=== PATIENT | male | born 1980 | race Two or more races ===

== ENCOUNTER 2017-08-20 14:00 | Inpatient (IN) | payer MEDICAID, OTHER ==
[~2017-08-20] VITALS: Ht 162.6 cm; Wt 48.1 kg
[2017-08-20] VITALS (17 sets, daily range): BP systolic 78–138; BP diastolic 53–88
--- NOTE | 2017-08-20 14:00 | NUR ---
[id number] FROM APARTMENT FOR AMS, POSSIBLE OD OF TRAZODONE MIXED W/ WINE BS-89MG/DL. FRIEND CAME TO HER APARTMENT AND FOUND HER UNCONCSIOUS. PATIENT TRANSFERRED TO BED, ON NON-REBREATHER AT BEDSIDE, PREPARED FOR INTUBATION.
--- NOTE | 2017-08-20 14:02 | NUR ---
PATIENT INTUBATED: ET 7.5, 23 AT THE LIP VENT SETTINGS: AC 16, TV 550, FIO2 100% PEEP 8
--- NOTE | 2017-08-20 14:25 | NUR ---
UNABLE TO INSERT PETERS CATHER AT THIS TIME D/T COMPLICATED ANATOMY, AWARE.
[2017-08-20] MEDS ORDERED: IV NS 0.9% 1,000 ML BAG IV ONE (14:30)
[2017-08-20] MEDS ORDERED: ETOMIDATE 2 MG/ML VIAL IV ONE (14:30)
[2017-08-20] MEDS ORDERED: SUCCINYLCHOLINE CHLORIDE 20 MG/ML VIAL IV ONE (14:30)
[2017-08-20 14:38] LABS: BASOPHILS % (AUTO) 0.1 % (0.0-2.0); HEMATOCRIT 35 % (39-51); HEMOGLOBIN 11.8 g/dL (13.5-17.5); LYMPHOCYTES # (AUTO) 0.7 /CMM (0.8-4.8); LYMPHOCYTES % (AUTO) 6.8 % (20.0-44.0); MEAN CORPUSCULAR HEMOGLOBIN 32 PG (26.0-33.0); MEAN CORPUSCULAR HGB CONC 34 g/dl (31.0-36.0); MEAN CORPUSCULAR VOLUME 95 fL (80-96); MONOCYTES # (AUTO) 0.5 /CMM (0.1-1.30); MONOCYTES % (AUTO) 5.2 % (2.0-12.0); NEUTROPHILS # (AUTO) 9.2 /CMM (1.8-8.9); NEUTROPHILS % (AUTO) 87.9 % (43.0-81.0); PLATELET COUNT (AUTO) 222 /CMM (150-450); RED BLOOD CELL COUNT(AUTO) 3.67 MIL/uL (4.5-6.0); WHITE BLOOD COUNT (AUTO) 10.4 K/uL (4.3-11.0)
[2017-08-20 14:45] LABS: ABG PCO2 38.2 mmHg (35.0-45.0); ABG PH 7.253 (7.350-7.450); ABG PO2 89.6 mmHg (75.0-100.0); AaDO2 585.2 mmHg; COHb 0.4 % (0.5-1.5); MetHb 0.5 % (0.0-1.5); O2Hb 93.2 % (94.0-97.0); PEEP,BG 8 cm H2O; SITE, ABG Left Brachial; VT, ABG 550 mL
[2017-08-20 14:48] LABS: CALCIUM, SERUM 7.4 mg/dL (8.5-10.1); CREATININE 0.8 mg/dL (0.6-1.3); POTASSIUM 3.7 mmol/L (3.5-5.1)
[2017-08-20 14:53] LABS: ALBUMIN 2.8 g/dL (3.4-5.0); BILIRUBIN,TOTAL 0.3 mg/dL (0.2-1.0); TOTAL PROTEIN, SERUM 5.9 g/dL (6.4-8.2)
[2017-08-20 14:54] LABS: SALICYLATE 0.5 mg/dL (2.8-20.0)
--- NOTE | 2017-08-20 14:55 | NUR ---
PATIENT TAKEN TO CT
[2017-08-20] MEDS ORDERED: IV NS 0.9% 1,000 ML IV ONE ×2 (15:00→15:30)
--- NOTE | 2017-08-20 15:05 | NUR ---
PATIENT RETURNED FROM CT.
[2017-08-20] MEDS ORDERED: PIPERACILLIN /TAZOBACTAM 3.375 G in IV D5W 50 ML IV ONE (15:30)
[2017-08-20] MEDS ORDERED: ETOMIDATE 2 MG/ML VIAL ONE (15:43)
[2017-08-20] MEDS ORDERED: SUCCINYLCHOLINE CHLORIDE 20 MG/ML VIAL ONE (15:43)
--- NOTE | 2017-08-20 15:50 | NUR ---
14 FR NG TUBE INSERTED, CONFIRMED PLACEMENT VIA AUSCULTATION WITH 2 RNS. INTERMITTENT SUCTIONING CONNECTED. 400 ML RED FLUID SUCTIONED OUT, PATIENT DRANK BOTTLE OF WINE PRIOR TO ARRIVAL.
[2017-08-20] MEDS ORDERED: IV NS 0.9% 1,000 ML IV PRN ×2 (15:58→18:00)
[2017-08-20] MEDS ORDERED: MAG HYDROX/AL HYDROX/SIMETH 30 ML UDC PO PRN (16:00)
[2017-08-20] MEDS ORDERED: ZOLPIDEM TARTRATE 5 MG TABLET PO PRN (16:00)
[2017-08-20] MEDS ORDERED: MAGNESIUM HYDROXIDE 30 ML UDC PO PRN (16:00)
--- NOTE | 2017-08-20 16:27 | NUR ---
REPORT GIVEN TO RUBY ACOSTA FOR GLORIA UPON ADMISSION.
--- NOTE | 2017-08-20 16:45 | NUR ---
LEAD COOK- INITIAL NOTE RECEIVED PT FROM ER VIA ARTHUR. PT ORALLY INTUBATED ETT 7.5, 23 @ THE LIP. OGT PRESENT AND CLAMPED. RAC 18G & LAC 20G HL FLUSHED, PATENT AND INTACT. SAFETY MEASURES TAKEN: BED LOCKED AND IN LOW POSITION, SIDE RAILS UP X2 AND BED ALARM ON, WILL CONTINUE TO MONITOR.
--- NOTE | 2017-08-20 16:59 | NUR ---
PATIENT TRANSPORTED TO ICU 253, VIA ACLS PROTOCOL. RNRUBY TO PROVIDE GLORIA.
--- NOTE | 2017-08-20 17:12 | NUR ---
RT PATIENT REC'D ORALLY INTUBATED WITH A 7.5 ETT SECURED VIA ANCHOR FAST AT 23CM MID LIP. CHEST X-RAY CONFIRMED PROPER PLACEMENT. VENT SETTINGS SET PER MD DR VEGA: AC 16, 550, 100% +8 PEEP. VENT ALARMS CHECKED + AUDIBLE. VENT PLUGGED INTO RED OUTLET. BILAT CHEST RISE NOTED. B/S DIM BILAT. SUCTIONED WITH NO SECRETIONS. AMBU BAG AT HOB. Addendum: 08/20/17 at 1715 by BRYNN BARBER RT Amended: Links added.
--- NOTE | 2017-08-20 17:25 | NUR ---
EMPLOYMENT DIRECTOR- CALLED AND SPOKE TO DR. SMITH. INFORMED MD OF THE FOLLOWIN) PT BP DROPPING FROM 90S TO HIGH 80S, 2) 1430 LACTIC ACID RESULT IS 5.9 AND 3) PT'S CORE TEMPERATURE IS 90.7. OBTAINED ORDERS FOR 1) NS 1L BOLUS X1, 2) INCREASE IVF TO 125 ML/HR, 3) OK FOR RUPAL HUGGER AND 4) REPEAT LACTIC ACID NOW. ALL ORDERS PLACED. WILL CONTINUE TO MONITOR.
[2017-08-20] MEDS: PANTOPRAZOLE 40 MG VIAL IV SCH (17:49)
[2017-08-20] MEDS: IV NS 0.9% 1,000 ML IV PRN (17:49)
[2017-08-20] MEDS: ENOXAPARIN SODIUM 40 MG/0.4 ML DISP.SYRIN SQ SCH (17:51)
[2017-08-20] MEDS ORDERED: FEE PK DOSING 1 MIN EA MC ONE (18:19)
[2017-08-20] MEDS: VANCOMYCIN 1.25 GM in IV D5W 500 ML IV SCH (19:46)
--- NOTE | 2017-08-20 20:00 | NUR ---
received pt from day shift, s/p overdose, lethargic, responds to pain stimuli only, ST, on the vent, intubated, lungs clear, no edema, restraints on, diaper, temp in normal now, was 90.7 at the time of admission, OG to LIS some output, v/s stable,no pain, pt turned and repositioned.
--- NOTE | 2017-08-20 21:30 | NUR ---
PT HR 162, Dr media liaison officer called, order for metoprolol 5mg ivp received and carried out.
--- NOTE | 2017-08-20 21:45 | NUR ---
HR 123.
[2017-08-20] MEDS: METOPROLOL TARTRATE INJ 5 MG/5 ML AMPUL IVP PRN (22:28)
[2017-08-20] MEDS ORDERED: METOPROLOL TARTRATE INJ 5 MG/5 ML AMPUL ONE (22:31)
[2017-08-20] MEDS: PIPERACILLIN /TAZOBACTAM 3.375 G in IV D5W 50 ML IV SCH (22:32)
[2017-08-20] MEDS: PROPOFOL 100 ML IV PRN (23:00)
--- NOTE | 2017-08-20 23:00 | NUR ---
Tylenol 650mg given
--- NOTE | 2017-08-20 23:00 | NUR ---
pt temp up to 103.2 cooling measures started, pt on cooling blanket.
--- NOTE | 2017-08-20 23:15 | NUR ---
pt starts waking up pulling lines and tubes Diprivan started at 5mcg.
[2017-08-20] MEDS ORDERED: ACETAMINOPHEN 650 MG/20.3 ML UDC ONE (23:34)
[2017-08-20] MEDS: ACETAMINOPHEN 650 MG/20.3 ML UDC NG PRN (23:36)
[2017-08-21] VITALS (98 sets, daily range): BP systolic 70–135; BP diastolic 36–78
--- NOTE | 2017-08-21 00:37 | NUR ---
pt is resting in the bed, sedated on Diprivan at 10mcg, ST, temp 101.5, v/s stable, no pain, pt turned and repositioned q2hrs.
[2017-08-21] MEDS: IV NS 0.9% 1,000 ML IV PRN ×3 (00:53→18:01)
--- NOTE | 2017-08-21 01:06 | NUR ---
pt SBP 73-82 Dr configuration management advisor called, order for jan received and carried out.
[2017-08-21] MEDS ORDERED: PHENYLEPHRINE 10 MG/ML VIAL ONE ×2 (01:07→01:10)
[2017-08-21] MEDS: PHENYLEPHRINE 80 MG in IV D5W 250 ML IV PRN ×2 (01:20→10:00)
[2017-08-21] MEDS: PIPERACILLIN /TAZOBACTAM 3.375 G in IV D5W 50 ML IV SCH ×4 (03:55→22:12)
[2017-08-21] MEDS: VANCOMYCIN 1.25 GM in IV D5W 500 ML IV SCH ×3 (04:32→19:53)
--- NOTE | 2017-08-21 04:52 | NUR ---
pt is resting in the bed, sedated on Diprivan at 20mcg, receiving jan at 40mcg, v/s stable, no pain, v/s stable, no pain, pt cleaned, changed and repositioned q2hrs.
[2017-08-21 05:15] LABS: HEMATOCRIT 34 % (39-51); HEMOGLOBIN 11.4 g/dL (13.5-17.5); MEAN CORPUSCULAR HEMOGLOBIN 32 PG (26.0-33.0); MEAN CORPUSCULAR HGB CONC 34 g/dl (31.0-36.0); MEAN CORPUSCULAR VOLUME 96 fL (80-96); PLATELET COUNT (AUTO) 153 /CMM (150-450); RDW COEFFICIENT OF VARIATION 13.2 (11.5-15.0); RED BLOOD CELL COUNT(AUTO) 3.54 MIL/uL (4.5-6.0); WHITE BLOOD COUNT (AUTO) 4.3 K/uL (4.3-11.0)
[2017-08-21 05:16] LABS: BASOPHILS % (AUTO) 0.3 % (0.0-2.0); LYMPHOCYTES # (AUTO) 1.1 /CMM (0.8-4.8); LYMPHOCYTES % (AUTO) 25.3 % (20.0-44.0); MONOCYTES # (AUTO) 0.2 /CMM (0.1-1.30); MONOCYTES % (AUTO) 4.5 % (2.0-12.0); NEUTROPHILS % (AUTO) 69.9 % (43.0-81.0)
[2017-08-21 05:36] LABS: ALBUMIN 2.5 g/dL (3.4-5.0); BILIRUBIN,TOTAL 0.3 mg/dL (0.2-1.0); CALCIUM, SERUM 7.5 mg/dL (8.5-10.1); CREATININE 0.9 mg/dL (0.6-1.3); MAGNESIUM 1.5 mg/dL (1.8-2.4); PHOSPHORUS 3.9 mg/dL (2.5-4.9); POTASSIUM 3.8 mmol/L (3.5-5.1); TOTAL PROTEIN, SERUM 5.7 g/dL (6.4-8.2)
--- NOTE | 2017-08-21 07:15 | NUR ---
TALENT PROGRAM MANAGER NOTES RECEIVED PATIENT SEDATED , NOT IN ACUTE DISTRESS , RESPIRATIONS EVEN AND UNLABORED WITH SPO2 OF 100% VIA MECHANICAL VENTILATOR SETTINGS ORDERED . ET 7.[address] , ST 125 ON BEDSIDE MONITOR , ORAL GASTRIC TUBE IN PLACE VERIFIED PLACEMENT , IV OF R AC # 18 , L AC # 20 , L EJ # 18 PATENT AND INTACT , WITH NS @ 125ML/HR , DIPRIVAN @ 20MCG/KG/MIN , NEOSYNEPRINE @ 40MCG/MIN INFUSING WELL , ALL NEEDS ATTENDED , BED ON LOW AND LOCKED POSITION , SIDE RAILS X2 ,CALL LIGHT WITHIN REACH , HOB@ 45 , WILL CONTINUE TO MONITOR .
[2017-08-21] MEDS: PANTOPRAZOLE 40 MG VIAL IV SCH (08:19)
[2017-08-21] MEDS: PROPOFOL 100 ML IV PRN ×2 (08:19→20:52)
[2017-08-21] MEDS: ACETAMINOPHEN 650 MG/20.3 ML UDC NG PRN ×2 (08:19→15:01)
--- NOTE | 2017-08-21 09:30 | NUR ---
AUDITING CODER NOTES SEEN AND EVALUATED BY DR DANIELS , DISCUSSED RECENT VITALS SIGNS , HYPOTENSIVE , BP OF 84/64 , O NORSYNEPHRINE @ 20MCG /MIN , CAME HERE DUE TO OVERDOSE WITH TRAZADONE UNKNOWN AMOUNT WITH WINE , OFF SEDATION @ 0900 , PT STILL UNRESPONSIVE , T MAX OF 100.5 , ON COOLING MATTRESS , TOLERATING CURRENT VENT SETTINGS WITH SPO2 OF 100% , PER MD GIVE ANOTHER 1L OF NS WIDE OPEN , ORDERS CARRIED OUT
[2017-08-21] MEDS ORDERED: IV NS 0.9% 1,000 ML IV ONE (10:00)
--- NOTE | 2017-08-21 11:15 | NUR ---
CLIENT SERVICE ASSOCIATE NOTES SEEN AND EVALUATED BY DR SMITH , DISCUSSED LABS , CHEST XRAY , TOLERATING CURRENT VENT SETTINGS , OFF SEDATION AT THIS TIME , RESPONSIVE TO DEEP PAIN STIMULI , FEBRILE YESTERDAY , CURRENT TEMP OF 98. 8 , UNABLE TO INSERT MD CUATE AWARE
--- NOTE | 2017-08-21 11:21 | NUR ---
ELECTROMECHANICAL TECHNICIAN NOTES DR SMITH AND TAVARES SIGNED THE CONSENT FOR EMERGENCY PICC LINE INSERTION , CALLED MARY RHOADES , VERIFIED RELATIONSHIP TO THE PT , OK MARY PATIENT IS HER ROOMMATE , NO AVAILABLE RELATIVES TO REACH AT THIS TIME
--- NOTE | 2017-08-21 11:24 | NUR ---
MARKETING SENIOR RECRUITER NOTES FIO2 TITRATED TO 40% PEEP TO 5 WITH SPO2 OF 100 TOLERATING WELL , WITH NO S/S OF DISTRESS , WILL CONTINUE TO MONITOR
[2017-08-21] MEDS: Magnesium 1GM/D5W 100ML PREMIX 100 ML IV SCH ×3 (11:38→12:43)
--- NOTE | 2017-08-21 11:40 | NUR ---
DYNAMO TENDER NOTES SEEN AND EVALUATED BY DR SMITH , DISCUSSED LABS , OFF NEOSYNEPRINE SINCE 1030 WITH STABLE BP , OFF SEDATION @ 0900 STILL SEDATED RESPONSIVE TO DEEP PAIN STIMULI , T MAX OF 100.5 THIS AM , COOLING BLANKET APPLIED , CONDOM CATH PLACED , UNABLE TO INSERT FC DUE TO SMALL URETHRAL OPENING , AWARE
--- NOTE | 2017-08-21 14:00 | NUR ---
CORRECTIONS LIEUTENANT NOTES KEN CHARGE NURSE NOTIFIED DR SMITH REGARDING PT HIV STATUS PER ROOM MATE , ROOM MATE WILL BRING LIST OF MEDICATIONS THAT PT IS TAKING .
[2017-08-21] MEDS: ENOXAPARIN SODIUM 40 MG/0.4 ML DISP.SYRIN SQ SCH (19:56)
--- NOTE | 2017-08-21 20:09 | NUR ---
received pt from day shift, obtunded/lethargic, responds to pain stimuli, ST, on the vent, lungs congested, no edema, condom cath, diaper, OG clamped, restraints on, v/s stable, no pain, pt turned and repositioned.
[2017-08-22] VITALS (53 sets, daily range): BP systolic 92–134; BP diastolic 53–81
--- NOTE | 2017-08-22 00:18 | NUR ---
pt is resting in the bed, restarted on Diprivan because of tachypnea and tachycardia, pt was able to pull lines and tubes, ST, v/s stable, no pain, pt turned and repositioned q2hrs.
[2017-08-22] MEDS: ACETAMINOPHEN 650 MG/20.3 ML UDC NG PRN (01:01)
[2017-08-22] MEDS: PIPERACILLIN /TAZOBACTAM 3.375 G in IV D5W 50 ML IV SCH ×4 (04:24→22:25)
--- NOTE | 2017-08-22 04:35 | NUR ---
pt is resting in the bed, sedated on Diprivan at 20mcg, v/s stable, no pain, pt cleaned, changed and reposition q2hrs.
[2017-08-22] MEDS: IV NS 0.9% 1,000 ML IV PRN ×2 (04:52→18:36)
[2017-08-22] MEDS: VANCOMYCIN 1.25 GM in IV D5W 500 ML IV SCH ×3 (04:53→20:16)
[2017-08-22] MEDS: PROPOFOL 100 ML IV PRN (04:54)
[2017-08-22 05:31] LABS: HEMATOCRIT 30 % (39-51); HEMOGLOBIN 10.2 g/dL (13.5-17.5); LYMPHOCYTES # (AUTO) 1.4 /CMM (0.8-4.8); MEAN CORPUSCULAR HEMOGLOBIN 33 PG (26.0-33.0); MEAN CORPUSCULAR HGB CONC 34 g/dl (31.0-36.0); MEAN CORPUSCULAR VOLUME 97 fL (80-96); MONOCYTES # (AUTO) 0.4 /CMM (0.1-1.30); MONOCYTES % (AUTO) 2.6 % (2.0-12.0); NEUTROPHILS # (AUTO) 12.1 /CMM (1.8-8.9); NEUTROPHILS % (AUTO) 87.4 % (43.0-81.0); PLATELET COUNT (AUTO) 152 /CMM (150-450); RDW COEFFICIENT OF VARIATION 12.8 (11.5-15.0); RED BLOOD CELL COUNT(AUTO) 3.11 MIL/uL (4.5-6.0); WHITE BLOOD COUNT (AUTO) 13.9 K/uL (4.3-11.0)
[2017-08-22 05:53] LABS: CALCIUM, SERUM 7.9 mg/dL (8.5-10.1); CREATININE 0.8 mg/dL (0.6-1.3); MAGNESIUM 2.3 mg/dL (1.8-2.4); PHOSPHORUS 1.9 mg/dL (2.5-4.9); POTASSIUM 3.6 mmol/L (3.5-5.1)
--- NOTE | 2017-08-22 07:30 | NUR ---
HEAD OF HOUSEKEEPING INITIAL NOTES RECEIVED PATIENT IN BED SEDATED, ON DIPRIVAN DRIP 20 MCG, COMFORTABLE, RESPONDS TO PAIN STIMULI, SR ON TELE MONITOR 99 HR, ON VENT SETTINGS ORDERED, CONGESTION IN LUNGS NOTED, SUCTIONED, OG CLAMPED, RESTRAINTS ON, CONDOM CATHETER ON DRAINING YELLOW CLEAR URINE, PATIENT TURNED AND REPOSITION, WILL CONTINUE TO MONITOR.
--- NOTE | 2017-08-22 09:15 | NUR ---
DRAWING KILN SUPERVISOR NOTES SEDATION VACATION, DIPRIVAN DECREASED PER PROTOCOL. WEANING STARTED, PATIENT MOVING EXTREMITIES ABLE TO OPEN EYES SLIGHTLY AND FOLLOW SOME COMMANDS. NO DISTRESS NOTED SOME ST 110S-130S NOTED DR DANIELS MADE AWARE, OK TO CONTINUE WEANING.
[2017-08-22] MEDS ORDERED: DC PROPOFOL WHEN EXTUBATED XX PRN (10:00)
--- NOTE | 2017-08-22 10:19 | NUR ---
pt placed on simv mode per md order. raymundo well at this time. alarms set and audible. ambu bag at head of bed Addendum: 08/22/17 at 1020 by UMER MILLIGAN RT Amended: Links added.
[2017-08-22] MEDS: PANTOPRAZOLE 40 MG VIAL IV SCH (10:40)
[2017-08-22 11:28] LABS: ABG BASE EXCESS -2.5 mmol/L; ABG OXYGEN SATURATION 97.5 % (92.0-98.5); ABG PCO2 35.1 mmHg (35.0-45.0); ABG PH 7.408 (7.350-7.450); ABG PO2 119.1 mmHg (75.0-100.0); AaDO2 125.7 mmHg; COHb 0.2 % (0.5-1.5); MetHb 0.6 % (0.0-1.5); O2Hb 96.7 % (94.0-97.0); PEEP,BG 5 cm H2O; SITE, ABG Right Radial; VENT MODE, BG SIMV 4 550 PS12; VT, ABG 550 mL
[2017-08-22 12:27] LABS: BAND % (MANUAL) 3 % (0.0-5.0); LYMPHOCYTES % (MANUAL) 8 % (16-48); MONOCYTES % (MANUAL) 2 % (0-11.0); NEUTROPHILS % (MANUAL) 87 (42-76)
--- NOTE | 2017-08-22 13:48 | NUR ---
ELECTRIC LOCOMOTIVE FIRER/FIREMAN NOTES PATIENT SEEN BY DR DANIELS, NEW ORDERS GIVEN.
--- NOTE | 2017-08-22 14:53 | NUR ---
FELIPE called pt's friend Mary Ann to discuss if pt. has any family and for a social assessment since pt. is intubated. Mary Ann informed FELIPE that pt. is transgender and goes by the name "Cynthia Willoughby". However, pt. likes to be called "Fartun". Per Mary Ann, pt's mother and brother are in [facility] and pt. has a on and off again relationship with them. 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 Mary Ann informed FELIPE that on day of admission to [facility], pt. was on the phone with a friend on social media who was concerned that pt. was intentionally going to commit suicide by taking pills and drinking alcohol. Pt. had a fight with his boyfriend and decided to take the pills with the alcohol. Pt's friend from [place] contacted Mary Ann and informed her about pt. attempting suicide. Pt. was found by Mary Ann's unconscious on the floor of his apartment. 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 FELIPE contacted ICU CRNaeem Comer and informed her that pt. had intentionally attended suicide and will need a sitter bedside. FELIPE updated case management coordinator Verenice Ramirez regarding aforementioned information. FELIPE to asses pt. bedside tomorrow.
--- NOTE | 2017-08-22 15:15 | NUR ---
ADOPTION COUNSELOR NOTES PATIENT EXTUBATED, PATIENT MONITORED CLOSELY, VSS STABLE, NO SIGNS OF DISTRESS OR SHORTNESS OF BREATH, CLEANED AND REPOSITIONED, PATIENT AROUSABLE AND ABLE TO FOLLOW COMMANDS, REORIENTED TO UNIT DOES NOT REMEMBER HOW SHE ENDED UP IN HOSPITAL, BED IN LOW AND LOCKED POSITION, WILL CONTINUE TO MONITOR.
[2017-08-22] MEDS ORDERED: Sodium Phosphate 15 MMOL in IV D5W 250 ML IV ONE (15:30)
[2017-08-22] MEDS: ACETAMINOPHEN 325 MG TABLET PO PRN (17:57)
--- NOTE | 2017-08-22 18:02 | NUR ---
AUTO BODY MAN NOTES [ATIENT CO OF HEADACHE AND TEMP 100.4 TYLENOL GIVEN WILL CONTINUE TO MONITOR.
--- NOTE | 2017-08-22 18:58 | NUR ---
PICKLING TANK OPERATOR END NOTES PATIENT RESTING IN BED, FRIEND AT THE BEDSIDE, NO SIGNS OF DISTRESS, ALL NEEDS MET WILL ENDORSE TO CONSTRUCTION REPRESENTATIVE.
[2017-08-22] MEDS: ENOXAPARIN SODIUM 40 MG/0.4 ML DISP.SYRIN SQ SCH (20:17)
[2017-08-23] VITALS (28 sets, daily range): BP systolic 109–140; BP diastolic 55–92
[2017-08-23] MEDS ORDERED: ACETAMINOPHEN 650 MG/SUPP.RECT RC ONE (01:03)
[2017-08-23] MEDS: ACETAMINOPHEN 650 MG/SUPP.RECT RC PRN (01:04)
[2017-08-23 01:14] LABS: ABG OXYGEN SATURATION 94.1 % (92.0-98.5); ABG PCO2 36.9 mmHg (35.0-45.0); ABG PH 7.401 (7.350-7.450); AaDO2 601.1 mmHg; COHb 0.3 % (0.5-1.5); MetHb 0.5 % (0.0-1.5); O2Hb 93.3 % (94.0-97.0); SITE, ABG Left Radial; VENT MODE, BG NRB
--- NOTE | 2017-08-23 01:15 | NUR ---
PUBLIC ADMINISTRATION TEACHER: PT IS TACHYPNEIC, DESATURATING TO 89 WITH 4 L NASAL CANNULA, TEMP 101.1, NOTIFIED LANDEN KELLY, ORDERS FOR STAT ABG DONE, TYLENOL 650 MG SUPPOSITORY RECTALLY GIVEN. COOLING MEASURES APPLIED. KEEP MONITORING....
--- NOTE | 2017-08-23 01:57 | NUR ---
VIBRATOR OPERATOR: ABG DONE , LOOKS NORMAL. PT ON NON REBREATHER MASK SATURATING 100%, TYLENOL SUPPOS GIVEN. KEEP MONITORING....
--- NOTE | 2017-08-23 02:54 | NUR ---
SETTER INDUCTION HEATING EQUIPMENT; REASSESSMENT, TEMP 100, HEART RATE 100-110, RR 20-25, SATURATING 100% WITH NON REBREATHER MASK 15 L, NO DISTRESS, PT COMFORTABLY SLEEPING WITH SITTER 1:1. KEEP MONITORING....
[2017-08-23] MEDS: PIPERACILLIN /TAZOBACTAM 3.375 G in IV D5W 50 ML IV SCH ×4 (03:31→22:39)
[2017-08-23] MEDS: VANCOMYCIN 1.25 GM in IV D5W 500 ML IV SCH ×3 (04:10→20:03)
[2017-08-23] MEDS: IV NS 0.9% 1,000 ML IV PRN (04:11)
[2017-08-23 06:24] LABS: CALCIUM, SERUM 7.8 mg/dL (8.5-10.1); CREATININE 0.7 mg/dL (0.6-1.3); MAGNESIUM 1.7 mg/dL (1.8-2.4); PHOSPHORUS 2.5 mg/dL (2.5-4.9)
[2017-08-23 06:35] LABS: BASOPHILS % (AUTO) 0.2 % (0.0-2.0); EOSINOPHILS % (AUTO) 0.1 % (0.0-6.0); HEMATOCRIT 27 % (39-51); HEMOGLOBIN 9.1 g/dL (13.5-17.5); LYMPHOCYTES % (AUTO) 14.5 % (20.0-44.0); MEAN CORPUSCULAR HEMOGLOBIN 32 PG (26.0-33.0); MEAN CORPUSCULAR HGB CONC 33 g/dl (31.0-36.0); MEAN CORPUSCULAR VOLUME 97 fL (80-96); MONOCYTES # (AUTO) 0.4 /CMM (0.1-1.30); NEUTROPHILS # (AUTO) 11.3 /CMM (1.8-8.9); NEUTROPHILS % (AUTO) 82.2 % (43.0-81.0); PLATELET COUNT (AUTO) 160 /CMM (150-450); RED BLOOD CELL COUNT(AUTO) 2.81 MIL/uL (4.5-6.0); WHITE BLOOD COUNT (AUTO) 13.7 K/uL (4.3-11.0)
--- NOTE | 2017-08-23 08:00 | NUR ---
ICU/RN AM SHIFT INITIAL NOTES RECEIVED PT ASLEEP IN BED, AROUSEABLE, A/O X 3, DENIES ANY SYMPTOMS. NO ACUTE RESPIRATORY DISTRESS OR ACUTE CHANGE OF CONDITION NOTED. PT ON NON-BREATHER MASK WITH 15L O2, SATURATING @ 97%, WITH DIMINISHED LUNG SOUNDS. ON TELE WITH SINUS RHYTHM, HR 100. PICC LINE WITH ON GOING INFUSION OF NS @ 125CC/HR. CONDOM CATHETER INTACT NOTED WITH YELLOW URINE OUTPUT. PT ON NPO STATUS FOR POSSIBLE SWALLOW EVALUATION TODAY. PT IS COMFORTABLE AT THIS TIME. SCHEDULED AM MEDS TO BE GIVEN. CL WITHIN REACHED AND SAFETY MAINTAINED. ON GOING MONITORING.
--- NOTE | 2017-08-23 08:20 | NUR ---
ICU/RN O2 DELIVERY O2 DELIVERY CHANGE TO 3L N/C, BUT PT NOTED WITH RESPIRATORY DISTRESS, DESATURATES TO 80s, PT VERBALIZED HAVING HARD TIME BREATHING. O2 DELIVERY CHANGE TO SIMPLE MASK WITH 12L O2, PT NOW SATURATING @ 97%. MONITORING CONTINUED.
[2017-08-23] MEDS: PANTOPRAZOLE 40 MG VIAL IV SCH (08:22)
--- NOTE | 2017-08-23 09:20 | NUR ---
ICU/RN ROUNDS - DR. DANIELS UPDATED PT'S CONDITION. PT SEEN & EXAMINED BY DR. DANIELS. NO NEW ORDERS RECEIVED AT THIS TIME. MONITORING CONTINUED.
[2017-08-23] MEDS ORDERED: Potassium Chloride 10 MEQ in IV D5W 50 ML IV SCH (11:00)
--- NOTE | 2017-08-23 11:07 | NUR ---
PER DR TEAGUE VERBAL ORDER ABG CANCELLED
[2017-08-23 11:42] LABS: ABG BASE EXCESS -0.2 mmol/L; ABG OXYGEN SATURATION 92.5 % (92.0-98.5); ABG PCO2 39.2 mmHg (35.0-45.0); ABG PH 7.411 (7.350-7.450); ABG PO2 65.1 mmHg (75.0-100.0); AaDO2 319.6 mmHg; COHb 0.3 % (0.5-1.5); MetHb 0.5 % (0.0-1.5); O2Hb 91.8 % (94.0-97.0); SITE, ABG Right Radial; VENT MODE, BG 12l n/c
[2017-08-23 12:10] LABS: EOSINOPHILS % (MANUAL) 1 % (0-4); LYMPHOCYTES % (MANUAL) 12 % (16-48); MONOCYTES % (MANUAL) 2 % (0-11.0); NEUTROPHILS % (MANUAL) 85 (42-76)
[2017-08-23] MEDS: Magnesium 1GM/D5W 100ML PREMIX 100 ML IV SCH ×2 (12:56→15:20)
[2017-08-23] MEDS: ACETAMINOPHEN 325 MG TABLET PO PRN ×2 (12:56→19:50)
--- NOTE | 2017-08-23 14:30 | NUR ---
ICU/RN ROUNDS NO ACUTE CHANGE OF CONDITION. PADMINI CARE PROVIDED. ASK PT WHAT HE WANTS TO BE CALLED PER PT, HE WANT TO CALLED [facility]. WILL ENDORSED TO STAFF. MONITORING CONTINUED.
--- NOTE | 2017-08-23 16:00 | NUR ---
ICU/RN ROUNDS - DR. CANO PT SEEN & EXAMINED BY DR. CANO. NO NEW ORDERS RECEIVED AT THIS TIME. Addendum: 08/23/17 at 1603 by WILBERT JULIEN RN ADDENDUM: PER DR. CANO. PT REFUSED MEDICATION AT THIS TIME, AND PER MD ONCE PT ON MEDICAL FLOOR NEEDS TO BE 1:1 FOR AT 24 HOURS.
[2017-08-23] MEDS: LACTOBACILLUS RHAMNOSUS GG 1 EACH CAP.SPRINK PO SCH (16:44)
[2017-08-23] MEDS: Potassium Chloride 10 MEQ in IV D5W 50 ML IV SCH ×6 (16:44→23:46)
[2017-08-23] MEDS ORDERED: LIDO30CR TP (18:36)
[2017-08-23] MEDS ORDERED: CALC-261 PO (18:36)
[2017-08-23] MEDS ORDERED: ABAC1TAB15 PO (18:36)
[2017-08-23] MEDS ORDERED: ALPR1TAB7 GT (18:36)
[2017-08-23] MEDS ORDERED: MULT1TAB62 PO (18:36)
--- NOTE | 2017-08-23 19:12 | NUR ---
ICU/RN AM SHIFT END NOTES PT NOTED TO DESATURATES WHEN OFF THE SIMPLE MASK. ALL NEEDS MET. PT ENDORSED TO PM NURSE TO CONTINUE CARE. PT WITH SITTER AT BEDSIDE. CL WITHIN REACHED AND SAFETY MAINTAINED.
--- NOTE | 2017-08-23 19:30 | NUR ---
FLOODPLAIN MANAGER INITIAL NOTES RECEIVED PATIENT AWAKE A/OX3, ABLE TO MAKE NEEDS KNOWN. WITH C/O HEADACHE /10. NO RESPIRATORY DISTRESS NOTED ON 15LPM SIMPLE MASK SPO2 98%. SKIN WARM AND DRY TO TOUCH. ON TELE MONITOR ST 112. WITH CONDOM CATH INTACT, DRAINING BY GRAVITY, CLEAR, YELLOW OUTPUT. WITH VITA PICC LINE PATENT AND INTACT WITH KCL RUNNING. HOB ELEVATED. SIDE RAILS UP AND LOCKED. BED KEPT AT LOWEST POSITION. CALL LIGHT KEPT WITHIN EASY REACH. WILL CONTINUE TO MONITOR.
[2017-08-23] MEDS: ENOXAPARIN SODIUM 40 MG/0.4 ML DISP.SYRIN SQ SCH (21:24)
--- NOTE | 2017-08-23 22:21 | NUR ---
PATIENT AWAKE ALERT AND ORIENTED, C/O OF FEELING ANXIOUS. STATES SHE TAKES ANXIETY MEDICATIONS AT HOME. INFORMED KYLEE, OK TO CONTINUE ANXIETY MEDICATION. WILL CONTINUE TO MONITOR.
[2017-08-23] MEDS ORDERED: ALPRAZOLAM 0.25 MG TABLET PO PRN (22:30)
[2017-08-23] MEDS ORDERED: ALPRAZOLAM 1 MG TABLET ONE (22:42)
[2017-08-23] MEDS: ALPRAZOLAM 1 MG TABLET PO PRN (22:43)
[2017-08-23] MEDS: IV NS 0.9% 250 ML IV PRN (23:00)
[2017-08-24] VITALS (31 sets, daily range): BP systolic 89–147; BP diastolic 53–124
[2017-08-24] MEDS: HYDROCODONE/APAP 5/325MG 1 EACH TABLET PO PRN ×2 (00:59→05:59)
--- NOTE | 2017-08-24 00:59 | NUR ---
PATIENT C/O SEVERE MIGRAINE 05/07. PRN NORCO GIVEN. PATIENT EXPRESSED HE HASN'T SLEPT VERY WELL EVERY SINCE HE HAS BEEN AT THE HOSPITAL, STATES SHE HAS NIGHTMARES THAT KEEP HER AWAKE. WILL CONTINUE TO MONITOR.
[2017-08-24] MEDS: ACETAMINOPHEN 650 MG/SUPP.RECT RC PRN (01:45)
--- NOTE | 2017-08-24 01:45 | NUR ---
NOTED PATIENT WITH TEMPORAL TEMPERATURE 102.6, PRN ACETAMINOPHEN OK GIVEN. COOLING MEASURES RENDERED. WILL CONTINUE TO MONITOR.
[2017-08-24] MEDS: PIPERACILLIN /TAZOBACTAM 3.375 G in IV D5W 50 ML IV SCH ×4 (03:42→22:21)
[2017-08-24] MEDS: VANCOMYCIN 1.25 GM in IV D5W 500 ML IV SCH ×2 (03:42→13:16)
--- NOTE | 2017-08-24 04:00 | NUR ---
PATIENT RESTING COMFORTABLY, STATES HIS HEADACHE IS GONE. WITH TEMPORAL TEMPERATURE OF 100.8, CONTINUING WITH COOLING MEASURES. WILL CONTINUE TO MONITOR.
[2017-08-24] MEDS: IV NS 0.9% 1,000 ML IV PRN ×2 (04:41→22:03)
[2017-08-24 05:46] LABS: CREATININE 0.7 mg/dL (0.6-1.3); MAGNESIUM 1.7 mg/dL (1.8-2.4); PHOSPHORUS 2.8 mg/dL (2.5-4.9)
--- NOTE | 2017-08-24 06:02 | NUR ---
PATIENT C/O 04/06 HEADACHE CAUSED BY DRY COUGH. PATIENT REFUSES TO BE CHANGED AT THIS TIME. EXPLAINED TO PATIENT SHE IS WET AND REQUIRES TO BE CHANGED. PATIENT STATES HE'S FINE AND WOULD LIKE TO BE LEFT ALONE AT THIS TIME. WILL CONTINUE TO MONITOR.
--- NOTE | 2017-08-24 06:32 | NUR ---
PATIENT NOTED WITH DRY COUGH, SPO2 79% ON NON-REBREATHER. HR 132, CHARGE NURSE AND RT AWARE. RT AT BEDSIDE. WILL CONTINUE TO MONITOR.
[2017-08-24 06:45] LABS: ABG BASE EXCESS -1.4 mmol/L; ABG OXYGEN SATURATION 79.3 % (92.0-98.5); ABG PH 7.364 (7.350-7.450); COHb 0.8 % (0.5-1.5); MetHb 0.3 % (0.0-1.5); O2Hb 78.4 % (94.0-97.0); SITE, ABG Left Radial; VENT MODE, BG NRB
--- NOTE | 2017-08-24 06:57 | NUR ---
RELAYED STAT ABG RESULTS AND CXR TO DR. SCHUMACHER, INFORMED REGARDING PATIENT C/O SOB, AND DESATURATION OF 78% ON NON-REBREATHER. WITH ORDERS FOR BIPAP I/E 12/04, RATE 20, FIO2 100%. NOTED AND CARRIED OUT. RT MADE AWARE.
--- NOTE | 2017-08-24 07:20 | NUR ---
BUTTER WRAPPER CLOSING NOTES PATIENT PLACED ON BIPAP BY RT SPO2 100%. SINUS TACH ON TELE MONITOR. INFORMED KYLEE REGARDING PATIENT DRY COUGH WITH ORDERS FOR ROBITUSSIN. PATIENT CURRENTLY NOT COUGHING AT THIS TIME. SKIN WARM AND DRY TO TOUCH. ALL NEEDS ANTICIPATED AND MET. KEPT CLEAN AND DRY. CONDOM CATH IN PLACE, DRAINING BY GRAVITY. HOB ELEVATED. SIDE RAILS UP AND LOCKED. BED KEPT AT LOWEST POSITION. CALL LIGHT KEPT WITHIN EASY REACH. CONTINUITY OF CARE ENDORSED TO AM NURSE.
--- NOTE | 2017-08-24 07:31 | NUR ---
RT PATIENT WAS PLACED ON RESCUE BIPAP FOR EPISODE OF DISTRESS WITH DESATURATION. PATIENT CURRENTLY RESPONDING WELL TO BIPAP. ALARMS CHECKED + AUDIBLE. SETTINGS SET BY MD DANIELS. Addendum: 08/24/17 at 0734 by BRYNN BARBER RT Amended: Links added.
[2017-08-24] MEDS: LACTOBACILLUS RHAMNOSUS GG 1 EACH CAP.SPRINK PO SCH ×2 (09:00→17:00)
[2017-08-24] MEDS: MULTIPLE VIT (LYCOPENE/FA/MV,CA,IRON,MIN/LUT)1 TAB PO SCH (09:00)
[2017-08-24] MEDS: CALCIUM CARB 600MG /VIT D 1 EACH TABLET PO SCH (09:00)
[2017-08-24] MEDS: PANTOPRAZOLE 40 MG VIAL IV SCH (09:00)
[2017-08-24] MEDS: ACETAMINOPHEN 650 MG/20.3 ML UDC NG PRN (09:00)
[2017-08-24 09:13] LABS: EOSINOPHILS % (AUTO) 0.1 % (0.0-6.0); HEMATOCRIT 29 % (39-51); HEMOGLOBIN 9.6 g/dL (13.5-17.5); LYMPHOCYTES # (AUTO) 1.6 /CMM (0.8-4.8); LYMPHOCYTES % (AUTO) 9.7 % (20.0-44.0); MEAN CORPUSCULAR HEMOGLOBIN 32 PG (26.0-33.0); MEAN CORPUSCULAR HGB CONC 33 g/dl (31.0-36.0); MEAN CORPUSCULAR VOLUME 97 fL (80-96); MONOCYTES # (AUTO) 0.7 /CMM (0.1-1.30); MONOCYTES % (AUTO) 4.5 % (2.0-12.0); NEUTROPHILS # (AUTO) 13.8 /CMM (1.8-8.9); NEUTROPHILS % (AUTO) 85.7 % (43.0-81.0); PLATELET COUNT (AUTO) 180 /CMM (150-450); RDW COEFFICIENT OF VARIATION 13.1 (11.5-15.0); RED BLOOD CELL COUNT(AUTO) 2.97 MIL/uL (4.5-6.0); WHITE BLOOD COUNT (AUTO) 16.1 K/uL (4.3-11.0)
[2017-08-24] MEDS: POTASSIUM CL. PREMIX PERIPHER. 50 ML IV SCH ×6 (10:12→17:24)
[2017-08-24] MEDS: Magnesium 1GM/D5W 100ML PREMIX 100 ML IV SCH ×2 (11:11→12:16)
--- NOTE | 2017-08-24 11:28 | NUR ---
RN NOTE PATIENT VANCOMYCIN PEAK CANCELLED, VANC TROUGH ORDERED INSTEAD RN CALLED PHARMACY AND LAB TO ACKNOWLEDGE
--- NOTE | 2017-08-24 14:33 | NUR ---
rn note md christina nolasco at bedside to intubate patient, rt at bed side along with charge nurse
--- NOTE | 2017-08-24 14:35 | NUR ---
ICU/RN PT IS INTUBATED.DIPRIVAN STARTED ORDERED.CONTINUE MONITORING.
[2017-08-24] MEDS: PROPOFOL 100 ML IV PRN ×3 (14:50→22:54)
--- NOTE | 2017-08-24 15:07 | NUR ---
PATIENT WAS NO LONGER TOLERATING BIPAP WITH NOTICED INCREASE WORK OF BREATHING AND DESATURATION. PATIENT ORALLY INTUBATED BY ALIYAH RUSSELL WITH A 8.0 ETT SECURED AT 25CM VIA ANCHOR FAST. PLACED ON SETTINGS SET PER DR DANIELS. VENT ALARMS CHECKED + AUDIBLE. CUFF PRESSURE ADJUNCT INSTRUCTOR CHEMISTRY. SX'D WITH SMALL AMT BLOOD TINGED SECRETIONS. BILAT BREATH SOUNDS HEARD. POSITIVE CO2 DETECTOR COLOR CHANGE. AMBU BAG AT HOB Addendum: 08/24/17 at 1514 by BRYNN BARBER RT Amended: Links added.
[2017-08-24] MEDS ORDERED: SUCCINYLCHOLINE CHLORIDE 20 MG/ML VIAL IV ONE (15:40)
[2017-08-24] MEDS ORDERED: ETOMIDATE 2 MG/ML VIAL IV ONE (15:40)
--- NOTE | 2017-08-24 16:26 | NUR ---
IRRIGATION FLUME LAYER NOTE PATIENT IN BED STABLE AT THIS TIME, INTUBATED VENT SETTINGS ARE FOLLOWS AC 16 TV 450 FIO2 80 PEEP 10 ETT TUBE SIZE 8 ORAL AT 24 POSITION, PATIENT CURRENT 02 SAT 98 ABG ORDERED FOR 5PM B/P 96/54. BILATERAL WRIST RESTRAINT ON PATIENT PROPANOL STARTED AND MONITORED VIA CHARGE NURSE NADEGE SEE RN CHARTING IV SPREADSHEET
[2017-08-24] MEDS: SERTRALINE HCL 25 MG TABLET PO SCH (17:00)
--- NOTE | 2017-08-24 17:16 | NUR ---
RN NOTE BROUGHT TO NURSE ATTENTION VIA RT: PATIENT HIV STATUS NOT NOTED IN CHART PATIENT FRIEND MADALYN STATES PATIENT IS HIV+ HOWEVER PATIENT VIRAL LOAD IS UNDETECTABLE.PLEASE CONTINUE UNIVERSAL PRECAUTION - PATIENT MEDICATION GIVEN TO PHARMACY FOR EVALUATION. RN WILL BE INSERTING A OG TUBE WITH THE HELP OF ANOTHER RN AT BEDSIDE FOR MEDICATION ADMINISTRATION
[2017-08-24 17:17] LABS: ABG BASE EXCESS 0.9 mmol/L; ABG OXYGEN SATURATION 97.1 % (92.0-98.5); ABG PCO2 38.7 mmHg (35.0-45.0); ABG PO2 100.2 mmHg (75.0-100.0); AaDO2 429.6 mmHg; COHb 0.3 % (0.5-1.5); MetHb 0.2 % (0.0-1.5); O2Hb 96.6 % (94.0-97.0); PEEP,BG 10 cm H2O; SITE, ABG Right Radial
--- NOTE | 2017-08-24 18:11 | NUR ---
RESIDENTIAL PROPERTY MANAGER CLOSING NOTE PATIENT IN BED CURRENTLY INTUBATED , DUE TO DECREASED C02 AND O2 LEVELS NOTED ON ABG , CXR SHOW FLUID , WHICH HAD BEEN DISCUSSED WITH PATIENT PER MD DANIELS , PLAN OF CARE REVIEWED WITH PATIENT PRIOR TO INTUBATION , PATIENT IS IN BED BILATERAL WRIST RESTRAINTS - VENT SETTINGS AC 16 TV 450 FIO2 80 AND PEEP 10 PATIENT ALSO PLACED ON PROPOFOL SEDATION CHECKS PERFORMED Q 4HR MARLON) PATIENT HAS NO NEW WOUNDS NOTED PATIENT NEEDS MONITORED AND MET. PATIENT IN CALL LIGHT WITHIN REACH PATIENT FRIEND BROUGHT IN HOME MEDICATION . MEDICATION TAKING TO PHARMACY. PATIENT STABLE AT THIS TIME RN WILL ENDORSE CONTINUATION OF CARE TO PM RN
[2017-08-24] MEDS: VANCOMYCIN 1.5 GM in IV D5W 500 ML IV SCH (19:43)
--- NOTE | 2017-08-24 20:17 | NUR ---
PATIENT REC'D ORALLY INTUBATED WITH A 7.5 ETT SECURED VIA ANCHOR FAST AT 23CM MID LIP. VENT SETTINGS SET ORDERED: AC 16, 450, 80% PEEP +10. VENT ALARMS CHECKED + AUDIBLE. VENT PLUGGED INTO RED OUTLET. B/S DIM BILAT. SUCTIONED WITH PINK FROTHY SECRETIONS. AMBU BAG AT [facility]. Addendum: 08/24/17 at 2022 by VICTORIA JENSEN RT Amended: Links added.
[2017-08-24] MEDS: ENOXAPARIN SODIUM 40 MG/0.4 ML DISP.SYRIN SQ SCH (20:42)
[2017-08-24] MEDS: ALPRAZOLAM 1 MG TABLET PO PRN (23:00)
--- NOTE | 2017-08-24 23:01 | NUR ---
PLATE FITTER DF PT ADMIN XANAX 0.5 MG PRN AGITATION. PT RESTLESS,AGITATED PT ATTEMPTED SELF EXTUBATION, NOT ABLE TO REMOVEOR PULL ON ETT.PT WAS ONLY ABLE TO PULL ON VENTILATOR TUBING. ETT REMAINS IN PLACE @24@LIP LINE WITH GOOD VENTILATION/OXYGENATION. VSS. PROPOFOL INCREASED TO 100 MCG. PT WAS AWAKE ON 80MCG ABLE TO FOLLOW SOME COMMANDS BUT BECAME DANGEROUSLY AGITATED BEING A SELF EXTUBATION RISKS. VSS. NAD NOTED. OGT PLACED PLACEMENT VERIFIED BY 2 RN,Rosette
[2017-08-25] VITALS (104 sets, daily range): BP systolic 76–115; BP diastolic 45–75
[2017-08-25] MEDS ORDERED: PHENYLEPHRINE 10 MG/ML VIAL ONE (00:38)
[2017-08-25] MEDS: ACETAMINOPHEN 650 MG/20.3 ML UDC NG PRN ×2 (00:48→21:04)
[2017-08-25] MEDS: PHENYLEPHRINE 40 MG in IV D5W 250 ML IV PRN ×3 (00:49→20:59)
--- NOTE | 2017-08-25 00:59 | NUR ---
SWITCH TENDER DF PT HYPOTENSIVE WITH SBP IN THE 70-80,S NEOSYNEPHRINE ORDER RECEIVED FROM JAKE SCHUSTER. LIAN GTT STARTED AT 50MCG.GOAL TO KEEP SBP ABOVE 90/MAP ABOVE 65. PT MILD FEVER OF 99.7 PT ADMIN TYLENOL 650 MG LIQ VIA OGT.PT PROPOFOL REDUCED TO 50 MCG. WHEN LIAN STARTED PROPOFOL INCREASED TO 80 MCG( PREVIOUSLY NOTED PT REQUIRES HIGHER DOSES OF PROPOFOL FOR SEDATION. PT SELF EXTUBATION RISK, PT DANGEROUSLY AGITATED WHEN ON LOWER DOSES OF PROPOFOL.
[2017-08-25] MEDS: PROPOFOL 100 ML IV PRN ×7 (01:48→22:07)
[2017-08-25] MEDS: PIPERACILLIN /TAZOBACTAM 3.375 G in IV D5W 50 ML IV SCH ×4 (03:03→21:00)
[2017-08-25] MEDS: VANCOMYCIN 1.5 GM in IV D5W 500 ML IV SCH ×2 (03:03→12:00)
[2017-08-25] MEDS: ABACAVIR PO SCH ×2 (04:46→13:41)
[2017-08-25] MEDS: DOLUTEGRAVIR PO SCH ×2 (04:46→13:41)
[2017-08-25] MEDS: LAMIVUDI PO SCH ×2 (04:46→13:41)
--- NOTE | 2017-08-25 05:08 | NUR ---
VETERINARIAN DF PT,S HOME MED NOT AVAILABLE NON ADMINISTERED. PT NON VERBAL 2ND TO INTUBATION.
[2017-08-25 05:23] LABS: BASOPHILS % (AUTO) 0.3 % (0.0-2.0); EOSINOPHILS # (AUTO) 0.1 /CMM (0.0-0.7); EOSINOPHILS % (AUTO) 0.4 % (0.0-6.0); HEMATOCRIT 27 % (39-51); HEMOGLOBIN 9.3 g/dL (13.5-17.5); LYMPHOCYTES % (AUTO) 13.5 % (20.0-44.0); MEAN CORPUSCULAR HEMOGLOBIN 33 PG (26.0-33.0); MEAN CORPUSCULAR HGB CONC 35 g/dl (31.0-36.0); MEAN CORPUSCULAR VOLUME 95 fL (80-96); MONOCYTES % (AUTO) 6.6 % (2.0-12.0); NEUTROPHILS # (AUTO) 11.5 /CMM (1.8-8.9); NEUTROPHILS % (AUTO) 79.2 % (43.0-81.0); PLATELET COUNT (AUTO) 208 /CMM (150-450); RDW COEFFICIENT OF VARIATION 12.2 (11.5-15.0); RED BLOOD CELL COUNT(AUTO) 2.86 MIL/uL (4.5-6.0); WHITE BLOOD COUNT (AUTO) 14.6 K/uL (4.3-11.0)
[2017-08-25 05:43] LABS: CALCIUM, SERUM 7.7 mg/dL (8.5-10.1); CREATININE 1.9 mg/dL (0.6-1.3); MAGNESIUM 2.2 mg/dL (1.8-2.4); PHOSPHORUS 3.2 mg/dL (2.5-4.9); POTASSIUM 3.5 mmol/L (3.5-5.1)
[2017-08-25] MEDS: IV NS 0.9% 1,000 ML IV PRN ×2 (07:23→16:16)
--- NOTE | 2017-08-25 07:45 | NUR ---
DIRECTOR OF BRAND MARKETING: pt. is sedated with 80 mcg Diprivan, rest, reactive to suction, touch/pain, on wrist restraints, SR, on Franky synephrine 50 mcg gtt, SBP over 90, O2 sat. WNL
[2017-08-25 08:19] LABS: ABG OXYGEN SATURATION 96.8 % (92.0-98.5); ABG PCO2 31.2 mmHg (35.0-45.0); ABG PH 7.401 (7.350-7.450); AaDO2 356.6 mmHg; COHb 0.1 % (0.5-1.5); MetHb 0.7 % (0.0-1.5); PEEP,BG 10 cm H2O; SITE, ABG Right Radial
--- NOTE | 2017-08-25 08:22 | NUR ---
FEEDER CATCHER: is in room, updated with pt.current condition, VS, spoke with RT, waiting ABG, see new orders
[2017-08-25] MEDS: PANTOPRAZOLE 40 MG VIAL IV SCH (09:14)
[2017-08-25] MEDS: LACTOBACILLUS RHAMNOSUS GG 1 EACH CAP.SPRINK PO SCH ×2 (09:15→17:27)
[2017-08-25] MEDS: MULTIPLE VIT (LYCOPENE/FA/MV,CA,IRON,MIN/LUT)1 TAB PO SCH (09:15)
[2017-08-25] MEDS: CALCIUM CARB 600MG /VIT D 1 EACH TABLET PO SCH (09:16)
--- NOTE | 2017-08-25 10:06 | NUR ---
MANAGER BUSINESS INFORMATION: sent message for pharmacy to get HIV home meds which is in eMR
--- NOTE | 2017-08-25 10:59 | NUR ---
FIO2 TITRATED TO 60% Addendum: 08/25/17 at 1059 by BRYNN BARBER RT Amended: Links added.
--- NOTE | 2017-08-25 15:00 | NUR ---
SHELTER CASE MANAGER: pt.is sedated well, continue titrate Diprivan, Neosynephrine gtts, very low urine output through condom cath., getting IVF NS 125ml/h, per shift coordinator nurse report: unable to place in f/c d/t scrotum/prostate surgery before, called to get bladder scanner, notified charge nurse
--- NOTE | 2017-08-25 16:25 | NUR ---
GIN FEEDER: pt.urinated 400ml after reposition
--- NOTE | 2017-08-25 17:00 | NUR ---
TRAVEL INFORMATION CENTER SUPERVISOR: is in room, updated with pt.current condition, sedation level, Franky-synephrine gtt, VS, I/O, IVF, meds, labs, liquid stool x2, restraints, ordered: BCx2, stool sample for c-diff, lactic acid, NPO except meds
[2017-08-25] MEDS: SERTRALINE HCL 25 MG TABLET PO SCH (17:27)
--- NOTE | 2017-08-25 18:32 | NUR ---
THIOKOL OPERATOR: pt.is sedated well with 70 mcg Diprivan, continue titrate, 80 mcg Franky gtt, SBP over 90, SR, O2 sat. over 96%, condom cath is intact/patent, FiO2 60% now, restraints applied by protocol observation, skin is intact, PM/skin care done, pt.was suctioned well
--- NOTE | 2017-08-25 19:27 | NUR ---
PT RECEIVED INTUBATED WITH 8.0 ETT SECURED AT 24CM AT THE LIP. TOLERATING VENT SETTINGS. NO RESP DISTRESS. SX'D FOR MOD AMT OF THICK YELLOW SECRETIONS. VENT ALARMS SET AND AUDIBLE. AMBU BAG AT BEDSIDE. VENT PLUGGED INTO RED OUTLET. WILL CONTINUE TO MONITOR. Addendum: 08/25/17 at 1928 by VICTORIA JENSEN RT Amended: Links added.
[2017-08-25] MEDS: ENOXAPARIN SODIUM 40 MG/0.4 ML DISP.SYRIN SQ SCH (21:00)
[2017-08-26] VITALS (97 sets, daily range): BP systolic 90–125; BP diastolic 54–81
[2017-08-26] MEDS: IV NS 0.9% 1,000 ML IV PRN ×4 (00:52→23:53)
[2017-08-26] MEDS: PROPOFOL 100 ML IV PRN ×7 (01:15→22:53)
--- NOTE | 2017-08-26 03:33 | NUR ---
FIO2 DECREASED TO 50% PT RICHAR WELL, NO ADVERSE REACTION Addendum: 08/26/17 at 0334 by VICTORIA JENSEN RT Amended: Links added.
[2017-08-26] MEDS: PIPERACILLIN /TAZOBACTAM 3.375 G in IV D5W 50 ML IV SCH ×2 (03:54→09:34)
[2017-08-26] MEDS: ACETAMINOPHEN 650 MG/20.3 ML UDC NG PRN (04:25)
[2017-08-26 06:37] LABS: BASOPHILS % (AUTO) 0.1 % (0.0-2.0); EOSINOPHILS # (AUTO) 0.1 /CMM (0.0-0.7); EOSINOPHILS % (AUTO) 1.1 % (0.0-6.0); HEMATOCRIT 26 % (39-51); HEMOGLOBIN 8.9 g/dL (13.5-17.5); LYMPHOCYTES # (AUTO) 1.6 /CMM (0.8-4.8); MEAN CORPUSCULAR HEMOGLOBIN 33 PG (26.0-33.0); MEAN CORPUSCULAR HGB CONC 34 g/dl (31.0-36.0); MEAN CORPUSCULAR VOLUME 95 fL (80-96); MONOCYTES # (AUTO) 1.1 /CMM (0.1-1.30); MONOCYTES % (AUTO) 10.4 % (2.0-12.0); NEUTROPHILS # (AUTO) 7.8 /CMM (1.8-8.9); NEUTROPHILS % (AUTO) 73.4 % (43.0-81.0); PLATELET COUNT (AUTO) 218 /CMM (150-450); RDW COEFFICIENT OF VARIATION 12.2 (11.5-15.0); RED BLOOD CELL COUNT(AUTO) 2.71 MIL/uL (4.5-6.0); WHITE BLOOD COUNT (AUTO) 10.6 K/uL (4.3-11.0)
[2017-08-26 07:00] LABS: CALCIUM, SERUM 7.9 mg/dL (8.5-10.1); CREATININE 3.6 mg/dL (0.6-1.3); MAGNESIUM 2.2 mg/dL (1.8-2.4); PHOSPHORUS 4.9 mg/dL (2.5-4.9); POTASSIUM 3.6 mmol/L (3.5-5.1)
--- NOTE | 2017-08-26 07:15 | NUR ---
RN INITIAL NOTES RECEIVED PT INTUBATED, ON VENT. NO RESPIRATORY DISTRESS NOTED. HOB ELEVATED. NO SIGNS OF PAIN NOTED. PT SEDATED. ON DIPRIVAN AT 95MCG/KG/MIN. ON LIAN AT 40MCG/MIN. VITA PICC IN PLACE. IVF: NS AT 125ML/HR INFUSING. OG IN PLACE, CLAMPED. CONDOM CATH INTACT CONNECTED TO PETERS BAG. NO HEMATURIA NOTED. BLE ELEVATED. WILL TITRATE DIPRIVAN ACCORDINGLY. WILL CLOSELY MONITOR.
[2017-08-26] MEDS: PHENYLEPHRINE 40 MG in IV D5W 250 ML IV PRN (08:02)
[2017-08-26] MEDS: PANTOPRAZOLE 40 MG VIAL IV SCH (08:12)
[2017-08-26] MEDS: CALCIUM CARB 600MG /VIT D 1 EACH TABLET PO SCH (08:12)
[2017-08-26] MEDS: ABACAVIR PO SCH (08:13)
[2017-08-26] MEDS: DOLUTEGRAVIR PO SCH (08:13)
[2017-08-26] MEDS: LAMIVUDI PO SCH (08:13)
[2017-08-26] MEDS: LACTOBACILLUS RHAMNOSUS GG 1 EACH CAP.SPRINK PO SCH ×2 (08:13→16:28)
[2017-08-26] MEDS: MULTIPLE VIT (LYCOPENE/FA/MV,CA,IRON,MIN/LUT)1 TAB PO SCH (08:13)
--- NOTE | 2017-08-26 08:30 | NUR ---
RT PATIENT REC'D ORALLY INTUBATED WITH A 8.0 ETT SECURED 23CM SECURED BY ANCHOR FAST. VENT SETTINGS SET BY MD RICHAR MCDANIEL. VENT ALARMS CHECKED + AUDIBLE. CUFF PRESSURE CHECKED ROUGH ROUNDER. SX'D WITH SMALL AMT PALE SEMITHICK SECRETIONS. FIO2 TITRATED TO 40% POST ABG RESULTS. AMBU BAG AT HOB Addendum: 08/26/17 at 1211 by BRYNN BARBER RT Amended: Links added.
[2017-08-26] MEDS: HYDROCODONE/APAP 5/325MG 1 EACH TABLET PO PRN ×3 (08:32→23:28)
--- NOTE | 2017-08-26 11:00 | NUR ---
RN NOTES SEEN AND EXAMINED BY DR. NORRIS. AWARE OF LAB VALUES: HGB 8.9, HCT 26, BUN 23, CREA 3.6. ALSO AWARE OF CXR RESULT. PT REMAINS INTUBATED. ON VENT. ON DIPRIVAN AND LIAN. SEDATION VACATION DONE. PT TRIES TO OPEN EYES AND SQUEEZED RN'S HAND UPON COMMAND. MD ORDERED LABS IN AM AND US KIDNEYS. WILL MONITOR.
[2017-08-26 11:01] LABS: ABG BASE EXCESS -8.4 mmol/L; ABG OXYGEN SATURATION 96.1 % (92.0-98.5); ABG PCO2 32.8 mmHg (35.0-45.0); ABG PH 7.326 (7.350-7.450); ABG PO2 98.7 mmHg (75.0-100.0); AaDO2 220.9 mmHg; COHb 0.3 % (0.5-1.5); MetHb 0.7 % (0.0-1.5); O2Hb 95.1 % (94.0-97.0); PEEP,BG 10 cm H2O; SITE, ABG Right Femoral
--- NOTE | 2017-08-26 11:55 | NUR ---
RN NOTES SEEN AND EXAMINED BY DR. HURTADO. AWARE OF CURRENT VANCO LEVEL AND BUN/CREA. PT ON CONDOM CATH. BLADDER SCAN DONE, >500ML NOTED. DR. NORRIS MADE AWARE. CONTACTED ALIYAH RUSSELL DNP TO INSERT FC. WILL MONITOR. Addendum: 08/26/17 at 1355 by KEVIN GARCIA RN [id number] ALIYAH RUSSELL DNP INSERTED FC. NO HEMATURIA NOTED. URINE COLLECTED ORDERED. WILL MONITOR.
--- NOTE | 2017-08-26 12:00 | NUR ---
RN NOTES SEEN AND EXAMINED BY DR. DANIELS. AWARE OF CURRENT VENT SETTINGS AND ABG RESULT. PT ON DIPRIVAN AT 50MCG/KG/MIN AND LIAN AT 40MCG/MIN. MD ORDERED TITRATE FIO2 TO 40% AND PEEP TO +8. WILL CLOSELY MONITOR.
--- NOTE | 2017-08-26 12:02 | NUR ---
PER DR DANIELS PEEP TITRATED TO 8. FIO2 40% Addendum: 08/26/17 at 1202 by BRYNN BARBER RT Amended: Links added.
[2017-08-26 14:32] LABS: APPEARANCE,URINE SL CLOUDY (CLEAR); BILIRUBIN,URINE NEGATIVE (NEGATIVE); BLOOD, URINE NEGATIVE Ery/uL (NEGATIVE); COLOR,URINE YELLOW (YELLOW); KETONES,URINE NEGATIVE (NEGATIVE); LEUKOCYTE ESTERASE ,URINE NEGATIVE (NEGATIVE); NITRITE, URINE NEGATIVE (NEGATIVE); PROTEIN,URINE TRACE mg/dl (NEGATIVE); UGLUCOSE NEGATIVE (NEGATIVE); UROBILINOGEN,URINE 0.2 EU/dL (0.2)
[2017-08-26 14:42] LABS: CREATININE, URINE 31.6 MG/DL (30.0-125.0); URINE TOTAL PROTEIN 70.4 mg/dL (0-11.9)
[2017-08-26] MEDS: PIPERACILLIN /TAZOBACTAM 2.25 G in IV D5W 50 ML IV SCH ×2 (14:42→20:54)
[2017-08-26 16:15] LABS: BACTERIA,URINE Rare /HPF (None Seen); RBC,URINE 0-2 /HPF (0-2); SQUAMOUS EPITHELIAL CELL,UR 0-2 /HPF (None Seen); WBC,URINE 0-2 /HPF (0-3)
[2017-08-26 16:16] LABS: URINE AMORPHOUS URATE Many /HPF (None Seen)
[2017-08-26] MEDS: SERTRALINE HCL 25 MG TABLET PO SCH (16:28)
[2017-08-26 16:34] LABS: EOSINOPHIL,URINE None Seen
--- NOTE | 2017-08-26 18:52 | NUR ---
RN CLOSING NOTES PT REMAINS INTUBATED, ON VENT. NO RESPIRATORY DISTRESS NOTED. NO SIGNS OF PAIN NOTED. HOB ELEVATED. OG IN PLACE, CLAMPED. VITA PICC LINE IN PLACE. IVF INFUSING. ON DIPRIVAN AT 50MCG/KG/MIN. TITRATED ACCORDINGLY. ON LIAN AT 30MCG/MIN. FC IN PLACE. NO HEMATURIA NOTED. ADEQUATE OUTPUT NOTED. BLE ELEVATED. KEPT CLEAN AND DRY. REPOSITIONED Q2. WILL ENDORSE FOR CONTINUITY OF CARE.
[2017-08-26] MEDS: ENOXAPARIN SODIUM 40 MG/0.4 ML DISP.SYRIN SQ SCH (21:01)
--- NOTE | 2017-08-26 21:46 | NUR ---
PT RECEIVED ON VENT VIA CHARTED ROUTE AND SETTINGS AMBU BAG AT BEDSIDE ALARMS SET AND AUDIBLE. VENT PLUGGED INTO RED OUTLET SUCTIONED A SMALL AMOUNT OF THICK STANTON SECRETIONS. Addendum: 08/26/17 at 2146 by MARTHA DICKEY RT Amended: Links added.
--- NOTE | 2017-08-26 23:40 | NUR ---
ICU/DIGITAL COMPUTER SYSTEMS ANALYST PT APPEARED TO BE IN PAIN, PT HAS FACIAL GRIMACING AND INCREASED HEART RATE TO 110, ALSO INCREASED RESPIRATION TO 30'S. PT WAS TURNED AND REPOSITION FOR COMFORT AND CARE. BUT ALSO GIVEN NORCO 1 TAB FOR THE FACIAL GRIMACING.
[2017-08-27] VITALS (87 sets, daily range): BP systolic 88–119; BP diastolic 49–73
[2017-08-27] MEDS: PIPERACILLIN /TAZOBACTAM 2.25 G in IV D5W 50 ML IV SCH ×4 (02:30→20:09)
[2017-08-27] MEDS: PHENYLEPHRINE 40 MG in IV D5W 250 ML IV PRN ×2 (02:30→15:19)
[2017-08-27] MEDS: PROPOFOL 100 ML IV PRN (02:31)
--- NOTE | 2017-08-27 05:30 | NUR ---
ICU/LECTURER IN MARKETING PT APPEARED TO BE IN PAIN, USING FLACC SCALE GAVE 1 TAB NORCO FOR THIS. ALSO AT THIS TIME GAVE 650MG TYLENOL FOR SLIGHT INCREASE OF TEMP FROM EARLIER. PT WAS TURNED AND REPOSITIONED FOR COMFORT AND CARE.
[2017-08-27 05:37] LABS: BASOPHILS % (AUTO) 0.3 % (0.0-2.0); EOSINOPHILS # (AUTO) 0.2 /CMM (0.0-0.7); HEMATOCRIT 26 % (39-51); HEMOGLOBIN 8.9 g/dL (13.5-17.5); LYMPHOCYTES # (AUTO) 1.4 /CMM (0.8-4.8); LYMPHOCYTES % (AUTO) 8.4 % (20.0-44.0); MEAN CORPUSCULAR HEMOGLOBIN 33 PG (26.0-33.0); MEAN CORPUSCULAR HGB CONC 35 g/dl (31.0-36.0); MEAN CORPUSCULAR VOLUME 94 fL (80-96); MONOCYTES # (AUTO) 0.6 /CMM (0.1-1.30); MONOCYTES % (AUTO) 3.7 % (2.0-12.0); NEUTROPHILS # (AUTO) 14.4 /CMM (1.8-8.9); NEUTROPHILS % (AUTO) 86.6 % (43.0-81.0); PLATELET COUNT (AUTO) 318 /CMM (150-450); RDW COEFFICIENT OF VARIATION 12.7 (11.5-15.0); RED BLOOD CELL COUNT(AUTO) 2.72 MIL/uL (4.5-6.0); WHITE BLOOD COUNT (AUTO) 16.6 K/uL (4.3-11.0)
[2017-08-27 05:50] LABS: BILIRUBIN,TOTAL 0.7 mg/dL (0.2-1.0); CALCIUM, SERUM 8.4 mg/dL (8.5-10.1); CREATININE 4.8 mg/dL (0.6-1.3); MAGNESIUM 2.7 mg/dL (1.8-2.4); PHOSPHORUS 7.3 mg/dL (2.5-4.9); POTASSIUM 4.2 mmol/L (3.5-5.1)
[2017-08-27 05:59] LABS: ALBUMIN 1.4 g/dL (3.4-5.0)
--- NOTE | 2017-08-27 06:37 | NUR ---
ICU/TILE ROOFER AM LABS WERE DRAWN, ALBUMIN WAS 1.4. CALLED BIBI SCHWARZ ORDERS WERE RECEIVED. WILL CARRY OUT THESES ORDERS.
[2017-08-27] MEDS: HYDROCODONE/APAP 5/325MG 1 EACH TABLET PO PRN (06:50)
[2017-08-27] MEDS: ACETAMINOPHEN 650 MG/20.3 ML UDC NG PRN (06:50)
--- NOTE | 2017-08-27 07:50 | NUR ---
ICU/RN PT IS INTUBATED AC MODE,FIO2-40%,PEEP-8.SAT O2-93%.SEDATED WITH PROPOFOL.RIGHT PICC LINE ON THE RIGHT UPPER ARM.PT IS ON NEOSYNEPHRINE AT 30 MCG.T-100.8.F/C DRAINING WITH YELLOW CLOUDY URINE.OG TUBE CLAMPED.SUCTION PROVIDED .REPOSITION FOR COMFORT.
[2017-08-27 08:07] LABS: *BASOS 0 % (Not Estab.); *EOS 1 % (Not Estab.); *EOS, ABSOLUTE 0.1 x10E3/uL (0.0-0.4); *HCT 29.7 % (37.5-51.0); *HGB 9.9 g/dL (13.0-17.7); *IMMATURE GRANULOCYTES 1 % (Not Estab.); *IMMATURE GRANULOCYTES(ABS) 0.1 x10E3/uL (0.0-0.1); *LYMPHOCYTES 16 % (Not Estab.); *LYMPHS, ABSOLUTE 1.5 x10E3/uL (0.7-3.1); *MCH 31.7 pg (26.6-33.0); *MCHC 33.3 g/dL (31.5-35.7); *MCV 95 fL (79-97); *MONOCYTES 9 % (Not Estab.); *MONOS, ABSOLUTE 0.9 x10E3/uL (0.1-0.9); *NEUTROPHILS 73 % (Not Estab.); *NEUTROPHILS, ABSOLUTE 7.1 x10E3/uL (1.4-7.0); *PLT 223 x10E3/uL (150-379); *RBC 3.12 x10E6/uL (4.14-5.80); *RDW 13.7 % (12.3-15.4)
[2017-08-27] MEDS: PANTOPRAZOLE 40 MG VIAL IV SCH (08:15)
[2017-08-27] MEDS: MULTIPLE VIT (LYCOPENE/FA/MV,CA,IRON,MIN/LUT)1 TAB PO SCH (08:15)
[2017-08-27] MEDS: LACTOBACILLUS RHAMNOSUS GG 1 EACH CAP.SPRINK PO SCH ×2 (08:16→16:25)
[2017-08-27] MEDS: CALCIUM CARB 600MG /VIT D 1 EACH TABLET PO SCH (08:16)
[2017-08-27] MEDS ORDERED: PROPOFOL 10MG/ML 50ML 50 ML IV PRN (08:30)
[2017-08-27] MEDS: DOLUTEGRAVIR PO SCH (08:35)
[2017-08-27] MEDS: ABACAVIR PO SCH (08:35)
[2017-08-27] MEDS: LAMIVUDI PO SCH (08:35)
[2017-08-27] MEDS: ALBUMIN 25% 25 GM in PREMIX 1 EA IV SCH ×3 (08:49→19:55)
[2017-08-27] MEDS: IV NS 0.9% 1,000 ML IV PRN ×2 (08:50→16:31)
--- NOTE | 2017-08-27 09:00 | NUR ---
ICU/RN DUE MEDS ARE GIVEN ORDERED.SEDATION VACATION UNABLE TO PROVIDE.PT IS VERY UNSTABLE.MD NOTIFIED.CONTINUE MONITORING.
[2017-08-27 10:32] LABS: ABG OXYGEN SATURATION 90.7 % (92.0-98.5); ABG PO2 72.8 mmHg (75.0-100.0); AaDO2 180.2 mmHg; COHb 0.3 % (0.5-1.5); MetHb 0.3 % (0.0-1.5); O2Hb 90.2 % (94.0-97.0); PEEP,BG 8 cm H2O; SITE, ABG Right Radial; VENT MODE, BG AC 16 450 40% +8; VT, ABG 450 mL
[2017-08-27] MEDS: PROPOFOL 10MG/ML 50ML 50 ML IV PRN ×4 (13:00→22:48)
[2017-08-27] MEDS: SERTRALINE HCL 25 MG TABLET PO SCH (16:25)
--- NOTE | 2017-08-27 18:21 | NUR ---
PT REMAINS ORALLY INTUBATED SETTINGS ORDERED. ALARMS SET AND AUDIBLE ZERO DISTRESS NOTED PEEP INCREASED TO [id number] AMBU BAG AT BED
--- NOTE | 2017-08-27 20:00 | NUR ---
PUNCHBOARD ASSEMBLER - NOTES - PT IS INTUBATED AC MODE, R 16, TV 450, FIO2 40%, PEEP 10 O2SAT 98%. SEDATED WITH PROPOFOL 50 MCG. RIGHT UPPER ARM PICC LINE. PT IS ON NEOSYNEPHRINE AT 50 MCG. F/C DRAINING WITH YELLOW CLOUDY URINE. OG TUBE CLAMPED. SUCTION PROVIDED. REPOSITION FOR COMFORT. WILL CONTINUE TO MONITOR
[2017-08-27] MEDS: ENOXAPARIN SODIUM 40 MG/0.4 ML DISP.SYRIN SQ SCH (20:10)
--- NOTE | 2017-08-27 21:31 | NUR ---
PT RECEIVED ON VENT VIA CHARTED SETTINGS AND ROUTE. TOLERATING VENT SETTINGS. PT SHOWING INCREASED RR AT THIS TIME AMBU BAG AT BEDSIDE, ALARMS SET AND AUDIBLE. VENT PLUGGED INTO RED OUTLET. WILL CONTINUE TO MONITOR Addendum: 08/27/17 at 2133 by MARTHA DICKEY RT Amended: Links added.
[2017-08-27] MEDS: ALPRAZOLAM 1 MG TABLET PO PRN (23:57)
[2017-08-28] VITALS (69 sets, daily range): BP systolic 96–128; BP diastolic 53–77
[2017-08-28] MEDS: PROPOFOL 10MG/ML 50ML 50 ML IV PRN ×12 (00:56→21:47)
[2017-08-28] MEDS: ALBUMIN 25% 25 GM in PREMIX 1 EA IV SCH (01:21)
[2017-08-28] MEDS: IV NS 0.9% 1,000 ML IV PRN ×3 (01:22→16:45)
[2017-08-28] MEDS: PIPERACILLIN /TAZOBACTAM 2.25 G in IV D5W 50 ML IV SCH ×4 (03:09→21:34)
[2017-08-28] MEDS: IV NS 0.9% 250 ML IV PRN (07:25)
--- NOTE | 2017-08-28 07:30 | NUR ---
ICU/RN: Pt received, intubated, tachypneic and tachycardic in 110's. Airway suctioned and cleared of thin white secretions. OGT auscultated, positive placement. VITA PICC flushed, patent with good blood return. FC draining scant clear yellow urine to gravity.
[2017-08-28] MEDS: LACTOBACILLUS RHAMNOSUS GG 1 EACH CAP.SPRINK PO SCH ×2 (08:29→16:45)
[2017-08-28] MEDS: ABACAVIR PO SCH (08:29)
[2017-08-28] MEDS: DOLUTEGRAVIR PO SCH (08:29)
[2017-08-28] MEDS: PANTOPRAZOLE 40 MG VIAL IV SCH (08:29)
[2017-08-28] MEDS: MULTIPLE VIT (LYCOPENE/FA/MV,CA,IRON,MIN/LUT)1 TAB PO SCH (08:29)
[2017-08-28] MEDS: LAMIVUDI PO SCH (08:29)
[2017-08-28] MEDS: CALCIUM CARB 600MG /VIT D 1 EACH TABLET PO SCH (08:30)
[2017-08-28 08:39] LABS: BASOPHILS # (AUTO) 0.1 /CMM (0.0-0.2); BASOPHILS % (AUTO) 0.5 % (0.0-2.0); EOSINOPHILS # (AUTO) 0.1 /CMM (0.0-0.7); EOSINOPHILS % (AUTO) 0.8 % (0.0-6.0); HEMATOCRIT 21 % (39-51); HEMOGLOBIN 7.4 g/dL (13.5-17.5); LYMPHOCYTES # (AUTO) 1.7 /CMM (0.8-4.8); LYMPHOCYTES % (AUTO) 11.3 % (20.0-44.0); MEAN CORPUSCULAR HEMOGLOBIN 33 PG (26.0-33.0); MEAN CORPUSCULAR HGB CONC 35 g/dl (31.0-36.0); MEAN CORPUSCULAR VOLUME 94 fL (80-96); MONOCYTES # (AUTO) 0.8 /CMM (0.1-1.30); NEUTROPHILS # (AUTO) 12.4 /CMM (1.8-8.9); NEUTROPHILS % (AUTO) 82.4 % (43.0-81.0); PLATELET COUNT (AUTO) 297 /CMM (150-450); RDW COEFFICIENT OF VARIATION 13.3 (11.5-15.0); RED BLOOD CELL COUNT(AUTO) 2.23 MIL/uL (4.5-6.0); WHITE BLOOD COUNT (AUTO) 15.1 K/uL (4.3-11.0)
[2017-08-28 08:55] LABS: CALCIUM, SERUM 8.2 mg/dL (8.5-10.1); CREATININE 5.7 mg/dL (0.6-1.3); POTASSIUM 4.7 mmol/L (3.5-5.1)
--- NOTE | 2017-08-28 09:00 | NUR ---
ICU/RN: Sedation vacation: Diprivan slowly decreased to 35mcg/kg/min; however pt noted with increased WOB, facial grimacing, restlessness and tachypnea. Pt attempts to squeeze hands when asked to. Unable to complete neuro check dt pt status. Will resume sedation and titrate per protocol.
[2017-08-28 09:36] LABS: ABG BASE EXCESS -15.8 mmol/L; ABG OXYGEN SATURATION 95.5 % (92.0-98.5); ABG PH 7.202 (7.350-7.450); ABG PO2 100.6 mmHg (75.0-100.0); AaDO2 152.4 mmHg; MetHb 0.3 % (0.0-1.5); O2Hb 95.2 % (94.0-97.0); PEEP,BG 10 cm H2O; SITE, ABG Right Radial; VT, ABG 450 mL
[2017-08-28 09:42] LABS: BAND % (MANUAL) 1 % (0.0-5.0); LYMPHOCYTES % (MANUAL) 13 % (16-48); MONOCYTES % (MANUAL) 2 % (0-11.0); NEUTROPHILS % (MANUAL) 84 (42-76)
--- NOTE | 2017-08-28 11:45 | NUR ---
ICU/RN: Dr Iverson at bedside. Discussed lab results, urine output <30cc/hr and ABG results. Per , Leon Hurtado consulted for HD cath insertion.
[2017-08-28] MEDS ORDERED: VANCOMYCIN 1 GM in IV D5W 250 ML IV SCH (13:00)
--- NOTE | 2017-08-28 14:00 | NUR ---
ICU/RN: Jose, pt's mother and Mary Ann, pt's roommate at bedside. Updated mother on pt status, informed of need for HD cath placement. Consent obtained, pt unable at this time. Contact information placed in chart.
--- NOTE | 2017-08-28 14:30 | NUR ---
ICU/RN: R Femoral HD Cath inserted by Leon Hurtado NP. Pt tolerated procedure well. No active bleeding noted at site. Dressing C/D/I.
[2017-08-28] MEDS: SERTRALINE HCL 25 MG TABLET PO SCH (16:45)
[2017-08-28] MEDS: PHENYLEPHRINE 40 MG in IV D5W 250 ML IV PRN (16:45)
--- NOTE | 2017-08-28 17:15 | NUR ---
ICU/RN: Pt noted with 2nd BM, soft brown of moderate amount. Hygienic care rendered. Pt noted with increased HR and RR with turning and repositioned. Airway suctioned for clearance. Will cont to monitor pt.
--- NOTE | 2017-08-28 20:00 | NUR ---
AMPOULE FILLER - NOTES - Pt received, intubated, tachypneic and tachycardic in 110's. Airway suctioned and cleared of secretions. OGT auscultated, positive placement. VITA PICC flushed, patent with good blood return. FC draining scant clear yellow urine to gravity.
[2017-08-28] MEDS: ENOXAPARIN SODIUM 40 MG/0.4 ML DISP.SYRIN SQ SCH (21:35)
--- NOTE | 2017-08-28 22:03 | NUR ---
PT RECEIVED ON VENT VIA CHARTED SETTINGS AND ROUTE. TOLERATING VENT SETTINGS. AMBU BAG AT BEDSIDE, ALARMS SET AND AUDIBLE. VENT PLUGGED INTO RED OUTLET. WILL CONTINUE TO MONITOR Addendum: 08/28/17 at 2204 by MARTHA DICKEY RT Amended: Links added.
[2017-08-28] MEDS: HYDROCODONE/APAP 5/325MG 1 EACH TABLET PO PRN (23:55)
[2017-08-29] VITALS (70 sets, daily range): BP systolic 101–139; BP diastolic 53–84
[2017-08-29] MEDS: PROPOFOL 10MG/ML 50ML 50 ML IV PRN ×11 (00:12→23:22)
[2017-08-29 01:07] LABS: *% CD 4 POS. LYMPH 30.1 % (30.8-58.5); *% CD 8 POS. LYMPH 47.9 % (12.0-35.5); *ABSOLUTE CD 4 HELPER 452 /uL (359-1519); *ABSOLUTE CD 8 SUPPRESSOR 719 /uL (109-897); *CD4/CD8 RATIO 0.63 (0.92-3.72)
[2017-08-29] MEDS: IV NS 0.9% 1,000 ML IV PRN ×2 (02:28→12:32)
[2017-08-29] MEDS: PIPERACILLIN /TAZOBACTAM 2.25 G in IV D5W 50 ML IV SCH ×3 (02:28→20:21)
[2017-08-29 05:50] LABS: BASOPHILS % (AUTO) 0.2 % (0.0-2.0); EOSINOPHILS # (AUTO) 0.1 /CMM (0.0-0.7); EOSINOPHILS % (AUTO) 0.7 % (0.0-6.0); LYMPHOCYTES # (AUTO) 1.3 /CMM (0.8-4.8); LYMPHOCYTES % (AUTO) 8.9 % (20.0-44.0); MEAN CORPUSCULAR HEMOGLOBIN 33 PG (26.0-33.0); MEAN CORPUSCULAR HGB CONC 35 g/dl (31.0-36.0); MEAN CORPUSCULAR VOLUME 93 fL (80-96); MONOCYTES # (AUTO) 0.7 /CMM (0.1-1.30); MONOCYTES % (AUTO) 4.7 % (2.0-12.0); NEUTROPHILS # (AUTO) 12.8 /CMM (1.8-8.9); NEUTROPHILS % (AUTO) 85.5 % (43.0-81.0); PLATELET COUNT (AUTO) 337 /CMM (150-450); RDW COEFFICIENT OF VARIATION 13.6 (11.5-15.0); RED BLOOD CELL COUNT(AUTO) 2.11 MIL/uL (4.5-6.0); WHITE BLOOD COUNT (AUTO) 14.9 K/uL (4.3-11.0)
[2017-08-29 05:53] LABS: HEMATOCRIT 20 % (39-51); HEMOGLOBIN 6.9 g/dL (13.5-17.5)
[2017-08-29 06:00] LABS: INR 0.92 (0.87-1.13)
[2017-08-29 06:07] LABS: CALCIUM, SERUM 8.3 mg/dL (8.5-10.1); CREATININE 6.5 mg/dL (0.6-1.3); MAGNESIUM 2.9 mg/dL (1.8-2.4)
[2017-08-29 07:42] LABS: BASOPHILS % (AUTO) 0.1 % (0.0-2.0); EOSINOPHILS # (AUTO) 0.1 /CMM (0.0-0.7); EOSINOPHILS % (AUTO) 0.7 % (0.0-6.0); HEMATOCRIT 21 % (39-51); HEMOGLOBIN 7.4 g/dL (13.5-17.5); LYMPHOCYTES # (AUTO) 1.6 /CMM (0.8-4.8); LYMPHOCYTES % (AUTO) 9.8 % (20.0-44.0); MEAN CORPUSCULAR HEMOGLOBIN 33 PG (26.0-33.0); MEAN CORPUSCULAR HGB CONC 35 g/dl (31.0-36.0); MEAN CORPUSCULAR VOLUME 94 fL (80-96); MONOCYTES # (AUTO) 0.9 /CMM (0.1-1.30); MONOCYTES % (AUTO) 5.5 % (2.0-12.0); NEUTROPHILS # (AUTO) 13.6 /CMM (1.8-8.9); NEUTROPHILS % (AUTO) 83.9 % (43.0-81.0); PLATELET COUNT (AUTO) 350 /CMM (150-450); RDW COEFFICIENT OF VARIATION 13.2 (11.5-15.0); RED BLOOD CELL COUNT(AUTO) 2.26 MIL/uL (4.5-6.0); WHITE BLOOD COUNT (AUTO) 16.2 K/uL (4.3-11.0)
--- NOTE | 2017-08-29 08:00 | NUR ---
ICU/RN PT IS INTUBATED ON THE VENT AC MODE.FIO2-40%,PEEP-6.V/S STABLE.AFEBRILE.OFF PRESSORS.SEDATED ON PROPOFOL AT 50 MCG.IV INFUSING ORDERED.F/C DRAINING WITH MINIMAL AMOUNT OF URINE .GENERALIZED EDEMA PRESENT..SUCTION PROVIDED.REPOSITION FOR COMFORT.
[2017-08-29] MEDS: PANTOPRAZOLE 40 MG VIAL IV SCH (08:07)
[2017-08-29] MEDS: MULTIPLE VIT (LYCOPENE/FA/MV,CA,IRON,MIN/LUT)1 TAB PO SCH (08:07)
[2017-08-29] MEDS: LACTOBACILLUS RHAMNOSUS GG 1 EACH CAP.SPRINK PO SCH ×2 (08:07→17:50)
[2017-08-29] MEDS: LAMIVUDI PO SCH (08:08)
[2017-08-29] MEDS: ABACAVIR PO SCH (08:08)
[2017-08-29] MEDS: DOLUTEGRAVIR PO SCH (08:08)
[2017-08-29] MEDS: CALCIUM CARB 600MG /VIT D 1 EACH TABLET PO SCH (08:08)
--- NOTE | 2017-08-29 09:00 | NUR ---
ICU/RN DUE MEDS ARE GIVEN ORDERED.REPOSITION FOR COMFORT.UNABLE TO PROVIDE SEDATION VACATION.PT IS VERY UNSTABLE.ABG DONE .MD NOTIFIED. 2 AMPS OF BICARB IV ORDERED.
[2017-08-29 09:30] LABS: ABG BASE EXCESS -18.9 mmol/L; ABG OXYGEN SATURATION 93.5 % (92.0-98.5); ABG PCO2 22.6 mmHg (35.0-45.0); ABG PH 7.166 (7.350-7.450); ABG PO2 89.7 mmHg (75.0-100.0); AaDO2 169.5 mmHg; COHb 0.3 % (0.5-1.5); MetHb 0.3 % (0.0-1.5); O2Hb 92.9 % (94.0-97.0); PEEP,BG 6 cm H2O; SITE, ABG Right Radial; VENT MODE, BG AC 24 450 40% +6; VT, ABG 450 mL
[2017-08-29] MEDS ORDERED: SODIUM BICARBONATE SYR 50 MEQ/50 ML DISP.SYRIN IV ONE (10:00)
--- NOTE | 2017-08-29 14:15 | NUR ---
ICU/RN FIRST HD IS OVER -1L REMOVED.PT TOLERATED PROCEDURE WELL .CONTINUE MONITORING.
[2017-08-29 15:06] LABS: ABG BASE EXCESS -9.2 mmol/L; ABG OXYGEN SATURATION 97.8 % (92.0-98.5); ABG PCO2 30.2 mmHg (35.0-45.0); ABG PH 7.334 (7.350-7.450); ABG PO2 148.7 mmHg (75.0-100.0); AaDO2 101.8 mmHg; COHb 0.3 % (0.5-1.5); MetHb 0.9 % (0.0-1.5); O2Hb 96.6 % (94.0-97.0); PEEP,BG 6 cm H2O; SITE, ABG Right Radial; VENT MODE, BG AC 24 450 40% +6; VT, ABG 450 mL
[2017-08-29 15:11] LABS: *HIV-1 RNA BY PCR <40 copies/mL (.)
[2017-08-29] MEDS: SERTRALINE HCL 25 MG TABLET PO SCH (17:50)
--- NOTE | 2017-08-29 17:57 | NUR ---
RT NOTE PT REMAINS INTUBATED WITH 8.0 ETT 23CM AT LIP. SETTINGS PRESCRIBED. ALARMS SET PER PROTOCOL AND AUDIBLE. VENT PLUGGED IN TO RED OUTLET. AMBU BAG AT BEDSIDE. NO DISTRESS NOTED. Addendum: 08/29/17 at 1759 by POLLO JONES RT Amended: Links added.
--- NOTE | 2017-08-29 20:00 | NUR ---
WELT BUTTER HAND - NOTES - Pt received, intubated, tachypneic and tachycardic in 100-110's. Airway suctioned and cleared of secretions. OGT auscultated, positive placement. VITA PICC flushed, patent with good blood return. FC draining ADEQUATE clear yellow urine to gravity.
--- NOTE | 2017-08-29 20:20 | NUR ---
PTS PETERS WAS KINKED, AFTER IT WAS STRAIGHTENED, LARGE AMOUNT OF URINE RELEASED AT LEAST 300 ML
[2017-08-29] MEDS: ENOXAPARIN SODIUM 40 MG/0.4 ML DISP.SYRIN SQ SCH (20:22)
--- NOTE | 2017-08-29 20:26 | NUR ---
PT RECEIVED INTUBATED WITH 8.0 ETT SECURED AT 24CM AT THE LIP. NO RESP DISTRESS. PT TOLERATING VENT SETTINGS. SX'D FOR MOD AMT OF YELLOW SECRETIONS. VENT ALARMS SET AND AUDIBLE. AMBU BAG AT BEDSIDE. WILL CONTINUE TO MONITOR. Addendum: 08/29/17 at 2028 by KARAN HENSON RT Amended: Links added.
[2017-08-30] VITALS (65 sets, daily range): BP systolic 98–143; BP diastolic 63–104
[2017-08-30] MEDS: PROPOFOL 10MG/ML 50ML 50 ML IV PRN ×9 (02:36→23:51)
[2017-08-30] MEDS: PIPERACILLIN /TAZOBACTAM 2.25 G in IV D5W 50 ML IV SCH ×3 (04:17→21:12)
[2017-08-30 05:16] LABS: BASOPHILS % (AUTO) 0.3 % (0.0-2.0); EOSINOPHILS # (AUTO) 0.2 /CMM (0.0-0.7); EOSINOPHILS % (AUTO) 1.4 % (0.0-6.0); LYMPHOCYTES # (AUTO) 1.2 /CMM (0.8-4.8); LYMPHOCYTES % (AUTO) 9.5 % (20.0-44.0); MEAN CORPUSCULAR HEMOGLOBIN 32 PG (26.0-33.0); MEAN CORPUSCULAR HGB CONC 34 g/dl (31.0-36.0); MEAN CORPUSCULAR VOLUME 94 fL (80-96); MONOCYTES # (AUTO) 0.9 /CMM (0.1-1.30); MONOCYTES % (AUTO) 6.7 % (2.0-12.0); NEUTROPHILS # (AUTO) 10.5 /CMM (1.8-8.9); NEUTROPHILS % (AUTO) 82.1 % (43.0-81.0); PLATELET COUNT (AUTO) 335 /CMM (150-450); RED BLOOD CELL COUNT(AUTO) 2.03 MIL/uL (4.5-6.0); WHITE BLOOD COUNT (AUTO) 12.8 K/uL (4.3-11.0)
[2017-08-30 05:20] LABS: CALCIUM, SERUM 8.2 mg/dL (8.5-10.1); CREATININE 5.8 mg/dL (0.6-1.3); POTASSIUM 3.8 mmol/L (3.5-5.1)
[2017-08-30 05:38] LABS: HEMOGLOBIN 6.5 g/dL (13.5-17.5)
[2017-08-30 05:39] LABS: HEMATOCRIT 19 % (39-51)
[2017-08-30 06:22] LABS: LYMPHOCYTES % (MANUAL) 12 % (16-48); MONOCYTES % (MANUAL) 3 % (0-11.0); NEUTROPHILS % (MANUAL) 85 (42-76)
--- NOTE | 2017-08-30 06:25 | NUR ---
DR MACKEY NOTIFIED OF PTS HEMOGLOBIN AND HEMATOCRIT LEVEL, NO NEW ORDERS
--- NOTE | 2017-08-30 08:00 | NUR ---
RT PATIENT REC'D ORALLY INTUBATED WITH A 8.0 ETT SECURED AT 23CM MID LIP VIA ANCHOR FAST. ON [facility] VENT WITH SETTINGS SET BY MD RICHAR MCDANIEL. VENT ALARMS CHECKED + AUDIBLE. CUFF PRESSURE CHECKED SUPERVISOR EDGING. SX'D WITH MOD AMT STANTON SEMITHICK SECRETIONS. B/S DIMINISHED. DURING DIALYSIS PATIENT BECAME DISTRESS AND FIO2 WAS INCREASED TO 100%, TIDAL VOLUME INCREASED TO 500 AND A PEEP OF [address] DANIELS. AMBU BAG AT [facility]. CONT CURRENT PLAN OF RESP CARE. Addendum: 08/30/17 at 1147 by BRYNN BARBER RT Amended: Links added.
--- NOTE | 2017-08-30 08:00 | NUR ---
ICU/RN INITIAL NOTES,AM RECEIVED REPORT FROM NIGHT NURSE. PT ORALLY INTUBATED, ETT 8.0, 24CM AT THE LIP. PT ON VENT SETTINGS ORDERED BY MD. NO ACUTE DISTRESS NOTED. PT SINUS TACHY ON TELE. PT SEDATED ON DIPRIVAN, STILL ABLE TO OPEN EYES AND FOLLOW SOME SIMPLE COMMANDS. IV FLUIDS INFUSING ORDERED. OG TUBE IN PLACE, NPO AT THIS TIME. HEMOGLOBIN 6.5, ORDERS FOR ONE UNIT BLOOD WITH DIALYSIS, DIALYSIS STARTED, WAITING FOR BLOOD TO BE READY. RIGHT UPPER ARM PICC LINE PATENT AND INTACT, NO S/S OF INFECTION OR INFILTRATION NOTED. ALL NEEDS WILL BE MET, SAFETY MEASURE TAKEN, BED IN LOW POSITION, SIDE RIALS UP, CALL LIGHT WITHIN REACH.
--- NOTE | 2017-08-30 09:00 | NUR ---
ICU/RN:SEDATION VACATION NOT DONE. PT ABLE TO OPEN EYE, FOLLOW SIMPLE COMMANDS ON 50 MCG/KEG/MIN. PT AGITATED, TACHYPNEIC, IN DISTRESS. PER , ORDERS RECEIVED TO INCREASE DIPRIVAN TO 100MCG PER PROTOCOL. WILL CONTINUE TO MONITOR AND ASSESS
--- NOTE | 2017-08-30 09:30 | NUR ---
ICU/RN: PER CADEN IRWIN TO INCREASE DIPRIVAN TO 100 MCG/KG/MIN
--- NOTE | 2017-08-30 10:37 | NUR ---
ICU/RN: END OF HEMODIALYSIS, 1.5LITERS OUT, WILL CONTINUE TO MONITOR. ONE UNIT BLOOD GIVEN WITH HD, NO S/S OF ADVERSE REACTIONS. WILL CONTINUE TO MONITOR AND ASSESS. RECEIVED TELEPHONE CONSENT FROM MOTHER.
[2017-08-30] MEDS: PANTOPRAZOLE 40 MG VIAL IV SCH (10:44)
[2017-08-30] MEDS: CALCIUM CARB 600MG /VIT D 1 EACH TABLET PO SCH (10:44)
[2017-08-30] MEDS: DOLUTEGRAVIR PO SCH (10:45)
[2017-08-30] MEDS: ABACAVIR PO SCH (10:45)
[2017-08-30] MEDS: LAMIVUDI PO SCH (10:45)
[2017-08-30] MEDS: LACTOBACILLUS RHAMNOSUS GG 1 EACH CAP.SPRINK PO SCH ×2 (10:45→16:41)
[2017-08-30] MEDS: MULTIPLE VIT (LYCOPENE/FA/MV,CA,IRON,MIN/LUT)1 TAB PO SCH (10:45)
--- NOTE | 2017-08-30 11:30 | NUR ---
fio2 titrated to 80% Addendum: 08/30/17 at 1329 by BRYNN BARBER RT Amended: Links added.
[2017-08-30] MEDS: IV NS 0.9% 1,000 ML IV PRN (11:50)
[2017-08-30] MEDS: SEVELAMER CARBONATE 0.8 GM POWD.PACK GT SCH ×2 (13:04→17:01)
[2017-08-30 14:36] LABS: ABG PH 7.471 (7.350-7.450); SITE, ABG Right Radial
[2017-08-30 14:37] LABS: ABG BASE EXCESS -2.7 mmol/L; ABG OXYGEN SATURATION 98.5 % (92.0-98.5); ABG PO2 309.3 mmHg (75.0-100.0); AaDO2 231.7 mmHg; COHb 0.2 % (0.5-1.5); MetHb 0.6 % (0.0-1.5); O2Hb 97.7 % (94.0-97.0); PEEP,BG 10 cm H2O; VT, ABG 500 mL
--- NOTE | 2017-08-30 14:40 | NUR ---
RT PER DR DANIELS PEEP LOWERED TO 6 AND FIO2 TITRATED TO 50% Addendum: 08/30/17 at 1442 by BRYNN BARBER RT Amended: Links added.
[2017-08-30] MEDS: SERTRALINE HCL 25 MG TABLET PO SCH (16:41)
[2017-08-30] MEDS ORDERED: FIBERSOURCE HN 1,000 ML BOTTLE GT PRN (19:00)
--- NOTE | 2017-08-30 19:04 | NUR ---
ICU/RN ENDING NOTES,AM REPORT ENDORSED TO NIGHT NURSE FOR GLORIA. PT ON VENT SETTINGS ORDERED BY MD, NO ACUTE DISTRESS NOTED AT THIS TIME. PT SINUS TACHY ON TELE. DIPRIVAN AT 80MCG FOR SEDATION. IV FLUIDS INFUSING ORDERED. ALL NEEDS ATTENDED TO, SAFETY MEASURES TAKEN, BED IN LOW POSITION,SIDE RAILS UP,CALL LIGHT WITHIN REACH. ONE UNIT TRANSFUSED THIS AM WITH HD. WILL CONTINUE CARE
--- NOTE | 2017-08-30 20:36 | NUR ---
received pt from day shift, sedated on diprivan at 80mcg, ST, on the vent, lungs congested, no edema, OG tube, f/c OK output, HD pt, v/s stable, no pain, pt turned and repositioned, friends at the bedside.
--- NOTE | 2017-08-30 21:36 | NUR ---
PT RECEIVED INTUBATED WITH 8.0 ETT SECURED AT 24CM AT THE LIP. NO RESP DISTRESS. PT TOLERATING VENT SETTINGS. SX'D FOR MOD AMT OF YELLOW SECRETIONS. VENT ALARMS SET AND AUDIBLE. AMBU BAG AT BEDSIDE. WILL CONTINUE TO MONITOR. Addendum: 08/30/17 at 2136 by KARAN HENSON RT Amended: Links added.
[2017-08-30] MEDS: ACETAMINOPHEN 650 MG/20.3 ML UDC NG PRN (21:54)
--- NOTE | 2017-08-30 22:00 | NUR ---
started on tube feeding at 20ml/hr
[2017-08-31] VITALS (58 sets, daily range): BP systolic 103–136; BP diastolic 63–82
--- NOTE | 2017-08-31 00:33 | NUR ---
pt is resting in the bed, sedated on diprivan at 80mcg, v/s stable, no pain, pt turned and repositioned q2hrs.
[2017-08-31] MEDS: PROPOFOL 10MG/ML 50ML 50 ML IV PRN ×17 (01:07→23:33)
[2017-08-31] MEDS: PIPERACILLIN /TAZOBACTAM 2.25 G in IV D5W 50 ML IV SCH ×3 (04:09→21:01)
--- NOTE | 2017-08-31 04:38 | NUR ---
pt is resting in the bed, no acute distress overnight, sedated on Diprivan at 90mcg, SR, v/s stable, no pain, pt cleaned, changed and repositioned q2hrs.
[2017-08-31 05:23] LABS: BASOPHILS % (AUTO) 0.2 % (0.0-2.0); EOSINOPHILS # (AUTO) 0.2 /CMM (0.0-0.7); EOSINOPHILS % (AUTO) 1.4 % (0.0-6.0); HEMATOCRIT 23 % (39-51); LYMPHOCYTES # (AUTO) 1.8 /CMM (0.8-4.8); LYMPHOCYTES % (AUTO) 15.3 % (20.0-44.0); MEAN CORPUSCULAR HEMOGLOBIN 32 PG (26.0-33.0); MEAN CORPUSCULAR HGB CONC 35 g/dl (31.0-36.0); MEAN CORPUSCULAR VOLUME 92 fL (80-96); MONOCYTES # (AUTO) 0.9 /CMM (0.1-1.30); MONOCYTES % (AUTO) 7.4 % (2.0-12.0); NEUTROPHILS # (AUTO) 8.8 /CMM (1.8-8.9); NEUTROPHILS % (AUTO) 75.7 % (43.0-81.0); PLATELET COUNT (AUTO) 392 /CMM (150-450); RDW COEFFICIENT OF VARIATION 13.2 (11.5-15.0); RED BLOOD CELL COUNT(AUTO) 2.49 MIL/uL (4.5-6.0); WHITE BLOOD COUNT (AUTO) 11.7 K/uL (4.3-11.0)
[2017-08-31 05:34] LABS: CALCIUM, SERUM 7.2 mg/dL (8.5-10.1); CREATININE 4.6 mg/dL (0.6-1.3)
[2017-08-31 05:45] LABS: POTASSIUM 2.7 mmol/L (3.5-5.1)
--- NOTE | 2017-08-31 06:22 | NUR ---
pt K 2.7 MD composition floor setter called order - to call renal doctor because pt on HD.
[2017-08-31] MEDS ORDERED: POTASSIUM CHLORIDE 20 MEQ POWDER PACKET ONE (06:42)
[2017-08-31] MEDS ORDERED: POTASSIUM CHLORIDE 20 MEQ POWDER PACKET GT ONE (07:00)
--- NOTE | 2017-08-31 07:41 | NUR ---
ICU/RN INITIAL NOTES,AM RECEIVED REPORT FROM NIGHT NURSE. PT ORALLY INTUBATED, ETT 8.0, 24CM AT THE LIP. PT ON VENT SETTINGS ORDERED BY . NO ACUTE DISTRESS NOTED. PT SINUS TACHY ON TELE. PT SEDATED ON DIPRIVAN 90 mcgIV FLUIDS INFUSING ORDERED. OG TUBE IN PLACE, NPO AT THIS TIME. HEMOGLOBIN 6.5, ORDERS FOR ONE UNIT BLOOD WITH DIALYSIS, DIALYSIS STARTED, WAITING FOR BLOOD TO BE READY. RIGHT UPPER ARM PICC LINE PATENT AND INTACT, NO S/S OF INFECTION OR INFILTRATION NOTED. ALL NEEDS WILL BE MET, SAFETY MEASURE TAKEN, BED IN LOW POSITION, SIDE RIALS UP, CALL LIGHT WITHIN REACH. Addendum: 08/31/17 at 0745 by CHIRAG HUSTON RN SAVED BY ACCIDENT ICU/RN INITIAL NOTES,AM RECEIVED REPORT FROM NIGHT NURSE. PT ORALLY INTUBATED, ETT 8.0, 24CM AT THE LIP. PT ON VENT SETTINGS ORDERED BY . NO ACUTE DISTRESS NOTED. PT SINUS TACHY ON TELE. PT SEDATED ON DIPRIVAN 90 MCG/KG/MIN. IV FLUIDS INFUSING ORDERED. OG TUBE IN PLACE, TUBE FEEDING STARTED ORDERED, INFUSING AT 30 ML/HR. WILL MONITOR AND IF TOLERATING WELL WILL INCREASE, GOAL IS 50 ML/HR. RIGHT UPPER ARM PICC LINE PATENT AND INTACT, NO S/S OF INFECTION OR INFILTRATION NOTED. ALL NEEDS WILL BE MET, SAFETY MEASURE TAKEN, BED IN LOW POSITION, SIDE RIALS UP, CALL LIGHT WITHIN REACH. POTASSIUM 2.7, AWARE, ORDER RECEIVED, WILL FOLLOW THROUGH.
--- NOTE | 2017-08-31 07:45 | NUR ---
ICU/RN INITIAL NOTES,AM RECEIVED REPORT FROM NIGHT NURSE. PT ORALLY INTUBATED, ETT 8.0, 24CM AT THE LIP. PT ON VENT SETTINGS ORDERED BY . NO ACUTE DISTRESS NOTED. PT SINUS TACHY ON TELE. PT SEDATED ON DIPRIVAN 90 MCG/KG/MIN. IV FLUIDS INFUSING ORDERED. OG TUBE IN PLACE, TUBE FEEDING STARTED ORDERED, INFUSING AT 30 ML/HR. WILL MONITOR AND IF TOLERATING WELL WILL INCREASE, GOAL IS 50 ML/HR. RIGHT UPPER ARM PICC LINE PATENT AND INTACT, NO S/S OF INFECTION OR INFILTRATION NOTED. ALL NEEDS WILL BE MET, SAFETY MEASURE TAKEN, BED IN LOW POSITION, SIDE RIALS UP, CALL LIGHT WITHIN REACH. POTASSIUM 2.7, AWARE, ORDER RECEIVED, WILL FOLLOW THROUGH.
[2017-08-31] MEDS: ABACAVIR PO SCH (08:33)
[2017-08-31] MEDS: LAMIVUDI PO SCH (08:33)
[2017-08-31] MEDS: SEVELAMER CARBONATE 0.8 GM POWD.PACK GT SCH ×3 (08:33→17:03)
[2017-08-31] MEDS: DOLUTEGRAVIR PO SCH (08:33)
[2017-08-31] MEDS: LACTOBACILLUS RHAMNOSUS GG 1 EACH CAP.SPRINK PO SCH ×2 (08:33→17:02)
[2017-08-31] MEDS: POTASSIUM CL. PREMIX PERIPHER. 50 ML IV SCH ×4 (08:33→12:41)
[2017-08-31] MEDS: MULTIPLE VIT (LYCOPENE/FA/MV,CA,IRON,MIN/LUT)1 TAB PO SCH (08:33)
[2017-08-31] MEDS: PANTOPRAZOLE 40 MG VIAL IV SCH (08:33)
[2017-08-31 08:44] LABS: ABG BASE EXCESS -1.9 mmol/L; ABG OXYGEN SATURATION 92.1 % (92.0-98.5); ABG PCO2 31.1 mmHg (35.0-45.0); ABG PH 7.458 (7.350-7.450); ABG PO2 71.3 mmHg (75.0-100.0); AaDO2 250.2 mmHg; COHb 0.2 % (0.5-1.5); MetHb 0.7 % (0.0-1.5); O2Hb 91.3 % (94.0-97.0); PEEP,BG 6 cm H2O; SITE, ABG Right Radial; VENT MODE, BG AC 24 500 50% +6; VT, ABG 500 mL
--- NOTE | 2017-08-31 09:00 | NUR ---
ICU/RN SEDATION VACATION DECREASED DIPRIVAN TO 80MCG/KG/MIN FOR SEDATION VACATION. PT UNABLE TO TOLERATE VACATION. HR INCREASING, TACHYPNEIC, AGITATED. OPENS EYES, RESPONDS TO STIMULI. WILL RESUME SEDATION PER PROTOCOL.
--- NOTE | 2017-08-31 10:00 | NUR ---
RT NOTE PT RECEIVED MECHANICALLY VENTILATED VIA 8.0 ETT 23 CM AT LIP. SETTINGS PRESCRIBED AC 24 500 30% +6. BILATERAL CHEST RISE NOTED. ALARMS SET PER PROTOCOL AND AUDIBLE. VENT PLUGGED IN TO RED OUTLET. AMBU BAG AT BED SIDE. NO DISTRESS NOTED. WILL CONTINUE TO MONITOR. Addendum: 08/31/17 at 1002 by POLLO JONES RT Amended: Links added.
[2017-08-31] MEDS: IV NS 0.9% 1,000 ML IV PRN (11:17)
[2017-08-31] MEDS: HEPARIN SODIUM, PORCINE 5000 UNITS/1 ML VIAL SQ SCH ×2 (11:18→21:07)
[2017-08-31] MEDS ORDERED: SULFAMETHOXAZOLE/TRIMETHOPRIM 10 ML in IV D5W 250 ML IV ONE (14:00)
[2017-08-31] MEDS: AZITHROMYCIN 500 MG in IV D5W 250 ML IV SCH (16:59)
[2017-08-31] MEDS: SERTRALINE HCL 25 MG TABLET PO SCH (17:03)
--- NOTE | 2017-08-31 19:08 | NUR ---
PT RECEIVED INTUBATED WITH 8.0 ETT SECURED AT 23CM AT THE LIP. PT TOLERATING VENT SETTINGS. DM BREATH SOUNDS. SX'D FOR MOD AMT OF THICK PALE SECRETIONS. VENT ALARMS SET AND AUDIBLE. AMBU BAG AT BEDSIDE. VENT PLUGGED INTO RED OUTLET. WILL CONTINUE TO MONITOR. Addendum: 08/31/17 at 1910 by VICTORIA JENSEN RT Amended: Links added.
--- NOTE | 2017-08-31 19:20 | NUR ---
ICU/RN ENDING NOTES,AM REPORT ENDORSED TO NIGHT NURSE FOR CONTINUATION OF CARE. PT CONTINUES TO BE SEDATED ON 100MCG/KG/MIN OF DIPRIVAN. PT ON TELE, SINUS. PETERS IN PLACE DRAINING YELLOW URINE. OG TUBE IN PLACE, FEEDING AT 40 ML/HR, TOLERATING WELL. ENDORSED TO NIGHT NURSE TO FOLLOWUP WITH REPEAT POTASSIUM OF 3.2. ALL NEEDS ATTENDED TO, SAFETY MEASURES TAKEN, BED IN LOW POSITION, SIDE RAILS UP, CALL LIGHT WITHIN REACH. WILL CONTINUE CARE.
--- NOTE | 2017-08-31 20:45 | NUR ---
received pt from day shift, sedated on Diprivan at 100mcg, SR, ST, on the vent, lungs congested, no edema, OG to feeding tolerates well, f/c OK output, HD pt, restraints on, v/s stable, no pain, pt turned and repositioned.
--- NOTE | 2017-08-31 21:30 | NUR ---
pt had a liquid stool according to day shift pt also had 2 liquid stools pt started on tube feeding on 08/30/17 at 1999 according to policy we will not sent stool at this time but contact dirt bike racer and put pt on possible isolation.
[2017-09-01] VITALS (47 sets, daily range): BP systolic 113–161; BP diastolic 58–96
--- NOTE | 2017-09-01 00:37 | NUR ---
pt is resting in the bed, sedated on diprivan at 90mcg, tolerates feeding, v/s stable, no pain, pt turned and repositioned q2hrs.
[2017-09-01] MEDS: PROPOFOL 10MG/ML 50ML 50 ML IV PRN ×11 (01:16→22:47)
[2017-09-01] MEDS: PIPERACILLIN /TAZOBACTAM 2.25 G in IV D5W 50 ML IV SCH ×4 (04:04→21:52)
[2017-09-01] MEDS: ACETAMINOPHEN 650 MG/20.3 ML UDC NG PRN ×2 (04:25→10:52)
--- NOTE | 2017-09-01 04:50 | NUR ---
pt is resting in the bed, no acute distress overnight, sedated on Diprivan at 90mcg, tolerates feeding, v/s stable, no pain, pt cleaned, changed and repositioned q2hrs.
[2017-09-01 05:36] LABS: EOSINOPHILS # (AUTO) 0.3 /CMM (0.0-0.7); HEMATOCRIT 23 % (39-51); HEMOGLOBIN 8.4 g/dL (13.5-17.5); LYMPHOCYTES # (AUTO) 1.3 /CMM (0.8-4.8); LYMPHOCYTES % (AUTO) 8.4 % (20.0-44.0); MEAN CORPUSCULAR HEMOGLOBIN 34 PG (26.0-33.0); MEAN CORPUSCULAR HGB CONC 36 g/dl (31.0-36.0); MEAN CORPUSCULAR VOLUME 93 fL (80-96); MONOCYTES # (AUTO) 0.7 /CMM (0.1-1.30); MONOCYTES % (AUTO) 4.4 % (2.0-12.0); NEUTROPHILS # (AUTO) 12.7 /CMM (1.8-8.9); NEUTROPHILS % (AUTO) 85.2 % (43.0-81.0); PLATELET COUNT (AUTO) 490 /CMM (150-450)
[2017-09-01 05:39] LABS: CALCIUM, SERUM 7.9 mg/dL (8.5-10.1); CREATININE 5.4 mg/dL (0.6-1.3); POTASSIUM 3.2 mmol/L (3.5-5.1)
--- NOTE | 2017-09-01 07:30 | NUR ---
ICU/RN: Pt received, intubated, RR in 30's, ST 110 on monitor. Vent set to ordered settings. Airway cleared of secretions. IVF infusing well through VITA PICC. FC draining well to gravity. DVT pumps in place. Alarm sounds audible. Will cont to monitor pt
[2017-09-01] MEDS: SEVELAMER CARBONATE 0.8 GM POWD.PACK GT SCH ×3 (08:19→17:07)
[2017-09-01] MEDS: PANTOPRAZOLE 40 MG VIAL IV SCH (08:20)
[2017-09-01] MEDS: ABACAVIR PO SCH (08:20)
[2017-09-01] MEDS: DOLUTEGRAVIR PO SCH (08:20)
[2017-09-01] MEDS: MULTIPLE VIT (LYCOPENE/FA/MV,CA,IRON,MIN/LUT)1 TAB PO SCH (08:20)
[2017-09-01] MEDS: LAMIVUDI PO SCH (08:20)
[2017-09-01] MEDS: LACTOBACILLUS RHAMNOSUS GG 1 EACH CAP.SPRINK PO SCH ×2 (08:20→16:49)
[2017-09-01] MEDS: HEPARIN SODIUM, PORCINE 5000 UNITS/1 ML VIAL SQ SCH ×2 (08:22→21:59)
[2017-09-01] MEDS: Z GUARD REMEDY 2 OZ OINT TP PRN (08:46)
--- NOTE | 2017-09-01 09:00 | NUR ---
ICU/RN: Diprivan titrated to 50mcg/kg/min. Pt awakens, follows commands briefly before becoming agitated and restless. Attempts to pull out ETT. Dr Sosa updated. Will titrate Diprivan per protocol.
[2017-09-01] MEDS ORDERED: POTASSIUM CHLORIDE 20 MEQ TAB.PRT.SR PO ONE (10:00)
--- NOTE | 2017-09-01 10:15 | NUR ---
ICU/RN: Flexiseal inserted per Dr Li order with initial output of 85cc green liquid after insertion. Noted with wet diaper prior to insertion. Hygienic care, bed bath and oral care rendered. Cooling measures in place.
[2017-09-01] MEDS ORDERED: POTASSIUM CHLORIDE 20 MEQ POWDER PACKET GT ONE (11:00)
--- NOTE | 2017-09-01 11:15 | NUR ---
ICU/RN: Dr Jen lamb, informed of temp 101.1, cooling measures, green liquid stool, neuro status. New orders noted and carried out.
--- NOTE | 2017-09-01 14:40 | NUR ---
ICU/RN: Family and friend informed RN that pt is lactose intolerant, tube feeding maybe affecting bowel habits. Reviewed feeding with sports betting manager, current formula does not contain lactose. Pt tolerating feeding at goal rate with 0-10cc gastric residuals. Will resume as tolerated.
--- NOTE | 2017-09-01 14:53 | NUR ---
ICU/RN: ETT retracted by 2cm from 24cm lip line per Dr Sosa's orders. Airway suctioned for clearance.
--- NOTE | 2017-09-01 15:15 | NUR ---
ICU/RN: Attempted to flush OGT; unable to aspirate gastric fluids. New L NGT inserted. Pt tolerated well. Verified via auscultated and aspiration of gastric content by DAVE Woodall, positive placement noted.
[2017-09-01] MEDS: HYDROCODONE/APAP 5/325MG 1 EACH TABLET PO PRN (16:49)
[2017-09-01] MEDS: SERTRALINE HCL 25 MG TABLET PO SCH (16:49)
--- NOTE | 2017-09-01 17:31 | NUR ---
ETT PULLED BACK. TO 22 CM PER MD ORDER
--- NOTE | 2017-09-01 18:10 | NUR ---
MS REMAINS INTUBATED WITH 8.0 ETT SECURED AT 22CM AT THE LIP. NO RESP DISTRESS. PT TOLERATING VENT SETTINGS. SX'D FOR MOD AMT OF YELLOW SECRETIONS. VENT ALARMS SET AND AUDIBLE. AMBU BAG AT BEDSIDE. WILL CONTINUE TO MONITOR. Addendum: 09/01/17 at 1811 by UMER MILLIGAN RT Amended: Links added.
[2017-09-01] MEDS ORDERED: SULFAMETHOXAZOLE/TRIMETHOPRIM 10 ML in IV D5W 250 ML IV SCH (19:00)
--- NOTE | 2017-09-01 19:00 | NUR ---
ICU/RN: HD RN at bedside, report given. About to initiate dialysis. Pt VSS, tolerating current vent settings. IVF and Diprivan infusing well into VITA PICC. FC draining clear, dark yellow urine to gravity. Flexiseal with 1300 output since insertion. Tolerating TF through L nare NGT. Care endorsed to DAVE Casiano for GLORIA.
[2017-09-01] MEDS: IV NS 0.9% 1,000 ML IV PRN (19:04)
[2017-09-01] MEDS: MORPHINE SULFATE INJ 4 MG/ML DISP.SYRIN IV PRN (19:45)
--- NOTE | 2017-09-01 19:55 | NUR ---
PT RECEIVED INTUBATED 8.0 ETT SECURED AT 22CM AT THE LIP. PT TOLERATING VENT SETTINGS. SX'D FOR SML AMT OF THICK TINGED/YELLOW SECRETIONS. VENT ALARMS SET AND AUDIBLE. AMBU BAG AT [facility]. VENT PLUGGED INTO RED OUTLET. WILL CONTINUE TO MONITOR. Addendum: 09/01/17 at 1954 by VICTORIA JENSEN RT Amended: Links added.
[2017-09-01] MEDS: VANCOMYCIN 500 MG in IV D5W 100 ML IV PRN (21:07)
--- NOTE | 2017-09-01 21:18 | NUR ---
agricultural equipment test engineer. initial assessment. RECEIVED THE PT REST ON THE BED. ORALLY INTUBATED. SEDATED WITH DIPRIVAN. ETT 8,LIP 22CM,AC 24CM,T V 500,FIO2 450,FIO2 45%,PEEP 5. SAT 98%. TESTING SPECIALIST SHOWING S TACH. IV RT FEMORAL HD CATH RT UPPER ARM PICC LINE DIPRIVAN 90MCG/KG/MIN,NS 40ML/H,LT NARE NGT INTACT. FIBER SOURCE 50ML/HFC PATENT. JEOVANNY SOFT WRIST RESTRAINT CHECKED AND RELEASED. NO INJURY OR REDNESS NOTED. HOB ELEVATED, TURN AND REPOSITION Q2H. WILL CONTINUE TO MONITOR VITALS.
[2017-09-02] VITALS (41 sets, daily range): BP systolic 107–143; BP diastolic 58–91
[2017-09-02] MEDS: PROPOFOL 10MG/ML 50ML 50 ML IV PRN ×13 (00:17→22:22)
[2017-09-02] MEDS: MORPHINE SULFATE INJ 4 MG/ML DISP.SYRIN IV PRN ×4 (03:49→17:27)
--- NOTE | 2017-09-02 04:44 | NUR ---
SENIOR STORAGE ENGINEER. AM CARE. ORAL CARE, BED BATH GIVEN. LINEN CHANGED. REMAINING SAME VENT SETTING TOLERATED WELL. SAT 98%. ENGINE MANAGER SHOWING S TACH. IV RT UPPER ARM PICC LINE IVF NS 40ML/H. DIPRIVAN 50MCG/KG/MIN. JEOVANNY SOFT WRIST RESTRAINT CHECKED AND RELEASED. NO INJURY OR REDNESS NOTED. FC PATENT. FLEXA SEAL INTACT. NGT FEEDING TOLERATED WELL. HOB ELEVATED. TURN AND REPOSITION Q2H. WILL CONTINUE TO MONITOR VITALS.
[2017-09-02 05:54] LABS: BASOPHILS % (AUTO) 0.2 % (0.0-2.0); EOSINOPHILS # (AUTO) 0.5 /CMM (0.0-0.7); EOSINOPHILS % (AUTO) 3.5 % (0.0-6.0); HEMATOCRIT 23 % (39-51); HEMOGLOBIN 7.8 g/dL (13.5-17.5); LYMPHOCYTES # (AUTO) 1.7 /CMM (0.8-4.8); LYMPHOCYTES % (AUTO) 12.2 % (20.0-44.0); MEAN CORPUSCULAR HEMOGLOBIN 32 PG (26.0-33.0); MEAN CORPUSCULAR HGB CONC 35 g/dl (31.0-36.0); MEAN CORPUSCULAR VOLUME 93 fL (80-96); MONOCYTES % (AUTO) 7.4 % (2.0-12.0); NEUTROPHILS # (AUTO) 10.4 /CMM (1.8-8.9); NEUTROPHILS % (AUTO) 76.7 % (43.0-81.0); PLATELET COUNT (AUTO) 581 /CMM (150-450); RDW COEFFICIENT OF VARIATION 14.1 (11.5-15.0); RED BLOOD CELL COUNT(AUTO) 2.42 MIL/uL (4.5-6.0); WHITE BLOOD COUNT (AUTO) 13.5 K/uL (4.3-11.0)
[2017-09-02] MEDS: ACETAMINOPHEN 325 MG TABLET PO PRN (06:03)
[2017-09-02 06:13] LABS: CALCIUM, SERUM 8.3 mg/dL (8.5-10.1); CREATININE 4.6 mg/dL (0.6-1.3); POTASSIUM 3.5 mmol/L (3.5-5.1)
--- NOTE | 2017-09-02 07:30 | NUR ---
ICU/RN: Pt received, in bed, intubated, restless and agitated, attempting to swing legs out of bed. Pt able to follow some simple commands. Morphine administered for comfort and sedation by NOC shift, will reassess effectiveness accordingly. Pt tolerating TF with no residual, minimal output from Flexiseal. IVF infusing well through VITA PICC. FC draining clear dark yellow urine to gravity. Restraint care rendered, kept on pt due to high risk of unplanned extubation. Safety measures in place. Will cont to monitor pt.
--- NOTE | 2017-09-02 08:16 | NUR ---
RT PATIENT REC'D ORALLY INTUBATED ON [facility] VENT WITH SETTINGS TOLERATED WELL. VENT ALARMS CHECKED + AUDIBLE. CUFF PRESSURE CHECKED YARD MOTOR OPERATOR. SX'D WITH SMALL/MOD AMT PALE SEMITHICK SECRETIONS. B/S DIM. AMBU BAG AT [facility]. CONT CURRENT PLAN OF RESP CARE. Addendum: 09/02/17 at 0949 by BRYNN BARBER RT Amended: Links added.
[2017-09-02] MEDS: MULTIPLE VIT (LYCOPENE/FA/MV,CA,IRON,MIN/LUT)1 TAB PO SCH (08:22)
[2017-09-02] MEDS: SEVELAMER CARBONATE 0.8 GM POWD.PACK GT SCH ×3 (08:22→17:14)
[2017-09-02] MEDS: PANTOPRAZOLE 40 MG VIAL IV SCH (08:22)
[2017-09-02] MEDS: LACTOBACILLUS RHAMNOSUS GG 1 EACH CAP.SPRINK PO SCH ×2 (08:22→17:13)
[2017-09-02] MEDS: HEPARIN SODIUM, PORCINE 5000 UNITS/1 ML VIAL SQ SCH ×2 (08:23→21:05)
[2017-09-02] MEDS: DOLUTEGRAVIR PO SCH (08:26)
[2017-09-02] MEDS: LAMIVUDI PO SCH (08:26)
[2017-09-02] MEDS: Z GUARD REMEDY 2 OZ OINT TP PRN (08:26)
[2017-09-02] MEDS: ABACAVIR PO SCH (08:26)
--- NOTE | 2017-09-02 09:00 | NUR ---
ICU/RN: Dr Li rounds; informed of low grade fevers overnight and watery stool. Cultures pending.
[2017-09-02 09:19] LABS: ABG BASE EXCESS -4.5 mmol/L; ABG OXYGEN SATURATION 94.4 % (92.0-98.5); ABG PCO2 31.2 mmHg (35.0-45.0); ABG PH 7.413 (7.350-7.450); ABG PO2 81.2 mmHg (75.0-100.0); AaDO2 204.2 mmHg; COHb 0.2 % (0.5-1.5); MetHb 0.5 % (0.0-1.5); O2Hb 93.7 % (94.0-97.0); SITE, ABG Right Radial
[2017-09-02 10:07] LABS: LYMPHOCYTES % (MANUAL) 11 % (16-48); MONOCYTES % (MANUAL) 3 % (0-11.0); NEUTROPHILS % (MANUAL) 86 (42-76)
[2017-09-02] MEDS: PIPERACILLIN /TAZOBACTAM 2.25 G in IV D5W 50 ML IV SCH ×2 (12:48→21:05)
--- NOTE | 2017-09-02 15:10 | NUR ---
ICU/RN: Dr Moran rounds; updated on pt status. Aware of tachypnea without respiratory distress on 70mcg/kg/min of Diprivan and prn Morphine for sedation and comfort. Per MD, continue current orders.
--- NOTE | 2017-09-02 15:45 | NUR ---
ICU/RN: Hygienic care and bed bath rendered, suctioned moderate amount of thick white secretions. Scrotal edema and bilat extremity non-pitting edema noted; elevated. Flexiseal remains free of leaks. Turned and repositioned for comfort.
[2017-09-02] MEDS: SERTRALINE HCL 25 MG TABLET PO SCH (17:13)
--- NOTE | 2017-09-02 20:36 | NUR ---
PT RECEIVED INTUBATED ON VENT. NO RESP DISTRESS. PT TOLERATING VENT SETTINGS. BS CLR/DM. SX'D FOR MOD AMT OF THIN STANTON SECRETIONS. VENT ALARMS SET AND AUDIBLE. AMBU BAG AT BEDSIDE. VENT PLUGGED INTO RED OUTLET. WILL CONTINUE TO MONITOR. Addendum: 09/02/17 at 2037 by KARAN HENSON RT Amended: Links added.
--- NOTE | 2017-09-02 20:38 | NUR ---
curriculum and assessment director. initial assessment. received the pt rest on the bed. orally intubated. sedated with diprivan. ett 8,lip 22,ac 24,tv 500.fio2 45%,peep 5. sat 98%. telemetry monitor showing nsr. lt nare ngt fiber source 50ml/h,savage soft wrist restraint checked and released. no injury or redness noted. fc patent. flexa seal intact. hob elevated. turn and reposition q2h. will continue to monitor vitals.
[2017-09-03] VITALS (48 sets, daily range): BP systolic 101–157; BP diastolic 55–106
[2017-09-03] MEDS: PROPOFOL 10MG/ML 50ML 50 ML IV PRN ×13 (00:31→23:48)
[2017-09-03] MEDS: ACETAMINOPHEN 650 MG/20.3 ML UDC NG PRN ×2 (04:09→12:27)
[2017-09-03] MEDS: MORPHINE SULFATE INJ 4 MG/ML DISP.SYRIN IV PRN ×8 (04:09→21:06)
[2017-09-03] MEDS: IV NS 0.9% 1,000 ML IV PRN (05:16)
[2017-09-03] MEDS: PIPERACILLIN /TAZOBACTAM 2.25 G in IV D5W 50 ML IV SCH ×3 (05:16→20:36)
[2017-09-03 05:23] LABS: BASOPHILS # (AUTO) 0.1 /CMM (0.0-0.2); BASOPHILS % (AUTO) 0.5 % (0.0-2.0); EOSINOPHILS # (AUTO) 0.5 /CMM (0.0-0.7); HEMOGLOBIN 7.1 g/dL (13.5-17.5); LYMPHOCYTES # (AUTO) 1.7 /CMM (0.8-4.8); LYMPHOCYTES % (AUTO) 13.4 % (20.0-44.0); MEAN CORPUSCULAR HEMOGLOBIN 33 PG (26.0-33.0); MEAN CORPUSCULAR HGB CONC 36 g/dl (31.0-36.0); MEAN CORPUSCULAR VOLUME 93 fL (80-96); MONOCYTES # (AUTO) 1.2 /CMM (0.1-1.30); MONOCYTES % (AUTO) 9.8 % (2.0-12.0); NEUTROPHILS # (AUTO) 9.1 /CMM (1.8-8.9); NEUTROPHILS % (AUTO) 72.3 % (43.0-81.0); PLATELET COUNT (AUTO) 797 /CMM (150-450); RDW COEFFICIENT OF VARIATION 14.4 (11.5-15.0); RED BLOOD CELL COUNT(AUTO) 2.15 MIL/uL (4.5-6.0); WHITE BLOOD COUNT (AUTO) 12.6 K/uL (4.3-11.0)
[2017-09-03 05:48] LABS: CALCIUM, SERUM 8.6 mg/dL (8.5-10.1); CREATININE 5.5 mg/dL (0.6-1.3); POTASSIUM 4.3 mmol/L (3.5-5.1)
[2017-09-03 05:49] LABS: HEMATOCRIT 20 % (39-51)
--- NOTE | 2017-09-03 07:15 | NUR ---
SEDATION VACATION-PT AWAKE, FLINGING LEGS OOB, FLAILING ABOUT. WRIST RESTRAINTS TO PREVENT SELF EXTUBATION. LOOKS AT NURSE AND NODS HEAD YES BUT DOES NOT FOLLOW COMMANDS. HD IN PROGRESS WITH FEMORAL ACCESS AND PT FLAILING LEGS. DIPRIVAN GTT INCREASED AND WILL ADD MORPHINE TO ENSURE PAIN RELIEF.
--- NOTE | 2017-09-03 07:30 | NUR ---
HD IN PROGRESS. VANCO LEVEL DRAWN PRE HD.
--- NOTE | 2017-09-03 07:48 | NUR ---
RT PATIENT REC'D ORALLY INTUBATED ON [facility] VENT WITH SETTINGS TOLERATED WELL. VENT ALARMS CHECKED + AUDIBLE. CUFF PRESSURE CHECKED EDUCATIONAL ADMINISTRATOR. SX'D WITH SMALL/MOD AMT PALE SEMITHICK SECRETIONS. B/S DIM. AMBU BAG AT [facility]. CONT CURRENT PLAN OF RESP CARE. Addendum: 09/03/17 at 0844 by BRYNN BARBER RT Amended: Links added.
[2017-09-03] MEDS: SEVELAMER CARBONATE 0.8 GM POWD.PACK GT SCH ×3 (07:59→17:54)
[2017-09-03] MEDS: MULTIPLE VIT (LYCOPENE/FA/MV,CA,IRON,MIN/LUT)1 TAB PO SCH (09:05)
[2017-09-03] MEDS: LAMIVUDI PO SCH (09:05)
[2017-09-03] MEDS: LACTOBACILLUS RHAMNOSUS GG 1 EACH CAP.SPRINK PO SCH ×2 (09:05→17:11)
[2017-09-03] MEDS: ABACAVIR PO SCH (09:05)
[2017-09-03] MEDS: PANTOPRAZOLE 40 MG VIAL IV SCH (09:05)
[2017-09-03] MEDS: DOLUTEGRAVIR PO SCH (09:05)
[2017-09-03] MEDS: HEPARIN SODIUM, PORCINE 5000 UNITS/1 ML VIAL SQ SCH ×3 (09:06→20:37)
[2017-09-03] MEDS: VANCOMYCIN 500 MG in IV D5W 100 ML IV PRN (09:29)
--- NOTE | 2017-09-03 09:52 | NUR ---
COOPER HARGROVE AND WILLOW IN TO R/V LABS, MEDS, PLAN. PT AWAKENS ON DIPRIVAN 70 MCGKGMIN AND LOOKS AT PROVIDER
[2017-09-03] MEDS: FIBERSOURCE HN 1,000 ML BOTTLE GT PRN (10:28)
[2017-09-03 10:42] LABS: ABG BASE EXCESS 0.2 mmol/L; ABG PCO2 33.8 mmHg (35.0-45.0); ABG PH 7.466 (7.350-7.450); ABG PO2 60.3 mmHg (75.0-100.0); COHb 0.3 % (0.5-1.5); MetHb 0.4 % (0.0-1.5); O2Hb 90.4 % (94.0-97.0); SITE, ABG Right Radial
--- NOTE | 2017-09-03 12:17 | NUR ---
REMAINS WITH TEMP 101-TYLENOL GIVEN
[2017-09-03 12:39] LABS: BASOPHILS % (AUTO) 0.2 % (0.0-2.0); EOSINOPHILS # (AUTO) 0.3 /CMM (0.0-0.7); EOSINOPHILS % (AUTO) 2.8 % (0.0-6.0); HEMATOCRIT 21 % (39-51); HEMOGLOBIN 7.3 g/dL (13.5-17.5); LYMPHOCYTES # (AUTO) 1.8 /CMM (0.8-4.8); LYMPHOCYTES % (AUTO) 14.6 % (20.0-44.0); MEAN CORPUSCULAR HEMOGLOBIN 32 PG (26.0-33.0); MEAN CORPUSCULAR HGB CONC 34 g/dl (31.0-36.0); MEAN CORPUSCULAR VOLUME 93 fL (80-96); MONOCYTES # (AUTO) 1.3 /CMM (0.1-1.30); MONOCYTES % (AUTO) 10.7 % (2.0-12.0); NEUTROPHILS # (AUTO) 8.6 /CMM (1.8-8.9); NEUTROPHILS % (AUTO) 71.7 % (43.0-81.0); PLATELET COUNT (AUTO) 570 /CMM (150-450); RDW COEFFICIENT OF VARIATION 14.2 (11.5-15.0); RED BLOOD CELL COUNT(AUTO) 2.28 MIL/uL (4.5-6.0); WHITE BLOOD COUNT (AUTO) 12.1 K/uL (4.3-11.0)
--- NOTE | 2017-09-03 12:54 | NUR ---
REPEAT HGB 7.3 AND HCT 21% WHICH IS SLIGHTLY IMPROVED POST HD THEREFORE NO CALL TO
[2017-09-03] MEDS ORDERED: SEVELAMER CARBONATE 800 MG TABLET PO SCH (13:00)
--- NOTE | 2017-09-03 14:30 | NUR ---
TEMP 103 HR 130 D/W DR DAUGHERTY -HAD NEGATIVE BLOOD AND URINE CULTURES 48 HRS AGO. TYLENOL AND OBSERVATION PER
--- NOTE | 2017-09-03 14:57 | NUR ---
FAMILY AT BEDSIDE AND APPRAISED OF ALL EVENTS
--- NOTE | 2017-09-03 16:15 | NUR ---
D/W VELVET LEON AND STEVE PT'S FEVER AND ? NEED TO CHANGE FEMORAL HD CATH. WILL OBTAIN CONSENT FOR NEW HD CATH WHICH STEVE WILL PLACE TOMORROW. HD RN AMET NOTIFIED TO REMOVE RT FEMORAL HD CATH
[2017-09-03] MEDS: SERTRALINE HCL 25 MG TABLET PO SCH (17:54)
--- NOTE | 2017-09-03 18:42 | NUR ---
CONTINUES WITH EPISODIC VIGOROUS COUGHING WITH WHOLE BODY JERKING AND PRESSURE LIMITING OF VENT NECESSITATING FREQ MORPHINE AND CONTIN HIGHER DOSES OF DIPRIVAN TO AMELIORATE.
--- NOTE | 2017-09-03 20:00 | NUR ---
Received patient sedated on Diprivan drip at 80 mcg/kg/min via VITA PICC LINE.Site intact. Feverish 100.9.Cooling measures done.Intubated to vent on AC mode.Suctioned secretions PRN.Oral care done.ST 124.Normotensive.OGT feeding in progress with HOB elevated. Tolerating well.FC to gravity and Flexi seal with liquid stool.Turned and repositioned.NO acute distress noted.
--- NOTE | 2017-09-03 20:15 | NUR ---
Patient mother visiting and updated of patient status and plan of care.Consent for insertion of temporary HD cath signed by patient mother.
--- NOTE | 2017-09-03 21:14 | NUR ---
PT RECEIVED INTUBATED ON VENT. NO RESP DISTRESS. PT TOLERATING VENT SETTINGS. BS CLR/DM. SX'D FOR MOD AMT OF THIN STANTON SECRETIONS. VENT ALARMS SET AND AUDIBLE. AMBU BAG AT BEDSIDE. VENT PLUGGED INTO RED OUTLET. WILL CONTINUE TO MONITOR. Addendum: 09/03/17 at 2114 by KARAN HENSON RT Amended: Links added.
--- NOTE | 2017-09-03 21:40 | NUR ---
Patient awake with episode of continuous coughing backing up the vent and tachycardic. PRN morphine administered.Continue monitoring.
[2017-09-04] VITALS (42 sets, daily range): BP systolic 83–135; BP diastolic 48–88
[2017-09-04] MEDS: PROPOFOL 10MG/ML 50ML 50 ML IV PRN ×16 (01:19→21:29)
[2017-09-04] MEDS: ACETAMINOPHEN 325 MG TABLET PO PRN (04:23)
--- NOTE | 2017-09-04 04:30 | NUR ---
Patient febrile 102.2.Bed bath rendered.Tylenol administered as PRN.ivf infusing well. Turned and repositioned.
[2017-09-04 05:07] LABS: BASOPHILS # (AUTO) 0.1 /CMM (0.0-0.2); BASOPHILS % (AUTO) 0.5 % (0.0-2.0); EOSINOPHILS # (AUTO) 0.3 /CMM (0.0-0.7); EOSINOPHILS % (AUTO) 2.4 % (0.0-6.0); LYMPHOCYTES # (AUTO) 1.6 /CMM (0.8-4.8); LYMPHOCYTES % (AUTO) 12.2 % (20.0-44.0); MEAN CORPUSCULAR HEMOGLOBIN 32 PG (26.0-33.0); MEAN CORPUSCULAR HGB CONC 34 g/dl (31.0-36.0); MEAN CORPUSCULAR VOLUME 95 fL (80-96); MONOCYTES # (AUTO) 1.4 /CMM (0.1-1.30); MONOCYTES % (AUTO) 10.8 % (2.0-12.0); NEUTROPHILS # (AUTO) 9.6 /CMM (1.8-8.9); NEUTROPHILS % (AUTO) 74.1 % (43.0-81.0); PLATELET COUNT (AUTO) 589 /CMM (150-450); RDW COEFFICIENT OF VARIATION 14.7 (11.5-15.0); WHITE BLOOD COUNT (AUTO) 12.9 K/uL (4.3-11.0)
[2017-09-04] MEDS: PIPERACILLIN /TAZOBACTAM 2.25 G in IV D5W 50 ML IV SCH ×2 (05:18→12:09)
[2017-09-04 05:23] LABS: CALCIUM, SERUM 8.5 mg/dL (8.5-10.1); CREATININE 4.7 mg/dL (0.6-1.3); POTASSIUM 4.1 mmol/L (3.5-5.1)
[2017-09-04 05:28] LABS: HEMATOCRIT 18 % (39-51); HEMOGLOBIN 6.2 g/dL (13.5-17.5); RED BLOOD CELL COUNT(AUTO) 1.94 MIL/uL (4.5-6.0)
[2017-09-04 05:44] LABS: EOSINOPHILS % (MANUAL) 2 % (0-4); LYMPHOCYTES % (MANUAL) 14 % (16-48); MONOCYTES % (MANUAL) 8 % (0-11.0); NEUTROPHILS % (MANUAL) 76 (42-76)
--- NOTE | 2017-09-04 06:45 | NUR ---
Patient remains on high dose of Diprivan drip.Easily awakened with episode of continuous coughing.Secretions suctioned oral care done.Latest temp 100.2/ax.Continue cooling measures. H/H 6.2/18.4 called to with order to transfuse one unit PRBC.Will endorse to AM shift RN.No active bleeding noted.
--- NOTE | 2017-09-04 07:05 | NUR ---
RN INITIAL NOTES RECEIVED PT INTUBATED. ON VENT. NO RESPIRATORY DISTRESS NOTED. NO SOB NOTED. NO SIGNS OF PAIN NOTED. PT SEDATED, ON DIPRIVAN AT 80MCG/KG/MIN. WILL TITRATE ACCORDINGLY. LEFT NARE NGT IN PLACE. ON GTF: FIBERSOURCE AT 50ML/HR. WILL MONITOR FOR RESIDUAL. VITA PICC LINE IN PLACE. NS AT 40ML/HR INFUSING. RIGHT FEMORAL HD CATH IN PLACE. FC IN PLACE. NO HEMATURIA NOTED. FLEXISEAL IN PLACE. BLE ELEVATED. PT COMFORTABLE. WILL CONTINUE TO MONITOR.
[2017-09-04 08:01] LABS: ABG OXYGEN SATURATION 91.5 % (92.0-98.5); ABG PCO2 43.7 mmHg (35.0-45.0); ABG PH 7.363 (7.350-7.450); ABG PO2 67.2 mmHg (75.0-100.0); AaDO2 312.5 mmHg; COHb 0.2 % (0.5-1.5); MetHb 0.8 % (0.0-1.5); O2Hb 90.6 % (94.0-97.0); SITE, ABG Right Radial
[2017-09-04] MEDS: LAMIVUDI PO SCH (08:06)
[2017-09-04] MEDS: MULTIPLE VIT (LYCOPENE/FA/MV,CA,IRON,MIN/LUT)1 TAB PO SCH (08:06)
[2017-09-04] MEDS: DOLUTEGRAVIR PO SCH (08:06)
[2017-09-04] MEDS: SEVELAMER CARBONATE 0.8 GM POWD.PACK GT SCH ×3 (08:06→17:23)
[2017-09-04] MEDS: LACTOBACILLUS RHAMNOSUS GG 1 EACH CAP.SPRINK PO SCH ×2 (08:06→16:54)
[2017-09-04] MEDS: PANTOPRAZOLE 40 MG VIAL IV SCH (08:06)
[2017-09-04] MEDS: ABACAVIR PO SCH (08:06)
--- NOTE | 2017-09-04 08:40 | NUR ---
RN NOTES SEEN AND EXAMINED BY DR. DANIELS. AWARE OF CURRENT VENT SETTINGS AND ABG RESULT. NO RESPIRATORY DISTRESS NOTED. TITRATING DIPRIVAN FOR SEDATION VACATION. MD ORDERED INCREASE PEEP TO +7. BRYNN STERLING AWARE. WILL MONITOR.
--- NOTE | 2017-09-04 08:41 | NUR ---
RT PER DR DANIELS POST ABG RESULTS PEEP WAS INCREASED TO 7. Addendum: 09/04/17 at 0842 by BRYNN BARBER RT Amended: Links added.
[2017-09-04] MEDS: MORPHINE SULFATE INJ 4 MG/ML DISP.SYRIN IV PRN ×2 (08:50→16:06)
[2017-09-04] MEDS: FIBERSOURCE HN 1,000 ML BOTTLE GT PRN (08:50)
[2017-09-04] MEDS: HEPARIN SODIUM, PORCINE 5000 UNITS/1 ML VIAL SQ SCH ×3 (09:00→21:27)
[2017-09-04] MEDS: IV NS 0.9% 1,000 ML IV PRN (09:16)
[2017-09-04] MEDS ORDERED: ALTEPLASE CATHFLO 2 MG/VIAL IV ONE ×2 (09:30→13:00)
--- NOTE | 2017-09-04 11:30 | NUR ---
RN NOTES SEEN AND EXAMINED BY DR. DAUGHERTY. AWARE OF CURRENT LAB VALUES: WBC 12.9. PT FEBRILE. COOLING MEASURES ON. HGB 6.2, HCT 18, PLATELET 589. NO SIGNS OF ACTIVE BLEEDING NOTED. FOR BT 1 UNIT OF PRBC. MD OKAYED TO GIVE BLOOD WITH HD. SODIUM 35, CREA 4.7. PT REMAINS INTUBATED, VENT SETTINGS CHANGED PER ABG RESULT. PT SEDATED. NOTIFIED THAT DR. WILSON WILL DO HD CATH PLACEMENT TODAY. OLD HD CATH WILL BE REMOVED. ALSO DR. DANIELS AND DR. WILSON IS PLANNING TO DO TRACH PLACEMENT. WILL OBTAIN CONSENT FROM BORIS (MOTHER). WILL CLOSELY MONITOR.
[2017-09-04] MEDS: ACETAMINOPHEN 650 MG/20.3 ML UDC NG PRN ×2 (11:32→17:22)
--- NOTE | 2017-09-04 11:35 | NUR ---
RN NOTES SEEN AND EXAMINED BY DR. JAYDA VERDIN. AWARE OF CURRENT LAB VALUES. AWARE THAT DR. WILSON WILL INSERT HD CATH TODAY. WILL REMOVE OLD HD CATH AND WILL SEND TO LAB FOR CULTURE. WILL MONITOR.
--- NOTE | 2017-09-04 13:15 | NUR ---
RN NOTES DAKOTAH (ASSESSMENT NURSE) REMOVED RIGHT FEMORAL HD CATH. PRESSURE DRESSING APPLIED. CATH TIP SENT TO LAB FOR CULTURE. WILL MONITOR FOR SIGNS OF BLEEDING.
--- NOTE | 2017-09-04 15:00 | NUR ---
RN NOTES DR. DANIELS IN THE UNIT. DISCUSSED WITH EJ (MOTHER) REGARDING TRACH PLACEMENT. MD DISCUSSED RISK AND BENEFITS. CONSENT OBTAINED FROM MOTHER AND VERIFIED BY MD FOR TRACH PLACEMENT IN AM. DR. STEVE JOHN.
--- NOTE | 2017-09-04 16:30 | NUR ---
RN NOTES DR. WILSON INSERTED LIJ DOUBLE LUMEN. STAT CXR ORDERED. WILL CLSOELY MONITOR.
[2017-09-04] MEDS: SERTRALINE HCL 25 MG TABLET PO SCH (16:54)
[2017-09-04] MEDS: AZITHROMYCIN 500 MG in IV D5W 250 ML IV SCH (16:54)
[2017-09-04] MEDS: MEROPENEM 500 MG in IV NS 0.9% 50 ML IV SCH (17:54)
--- NOTE | 2017-09-04 18:00 | NUR ---
RN NOTES CALLED DR. WILSON REGARDING CXR RESULT. SHOWS CATH TIP DEEP IN RIGHT ATRIUM. RECOMMENDED TO RETRACT BY 2CM. LEFT A MESSAGE. AWAITING CALL BACK.
--- NOTE | 2017-09-04 18:46 | NUR ---
RN CLOSING NOTES PT REMAINS INTUBATED. ON VENT. PT SEDATED. KEPT COMFORTABLE. NGT IN PLACE. TOLERATING GTF WELL. PICC LINE IN PLACE. IVF INFUSING. FC IN PLACE. FLEXISEAL IN PLACE. KEPT CLEAN AND DRY. REPOSITIONED Q2. KEPT BLE ELEVATED. WILL ENDORSE FOR CONTINUITY OF CARE.
--- NOTE | 2017-09-04 20:21 | NUR ---
PT RECEIVED ON VENT VIA CHARTED SETTINGS AND ROUTE. TOLERATING VENT SETTINGS. AMBU BAG AT BEDSIDE, ALARMS SET AND AUDIBLE. VENT PLUGGED INTO RED OUTLET. NO RESP DISTRESS NOTED. WILL CONTINUE TO MONITOR Addendum: 09/04/17 at 2021 by MARTHA DICKEY RT Amended: Links added.
--- NOTE | 2017-09-04 21:00 | NUR ---
AGGREGATE CONVEYOR OPERATOR - REC'D VERBAL REPORT FROM KEVIN RN. REC'D PT. ON DIPRIVAN GTT. AT 40 MCG/KG/MIN. PT. ALARMING [id number]-EYES OPENED. RN DID SEDATION VACATION AT THIS POINT. PT. CAN SQUEEZE HANDS, BLINKS, BILAT.PEDAL PUSHES ON VERBAL COMMAND. DIPRIVAN GTT. INCREASED TO 45,50,55 THEN 60 CC HR. PHONED BACK AT 19:32 TO SAY THE HD CATH IS O.K. TO USE. NO ORDERS TO RETRACT LIJ. + LEFT NARE NGT PLACEMENT AUSC.-20 CC RESIDUALS NOTED. FLEXISEAL & PETERS CATH TO GRAVITY W/GOOD OUTPUT FOR BOTH. AFEBRILE.+ EDEMA TO BILAT.HANDS & ANKLES. ALL PULSES PALPABLE X 4 EXT. RESTRAINTS RENEWED. RESTRAINED TO BUE'S. SAFETY PROTOCOL ENFORSED.VENT SETTINGS UNCHANGED. PT. NEEDS FREQUENT SXING. LAVELLE RENNY HAS DIPRIVAN & 0.9%NS AT 40CC/HR INFUSING/ ALL PORTS PATENT TO FLUSH. CONT.POC.
[2017-09-05] VITALS (35 sets, daily range): BP systolic 83–140; BP diastolic 50–83
[2017-09-05] MEDS: PROPOFOL 10MG/ML 50ML 50 ML IV PRN ×15 (00:10→23:41)
[2017-09-05] MEDS: ACETAMINOPHEN 650 MG/20.3 ML UDC NG PRN ×3 (04:41→21:35)
--- NOTE | 2017-09-05 04:45 | NUR ---
TANK PROCESSOR - PT.IS SPIKING TEMP.COOLING MEASURES WERE ALREADY ENFORCED. FAN GOING IN RM. TYLENOL ADM. ICE PACKS TO GROIN, BILAT. AXILLA & HEAD. DIPRIVAN CONT.AT 80MCG/KG/MIN. ATTEMPTED TO WEAN, PT.STARTED GUZMAN'S AT 70 MCG/KG/MIN. PT.STARTED MOVING WITHIN 8 MINS.COMP.BEDBATH ADM. AT 3AM. ORAL,PADMINI,VENT & SKIN CARE ADM. PT. BECAME NPO AFTER MN. HEPARIN AT 2100 WAS NOT ADM. DUE TO TRACHEOSTOMY IN AM. CONT.POC.
[2017-09-05] MEDS: MEROPENEM 500 MG in IV NS 0.9% 50 ML IV SCH ×2 (05:35→17:26)
[2017-09-05 05:47] LABS: BASOPHILS # (AUTO) 0.1 /CMM (0.0-0.2); BASOPHILS % (AUTO) 0.3 % (0.0-2.0); EOSINOPHILS # (AUTO) 0.3 /CMM (0.0-0.7); EOSINOPHILS % (AUTO) 1.7 % (0.0-6.0); LYMPHOCYTES # (AUTO) 2.2 /CMM (0.8-4.8); LYMPHOCYTES % (AUTO) 12.4 % (20.0-44.0); MEAN CORPUSCULAR HEMOGLOBIN 33 PG (26.0-33.0); MEAN CORPUSCULAR HGB CONC 35 g/dl (31.0-36.0); MEAN CORPUSCULAR VOLUME 94 fL (80-96); MONOCYTES # (AUTO) 1.7 /CMM (0.1-1.30); NEUTROPHILS # (AUTO) 13.1 /CMM (1.8-8.9); NEUTROPHILS % (AUTO) 75.6 % (43.0-81.0); PLATELET COUNT (AUTO) 583 /CMM (150-450); RDW COEFFICIENT OF VARIATION 14.8 (11.5-15.0); RED BLOOD CELL COUNT(AUTO) 2.11 MIL/uL (4.5-6.0); WHITE BLOOD COUNT (AUTO) 17.3 K/uL (4.3-11.0)
[2017-09-05 06:02] LABS: INR 1.01 (0.87-1.13)
[2017-09-05 06:03] LABS: HEMATOCRIT 20 % (39-51)
[2017-09-05 06:09] LABS: CALCIUM, SERUM 8.8 mg/dL (8.5-10.1); CREATININE 5.2 mg/dL (0.6-1.3); POTASSIUM 5.1 mmol/L (3.5-5.1)
[2017-09-05 06:12] LABS: LYMPHOCYTES % (MANUAL) 16 % (16-48); MONOCYTES % (MANUAL) 9 % (0-11.0); NEUTROPHILS % (MANUAL) 75 (42-76)
--- NOTE | 2017-09-05 06:30 | NUR ---
TRAWL NET MAKER - DR. MACKEY WAS PHONED FOR CRITICAL LAB VALUES. H&H = 7.0/20. MD STATED TO ENDORSE TO NEXT [facility] MD COMING ON AFTER 7 AM. WILL ENDORSE TO [facility] RN DURING REPORT. CONT. POC.
--- NOTE | 2017-09-05 07:05 | NUR ---
RN INITIAL NOTES RECEIVED PT INTUBATED. ON VENT. NO RESPIRATORY DISTRESS NOTED. NO SOB NOTED. NO SIGNS OF PAIN NOTED. PT SEDATED, ON DIPRIVAN AT 80MCG/KG/MIN. WILL TITRATE ACCORDINGLY. LEFT NARE NGT IN PLACE. VITA PICC LINE IN PLACE. NS AT 40ML/HR INFUSING. LIJ CATH IN PLACE. PT PLACED ON NPO FOR TRACH PLACEMENT TODAY. FC IN PLACE. NO HEMATURIA NOTED. FLEXISEAL IN PLACE. BLE ELEVATED. PT COMFORTABLE. WILL CONTINUE TO MONITOR.
[2017-09-05] MEDS ORDERED: FENTANYL PF 100MCG/2ML AMPUL ONE (07:49)
[2017-09-05] MEDS ORDERED: ATRACURIUM 100MG/10 ML MDV IV ONE (07:49)
[2017-09-05] MEDS ORDERED: LIDOCAINE 2%-EPI 1:200,000 20 ML VIAL IJ ONE (07:51)
[2017-09-05] MEDS: SEVELAMER CARBONATE 0.8 GM POWD.PACK GT SCH ×3 (08:00→17:26)
--- NOTE | 2017-09-05 08:00 | NUR ---
RN NOTES PT LEFT TO OR FOR TRACH PLACEMENT. VS STABLE. NO SIGNS OF RESPIRATORY DISTRESS NOTED. NO SOB NOTED. NO SIGNS OF PAIN NOTED. LEFT IN STABLE CONDITION.
[2017-09-05] MEDS: LAMIVUDI PO SCH (08:06)
[2017-09-05] MEDS: LACTOBACILLUS RHAMNOSUS GG 1 EACH CAP.SPRINK PO SCH ×2 (08:06→17:26)
[2017-09-05] MEDS: ABACAVIR PO SCH (08:06)
[2017-09-05] MEDS: MULTIPLE VIT (LYCOPENE/FA/MV,CA,IRON,MIN/LUT)1 TAB PO SCH (08:06)
[2017-09-05] MEDS: DOLUTEGRAVIR PO SCH (08:06)
[2017-09-05] MEDS: HEPARIN SODIUM, PORCINE 5000 UNITS/1 ML VIAL SQ SCH ×2 (08:07→20:39)
[2017-09-05] MEDS ORDERED: CELLULOSE,OXIDIZED 1 EA PACK MC ONE (08:22)
--- NOTE | 2017-09-05 08:30 | NUR ---
RN NOTES PT BACK FROM OR. PT CONNECTED BACK TO MONITOR. PT HAS TRACH, [place] [address] [facility] VENT. DR. DANIELS AT BEDSIDE AWARE. VENT SETTINGS FOLLOWS: AC24, TV500, FI02 100%, PEEP +7. WILL DO ABG IN A BIT. DIPRIVAN RESTARTED. WILL CLOSELY MONITOR.
--- NOTE | 2017-09-05 08:30 | NUR ---
PT RECEIVED ORALLY INTUBATED ON MECHANICAL VENT W/ SETTINGS PER MD. VENT IN RED OUTLET, AMBUBAG AT BEDSIDE, VENT ALARMS CHECKED AND AUDIBLE. PT SXED AND LAVAGED PRN, HME CHANGED PRN. BREATH SOUNDS EQUAL, DIMINISHED. PT TRACHED IN OR AND BROUGHT BACK TO ICU, PLACED ON VENT W/ PRIOR SETTINGS. SOME BLOOD TINGED SECRETIONS NOTED; TOLENTINO AND HME CHANGED. PLAN IS TO CONTINUE CARE UNDER CURRENT MD ORDERS AND MONITOR FOR CHANGES.
[2017-09-05] MEDS: PANTOPRAZOLE 40 MG VIAL IV SCH (08:48)
[2017-09-05] MEDS: IV NS 0.9% 1,000 ML IV PRN (09:41)
[2017-09-05] MEDS: FIBERSOURCE HN 1,000 ML BOTTLE GT PRN (09:41)
[2017-09-05] MEDS: MORPHINE SULFATE INJ 4 MG/ML DISP.SYRIN IV PRN ×3 (11:15→23:23)
[2017-09-05 11:36] LABS: ABG BASE EXCESS -6.3 mmol/L; ABG OXYGEN SATURATION 95.2 % (92.0-98.5); ABG PCO2 46.5 mmHg (35.0-45.0); ABG PH 7.262 (7.350-7.450); ABG PO2 92.5 mmHg (75.0-100.0); AaDO2 429.1 mmHg; COHb 0.3 % (0.5-1.5); MetHb 0.7 % (0.0-1.5); O2Hb 94.2 % (94.0-97.0); PEEP,BG 7 cm H2O; SITE, ABG Right Radial; VENT MODE, BG AC 24 500 +7 80%; VT, ABG 500 mL
--- NOTE | 2017-09-05 11:45 | NUR ---
RN NOTES ABG KEVUKT RELAYED TO DR. DANIELS. ORDERED TITRATE FI02 AND INCREASE PEEP +10. WILL CLOSELY MONITOR.
[2017-09-05] MEDS: SERTRALINE HCL 25 MG TABLET PO SCH (17:26)
[2017-09-05] MEDS: MICAFUNGIN SODIUM 100 MG in IV NS 0.9% 100 ML IV SCH (17:55)
--- NOTE | 2017-09-05 18:44 | NUR ---
RN CLOSING NOTES PT TRACH IN PLACE. ON VENT. NO RESPIRATORY DISTRESS NOTED. NO SOB NOTED. KEPT HOB ELEVATED. NO SIGNS OF PAIN NOTED. PT REMAINS ON DIPRIVAN. LEFT NARE NGT IN PLACE. TOLERATING GTF WELL. HANK MIDLINE IN PLACE. NS AT 40ML/HR INFUSING. LIJ CATH IN PLACE. FC IN PLACE. NO HEMATURIA NOTED. FLEXISEAL IN PLACE. BLE ELEVATED. PT COMFORTABLE. WILL ENDORSE FOR CONTINUITY OF CARE.
--- NOTE | 2017-09-05 20:11 | NUR ---
PT RECEIVED TRACHED SHLY 8 ON VENT. NO RESP DISTRESS NOTED. PT TOLERATING VENT SETTINGS. SX'D FOR MOD AMT OF THIN TINGED SECRETIONS. VENT ALARMS SET AND AUDIBLE. AMBU BAG AT HOB. TRACH CUFF PRODUCTION UTILITY WORKER. VENT PLUGGED INTO RED OUTLET. WILL CONTINUE TO MONITOR. Addendum: 09/05/17 at 2013 by KARAN HENSON RT Amended: Links added.
[2017-09-06] VITALS (42 sets, daily range): BP systolic 94–137; BP diastolic 58–87
[2017-09-06] MEDS: PROPOFOL 10MG/ML 50ML 50 ML IV PRN ×12 (01:05→22:37)
[2017-09-06 05:30] LABS: BASOPHILS # (AUTO) 0.2 /CMM (0.0-0.2); BASOPHILS % (AUTO) 0.9 % (0.0-2.0); EOSINOPHILS # (AUTO) 0.5 /CMM (0.0-0.7); EOSINOPHILS % (AUTO) 2.3 % (0.0-6.0); LYMPHOCYTES # (AUTO) 1.8 /CMM (0.8-4.8); LYMPHOCYTES % (AUTO) 9.2 % (20.0-44.0); MEAN CORPUSCULAR HEMOGLOBIN 33 PG (26.0-33.0); MEAN CORPUSCULAR HGB CONC 35 g/dl (31.0-36.0); MEAN CORPUSCULAR VOLUME 95 fL (80-96); MONOCYTES # (AUTO) 1.9 /CMM (0.1-1.30); NEUTROPHILS % (AUTO) 77.6 % (43.0-81.0); PLATELET COUNT (AUTO) 647 /CMM (150-450); RDW COEFFICIENT OF VARIATION 14.6 (11.5-15.0); WHITE BLOOD COUNT (AUTO) 19.4 K/uL (4.3-11.0)
[2017-09-06] MEDS: MEROPENEM 500 MG in IV NS 0.9% 50 ML IV SCH ×2 (05:34→17:49)
[2017-09-06 05:39] LABS: CREATININE 5.6 mg/dL (0.6-1.3); MAGNESIUM 2.3 mg/dL (1.8-2.4); PHOSPHORUS 7.1 mg/dL (2.5-4.9); POTASSIUM 6.1 mmol/L (3.5-5.1)
[2017-09-06 05:40] LABS: HEMATOCRIT 20 % (39-51); HEMOGLOBIN 6.9 g/dL (13.5-17.5)
[2017-09-06 06:00] LABS: NEUTROPHILS % (MANUAL) 80 (42-76)
[2017-09-06 06:01] LABS: BAND % (MANUAL) 2 % (0.0-5.0); LYMPHOCYTES % (MANUAL) 8 % (16-48); MONOCYTES % (MANUAL) 10 % (0-11.0)
--- NOTE | 2017-09-06 07:30 | NUR ---
ULTRASONIC WELDING MACHINE OPERATOR RECEIVED PATIENT ON PROPOFOL AT 60 MCGS, CALM AND COOPERATIVE ON MECHANICAL VENTILATORY SUPPORT SATURATING 100% AFEBRILE WITH NGT, CLAMPED, FEEDING HELD DUE TO HIGH RESIDUALS WITH FLEXISEAL, DRAINING WELL PETERS CATHETER DRAINING TO YELLOWISH URINE, MODERATE IN AMOUNT
--- NOTE | 2017-09-06 07:50 | NUR ---
RT PATIENT REC'D TRACHED ON [facility] VENT WITH SETTINGS TOLERATED WELL. VENT ALARMS CHECKED + AUDIBLE. CUFF PRESSURE CHECKED COLLEGE DIRECTOR. SX'D WITH SMALL/MOD AMT PALE SEMITHICK SECRETIONS. B/S IVIS. AMBU BAG AT [facility]. CONT CURRENT PLAN OF RESP CARE. Addendum: 09/06/17 at 1356 by BRYNN BARBER RT Amended: Links added.
[2017-09-06 08:19] LABS: ABG BASE EXCESS -6.6 mmol/L; ABG OXYGEN SATURATION 97.6 % (92.0-98.5); ABG PH 7.324 (7.350-7.450); ABG PO2 130.7 mmHg (75.0-100.0); AaDO2 328.6 mmHg; COHb 0.3 % (0.5-1.5); MetHb 0.7 % (0.0-1.5); O2Hb 96.6 % (94.0-97.0); SITE, ABG Right Radial
[2017-09-06] MEDS: DOLUTEGRAVIR PO SCH (09:02)
[2017-09-06] MEDS: ABACAVIR PO SCH (09:02)
[2017-09-06] MEDS: MULTIPLE VIT (LYCOPENE/FA/MV,CA,IRON,MIN/LUT)1 TAB PO SCH (09:02)
[2017-09-06] MEDS: LAMIVUDI PO SCH (09:02)
[2017-09-06] MEDS: SEVELAMER CARBONATE 0.8 GM POWD.PACK GT SCH ×3 (09:02→17:06)
[2017-09-06] MEDS: PANTOPRAZOLE 40 MG VIAL IV SCH (09:03)
[2017-09-06] MEDS: HEPARIN SODIUM, PORCINE 5000 UNITS/1 ML VIAL SQ SCH ×2 (09:03→20:34)
[2017-09-06] MEDS: LACTOBACILLUS RHAMNOSUS GG 1 EACH CAP.SPRINK PO SCH ×2 (09:03→17:07)
--- NOTE | 2017-09-06 09:30 | NUR ---
MOLD CLEANING AND STORAGE SUPERVISOR SEDATION VACATION RESUMED, PATIENT BECAME AGITATED MONITORED CLOSELY
[2017-09-06] MEDS: IV NS 0.9% 1,000 ML IV PRN (11:57)
[2017-09-06] MEDS: FIBERSOURCE HN 1,000 ML BOTTLE GT PRN (12:23)
--- NOTE | 2017-09-06 14:01 | NUR ---
RT FIO2 TITRATED TO 50%. DAVE ROMERO AWARE Addendum: 09/06/17 at 1401 by BRYNN BARBER RT Amended: Links added.
--- NOTE | 2017-09-06 15:36 | NUR ---
CASKET INSPECTOR BLOOD TRANSFUSION STARTED MONITORED CLOSELY
--- NOTE | 2017-09-06 16:34 | NUR ---
TYPE INSPECTOR BLOOD TRANSFUSION DONE, MONITORED CLOSELY UNABLE TO BARCODE DUE TO ERROR WHEN TRANSFUSION WAS HELD
[2017-09-06] MEDS ORDERED: VANCOMYCIN 1 GM in IV D5W 250 ML IV ONE (17:00)
[2017-09-06] MEDS: SERTRALINE HCL 25 MG TABLET PO SCH (17:07)
[2017-09-06] MEDS: MICAFUNGIN SODIUM 100 MG in IV NS 0.9% 100 ML IV SCH (18:35)
[2017-09-06] MEDS: MORPHINE SULFATE INJ 4 MG/ML DISP.SYRIN IV PRN (21:45)
[2017-09-07] VITALS (36 sets, daily range): BP systolic 96–162; BP diastolic 59–99
[2017-09-07] MEDS: PROPOFOL 10MG/ML 50ML 50 ML IV PRN ×16 (01:10→22:00)
--- NOTE | 2017-09-07 05:12 | NUR ---
RT NOTES: PATIENT TRACHED WITH SHILEY 8 DCT ON [facility] VENT WITH NOTED SETTINGS TOLERATED WELL. VENT ALARMS CHECKED + AUDIBLE. CUFF PRESSURE CHECKED DOMESTIC LAUNDRY WORKER. SUCTIONED PRN WITH SMALL/MOD AMT PALE SEMI-THICK SECRETIONS. B/S DIM. BILAT. AMBU BAG AT [facility]. CONT CURRENT PLAN OF RESP CARE. NO DISTRESS/ ADVERSE EFFECTS NOTED ALL SHIFT. Addendum: 09/07/17 at 0515 by MEGHAN COUCH RT Amended: Links added.
[2017-09-07 05:26] LABS: BASOPHILS # (AUTO) 0.1 /CMM (0.0-0.2); BASOPHILS % (AUTO) 0.5 % (0.0-2.0); EOSINOPHILS % (AUTO) 0.2 % (0.0-6.0); HEMATOCRIT 27 % (39-51); HEMOGLOBIN 9.8 g/dL (13.5-17.5); LYMPHOCYTES % (AUTO) 8.6 % (20.0-44.0); MEAN CORPUSCULAR HEMOGLOBIN 33 PG (26.0-33.0); MEAN CORPUSCULAR HGB CONC 36 g/dl (31.0-36.0); MEAN CORPUSCULAR VOLUME 91 fL (80-96); MONOCYTES # (AUTO) 2.4 /CMM (0.1-1.30); MONOCYTES % (AUTO) 10.5 % (2.0-12.0); NEUTROPHILS # (AUTO) 18.7 /CMM (1.8-8.9); NEUTROPHILS % (AUTO) 80.2 % (43.0-81.0); PLATELET COUNT (AUTO) 725 /CMM (150-450); RDW COEFFICIENT OF VARIATION 14.5 (11.5-15.0); RED BLOOD CELL COUNT(AUTO) 2.99 MIL/uL (4.5-6.0); WHITE BLOOD COUNT (AUTO) 23.2 K/uL (4.3-11.0)
[2017-09-07] MEDS: MEROPENEM 500 MG in IV NS 0.9% 50 ML IV SCH ×2 (05:32→18:10)
[2017-09-07 05:46] LABS: CALCIUM, SERUM 8.7 mg/dL (8.5-10.1); CREATININE 3.7 mg/dL (0.6-1.3); POTASSIUM 3.8 mmol/L (3.5-5.1)
[2017-09-07 06:11] LABS: BAND % (MANUAL) 3 % (0.0-5.0); LYMPHOCYTES % (MANUAL) 8 % (16-48); MONOCYTES % (MANUAL) 10 % (0-11.0); NEUTROPHILS % (MANUAL) 79 (42-76)
--- NOTE | 2017-09-07 06:45 | NUR ---
MANAGER CULTURE - PT. REMAINS ON DIPRIVAN GTT. AT 60 MCG/KG/MIN. PT. OCCASIONALLY BUCKS THE VENT, S/P TRACH-SITE IS CDI. GOOD UOP & O/P FOR FLEXISEAL. PT.WAS ADM. 2 BEDBATHS. VSS-PT.IS ALWAYS ST. PT.REMAINS ON FIBERSOURCE AT 50CC. THE HIGHEST RESIDUALS NOTED WAS 50CC. LUE MIDLINE HAS ALL PORTS PATENT TO FLUSH. 0.9%NS INFUSING AT 40CC/HR & DIPRIVAN GTT. INFUSING WELL. ALL EXT.X 4 ARE ELEVATED ON PILLOWS. PT.WAS ADM. [id number] AT 21:45. CONT.POC.
--- NOTE | 2017-09-07 07:30 | NUR ---
MECHANICAL OXIDIZER RECEIVED PATIENT ON SEDATION, DIPRIVAN AT 60 MCGS ON MECHANICAL VENTILATORY SUPPORT AT SAME SETTING PATIENT SEEMS AGITATED, TITRATING DIPRIVAN AT HIGHER DOSE, MONITORED CLOSELY ON FIBERSOURCE FEEDING, SLIGHTLY TOLERATED, RESIDUAL NOTED TACHYPNEA NOTED WITH FLEXISEAL AND PETERS CATHETER, PATENT AND INTACT
[2017-09-07] MEDS: MORPHINE SULFATE INJ 4 MG/ML DISP.SYRIN IV PRN ×2 (08:30→21:08)
[2017-09-07] MEDS: LACTOBACILLUS RHAMNOSUS GG 1 EACH CAP.SPRINK PO SCH ×2 (08:30→17:22)
[2017-09-07] MEDS: SEVELAMER CARBONATE 0.8 GM POWD.PACK GT SCH ×3 (08:30→17:22)
[2017-09-07] MEDS: MULTIPLE VIT (LYCOPENE/FA/MV,CA,IRON,MIN/LUT)1 TAB PO SCH (08:30)
[2017-09-07] MEDS: PANTOPRAZOLE 40 MG VIAL IV SCH (08:30)
[2017-09-07] MEDS: HEPARIN SODIUM, PORCINE 5000 UNITS/1 ML VIAL SQ SCH (08:31)
[2017-09-07] MEDS: GUAIFENESIN 300 MG/15 ML UDC PO PRN (08:32)
[2017-09-07] MEDS: LAMIVUDI PO SCH (08:39)
[2017-09-07] MEDS: ABACAVIR PO SCH (08:39)
[2017-09-07] MEDS: DOLUTEGRAVIR PO SCH (08:39)
--- NOTE | 2017-09-07 09:00 | NUR ---
PROJECT MANAGER ENTERTAINMENT AND MEDIA PATIENT SEEMS MORE AGITATED, MORPHINE 3 MG GIVEN, AGITATION STILL SEEN, TACHYPNEA STILL NOTED DR. DANIELS MADE ROUNDS AND ORDERED TO GIVE PRN ATIVAN MONITORED CLOSELY
--- NOTE | 2017-09-07 09:25 | NUR ---
PT RECEIVED ON VENT VIA CHARTED SETTINGS AND ROUTE. TOLERATING VENT SETTINGS. AMBU BAG AT BEDSIDE, ALARMS SET AND AUDIBLE. VENT PLUGGED INTO RED OUTLET. NO RESP DISTRESS NOTED. WILL CONTINUE TO MONITOR Addendum: 09/07/17 at 0925 by UMER MILLIGAN RT Amended: Links added.
[2017-09-07] MEDS: LORAZEPAM INJ 2 MG/ML VIAL IV PRN ×2 (10:08→17:37)
[2017-09-07] MEDS: FIBERSOURCE HN 1,000 ML BOTTLE GT PRN (10:11)
[2017-09-07] MEDS ORDERED: AZITHROMYCIN 500 MG in IV D5W 250 ML IV SCH ×3 (10:50→21:00)
[2017-09-07] MEDS: IV NS 0.9% 1,000 ML IV PRN (13:46)
[2017-09-07] MEDS: SERTRALINE HCL 25 MG TABLET PO SCH (17:22)
[2017-09-07] MEDS: MICAFUNGIN SODIUM 100 MG in IV NS 0.9% 100 ML IV SCH (17:22)
[2017-09-07] MEDS: ACETAMINOPHEN 650 MG/20.3 ML UDC NG PRN (21:08)
--- NOTE | 2017-09-07 22:00 | NUR ---
CIDER PRESS OPERATOR - REC'D PT. ON DIPRIVAN GTT. AT 90 MCG/KG/MIN. IN BETWEEN DIPRIVAN BOTTLE CHANGES, PT.WILL BECOME VERY AGITATED & MOVING ALL EXTREMITIES. PT. WAS ADM. [id number] AT 21:10, ALONG WITH TYLENOL 650/GT. FOR 100.2 TEMP. PT. IS HOT TO TOUCH. COOLING MEASURES ENFORCED. PT.HAS PEG CONSENT IN HER CHART-SIGNED BY HER MOTHER. FLEXISEAL & PETERS CATH TO GRAVITY. ALITTLE EDEMA TO BILAT. HANDS & FEET NOTED. PT. HAS HER MOTHER & BROTHER AT BEDSIDE. BILAT. + WRIST RESTRAINTS/RENEWED AT 21:00 PM. PT. HAD 200CC RESIDUALS NOTED. TF OFF. AT START OF SHIFT. HEART MONITOR SHOWS ST/120'S. THIS IS PT'S BASELINE. SBP'S WILL INCREASE WITH TACTILE STIMULATION. CONT. POC.
[2017-09-08] VITALS (39 sets, daily range): BP systolic 105–194; BP diastolic 66–141
[2017-09-08] MEDS: PROPOFOL 10MG/ML 50ML 50 ML IV PRN ×21 (00:40→23:05)
[2017-09-08] MEDS: ALPRAZOLAM 1 MG TABLET PO PRN (00:40)
[2017-09-08] MEDS: MORPHINE SULFATE INJ 4 MG/ML DISP.SYRIN IV PRN ×4 (04:13→17:52)
[2017-09-08 05:03] LABS: BASOPHILS # (AUTO) 0.1 /CMM (0.0-0.2); BASOPHILS % (AUTO) 0.3 % (0.0-2.0); EOSINOPHILS # (AUTO) 0.5 /CMM (0.0-0.7); EOSINOPHILS % (AUTO) 2.4 % (0.0-6.0); HEMATOCRIT 25 % (39-51); LYMPHOCYTES # (AUTO) 2.2 /CMM (0.8-4.8); LYMPHOCYTES % (AUTO) 11.1 % (20.0-44.0); MEAN CORPUSCULAR HEMOGLOBIN 33 PG (26.0-33.0); MEAN CORPUSCULAR HGB CONC 36 g/dl (31.0-36.0); MEAN CORPUSCULAR VOLUME 93 fL (80-96); MONOCYTES # (AUTO) 1.4 /CMM (0.1-1.30); MONOCYTES % (AUTO) 6.8 % (2.0-12.0); NEUTROPHILS % (AUTO) 79.4 % (43.0-81.0); PLATELET COUNT (AUTO) 502 /CMM (150-450); RDW COEFFICIENT OF VARIATION 16.2 (11.5-15.0); WHITE BLOOD COUNT (AUTO) 20.1 K/uL (4.3-11.0)
[2017-09-08] MEDS: MEROPENEM 500 MG in IV NS 0.9% 50 ML IV SCH (05:03)
[2017-09-08 05:17] LABS: CALCIUM, SERUM 9.1 mg/dL (8.5-10.1); CREATININE 3.1 mg/dL (0.6-1.3); MAGNESIUM 2.1 mg/dL (1.8-2.4); PHOSPHORUS 3.6 mg/dL (2.5-4.9); POTASSIUM 3.4 mmol/L (3.5-5.1)
--- NOTE | 2017-09-08 05:31 | NUR ---
RT NOTES: PATIENT TRACHED ON [facility] VENT WITH NOTED SETTINGS TOLERATED WELL. VENT ALARMS CHECKED + AUDIBLE. CUFF PRESSURE CHECKED DIRECTOR OF INSTITUTIONAL RESEARCH. SUCTIONED PRN WITH SMALL/MOD AMT PALE SEMI-THICK SECRETIONS. B/S DIM. BILAT. AMBU BAG AT [facility]. CONT CURRENT PLAN OF RESP CARE. NO DISTRESS/ ADVERSE EFFECTS NOTED ALL SHIFT. Addendum: 09/08/17 at 0531 by MEGHAN COUCH RT Amended: Links added.
[2017-09-08 05:42] LABS: EOSINOPHILS % (MANUAL) 2 % (0-4); LYMPHOCYTES % (MANUAL) 15 % (16-48); MONOCYTES % (MANUAL) 6 % (0-11.0); NEUTROPHILS % (MANUAL) 77 (42-76)
--- NOTE | 2017-09-08 06:30 | NUR ---
LOGISTICS ENGINEER - PT. WAS AT 90MCG'S OF DIPRIVAN ALL NOC. COULD NOT WEAN. MSO4-3MG/IVP WAS ADM. FOR COMFORT AGAIN AT 04:15AM FOR PT'S BEDBATH. PT. IS NOT ON SURGERY SCHEDULE FOR TODAY-FOR PEG PLACEMENT. WILL ENDORSE TO DAYSHIFT RN. [place] RESIDUALS WERE 225 CC. TF HELD FOR MOST PART OF SHIFT. FLEXISEAL HAD 175CC MARKED. BALLOON CHECKED Q 4 HRS-45CC NOTED EACH TIME. COOLING MEASURES ON ALL NIGHT DUE TO TEMPS AT 100/CONT. POC.
--- NOTE | 2017-09-08 08:00 | NUR ---
HYGIENE TEACHER: pt.is sedated with 90mcg/kg/m Diprivan gtt, on wrists restraints, reactive by touch, grimacing 7-8/10 with suction/manipulation, strong coughing with O2 sat. down to 91-93%, ST 110-120, SBP over 100, T 100.3, NGTF feeding 50ml/h - residual 70ml now, keep HOB over40, per report: consent for PEG placement is done, but pt.is not on schedule, makes urine, RR 25-35/not new per report, FiO2 50%, peep 10
[2017-09-08] MEDS: SEVELAMER CARBONATE 0.8 GM POWD.PACK GT SCH ×3 (08:24→17:47)
--- NOTE | 2017-09-08 08:30 | NUR ---
BEHAVIOR MANAGEMENT SPECIALIST: cooling measures initiated, pt.had HD yesterday, morning Vanco level is 16, pt.is able to make urine per report
--- NOTE | 2017-09-08 08:50 | NUR ---
OUTPATIENT SCHEDULER: is updated with pt.current condition, VS, sedation level, maxT, O2sat. vent setting, I/O, see new orders
[2017-09-08] MEDS: LACTOBACILLUS RHAMNOSUS GG 1 EACH CAP.SPRINK PO SCH ×2 (08:58→17:08)
[2017-09-08] MEDS: MULTIPLE VIT (LYCOPENE/FA/MV,CA,IRON,MIN/LUT)1 TAB PO SCH (08:58)
[2017-09-08] MEDS: ACETAMINOPHEN 650 MG/20.3 ML UDC NG PRN (08:59)
[2017-09-08] MEDS: PANTOPRAZOLE 40 MG VIAL IV SCH (08:59)
[2017-09-08] MEDS: LAMIVUDI PO SCH (08:59)
[2017-09-08] MEDS: ABACAVIR PO SCH (08:59)
[2017-09-08] MEDS: DOLUTEGRAVIR PO SCH (08:59)
--- NOTE | 2017-09-08 09:10 | NUR ---
DEPARTMENT MANAGER: pt.is high dose of sedation, but still easy to get restless/distress, ST 115-120, tachypneic, RR 25-40, FiO2 50%, peep 10, hold sedation vacation
--- NOTE | 2017-09-08 10:40 | NUR ---
SWITCHBOARD OPERATOR: pt started be restless after suction/reposition, strong coughing, opened eyes, RR 40, O2 sat. 89-90%, increased sedation to 100mcg Diprivan, 2 mg Ativan IV given
[2017-09-08] MEDS: LORAZEPAM INJ 2 MG/ML VIAL IV PRN ×2 (10:46→15:11)
[2017-09-08] MEDS: GUAIFENESIN 300 MG/15 ML UDC PO PRN (11:07)
--- NOTE | 2017-09-08 11:27 | NUR ---
STAFF ANESTHETIST: K+ 3.4, pharmacy called/will s/w YADIRA HENDERSON, saw pt. before/was updated/no new order
--- NOTE | 2017-09-08 12:30 | NUR ---
GREENHOUSE LABORER: rechecked chart, consent for PEG placement was done, no order, charge nurse updated, will s/w
--- NOTE | 2017-09-08 13:05 | NUR ---
BLACK POWDER GLAZING OPERATOR: pt.is grimacing, restless, coughing, ST 115-120, O2 sat. 89-92%, still tachypneic, on Morphine 3 mg IV q2h PRN. NGTF residual was 225ml at 12.00, held GTF
--- NOTE | 2017-09-08 13:40 | NUR ---
COLD ROLL OPERATOR: RT notified with ABG result on CPAP, got order: extubate pt
--- NOTE | 2017-09-08 13:41 | NUR ---
SOLE DYER: previous note is error
--- NOTE | 2017-09-08 13:45 | NUR ---
SERVICE ARCHITECT: sedation is off, pt.is with weak arms/legs activity, pt.can follow simple commands, no any pain, pt. is extubated by Sandra, RT, cough reflex+, d/c Diprivan, restraints, O2 sat. 95-97% on 3L O2 n/c
--- NOTE | 2017-09-08 13:46 | NUR ---
CLAIM CLINICIAN: prev.note is error
--- NOTE | 2017-09-08 14:00 | NUR ---
ENVIRONMENTAL SERVICES SUPERVISOR: NGTF residual 150ml now, continue hold NGTF, will s/w MD, pt.mother is in room, notified re pt.current condition, VS, POC
--- NOTE | 2017-09-08 15:14 | NUR ---
CREATIVE COORDINATOR: DT is updated. Pt.is tachypneic, RR 35-40, restless with reposition, max of Diprivan gtt 100mcg/kg/m, ST 120, O2sat 94%, Ativan 2mg IV given before PM care
[2017-09-08] MEDS: IV NS 0.9% 1,000 ML IV PRN (16:26)
[2017-09-08] MEDS: SERTRALINE HCL 25 MG TABLET PO SCH (17:08)
[2017-09-08] MEDS: MICAFUNGIN SODIUM 100 MG in IV NS 0.9% 100 ML IV SCH (17:08)
--- NOTE | 2017-09-08 17:24 | NUR ---
OUTSIDE MAINTENANCE WORKER: Loreto, ID JOB PRESS FEEDER is in room/notified re pt.current condition, VS, sedation level, Tmax, Rash, FiO2 50%/peep10, meds, see new orders
[2017-09-08] MEDS ORDERED: DOSING PER PHARMACY-AMIKACI IV XX PRN (17:30)
[2017-09-08] MEDS: LORATADINE 10 MG TABLET PO SCH (17:44)
--- NOTE | 2017-09-08 17:55 | NUR ---
AUTO SUSPENSION AND STEERING MECHANIC: pt.began restless, grimacing (7-04/06) with strong coughing after reposition, suction, RR up to 40, ST 122, O2 sat. 93%, max of Diprivan 100mcg/kg/m running, Morphine 3mg IV is given, all PM, skin, wound care done, Claritin is started d/t rash per Loreto, STATISTICAL MACHINE SERVICER order
[2017-09-08] MEDS ORDERED: AMIKACIN IV ONE (18:00)
[2017-09-08] MEDS ORDERED: D5W IV ONE (18:00)
--- NOTE | 2017-09-08 20:20 | NUR ---
ICU/LUMITE INJECTOR RECEIVED PT THERE APPEARED TO BE FEEDING ON THE SHEETS, FLUSHED THE N/G TUBE WAS UNABLE TO FLUSH.NEW N/TUBE WAS PLACED TO RIGHT NARE. PLACEMENT WAS VERIFIED BY 2 NURSES.
[2017-09-08] MEDS: LINEZOLID RTU BAG 600 MG in PREMIX 1 EA IV SCH (21:06)
[2017-09-08] MEDS: METRONIDAZOLE 500 MG TABLET PO SCH (21:06)
--- NOTE | 2017-09-08 21:10 | NUR ---
ICU/PRODUCTION EXPEDITER FEEDING RESIDUAL IS 375CC, TUBE FEEDING TURNED OFF. WILL CONTINUE TO MONITOR FEEDING RESIDUALS.
[2017-09-09] VITALS (52 sets, daily range): BP systolic 97–166; BP diastolic 61–107
[2017-09-09] MEDS: PROPOFOL 10MG/ML 50ML 50 ML IV PRN ×11 (00:28→12:49)
[2017-09-09] MEDS: MORPHINE SULFATE INJ 4 MG/ML DISP.SYRIN IV PRN ×2 (01:02→11:35)
--- NOTE | 2017-09-09 03:10 | NUR ---
ICU/REVENUE TAX SPECIALIST RESIDUALS CONTINUE TO BE HIGH AT 300ML. FEEDING CONTINUES TO BE OFF. WILL CONTINUE TO MONITOR THE RESIDUALS
[2017-09-09] MEDS: METRONIDAZOLE 500 MG TABLET PO SCH ×3 (04:23→21:37)
[2017-09-09] MEDS: FIBERSOURCE HN 1,000 ML BOTTLE GT PRN (05:27)
[2017-09-09] MEDS: IV NS 0.9% 1,000 ML IV PRN (05:28)
[2017-09-09 05:37] LABS: BASOPHILS # (AUTO) 0.2 /CMM (0.0-0.2); BASOPHILS % (AUTO) 0.5 % (0.0-2.0); EOSINOPHILS # (AUTO) 1.1 /CMM (0.0-0.7); EOSINOPHILS % (AUTO) 3.8 % (0.0-6.0); HEMATOCRIT 26 % (39-51); HEMOGLOBIN 9.6 g/dL (13.5-17.5); LYMPHOCYTES # (AUTO) 2.6 /CMM (0.8-4.8); LYMPHOCYTES % (AUTO) 9.6 % (20.0-44.0); MEAN CORPUSCULAR HEMOGLOBIN 34 PG (26.0-33.0); MEAN CORPUSCULAR HGB CONC 36 g/dl (31.0-36.0); MEAN CORPUSCULAR VOLUME 92 fL (80-96); MONOCYTES # (AUTO) 1.7 /CMM (0.1-1.30); MONOCYTES % (AUTO) 6.2 % (2.0-12.0); NEUTROPHILS # (AUTO) 21.8 /CMM (1.8-8.9); NEUTROPHILS % (AUTO) 79.9 % (43.0-81.0); PLATELET COUNT (AUTO) 492 /CMM (150-450); RDW COEFFICIENT OF VARIATION 16.1 (11.5-15.0); RED BLOOD CELL COUNT(AUTO) 2.84 MIL/uL (4.5-6.0); WHITE BLOOD COUNT (AUTO) 27.3 K/uL (4.3-11.0)
[2017-09-09 05:49] LABS: CALCIUM, SERUM 8.8 mg/dL (8.5-10.1); CREATININE 3.3 mg/dL (0.6-1.3); PHOSPHORUS 4.9 mg/dL (2.5-4.9); POTASSIUM 4.1 mmol/L (3.5-5.1)
--- NOTE | 2017-09-09 05:53 | NUR ---
ICU/ROUTE DRIVER SALESPERSON HD NURSE HERE TO DO TODAY DIALYSIS. PT CONTINUES TO BE ON 100MCG OF DEPROVAN. PT WAS TURNED AND REPOSITIONED FOR COMFORT AND CARE.
--- NOTE | 2017-09-09 06:03 | NUR ---
RT RECD PT TRACH WITH SHILEY 8. TRACH INTACT AND SECURE RICHAR VENT SETTING ALARMS ON AND AUDIBLE VENT PLUGGED IN RED OUTLET AMBUBAG AT BEDSIDE. PT NOT IN RESP DISTRESS AT THE TIME
[2017-09-09 06:28] LABS: BAND % (MANUAL) 1 % (0.0-5.0); EOSINOPHILS % (MANUAL) 8 % (0-4); LYMPHOCYTES % (MANUAL) 13 % (16-48); MONOCYTES % (MANUAL) 6 % (0-11.0); NEUTROPHILS % (MANUAL) 72 (42-76)
[2017-09-09] MEDS: SEVELAMER CARBONATE 0.8 GM POWD.PACK GT SCH ×3 (07:15→18:01)
[2017-09-09] MEDS: LORAZEPAM INJ 2 MG/ML VIAL IV PRN ×3 (07:15→21:02)
--- NOTE | 2017-09-09 07:30 | NUR ---
ELECTRICAL INSTRUMENTATION TECHNICIAN: pt.is sedated with Diprivan 100mcg/kg/min, on wrists restraints, with open eyes now, restless, strong coughing, ST 120-125, O2 sat. 89-90%, getting HD now, NGTF on hold d/t high residual, SBP over 100, FiO2 50%, peep 10, will give Ativan 2mg IV, suction with lavage, HD nurse will change HD cath dressing
--- NOTE | 2017-09-09 08:30 | NUR ---
TURNAROUND PLANNER: pt.is more rest now, ST 120-130, O2 sat. 94%, RR 35-40, SBP over 100, HD done/ 0 negative, HD cath dressing was changed, waiting Amikacin level lab, same rash intensity, NGT residual 30ml/resumed NGTF/keep HOB over40, trach care is done
[2017-09-09] MEDS: ABACAVIR PO SCH (09:13)
[2017-09-09] MEDS: LORATADINE 10 MG TABLET PO SCH (09:13)
[2017-09-09] MEDS: PANTOPRAZOLE 40 MG VIAL IV SCH (09:13)
[2017-09-09] MEDS: MULTIPLE VIT (LYCOPENE/FA/MV,CA,IRON,MIN/LUT)1 TAB PO SCH (09:13)
[2017-09-09] MEDS: DOLUTEGRAVIR PO SCH (09:13)
[2017-09-09] MEDS: LAMIVUDI PO SCH (09:13)
[2017-09-09] MEDS: LACTOBACILLUS RHAMNOSUS GG 1 EACH CAP.SPRINK PO SCH ×2 (09:13→17:09)
[2017-09-09] MEDS: LINEZOLID RTU BAG 600 MG in PREMIX 1 EA IV SCH ×2 (09:14→21:03)
--- NOTE | 2017-09-09 10:30 | NUR ---
ASSOCIATE PROFESSOR OF MUSICOLOGY: pt.got restless after reposition, suction, strong coughing, ST 120-130, SBP 159, O2 89-91% on 50% FiO2, RR 35-40, Ativan 2 mg Iv given, called to pharmacy for Morphine/pyxis is empty, charge nurse is updated, agree to increase FiO2 to 75%. was in room, notified re pt.VS, I/O, HD done today, urine out amount, sedation level, rash, meds, see new orders
[2017-09-09] MEDS ORDERED: FENTANYL CITRAT IV 2,500 MCG in IV NS 0.9% 200 ML IV PRN (11:00)
--- NOTE | 2017-09-09 11:00 | NUR ---
GIS ANALYST: updated with pt.current condition, neurostatus, sedation level, VS, I/O, meds, O2 sat., vent.setting/FiO2 75% now, peep10, got ABG result, no any changes for setting now, ordered Fentanyl gtt, see new orders
[2017-09-09 11:05] LABS: ABG OXYGEN SATURATION 93.6 % (92.0-98.5); ABG PCO2 42.7 mmHg (35.0-45.0); ABG PH 7.443 (7.350-7.450); ABG PO2 75.6 mmHg (75.0-100.0); AaDO2 413.8 mmHg; COHb 0.1 % (0.5-1.5); MetHb 0.9 % (0.0-1.5); O2Hb 92.7 % (94.0-97.0); PEEP,BG 10 cm H2O; SITE, ABG Right Radial; VT, ABG 500 mL
[2017-09-09] MEDS: ACETAMINOPHEN 650 MG/20.3 ML UDC NG PRN (11:34)
--- NOTE | 2017-09-09 11:41 | NUR ---
SENIOR ADMINISTRATIVE SERVICES OFFICER: T 101.2, BCx2 ordered, cooling measures initiated
--- NOTE | 2017-09-09 13:00 | NUR ---
FIELD REPRESENTATIVES DIRECTOR: pt.is still tachypneic, RR 35-40, O2 sat. 95-96%, FiO2 75%, ST 130-135, restless with strong coughing episodes, max dose of Diprivan gtt 100mcg/kg/m running, charge nurse updated, is in unit/notified, ordered: start Fentanyl gtt 75 mcg/h, max rate 125 mcg/h and Versed 7mg/h, max 10mg/h, d/c Diprivan gtt, Morphine IV prn
--- NOTE | 2017-09-09 13:15 | NUR ---
TRANSMISSION AND COORDINATION ENGINEER: to prevent respiratory distress confirmed: start Versed gtt with rate 7 mg/h, d/c Diprivan after, pt.family is in room, updated with pt.condition, VS, POC. Drips were verified with pharmacy
[2017-09-09] MEDS: FENTANYL CITRAT IV 2,500 MCG in IV NS 0.9% 200 ML IV PRN (14:32)
[2017-09-09] MEDS: MIDAZOLAM HCL 100 MG in IV NS 0.9% 80 ML IV PRN (14:40)
--- NOTE | 2017-09-09 16:38 | NUR ---
pt remains trached on mech, vent. settings as ordered. peep increased to 12 cmh20 and fio2 to 75%. trach midline small amounts of pale sputum. b/s equal ambubag at head of bed. alarms set and audible vent plugged into red outlet. Addendum: 09/09/17 at 1641 by UMER MILLIGAN RT Amended: Links added.
[2017-09-09] MEDS: SERTRALINE HCL 25 MG TABLET PO SCH (17:09)
[2017-09-09] MEDS: MICAFUNGIN SODIUM 100 MG in IV NS 0.9% 100 ML IV SCH (17:09)
--- NOTE | 2017-09-09 18:19 | NUR ---
OUTDOOR STUDIES PROFESSOR: pt.is rest now, O2 sat 97-98%, RR 35, ST 128, Fentanyl gtt was increased from 75 to 110 mcg/h after suction/PM/skin care when pt.started restless, cont.coughing, Versed 7mg/h gtt, changed peep to 12, still FiO2 75%, T down to 99.0, NGTF residual WNL, Flexiseal tube patent/flushed, Amikacin level 10.3/held dose after HD
--- NOTE | 2017-09-09 19:10 | NUR ---
ICU/CUFF SETTER OVERLOCK RECEIVED REPORT FROM DAY NURSE. PT WAS RECEIVED ON VERSED OF 7 MCG AND FENTANYL 110MCG DRIP. PT IS THRASHING IN BED INCREASED RESPIRATION RATE TO 40'S CHARGE NURSE NOTIFIED ABOUT THIS. INCREASED VERSED DRIP OF 8MCG. WILL CONTINUE TO MONITOR THIS PT.
--- NOTE | 2017-09-09 19:40 | NUR ---
ICU/CRUSHER AND BINDER OPERATOR PT CONTINUES TO BE THRASHING AROUND WITH INCREASED RESPIRATIONS TO 40'S-50'S, CHARGE NURSE NOTIFIED ABOUT THIS THEN VERSED INCREASED FROM 8MCG TO 9 MCG. WILL MONITOR THIS PT'S HEART RATE AND RR.
--- NOTE | 2017-09-09 20:00 | NUR ---
ICU/TRAFFIC CONTROL SIGNALER PT CONTINUES TO OVER BREATH THE VENT, BARK LIKE COUGH. INCREASED HEART RATE TO 150'S CONTINUES. CHARGE NURSE NOTIFIED ABOUT THIS THEN INCREASED VERSED INCREASED FROM 9MCG TO 10MCG WHERE IT IS NOW AT MAX DOSE FOR THIS PT. WILL CONTINUE TO MONITOR THIS PT.
--- NOTE | 2017-09-09 21:00 | NUR ---
ICU/CUSTOMS BROKERAGE AGENT PT'S HEART RATE IS 140'S TO 150'S , PT CONTINUES TO OVER BREATH THE VENT. CHARGE NURSE IS NOTIFIED ABOUT THIS ATIVAN 2MG IVP GIVEN BY CHARGE NURSE TO HELP CALM PT DOWN, PT OPENS HER EYES MOVING ARMS AND LEGS EVERYWHERE.
--- NOTE | 2017-09-09 21:30 | NUR ---
ICU/CLOTH SHRINKER CHARGE NURSE NOTIFIED THAT THE HEART RATE INCREASED TO 150'S HAS NOT COME DOWN, RR HOWEVER HAS COME DOWN. CHARGE NURSE PUT STAT ORDER FOR EKG ALSO AM LAB OF [facility]. TO RULE OUT CARDIAC ISSUES. PT DOES HAVE FEVER OF 100.0 AX. WILL CONTINUE TO MONITOR THIS PT.
--- NOTE | 2017-09-09 21:42 | NUR ---
PT RECEIVED ON VENT VIA CHARTED SETTINGS AND ROUTE. AMBU BAG AT BEDSIDE, ALARMS SET AND AUDIBLE. VENT PLUGGED INTO RED OUTLET. PT HAS INCREASED RR AND HR. WILL CONTINUE TO MONITOR Addendum: 09/09/17 at 2143 by MARTHA DICKEY RT Amended: Links added.
--- NOTE | 2017-09-09 23:26 | NUR ---
ICU/PRODUCTION CONTROL COORDINATOR PT APPEARS TO HAVE CALM DOWN WITH DECREASED RR RATE DOWN TO 29 FROM 44. HEART RATE FROM 140'S TO 128. WILL CONTINUE TO MONITOR THIS PT.
[2017-09-10] VITALS (35 sets, daily range): BP systolic 95–162; BP diastolic 56–109
--- NOTE | 2017-09-10 02:20 | NUR ---
ICU/GRAB HOOKER VERSED DRIP GOING AT 10 ML/HR BAG HAD TO BE CHANGED, NOTIFIED CHARGE NURSE. CHARGE NURSE CHANGED OUT THE BAG, IT WAS SCANNED AND DOCUMENTED. WILL CONTINUED TO MONITOR THIS PT.
[2017-09-10] MEDS: MIDAZOLAM HCL 100 MG in IV NS 0.9% 80 ML IV PRN ×2 (02:27→13:20)
[2017-09-10] MEDS: LORAZEPAM INJ 2 MG/ML VIAL IV PRN ×4 (02:31→15:58)
--- NOTE | 2017-09-10 02:45 | NUR ---
ICU/COMPOSING MACHINE OPERATOR PT WAS EXTREMELY AGITATED, BREATHING OVER THE VENT AT 43. INCREASED HEART RATE AT 150'S, INCREASED BLOOD PRESSURE AT 170/101. CHARGE NURSE NOTIFIED ABOUT THE CHANGE IN STATUS. ATIVAN 2MG IVP GIVEN FOR THIS. WILL CONTINUE TO MONITOR THIS PT.
--- NOTE | 2017-09-10 04:25 | NUR ---
ICU/STRUCTURAL STEEL ERECTOR WITH PT'S RESTLESS BEHAVIOR AND THRASHING ABOUT, AFRAID PT WOULD ASPIRATE ON TUBE FEEDING THAT PT WAS GETTING. YESTERDAY PT HAD HIGH RESIDUALS. PT HAS APPEARED TO SETTLE DOWN SOME, RESTARTED TUBE FEEDING. ALSO STATED COOLING MEASURES FOR THIS PT DUE TO TEMP OF 101.3 AX.
[2017-09-10] MEDS: IV NS 0.9% 1,000 ML IV PRN (04:59)
[2017-09-10] MEDS: ACETAMINOPHEN 650 MG/20.3 ML UDC NG PRN (04:59)
[2017-09-10] MEDS: METRONIDAZOLE 500 MG TABLET PO SCH ×3 (04:59→21:32)
[2017-09-10] MEDS: FIBERSOURCE HN 1,000 ML BOTTLE GT PRN (05:00)
[2017-09-10 05:11] LABS: BASOPHILS % (AUTO) 0.1 % (0.0-2.0); EOSINOPHILS # (AUTO) 0.4 /CMM (0.0-0.7); EOSINOPHILS % (AUTO) 1.6 % (0.0-6.0); HEMATOCRIT 24 % (39-51); HEMOGLOBIN 8.7 g/dL (13.5-17.5); LYMPHOCYTES # (AUTO) 1.3 /CMM (0.8-4.8); LYMPHOCYTES % (AUTO) 4.6 % (20.0-44.0); MEAN CORPUSCULAR HEMOGLOBIN 33 PG (26.0-33.0); MEAN CORPUSCULAR HGB CONC 36 g/dl (31.0-36.0); MEAN CORPUSCULAR VOLUME 93 fL (80-96); MONOCYTES # (AUTO) 1.4 /CMM (0.1-1.30); NEUTROPHILS # (AUTO) 24.5 /CMM (1.8-8.9); NEUTROPHILS % (AUTO) 88.7 % (43.0-81.0); PLATELET COUNT (AUTO) 360 /CMM (150-450); RDW COEFFICIENT OF VARIATION 16.3 (11.5-15.0); RED BLOOD CELL COUNT(AUTO) 2.62 MIL/uL (4.5-6.0); WHITE BLOOD COUNT (AUTO) 27.7 K/uL (4.3-11.0)
[2017-09-10 05:30] LABS: CARBON DIOXIDE 25 mmol/L (21-32); CHLORIDE 101 mmol/L (98-107); CREATININE 2.7 mg/dL (0.6-1.3); GLUCOSE 105 mg/dL (74-106); MAGNESIUM 1.9 mg/dL (1.8-2.4); PHOSPHORUS 5.4 mg/dL (2.5-4.9); POTASSIUM 3.6 mmol/L (3.5-5.1); SODIUM SERUM 139 mmol/L (136-145); UREA NITROGEN, BLOOD 30 mg/dL (7-18)
[2017-09-10 05:31] LABS: TROPONIN I < 0.017 ng/mL (0.00-0.056)
[2017-09-10 06:06] LABS: NEUTROPHILS % (MANUAL) 88 (42-76)
[2017-09-10 06:07] LABS: LYMPHOCYTES % (MANUAL) 4 % (16-48); MONOCYTES % (MANUAL) 6 % (0-11.0); MYELOCYTES % 2 % (0-0)
--- NOTE | 2017-09-10 07:15 | NUR ---
SHOEBLACK NOTES RECEIVED PATIENT SEDATED RESPONSIVE TO VERBAL AND TACTILE STIMULI , NOT IN ACUTE DISTRESS , RESPIRATIONS EVEN AND UNLABORED WITH SPO2 OF 97% VIA MECHANICAL VENTILATOR SETTING ORDERED , TRACH OF SHILEY # [address] , ST 108 ON BEDSIDE MONITOR , RIGHT NARE NGT IN PLACE WITH FIBERSOURCE @ 50ML/HR TOLERATING WELL WITH NO RESIDUALS NOTED , FC DRAINING WELL VIA GRAVITY WITH MOISES COLORED URINE , FLEXISEAL DRAINING WITH YELLOW LIQUID STOOL , BILATERAL SOFT WRIST RESTRAINS IN PLACE VISUAL CHECK PER PROTOCOL , LEFT IJ HD CATH C/D/I , LEFT UPPER ARM MIDLINE PATENT AND INTACT WITH VERSED @ 10ML/HR AND FENTANYL @ 110MCG/HR , NS @ 40ML/HR INFUSING WELL , ALL NEEDS ATTENDED , BED ON LOW AND LOCKED POSITION , SIDE RAILS X2 ,HOB @ 35 , WILL CONTINUE TO MONITOR
[2017-09-10] MEDS: ABACAVIR PO SCH (08:19)
[2017-09-10] MEDS: DOLUTEGRAVIR PO SCH (08:19)
[2017-09-10] MEDS: PANTOPRAZOLE 40 MG VIAL IV SCH (08:19)
[2017-09-10] MEDS: LAMIVUDI PO SCH (08:19)
[2017-09-10] MEDS: MULTIPLE VIT (LYCOPENE/FA/MV,CA,IRON,MIN/LUT)1 TAB PO SCH (08:19)
[2017-09-10] MEDS: LACTOBACILLUS RHAMNOSUS GG 1 EACH CAP.SPRINK PO SCH ×2 (08:20→17:10)
[2017-09-10] MEDS: LINEZOLID RTU BAG 600 MG in PREMIX 1 EA IV SCH ×2 (08:21→21:31)
[2017-09-10] MEDS: SEVELAMER CARBONATE 0.8 GM POWD.PACK GT SCH ×3 (08:21→17:10)
[2017-09-10] MEDS: LORATADINE 10 MG TABLET PO SCH (08:21)
--- NOTE | 2017-09-10 09:17 | NUR ---
RT NOTE PT RECEIVED MECHANICALLY VENTILATED VIA SHILEY 8 CUFFED TRACH. TRACH MIDLINE AND SECURE. CUFF INFLATED. SETTINGS PRESCRIBED. ALARMS SET PER PROTOCOL AND AUDIBLE. BILATERAL CHEST RISE NOTED. VENT PLUGGED IN TO RED OUTLET. AMBU BAG AT BED SIDE. NO DISTRESS NOTED. WILL CONTINUE TO MONITOR. Addendum: 09/10/17 at 0917 by POLLO JONES RT Amended: Links added.
[2017-09-10] MEDS: MORPHINE SULFATE INJ 4 MG/ML DISP.SYRIN IV PRN ×2 (11:59→18:39)
--- NOTE | 2017-09-10 12:00 | NUR ---
INSTANTIZER OPERATOR NOTES SEEN AND EVALUATED BY DR DANIELS, DISCUSSED LABS , AND VENT SETTINGS , PT HAD TEMP OF 103 YESTERDAY PENDING BLOOD CULTURE RESULT , T MAX OF 99 .9 F TODAY , PT STILL AWAKE ON MAX DOSE OF FENTANYL AND VERSED , PER MD ADD MORPHINE 4MG Q2 PRN ORDERS CARRIED OUT .
--- NOTE | 2017-09-10 12:41 | NUR ---
RT NOTE PT FI02 TITRATED DOWN TO 60% PER MD FRANCES ORDER. Addendum: 09/10/17 at 1242 by POLLO JONES RT Amended: Links added.
--- NOTE | 2017-09-10 13:00 | NUR ---
PARBOILER NOTES @ 1245 FIO2 WAS TITRATED TO 60% ORDERED BY DR DANIELS , PT NOTED WITH DISTRESS , SPO2 OF 80% , PLACED BACK PT ON 75% FIO2 . AWARE
--- NOTE | 2017-09-10 13:13 | NUR ---
RT NOTE PT PLACED BACK ON 75% FI02 DUE TO EPISODE OF DESATURATION. RN NOTIFIED. PT STABLE. Addendum: 09/10/17 at 1315 by POLLO JONES RT Amended: Links added.
[2017-09-10] MEDS: FENTANYL CITRAT IV 2,500 MCG in IV NS 0.9% 200 ML IV PRN (13:21)
[2017-09-10] MEDS: SERTRALINE HCL 25 MG TABLET PO SCH (17:10)
[2017-09-10] MEDS: MICAFUNGIN SODIUM 100 MG in IV NS 0.9% 100 ML IV SCH (17:10)
[2017-09-11] VITALS (41 sets, daily range): BP systolic 13–181; BP diastolic 38–98
[2017-09-11] MEDS: LORAZEPAM INJ 2 MG/ML VIAL IV PRN ×5 (01:00→22:18)
[2017-09-11] MEDS: MORPHINE SULFATE INJ 4 MG/ML DISP.SYRIN IV PRN ×2 (01:16→10:34)
--- NOTE | 2017-09-11 01:22 | NUR ---
CLAM BED LABORER DF PT WITH FEVER 101.3 AGITATION,RESTLESS, PT WITH SINUS TACHY@155BPM.PT OVERBREATHING VENT WITH RATE OF 45RPM, PT ON 75%FIO2 O2 SAT OF 77%.PT FIO2 INCREASED TO 100% TYLENOL 650MG ADMIN,COOLING MEASURES PROVIDED. ATIVAN 2MG IVP/MORPHINE 4MG ADMIN. FENTANYL GTT@ MAX RATE OF 125MCG/HR, VERSED@10MG/HR. SBP STABLE AT 144/55.AFTER INTERVENTIONS HEART RATE DECREASED TO 130BPM, O2 SAT INCREASE TO 95-97%. INTERVENTIONS EFFECTIVE, WILL CONTINUE TO MONITOR.
[2017-09-11] MEDS: METRONIDAZOLE 500 MG TABLET PO SCH ×3 (04:30→22:18)
[2017-09-11] MEDS: FIBERSOURCE HN 1,000 ML BOTTLE GT PRN (04:31)
--- NOTE | 2017-09-11 04:57 | NUR ---
COSMETIC MANAGER DF PT ADMIN ATIVAN 2MG IVP PRN AGITATION PRIOR TO AM CARE.PT RESTLESS,AGITATED WITH ARDS. VSS.
[2017-09-11 05:38] LABS: BASOPHILS # (AUTO) 0.1 /CMM (0.0-0.2); BASOPHILS % (AUTO) 0.3 % (0.0-2.0); EOSINOPHILS # (AUTO) 0.5 /CMM (0.0-0.7); EOSINOPHILS % (AUTO) 1.9 % (0.0-6.0); HEMATOCRIT 24 % (39-51); HEMOGLOBIN 8.1 g/dL (13.5-17.5); LYMPHOCYTES # (AUTO) 1.8 /CMM (0.8-4.8); LYMPHOCYTES % (AUTO) 6.4 % (20.0-44.0); MEAN CORPUSCULAR HEMOGLOBIN 32 PG (26.0-33.0); MEAN CORPUSCULAR HGB CONC 34 g/dl (31.0-36.0); MEAN CORPUSCULAR VOLUME 94 fL (80-96); MONOCYTES # (AUTO) 1.3 /CMM (0.1-1.30); MONOCYTES % (AUTO) 4.8 % (2.0-12.0); NEUTROPHILS # (AUTO) 24.1 /CMM (1.8-8.9); NEUTROPHILS % (AUTO) 86.6 % (43.0-81.0); PLATELET COUNT (AUTO) 284 /CMM (150-450); RDW COEFFICIENT OF VARIATION 16.8 (11.5-15.0); RED BLOOD CELL COUNT(AUTO) 2.52 MIL/uL (4.5-6.0); WHITE BLOOD COUNT (AUTO) 27.9 K/uL (4.3-11.0)
--- NOTE | 2017-09-11 05:38 | NUR ---
WOMEN SPECIALIST DF TOTAL CARE COMPLETED.VSS. NAD NOTED.
[2017-09-11 05:59] LABS: CALCIUM, SERUM 8.7 mg/dL (8.5-10.1); CREATININE 2.8 mg/dL (0.6-1.3); POTASSIUM 3.4 mmol/L (3.5-5.1)
[2017-09-11 06:03] LABS: PHOSPHORUS 5.5 mg/dL (2.5-4.9)
[2017-09-11 06:06] LABS: BAND % (MANUAL) 1 % (0.0-5.0); EOSINOPHILS % (MANUAL) 3 % (0-4); LYMPHOCYTES % (MANUAL) 6 % (16-48); MONOCYTES % (MANUAL) 4 % (0-11.0); NEUTROPHILS % (MANUAL) 86 (42-76)
--- NOTE | 2017-09-11 06:54 | NUR ---
SNOW BLOWER DF PT @0600 FIO2 CHANGED TO 75% PT DESATURATED TO 88-90. PT FIO2 CHANGED BACK TO 100% OS SAT OF 94-96%
--- NOTE | 2017-09-11 08:03 | NUR ---
RT PATIENT REC'D TRACHED ON [facility] VENT WITH SETTINGS SET BY . VENT ALARMS CHECKED + AUDIBLE. CUFF PRESSURE CHECKED BRIAR WOOD SORTER. SX'D WITH SUMEET STANTON SEMITHICK SECRETIONS. PATIENT SEDATED ON HIGH FIO2 AND PEEP. AMBU BAG AT HOB Addendum: 09/11/17 at 0905 by BRYNN BARBER RT Amended: Links added.
[2017-09-11] MEDS: ABACAVIR PO SCH (08:56)
[2017-09-11] MEDS: DOLUTEGRAVIR PO SCH (08:56)
[2017-09-11] MEDS: LINEZOLID RTU BAG 600 MG in PREMIX 1 EA IV SCH ×2 (08:56→22:18)
[2017-09-11] MEDS: LAMIVUDI PO SCH (08:56)
[2017-09-11] MEDS: MULTIPLE VIT (LYCOPENE/FA/MV,CA,IRON,MIN/LUT)1 TAB PO SCH (08:57)
[2017-09-11] MEDS: Z GUARD REMEDY 2 OZ OINT TP PRN (08:57)
[2017-09-11] MEDS: LORATADINE 10 MG TABLET PO SCH (08:57)
[2017-09-11] MEDS: PANTOPRAZOLE 40 MG VIAL IV SCH (08:57)
[2017-09-11] MEDS: LACTOBACILLUS RHAMNOSUS GG 1 EACH CAP.SPRINK PO SCH ×2 (08:57→17:45)
[2017-09-11] MEDS: FENTANYL CITRAT IV 2,500 MCG in IV NS 0.9% 200 ML IV PRN ×3 (09:41)
--- NOTE | 2017-09-11 09:55 | NUR ---
ICU/RN: Pt extremely agitated on max doses of Versed and Fentanyl drip; administered Ativan IVP prn as ordered. Pt continues to be in respiratory distress, HR elevated to 140-150's, Tachypneic RR 40's, gagging, coughing, crying and flailing bilateral lower extremities. Dr Peleg at bedside to assess pt. Orders Morphine drip for sedation to keep respirations less than or equal to 24 per minute. ABG's and vent changes ordered. assembler type bar and segment updated.
[2017-09-11] MEDS: MIDAZOLAM HCL 100 MG in IV NS 0.9% 80 ML IV PRN ×4 (09:56→18:39)
--- NOTE | 2017-09-11 10:15 | NUR ---
RT PER DR DANIELS PEEP INCREASED TO 14 Addendum: 09/11/17 at 1015 by BRYNN BARBER RT Amended: Links added.
[2017-09-11] MEDS: MORPHINE SULFATE PF DRIP 250 MG in IV D5W 240 ML IV PRN (11:06)
[2017-09-11 11:32] LABS: ABG BASE EXCESS 0.7 mmol/L; ABG OXYGEN SATURATION 91.8 % (92.0-98.5); ABG PCO2 53.7 mmHg (35.0-45.0); ABG PH 7.323 (7.350-7.450); ABG PO2 72.1 mmHg (75.0-100.0); AaDO2 441.9 mmHg; COHb 0.3 % (0.5-1.5); MetHb 1.7 % (0.0-1.5); PEEP,BG 14 cm H2O; SITE, ABG Right Radial
[2017-09-11] MEDS: SEVELAMER CARBONATE 0.8 GM POWD.PACK GT SCH ×3 (11:49→17:45)
--- NOTE | 2017-09-11 12:00 | NUR ---
ICU/RN: Pt with temp 100.6; cooling measures in place. Addendum: 09/11/17 at 1543 by DAYTON MANCERA RN JAKE Bergman for ID consult rounds; informed of fevers and verified allergy to PCN.
[2017-09-11] MEDS: ACETAMINOPHEN 650 MG/20.3 ML UDC NG PRN ×2 (12:09→17:45)
--- NOTE | 2017-09-11 12:30 | NUR ---
ICU/RN: Pt's BP with downward trend. Dr Kay notified of sedation and possible need for pressors. Orders for PICC line insertion obtained. Pt's mother consented to procedure as pt is unable to sign.
--- NOTE | 2017-09-11 14:00 | NUR ---
ICU/RN: Pt off HD, SBP now in 70's. No output. F/U with nsg billposting supervisor regarding PICC line insertion, ETA is 1600, per billposting supervisor Leesa, ok to infuse pressors through midline.
[2017-09-11] MEDS: PHENYLEPHRINE 40 MG in IV D5W 250 ML IV PRN (14:43)
[2017-09-11] MEDS ORDERED: EPOETIN ALFA (10,000 UNIT) 10,000 UNIT/ML VIAL SQ ONE (15:00)
--- NOTE | 2017-09-11 17:30 | NUR ---
ICU/RN: Pt s/p PICC line insertion, pt did not tolerate laying flat, with sPO2 in mid to high 80's. Pt awake, coughing and gagging. Sedation titrated up per protocol.
[2017-09-11] MEDS: D5W IV PRN (17:44)
[2017-09-11] MEDS: AMIKACIN IV PRN (17:44)
[2017-09-11] MEDS: SERTRALINE HCL 25 MG TABLET PO SCH (17:45)
--- NOTE | 2017-09-11 18:00 | NUR ---
ICU/RN: Pt currently on max doses of morphine, fentanyl and versed drip, with SPO2 in low 90's. Ativan dose administered effective. Currently off pressors.
--- NOTE | 2017-09-11 18:30 | NUR ---
ICU/RN: Mycamine IVPB dose in leaking bag, called Rx for replacement; as well as replacement Awaiting delivery.
--- NOTE | 2017-09-11 19:20 | NUR ---
ICU/RN: Pt in bed, no distress noted, sedation running at max dosage. VITA PICC and HANK Midline patent and intact. Flexiseal draining to gravity. FC with dark yellow urine output. SBP maintained >90mmhg. Awaiting delivery of Mycamine dose. care endorsed to pm rn for louise
--- NOTE | 2017-09-11 19:49 | NUR ---
SENIOR STRATEGY MANAGER. INITIAL ASSESSMENT. RECEIVED THE PT REST ON THE BED. TRACH TO VENT CONNECTED. SHILEY#8,AC 24,TV 500,FIO2 90%, PEEP 14. SAT 96%. FIBERGLASS BOAT FINISHER SHOWING S TACH. RT NARE NGT FIBER SOURCE 50ML/H,LT IJ HD CATH,RT UPPER ARM PICC LINE IVF NS 40ML/H,MORPHINE 15MG/H,FENTANYL 125MCG, VERSED 10MG. JEOVANNY WRIST RESTRAINT CHECKED AND RELEASED NO INJURY OR REDNESS NOTED. HOB ELEVATED, FLEXA SEAL INTACT. WILL CONTINUE TO MONITOR VITALS.
[2017-09-11] MEDS: MICAFUNGIN SODIUM 100 MG in IV NS 0.9% 100 ML IV SCH (20:47)
--- NOTE | 2017-09-11 20:49 | NUR ---
PT RECEIVED TRACH ON VENT. PT TOLERATING VENT SETTINGS. SX'D FOR MOD AMT OF THICK STANTON SECRETIONS. VENT ALARMS SET AND AUDIBLE. TRACH CUFF BED MAKER. AMBU BAG AT BEDSIDE. VENT PLUGGED INTO RED OUTLET. WILL CONTINUE TO MONITOR. Addendum: 09/11/17 at 2049 by KARAN HENSON RT Amended: Links added.
--- NOTE | 2017-09-11 21:21 | NUR ---
ADMINISTRATION CLERK.PT C/O NAUSEA. AND ITCHING ALL OVER THE BODY. PAGED PARMINDER NGUYEN. ORDERED ZOFRAN 4MG Q6 PRN.
[2017-09-12] VITALS (83 sets, daily range): BP systolic 77–114; BP diastolic 44–74
[2017-09-12] MEDS: LORAZEPAM INJ 2 MG/ML VIAL IV PRN (02:11)
[2017-09-12] MEDS: ACETAMINOPHEN 650 MG/20.3 ML UDC NG PRN ×2 (02:11→08:29)
--- NOTE | 2017-09-12 03:33 | NUR ---
SLEEVE SETTER SAFETY STITCH. AM CARE. ORAL CARE, BED BATH GIVEN. LINEN CHANGED. REMAINING SAME VENT SETTINGS. SAT 90%. PRACTICE MANAGERS SHOWING S TACH. IV RT AND LT UPPER ARM LIAN 50MCG/MIN,MORPHINE 15MG/H,FENTANYL 125MCG/H,VERSED 10MG/MIN. NGT FEEDING TOLERATED WELL. HOB ELEVATED. TURN AND REPOSITION Q2H. FLEXA SEAL INTACT. FC PATENT. JEOVANNY SOFT WRIST RESTRAINT CHECKED AND RELEASED. NO INJURY OR REDNESS NOTED WILL CONTINUE TO MONITOR VITALS.
[2017-09-12] MEDS: METRONIDAZOLE 500 MG TABLET PO SCH ×3 (04:25→21:11)
[2017-09-12] MEDS: MIDAZOLAM HCL 100 MG in IV NS 0.9% 80 ML IV PRN ×2 (04:37→14:55)
[2017-09-12] MEDS: FENTANYL CITRAT IV 2,500 MCG in IV NS 0.9% 200 ML IV PRN (04:43)
[2017-09-12 04:46] LABS: EOSINOPHILS # (AUTO) 0.6 /CMM (0.0-0.7); EOSINOPHILS % (AUTO) 1.8 % (0.0-6.0); HEMATOCRIT 23 % (39-51); HEMOGLOBIN 7.7 g/dL (13.5-17.5); LYMPHOCYTES % (AUTO) 6.1 % (20.0-44.0); MEAN CORPUSCULAR HEMOGLOBIN 32 PG (26.0-33.0); MEAN CORPUSCULAR HGB CONC 34 g/dl (31.0-36.0); MEAN CORPUSCULAR VOLUME 95 fL (80-96); MONOCYTES # (AUTO) 1.7 /CMM (0.1-1.30); MONOCYTES % (AUTO) 5.3 % (2.0-12.0); NEUTROPHILS # (AUTO) 27.8 /CMM (1.8-8.9); NEUTROPHILS % (AUTO) 86.8 % (43.0-81.0); PLATELET COUNT (AUTO) 281 /CMM (150-450); RDW COEFFICIENT OF VARIATION 16.5 (11.5-15.0)
[2017-09-12] MEDS: MORPHINE SULFATE PF DRIP 250 MG in IV D5W 240 ML IV PRN ×2 (04:53→22:04)
[2017-09-12 05:02] LABS: CALCIUM, SERUM 8.8 mg/dL (8.5-10.1); CREATININE 2.6 mg/dL (0.6-1.3); MAGNESIUM 1.9 mg/dL (1.8-2.4); PHOSPHORUS 5.8 mg/dL (2.5-4.9)
[2017-09-12 05:13] LABS: POTASSIUM 4.3 mmol/L (3.5-5.1)
[2017-09-12 05:21] LABS: BAND % (MANUAL) 4 % (0.0-5.0); EOSINOPHILS % (MANUAL) 2 % (0-4); LYMPHOCYTES % (MANUAL) 9 % (16-48); MONOCYTES % (MANUAL) 6 % (0-11.0); NEUTROPHILS % (MANUAL) 79 (42-76)
--- NOTE | 2017-09-12 08:00 | NUR ---
ICU/RN - Notes Unable to do sedation vacation at this time, (MD aware), maxed out on sedation - Morphine, Fentanyl and Versed gtt, as pt' still tachypneic, RR still 28. Patient on 100% Fio2 with 14 peep.
[2017-09-12] MEDS: LACTOBACILLUS RHAMNOSUS GG 1 EACH CAP.SPRINK PO SCH ×2 (08:29→16:31)
[2017-09-12] MEDS: LORATADINE 10 MG TABLET PO SCH (08:29)
[2017-09-12] MEDS: LINEZOLID RTU BAG 600 MG in PREMIX 1 EA IV SCH ×2 (08:29→21:11)
[2017-09-12] MEDS: DOLUTEGRAVIR PO SCH (08:29)
[2017-09-12] MEDS: ABACAVIR PO SCH (08:29)
[2017-09-12] MEDS: LAMIVUDI PO SCH (08:29)
[2017-09-12] MEDS: MULTIPLE VIT (LYCOPENE/FA/MV,CA,IRON,MIN/LUT)1 TAB PO SCH (08:29)
[2017-09-12] MEDS: SEVELAMER CARBONATE 0.8 GM POWD.PACK GT SCH ×3 (08:29→17:06)
[2017-09-12] MEDS: PANTOPRAZOLE 40 MG VIAL IV SCH (08:29)
--- NOTE | 2017-09-12 08:30 | NUR ---
ICU/RN - Notes Pt's core temperature 102.0 F. Administered Tylenol 650 mg via NGT. Cooling measures in place. Pt also noted with high gastric residuals ~300mL. Tube feeding stopped at this time. Will notify
[2017-09-12] MEDS: PHENYLEPHRINE 80 MG in IV D5W 250 ML IV PRN ×3 (08:49→22:24)
[2017-09-12] MEDS: HYDROCORTISONE SOD SUCCINATE 100 MG/2 ML VIAL IV SCH ×2 (09:28→16:31)
[2017-09-12] MEDS: IV NS 0.9% 1,000 ML IV PRN (09:47)
[2017-09-12] MEDS: SERTRALINE HCL 25 MG TABLET PO SCH (16:31)
[2017-09-12] MEDS ORDERED: VASOPRESSIN INJ 50 UNIT in IV D5W 497.5 ML IV PRN (17:00)
[2017-09-12] MEDS: MICAFUNGIN SODIUM 100 MG in IV NS 0.9% 100 ML IV SCH (17:06)
--- NOTE | 2017-09-12 17:20 | NUR ---
ICU/RN - Notes Pt's mother and friend at bedside. Dr Sosa at bedside providing family updates regarding status and plan of care.
[2017-09-12] MEDS: NOREPINEPHRINE 16 MG in IV D5W 500 ML IV PRN (17:29)
--- NOTE | 2017-09-12 17:54 | NUR ---
ICU/RN - Notes Pt noted with increasing hypotension, maxed out on Neosynephrine. Unable to titrate down sedation as pt's RR 27. Levophed gtt started. Per Dr Sosa, start on Levophed when Neosynephrine maxed out; may switch to Vasopressin if patient does not tolerated Levophed (with increasing tachycardia). At this time, HR 123. Will continue to monitor.
--- NOTE | 2017-09-12 20:09 | NUR ---
STEAK SAUCE MAKER. INITIAL ASSESSMENT. RECEIVED THE PT REST NON THE BED. TRACH TO VENT CONNECTED. SHILEY#8, AC 24,TV 500,FIO2 80%,PEEP 24. SAT 96%. SPARE FIXER SHOWING S TACH. JEOVANNY SOFT WRIST RESTRAINT CHECKED AND RELEASED. NO INJURY OR REDNESS NOTED. RT NARE NGT INTACT. FLEXA SEAL INTACT. HOB ELEVATED. LEVO 4MCG/MIN,LIAN 300MCG/MIN,MORPHINE 15MCG/H,VERSED 10MG/H,FENTANYL 125MCG/H. NS 40ML/H. WILL CONTINUE TO MONITOR VITALS.
--- NOTE | 2017-09-12 20:29 | NUR ---
PT RECEIVED TRACH ON VENT. PT TOLERATING VENT SETTINGS. SX'D FOR MOD AMT OF THICK STANTON SECRETIONS. VENT ALARMS SET AND AUDIBLE. TRACH CUFF IT PROGRAMMER ANALYST. AMBU BAG AT BEDSIDE. VENT PLUGGED INTO RED OUTLET. WILL CONTINUE TO MONITOR. Addendum: 09/12/17 at 2028 by KARAN HENSON RT Amended: Links added.
[2017-09-12] MEDS: LEVOFLOXACIN 250 MG /D5W 50 ML 250 MG in PREMIX 1 EA IV SCH (21:11)
[2017-09-13] VITALS (88 sets, daily range): BP systolic 87–154; BP diastolic 52–99
[2017-09-13] MEDS: FENTANYL CITRAT IV 2,500 MCG in IV NS 0.9% 200 ML IV PRN ×2 (00:09→21:08)
[2017-09-13] MEDS: MIDAZOLAM HCL 100 MG in IV NS 0.9% 80 ML IV PRN ×3 (00:13→21:09)
[2017-09-13] MEDS: HYDROCORTISONE SOD SUCCINATE 100 MG/2 ML VIAL IV SCH ×3 (00:19→16:06)
[2017-09-13] MEDS: PHENYLEPHRINE 80 MG in IV D5W 250 ML IV PRN ×5 (03:23→21:32)
[2017-09-13 05:15] LABS: HEMATOCRIT 23 % (39-51); HEMOGLOBIN 7.7 g/dL (13.5-17.5); MEAN CORPUSCULAR HEMOGLOBIN 31 PG (26.0-33.0); MEAN CORPUSCULAR HGB CONC 33 g/dl (31.0-36.0); MEAN CORPUSCULAR VOLUME 96 fL (80-96); PLATELET COUNT (AUTO) 271 /CMM (150-450); RED BLOOD CELL COUNT(AUTO) 2.45 MIL/uL (4.5-6.0)
[2017-09-13 05:28] LABS: CREATININE 4.1 mg/dL (0.6-1.3); MAGNESIUM 2.3 mg/dL (1.8-2.4)
[2017-09-13 05:31] LABS: WHITE BLOOD COUNT (AUTO) 51.8 K/uL (4.3-11.0)
--- NOTE | 2017-09-13 05:37 | NUR ---
OUTSIDE RESIDENTIAL SALES PROFESSIONAL. AM CARE, ORAL CARE, BED BATH GIVEN. LINEN CHANGED. REMAINING SAME VENT SETTING. SAT 97%DATA CENTER PROJECT MANAGER SHOWING S TACH. IV RT UPPER ARM PICC LINE, LT HAND MID LINE. FENTANYL 125MCG/H, VERSED 10MG/H,MORPHINE 15MCG/H,LIAN 300MCG/MIN, NS 40ML/H,LEVOPHED 10MCG/MIN, FC PATENT. FLEXA SEAL INTACT. PT IS UNSTABLE. AFEBRILE. WILL CONTINUE TO MONITOR VITALS.
[2017-09-13] MEDS: METRONIDAZOLE 500 MG TABLET PO SCH ×3 (05:59→20:43)
[2017-09-13 06:01] LABS: PHOSPHORUS 10.5 mg/dL (2.5-4.9)
[2017-09-13 06:15] LABS: BAND % (MANUAL) 5 % (0.0-5.0); NEUTROPHILS % (MANUAL) 80 (42-76)
[2017-09-13 06:16] LABS: LYMPHOCYTES % (MANUAL) 8 % (16-48); METAMYELOCYTES % 2 % (0-0); MONOCYTES % (MANUAL) 3 % (0-11.0); MYELOCYTES % 2 % (0-0)
--- NOTE | 2017-09-13 07:15 | NUR ---
OUTDOOR STUDIES PROFESSOR NOTES RECEIVED PATIENT SEDATED , NOT IN ACUTE DISTRESS , RESPIRATIONS EVEN AND UNLABORED WITH SPO2 OF 98% VIA MECHANICAL VENTILATOR SETTING ORDERED , TRACH OF SHILEY # [address] , [address] 115 ON BEDSIDE MONITOR , RIGHT NARE NGT IN PLACE CLAMPED NOTED WITH 1000 GREENISH RESIDUALS , FC DRAINING WELL VIA GRAVITY WITH MOISES COLORED URINE , FLEXI SEAL DRAINING WITH YELLOW LIQUID STOOL , , LEFT IJ HD CATH C/D/I , LEFT UPPER ARM MIDLINE PATENT AND INTACT WITH VERSED @ 10ML/HR AND FENTANYL @ 110MCG/HR , , MORPHINE @ 15MLS/HR NS @ 40ML/HR INFUSING WELL , VITA PICC LINE WITH LEVOPHED @ 10MCG/MIN, NEOSYNEPRINE @ 300 MCG /MIN ALL NEEDS ATTENDED , BED ON LOW AND LOCKED POSITION , SIDE RAILS X2 ,HOB @ 35 , WILL CONTINUE TO MONITOR .
--- NOTE | 2017-09-13 07:26 | NUR ---
Trach pt received on AC mode. Pt trach is secure. Vent is plugged into a red outlet, alarms are set and audible, and BVM is at bedside. Addendum: 09/13/17 at 0727 by ALEXX LEMA RT Amended: Links added.
[2017-09-13] MEDS ORDERED: EPOETIN ALFA (10,000 UNIT) 10,000 UNIT/ML VIAL SQ ONE (08:00)
[2017-09-13] MEDS: PANTOPRAZOLE 40 MG VIAL IV SCH (08:16)
[2017-09-13] MEDS: LINEZOLID RTU BAG 600 MG in PREMIX 1 EA IV SCH ×2 (08:16→20:43)
[2017-09-13] MEDS: ABACAVIR PO SCH (08:16)
[2017-09-13] MEDS: DOLUTEGRAVIR PO SCH (08:16)
[2017-09-13] MEDS: LAMIVUDI PO SCH (08:16)
[2017-09-13] MEDS: SEVELAMER CARBONATE 0.8 GM POWD.PACK GT SCH ×3 (08:16→17:55)
[2017-09-13] MEDS: LORATADINE 10 MG TABLET PO SCH (08:17)
[2017-09-13] MEDS: LACTOBACILLUS RHAMNOSUS GG 1 EACH CAP.SPRINK PO SCH ×2 (08:17→16:06)
[2017-09-13] MEDS: MULTIPLE VIT (LYCOPENE/FA/MV,CA,IRON,MIN/LUT)1 TAB PO SCH (08:17)
--- NOTE | 2017-09-13 09:00 | NUR ---
DAIRY SCIENTIST NOTES UNABLE TO DO SEDATION VACATION , PT IS TACHYPNEIC RR 30'S , TACHYCARDIA , 130'S , PT IS ON MAX DOSE OF FENTANYL , MORPHINE AND VERSBILLY DRMD CHACE AWARE .
--- NOTE | 2017-09-13 10:40 | NUR ---
NURSING RESIDENT NOTES FIO2 TITRATED TO 60% ORDERED BY DR DANIELS , SPO OF 98% TOLERATING WELL WITH NO S/S OF DISTRESS ,
--- NOTE | 2017-09-13 11:00 | NUR ---
HR RECEPTIONIST NOTES SEEN AND EVALUATED BY DR ATWOOD , DISCUSSED LABS , VENT SETTINGS , AFEBRILE TEMP OF 97.5 VIA CORE , ON LEVOPHED @ 2MCG/MIN , NEOSYNEPRINE @ 300MCG/MIN , NOTED WITH 1000 ML GASTRIC RESIDUALS GREENISH YELLOW IN COLOR , COMFORTABLE WITH SEDATION OF MORPHINE @ 15MG/HR , FENRANYL @ 125MCG/ HR VERSED @ 10MG/HR , MD AWARE , PER MD ORDER STAT KUB OF ABDOMEN AND START PT ON REGLAN Q6 PRN , ORDERS CARRIED OUT
[2017-09-13] MEDS ORDERED: METOCLOPRAMIDE HCL 10 MG/2 ML VIAL IV PRN (11:30)
[2017-09-13] MEDS: IV NS 0.9% 1,000 ML IV PRN (12:30)
[2017-09-13] MEDS: MORPHINE SULFATE PF DRIP 250 MG in IV D5W 240 ML IV PRN (15:59)
[2017-09-13] MEDS: SERTRALINE HCL 25 MG TABLET PO SCH (16:06)
--- NOTE | 2017-09-13 17:00 | NUR ---
FILM WRITER NOTES SPOKE WITH DR PHILLIPS REGARDING PT HIGH RESIDUALS , PER MD START PT ON ERYTHROMYCIN 250MG Q6 NGT X1 DAY . ORDERS CARRIED OUT
[2017-09-13] MEDS: ERYTHROMYCIN ETHYLSUCCINATE 200 MG/5 ML SUSPENSION NG SCH ×2 (17:54→23:11)
[2017-09-13] MEDS: MICAFUNGIN SODIUM 100 MG in IV NS 0.9% 100 ML IV SCH (17:55)
[2017-09-13] MEDS: NOREPINEPHRINE 16 MG in IV D5W 500 ML IV PRN (18:11)
--- NOTE | 2017-09-13 19:47 | NUR ---
Received pt on vent support on current vent settings,pt stable no respiratory distress noted, no sob noted, alarms are on and audible, ventilator is plugged into red outlet, ambu bag at bedside, will continue monitoring per MDS orders. Addendum: 09/13/17 at 1947 by MARIS NORTH RT Amended: Links added.
--- NOTE | 2017-09-13 20:00 | NUR ---
CUSTOMER ACQUISITION SPECIALIST NOTES RECEIVED PT IN BED, SEDATED. TELE READS ST AT 120 BPM. ON VENT VIA TRACH AT ORDERED SETTING TOLERATING WELL. RIGHT NGT, CLAMPED, GASTRIC RESIDUAL OF 1000ML, GREEN COLOR. PETERS CATH IN PLACE, DRAINING WELL TO GRAVITY. VITA PICC AND HANK MIDLINE, RUNNING VERSED, FENTENYL, MORPHINE, LIAN AND NS. HOB ELEVATED, SIDE RAILS X2, TURNED AND REPOSITIONED.
[2017-09-13] MEDS: LEVOFLOXACIN 250 MG /D5W 50 ML 250 MG in PREMIX 1 EA IV SCH (20:43)
[2017-09-13] MEDS ORDERED: AMIKACIN 250 MG/ML VIAL ONE (22:57)
[2017-09-13] MEDS: AMIKACIN IV PRN (23:10)
[2017-09-13] MEDS: D5W IV PRN (23:10)
[2017-09-14] VITALS (69 sets, daily range): BP systolic 96–157; BP diastolic 61–98
--- NOTE | 2017-09-14 | NUR ---
BALL MACHINE OPERATOR NOTES SPOKE TO DR RUSSELL REGARD GASTRIC RESIDUAL OF 1000 ML. MADE AWARE THAT PATIENT IS ON ZYVOX. REGLAN ORDERED AND OK TO GIVE BY DR RUSSELL.
--- NOTE | 2017-09-14 | NUR ---
POKER IN NOTES Status unchanged,BP stable ,will slowly wean down neosynephrine drip as tolerated.PM care done,responds to pain,grimaces with strong cough reflex when turned to sides.Skin care done,grossly edematous scrotum.
--- NOTE | 2017-09-14 00:30 | NUR ---
STIFF LEG OPERATOR NOTES CONTACTED DR RUSSELL AND MADE AWARE OF PT ON REGLAN AND SERTRALINE. PER DR RUSSELL OK TO ADMINISTER REGLAN AND SERTRALINE.
[2017-09-14] MEDS: HYDROCORTISONE SOD SUCCINATE 100 MG/2 ML VIAL IV SCH ×3 (00:51→16:29)
[2017-09-14] MEDS: PHENYLEPHRINE 80 MG in IV D5W 250 ML IV PRN ×3 (04:22→18:13)
[2017-09-14] MEDS ORDERED: METOCLOPRAMIDE HCL 10 MG/2 ML VIAL ONE (04:26)
[2017-09-14] MEDS: METRONIDAZOLE 500 MG TABLET PO SCH ×3 (04:27→20:54)
[2017-09-14] MEDS: ERYTHROMYCIN ETHYLSUCCINATE 200 MG/5 ML SUSPENSION NG SCH ×3 (05:31→17:26)
[2017-09-14] MEDS: METOCLOPRAMIDE HCL 10 MG/2 ML VIAL IV SCH ×2 (05:31→11:29)
[2017-09-14 06:07] LABS: CALCIUM, SERUM 8.1 mg/dL (8.5-10.1); CREATININE 3.1 mg/dL (0.6-1.3); HEMATOCRIT 24 % (39-51); HEMOGLOBIN 7.7 g/dL (13.5-17.5); MEAN CORPUSCULAR HEMOGLOBIN 31 PG (26.0-33.0); MEAN CORPUSCULAR HGB CONC 33 g/dl (31.0-36.0); MEAN CORPUSCULAR VOLUME 96 fL (80-96); PLATELET COUNT (AUTO) 197 /CMM (150-450); POTASSIUM 4.4 mmol/L (3.5-5.1); RDW COEFFICIENT OF VARIATION 16.8 (11.5-15.0); RED BLOOD CELL COUNT(AUTO) 2.45 MIL/uL (4.5-6.0)
[2017-09-14 06:15] LABS: WHITE BLOOD COUNT (AUTO) 44.2 K/uL (4.3-11.0)
[2017-09-14 06:39] LABS: BAND % (MANUAL) 3 % (0.0-5.0); LYMPHOCYTES % (MANUAL) 5 % (16-48); MONOCYTES % (MANUAL) 6 % (0-11.0); NEUTROPHILS % (MANUAL) 81 (42-76)
[2017-09-14 06:40] LABS: METAMYELOCYTES % 3 % (0-0); MYELOCYTES % 2 % (0-0)
--- NOTE | 2017-09-14 07:05 | NUR ---
RN NOTES RECEIVED PT ON BED, SEDATED. VENT/ TRACH DEPENDENT ,TOLERATING CURRENT VENT SETTING WELL,TRACH CARE DONE, ON TELE ST HR IN 100'S , RIGHT NGT, CLAMPED, 500 OF GREENISH COLOR GASTRIC RESIDUAL NOTED, NGT CLAMPED AT THIS TIME , PETERS CATH DRAINING WELL TO GRAVITY.FLEXI SEAL DRAINING TO GRAVITY, NS AT 40CC/HR RUNNING VIA L UPPER ARM MILD LINE ,VERSED, FENTANYL, MORPHINE, LIAN RUNNING VIA R UPPER ARM PICC LINE, SR UP x3, HOB ELEVATED, TURNED AND REPOSITIONED Q2HRS , CONTINUE TO MONITOR PT CLOSELY AND NOTIFY MD FOR ANY SIGNIFICANT CHANGES.
--- NOTE | 2017-09-14 07:21 | NUR ---
PT. RECEIVED ON VENT SUPPORT VIA TRACH WITH PARAMETERS BELLOW SET ORDER: AC 24 VT 500 FIO2 50% PEEP +14 B/S CLEAR BILATERAL. VENT IS PLUGGED INTO RED OUTLET WITH ALARMS ON AND AUDIBLE. THA @ HOB. Addendum: 09/14/17 at 1416 by KIMO FISHER RT Amended: Links added.
[2017-09-14] MEDS: MIDAZOLAM HCL 100 MG in IV NS 0.9% 80 ML IV PRN ×2 (07:26→18:18)
[2017-09-14] MEDS: PANTOPRAZOLE 40 MG VIAL IV SCH (08:41)
[2017-09-14] MEDS: SEVELAMER CARBONATE 0.8 GM POWD.PACK GT SCH ×3 (08:41→17:26)
[2017-09-14] MEDS: LORATADINE 10 MG TABLET PO SCH (08:42)
[2017-09-14] MEDS: DOLUTEGRAVIR PO SCH (08:42)
[2017-09-14] MEDS: LACTOBACILLUS RHAMNOSUS GG 1 EACH CAP.SPRINK PO SCH ×2 (08:42→16:29)
[2017-09-14] MEDS: LINEZOLID RTU BAG 600 MG in PREMIX 1 EA IV SCH ×2 (08:42→20:54)
[2017-09-14] MEDS: LAMIVUDI PO SCH (08:42)
[2017-09-14] MEDS: ABACAVIR PO SCH (08:42)
[2017-09-14] MEDS: MULTIPLE VIT (LYCOPENE/FA/MV,CA,IRON,MIN/LUT)1 TAB PO SCH (08:44)
[2017-09-14] MEDS: MORPHINE SULFATE PF DRIP 250 MG in IV D5W 240 ML IV PRN (09:17)
[2017-09-14 09:43] LABS: ABG BASE EXCESS -6.5 mmol/L; ABG OXYGEN SATURATION 87.4 % (92.0-98.5); ABG PCO2 55.7 mmHg (35.0-45.0); ABG PH 7.201 (7.350-7.450); ABG PO2 66.9 mmHg (75.0-100.0); AaDO2 226.9 mmHg; COHb 0.3 % (0.5-1.5); MetHb 0.5 % (0.0-1.5); O2Hb 86.7 % (94.0-97.0); PEEP,BG 14 cm H2O; SITE, ABG Right Brachial; VT, ABG 500 mL
--- NOTE | 2017-09-14 10:10 | NUR ---
VENT CHANGES MADE LT DANIELS: VT 550 FIO2 60% Addendum: 09/14/17 at 1011 by KIMO FISHER RT Amended: Links added.
--- NOTE | 2017-09-14 12:00 | NUR ---
RN NOTES 500CC TUBE FEEDING RESIDUAL NOTED , TF STILL ON HOLD
--- NOTE | 2017-09-14 14:00 | NUR ---
DAVE NOTES FAMILY AT THE BEDSIDE, ET SUCTIONING DONE, ON TELE ST , VSS STABLE, PT SEDATED , CONTINUE TO MONITOR. Addendum: 09/14/17 at 2004 by DESEAN CHILDS RN CORRECTION TRACH SUCTIONING DONE
--- NOTE | 2017-09-14 16:00 | NUR ---
RN NOTES VSS STABLE, 300CC TF RESIDUAL NOTED, TF STILL ON HOLD, TOLERATING CURRENT VENT SETTING WELL , CONTINUE TO MONITOR.
[2017-09-14] MEDS: SERTRALINE HCL 25 MG TABLET PO SCH (16:29)
[2017-09-14] MEDS: FIBERSOURCE HN 1,000 ML BOTTLE GT PRN (17:57)
[2017-09-14] MEDS: MICAFUNGIN SODIUM 100 MG in IV NS 0.9% 100 ML IV SCH (17:58)
--- NOTE | 2017-09-14 18:00 | NUR ---
RN NOTES TRACH SUCTIONING DONE, VSS STABLE , PETERS DRAINING TO GRAVITY , PT SEDATED , 100CC TF RESIDUAL NOTED, TF RESTARTED AT 20CC/HR . SR UPx3, BED LOCKED AND IN LOWEST POSITION , LIAN GTT AT 150MCG/MIN AT THIS TIME , WILL ENDORSE TO TAVERN OPERATOR NURSE FOR GLORIA .
[2017-09-14] MEDS: IV NS 0.9% 1,000 ML IV PRN (18:11)
[2017-09-14] MEDS: FENTANYL CITRAT IV 2,500 MCG in IV NS 0.9% 200 ML IV PRN (18:20)
--- NOTE | 2017-09-14 19:00 | NUR ---
BUCKLE ASSEMBLER NOTES Received patient with tracheostomy on the vent on AC mode,patient sedated on Versed,Fentanyl.Also on Morphine drip for comfrt and Neosynephrine for BP support.NGT with ongoing feeding (will closely monitor residuals and advance feeding to goal of 50 ml/hr if tolerated.).PICCLine VITA,Midline at HANK..Flexiseal with minimal drainage.Comfort care done.
--- NOTE | 2017-09-14 19:43 | NUR ---
Received pt on vent support on current vent settings,pt stable no respiratory distress noted, no sob noted, alarms are on and audible, ventilator is plugged into red outlet, ambu bag at bedside, will continue monitoring per MDS orders. Addendum: 09/14/17 at 1943 by MARIS NORTH RT Amended: Links added.
[2017-09-14] MEDS: LEVOFLOXACIN 250 MG /D5W 50 ML 250 MG in PREMIX 1 EA IV SCH (20:53)
[2017-09-15] VITALS (44 sets, daily range): BP systolic 104–162; BP diastolic 10–100
[2017-09-15] MEDS: MORPHINE SULFATE PF DRIP 250 MG in IV D5W 240 ML IV PRN ×2 (02:53→18:34)
[2017-09-15] MEDS: MIDAZOLAM HCL 100 MG in IV NS 0.9% 80 ML IV PRN ×2 (03:33→13:34)
[2017-09-15] MEDS: HYDROCORTISONE SOD SUCCINATE 100 MG/2 ML VIAL IV SCH ×3 (03:37→17:31)
[2017-09-15 05:11] LABS: CALCIUM, SERUM 7.5 mg/dL (8.5-10.1); CREATININE 3.2 mg/dL (0.6-1.3); POTASSIUM 4.3 mmol/L (3.5-5.1)
[2017-09-15] MEDS: METRONIDAZOLE 500 MG TABLET PO SCH ×3 (05:36→20:24)
[2017-09-15] MEDS: PHENYLEPHRINE 80 MG in IV D5W 250 ML IV PRN (05:37)
[2017-09-15] MEDS: DOLUTEGRAVIR PO SCH (08:26)
[2017-09-15] MEDS: LORATADINE 10 MG TABLET PO SCH (08:26)
[2017-09-15] MEDS: PANTOPRAZOLE 40 MG VIAL IV SCH (08:26)
[2017-09-15] MEDS: LAMIVUDI PO SCH (08:26)
[2017-09-15] MEDS: ABACAVIR PO SCH (08:26)
[2017-09-15] MEDS: SEVELAMER CARBONATE 0.8 GM POWD.PACK GT SCH ×3 (08:26→17:31)
[2017-09-15] MEDS: MULTIPLE VIT (LYCOPENE/FA/MV,CA,IRON,MIN/LUT)1 TAB PO SCH (08:26)
[2017-09-15] MEDS: LACTOBACILLUS RHAMNOSUS GG 1 EACH CAP.SPRINK PO SCH ×2 (08:26→17:31)
[2017-09-15] MEDS: Z GUARD REMEDY 2 OZ OINT TP PRN (08:27)
[2017-09-15] MEDS: LINEZOLID RTU BAG 600 MG in PREMIX 1 EA IV SCH ×2 (08:30→22:12)
[2017-09-15 08:48] LABS: HEMATOCRIT 23 % (39-51); HEMOGLOBIN 7.7 g/dL (13.5-17.5); MEAN CORPUSCULAR HEMOGLOBIN 31 PG (26.0-33.0); MEAN CORPUSCULAR HGB CONC 33 g/dl (31.0-36.0); MEAN CORPUSCULAR VOLUME 95 fL (80-96); PLATELET COUNT (AUTO) 157 /CMM (150-450); RED BLOOD CELL COUNT(AUTO) 2.46 MIL/uL (4.5-6.0)
[2017-09-15 09:20] LABS: BAND % (MANUAL) 1 % (0.0-5.0); LYMPHOCYTES % (MANUAL) 3 % (16-48); METAMYELOCYTES % 2 % (0-0); MONOCYTES % (MANUAL) 19 % (0-11.0); MYELOCYTES % 1 % (0-0); NEUTROPHILS % (MANUAL) 74 (42-76)
[2017-09-15] MEDS: FENTANYL CITRAT IV 2,500 MCG in IV NS 0.9% 200 ML IV PRN (13:33)
[2017-09-15] MEDS: RENAL NOVASOURCE 1,000 ML BOTTLE GT PRN (13:59)
[2017-09-15] MEDS: MICAFUNGIN SODIUM 100 MG in IV NS 0.9% 100 ML IV SCH (17:31)
[2017-09-15] MEDS: SERTRALINE HCL 25 MG TABLET PO SCH (17:31)
--- NOTE | 2017-09-15 19:30 | NUR ---
GREASE REFINER OPERATOR: RECEIVED TRACH PT AND TOLERATING MECH VENT SETTINGS ORDERED. SEDATED ON VERSED, FENTANYL AND MORPHINE DRIPS WT NO ACUTE DISTRESS, NO EVIDENCE OF DISCOMFORT. WITHDRAWS TO LOCALIZED PAIN. AFEBRILE. SR ON DISTRICT LOSS PREVENTION MANAGER. STILL OFF VASOPRESSORS. RT. NGT VERIFIED PLACEMENT, RUNNING NOVASOURCE AT 40ML/HR WT NO RESIDUAL. F/C PATENT AND INTACT DRAINING TEA COLORED URINE. FLEXI-SEAL HAS NO LIQUID STOOL AT THIS TIME. CONTINUE NS AT 40ML/HR WT NO S/S OF COMPLICATIONS ON VITA PICC AND HANK MIDLINE. LEFT IJ HD CATH INTACT. HOB AT 35 DEGREES. SAFETY PRECAUTION NOTED.
[2017-09-15] MEDS: IV NS 0.9% 1,000 ML IV PRN (20:23)
[2017-09-15] MEDS: LEVOFLOXACIN 250 MG /D5W 50 ML 250 MG in PREMIX 1 EA IV SCH (20:24)
--- NOTE | 2017-09-15 21:19 | NUR ---
PT RECEIVED TRACHED ON VENT. NO RESP DISTRESS NOTED. PT TOLERATING VENT SETTINGS. VENT ALARMS SET AND AUDIBLE. AMBU BAG AT BEDSIDE. VENT PLUGGED INTO RED OUTLET. WILL CONTINUE TO MONITOR. Addendum: 09/15/17 at 2120 by KARAN HENSON RT Amended: Links added.
[2017-09-16] VITALS (35 sets, daily range): BP systolic 107–125; BP diastolic 58–79
--- NOTE | 2017-09-16 | NUR ---
CLINICAL PSYCHOLOGIST PRIVATE PRACTICE: NO GLORIA. VS WITHIN PT's BASELINE. GTF TOLERATED WELL. REPOSITIONED FOR COMFORT.
[2017-09-16] MEDS: MIDAZOLAM HCL 100 MG in IV NS 0.9% 80 ML IV PRN ×3 (00:13→21:11)
[2017-09-16 05:34] LABS: CALCIUM, SERUM 7.5 mg/dL (8.5-10.1); CREATININE 2.3 mg/dL (0.6-1.3); POTASSIUM 3.4 mmol/L (3.5-5.1)
[2017-09-16] MEDS: METRONIDAZOLE 500 MG TABLET PO SCH ×3 (06:12→20:37)
--- NOTE | 2017-09-16 06:30 | NUR ---
MUSIC LIBRARIAN: NO ACUTE DISTRESS, NO EVIDENCE OF DISCOMFORT. REMAINED SEDATED ON VERSED AT 10MG/HR, FENTANYL AT 125MCG/HR AND MORPHINE AT 15MG/HR. AFEBRILE THROUGHOUT THE SHIFT. GTF TOLERATED WELL WT NO RESIDUAL. VS WITHIN PT's BASELINE.
--- NOTE | 2017-09-16 07:45 | NUR ---
ICU/RN: Pt received, on vent, RR <24, no distress noted. Pt sedated, only responds to painful stimuli. Gag and cough reflex +, eyes with sluggish reaction to light. VITA PICC patent and intact, flushed with good blood return. FC draining tea colored urine to gravity. R NGT in place, auscultated, + placement, no residuals noted. Flexiseal with minimal output. No leaks noted. Alarm sounds audible. Safety measures in place. Will cont to monitor pt.
--- NOTE | 2017-09-16 07:47 | NUR ---
RT PATIENT REC'D TRACHED ON [facility] VENT WITH SETTINGS SET BY MD RICHAR MCDANIEL. VENT ALARMS CHECKED+ AUDIBLE. CUFF PRESSURE CHECKED TRACK LAYING SUPERVISOR. SX'D WITH SUMEET MANN STANTON SEMITHICK SECRETIONS. B/S DIM COARSE. PATIENT SEDATED APPEARS COMFORTABLE. AMBU BAG AT HOB. CONT CURRENT PLAN OF RESP CARE. Addendum: 09/16/17 at 1541 by BRYNN BARBER RT Amended: Links added.
--- NOTE | 2017-09-16 08:00 | NUR ---
ICU/RN: Due meds administered; will attempt sedation vacation as pt condition permits. Will titrate down slowly while maintaining RR less than or equal to 24.
[2017-09-16] MEDS: MULTIPLE VIT (LYCOPENE/FA/MV,CA,IRON,MIN/LUT)1 TAB PO SCH (08:06)
[2017-09-16] MEDS: LACTOBACILLUS RHAMNOSUS GG 1 EACH CAP.SPRINK PO SCH ×2 (08:06→18:12)
[2017-09-16] MEDS: DOLUTEGRAVIR PO SCH (08:06)
[2017-09-16] MEDS: LINEZOLID RTU BAG 600 MG in PREMIX 1 EA IV SCH ×2 (08:06→21:49)
[2017-09-16] MEDS: ABACAVIR PO SCH (08:06)
[2017-09-16] MEDS: LAMIVUDI PO SCH (08:06)
[2017-09-16] MEDS: PANTOPRAZOLE 40 MG VIAL IV SCH (08:07)
[2017-09-16] MEDS: LORATADINE 10 MG TABLET PO SCH (08:07)
[2017-09-16] MEDS: SEVELAMER CARBONATE 0.8 GM POWD.PACK GT SCH ×3 (08:07→18:12)
[2017-09-16] MEDS: HYDROCORTISONE SOD SUCCINATE 100 MG/2 ML VIAL IV SCH ×2 (08:07→18:12)
[2017-09-16 08:08] LABS: ABG BASE EXCESS 2.8 mmol/L; ABG OXYGEN SATURATION 96.4 % (92.0-98.5); ABG PCO2 54.1 mmHg (35.0-45.0); ABG PH 7.346 (7.350-7.450); ABG PO2 104.8 mmHg (75.0-100.0); AaDO2 263.5 mmHg; COHb 0.1 % (0.5-1.5); MetHb 0.4 % (0.0-1.5); O2Hb 95.9 % (94.0-97.0); PEEP,BG 14 cm H2O; SITE, ABG Right Radial
[2017-09-16 08:12] LABS: HEMATOCRIT 21 % (39-51); HEMOGLOBIN 7.2 g/dL (13.5-17.5); LYMPHOCYTES # (AUTO) 1.1 /CMM (0.8-4.8); MEAN CORPUSCULAR HEMOGLOBIN 32 PG (26.0-33.0); MEAN CORPUSCULAR HGB CONC 34 g/dl (31.0-36.0); MEAN CORPUSCULAR VOLUME 93 fL (80-96); MONOCYTES # (AUTO) 0.6 /CMM (0.1-1.30); MONOCYTES % (AUTO) 3.7 % (2.0-12.0); NEUTROPHILS # (AUTO) 13.5 /CMM (1.8-8.9); NEUTROPHILS % (AUTO) 89.3 % (43.0-81.0); PLATELET COUNT (AUTO) 137 /CMM (150-450); RDW COEFFICIENT OF VARIATION 16.4 (11.5-15.0); RED BLOOD CELL COUNT(AUTO) 2.28 MIL/uL (4.5-6.0); WHITE BLOOD COUNT (AUTO) 15.1 K/uL (4.3-11.0)
[2017-09-16] MEDS: FENTANYL CITRAT IV 2,500 MCG in IV NS 0.9% 200 ML IV PRN (08:31)
[2017-09-16 10:25] LABS: LYMPHOCYTES % (MANUAL) 1 % (16-48); MONOCYTES % (MANUAL) 12 % (0-11.0); MYELOCYTES % 2 % (0-0); NEUTROPHILS % (MANUAL) 85 (42-76)
--- NOTE | 2017-09-16 10:30 | NUR ---
ICU/RN: Dr Florian and Dr Malik rounds. Informed of CXR results with subcutaneous emphysema on R neck up to supraclavicular region. Crepitus noted on palpation. VSS stable; 97% O2 sat. Dr Hamilton at bedside assessing pt. Pending results of repeat CXR. document preparation specialist updated.
[2017-09-16] MEDS: MORPHINE SULFATE PF DRIP 250 MG in IV D5W 240 ML IV PRN (12:00)
--- NOTE | 2017-09-16 13:30 | NUR ---
ICU/RN: POC chirag Arreaga. F/U CXR reveals stable emphysema; per MD no present indication for chest tube insertion. Vent setting changes ordered and carried out. RT Spenser informed of change.
--- NOTE | 2017-09-16 14:00 | NUR ---
PER DR OLSON ORDERS TIDAL VOLUME DECREASED TO 450
--- NOTE | 2017-09-16 14:30 | NUR ---
ICU/RN: Pt noted with tachypnea RR >30 post vent changes. Will titrate sedation up per protocol and ordered parameters.
--- NOTE | 2017-09-16 15:45 | NUR ---
ICU/RN: Bed bath, wound care rendered. Sacral excoriation noted, Z-guard applied. Pt noted to be gagging on tube, tachypneic RR >[address] 100's with turning. Will titrate sedation accordingly.
[2017-09-16] MEDS: MICAFUNGIN SODIUM 100 MG in IV NS 0.9% 100 ML IV SCH (18:13)
[2017-09-16] MEDS: SERTRALINE HCL 25 MG TABLET PO SCH (18:13)
[2017-09-16] MEDS: RENAL NOVASOURCE 1,000 ML BOTTLE GT PRN (18:32)
--- NOTE | 2017-09-16 19:20 | NUR ---
ICU/RN: Pt in stable condition, sedated on mech vent. Afebrile. IVF and sedatives infusing well Flexiseal draining to gravity. FC with tea colored output. Care endorsed to PM RN for GLORIA.
--- NOTE | 2017-09-16 19:30 | NUR ---
CREDIT COLLECTION SPECIALIST: RECEIVED TRACH TO VENT PT AND TOLERATING VENT SETTINGS ORDERED. NO ACUTE DISTRESS, NO EVIDENCE OF DISCOMFORT. REMAINED SEDATED ON VERSED AT 10MG/HR, MORPHINE 12MG/HR AND FENTANYL AT 125MCG/HR. ALSO ON NS AT 40ML/HR WT ADEQUATE TEA COLORED URINE OUTPUT FROM F/C. NO S/S OF COMPLICATIONS ON VITA PICC AND HANK MIDLINE. SR ON FISHER DIP NET. AFEBRILE. RT. NGT VERIFIED PLACEMENT RUNNING NOVASOURCE AT 40ML/HR AND TOLERATING WELL. HOB AT 35 DEGREES. SAFETY PRECAUTION NOTED.
[2017-09-16] MEDS: LEVOFLOXACIN 250 MG /D5W 50 ML 250 MG in PREMIX 1 EA IV SCH (20:36)
[2017-09-16] MEDS: IV NS 0.9% 1,000 ML IV PRN (20:38)
--- NOTE | 2017-09-16 22:42 | NUR ---
PT RECEIVED TRACHED ON VENT. NO RESP DISTRESS NOTED. PT TOLERATING VENT SETTINGS. VENT ALARMS SET AND AUDIBLE. AMBU BAG AT BEDSIDE. VENT PLUGGED INTO RED OUTLET. WILL CONTINUE TO MONITOR. Addendum: 09/16/17 at 2242 by KARAN HENSON RT Amended: Links added.
[2017-09-17] VITALS (48 sets, daily range): BP systolic 97–139; BP diastolic 56–78
--- NOTE | 2017-09-17 00:30 | NUR ---
GATE TENDER: NO GLORIA. VS WITHIN PT'S BASELINE. REPOSITIONED.
[2017-09-17] MEDS: FENTANYL CITRAT IV 2,500 MCG in IV NS 0.9% 200 ML IV PRN ×2 (03:47→21:55)
[2017-09-17 05:03] LABS: BASOPHILS # (AUTO) 0.1 /CMM (0.0-0.2); BASOPHILS % (AUTO) 0.4 % (0.0-2.0); EOSINOPHILS # (AUTO) 0.1 /CMM (0.0-0.7); EOSINOPHILS % (AUTO) 0.5 % (0.0-6.0); HEMATOCRIT 21 % (39-51); HEMOGLOBIN 7.7 g/dL (13.5-17.5); LYMPHOCYTES # (AUTO) 1.3 /CMM (0.8-4.8); LYMPHOCYTES % (AUTO) 6.9 % (20.0-44.0); MEAN CORPUSCULAR HEMOGLOBIN 34 PG (26.0-33.0); MEAN CORPUSCULAR HGB CONC 37 g/dl (31.0-36.0); MEAN CORPUSCULAR VOLUME 91 fL (80-96); MONOCYTES # (AUTO) 1.3 /CMM (0.1-1.30); MONOCYTES % (AUTO) 6.5 % (2.0-12.0); NEUTROPHILS # (AUTO) 16.6 /CMM (1.8-8.9); NEUTROPHILS % (AUTO) 85.7 % (43.0-81.0); PLATELET COUNT (AUTO) 173 /CMM (150-450); RDW COEFFICIENT OF VARIATION 15.8 (11.5-15.0); RED BLOOD CELL COUNT(AUTO) 2.27 MIL/uL (4.5-6.0); WHITE BLOOD COUNT (AUTO) 19.4 K/uL (4.3-11.0)
[2017-09-17 05:21] LABS: ALBUMIN 1.5 g/dL (3.4-5.0); BILIRUBIN,TOTAL 1.1 mg/dL (0.2-1.0); CALCIUM, SERUM 7.6 mg/dL (8.5-10.1); PHOSPHORUS 3.9 mg/dL (2.5-4.9); TOTAL PROTEIN, SERUM 5.6 g/dL (6.4-8.2)
[2017-09-17 05:28] LABS: BAND % (MANUAL) 3 % (0.0-5.0); LYMPHOCYTES % (MANUAL) 11 % (16-48); MONOCYTES % (MANUAL) 9 % (0-11.0); NEUTROPHILS % (MANUAL) 77 (42-76)
[2017-09-17] MEDS: METRONIDAZOLE 500 MG TABLET PO SCH ×3 (05:51→20:49)
--- NOTE | 2017-09-17 06:00 | NUR ---
INTERNET PROJECT MANAGER: HEMODIALYSIS STARTED WT NO GLORIA. RELAYED CURRENT LAB RESULTS TO DAVE BRITOPRESIDENT FINANCIAL INSTITUTION NURSE. REMAIN SEDATED ON VERSED 10MG/HR, MORPHINE 15MG/HR AND FENTANYL 125MCG/HR. CONTINUE ON NS AT 40ML/HR WT GOOD URINE OUTPUT. WILL CONTINUE TO MONITOR. Addendum: 09/17/17 at 0640 by JEF GARCIA RN CORRECTION: CURRENTLY ON MORPHINE AT 13MG/HR NOT 15.
--- NOTE | 2017-09-17 08:00 | NUR ---
ONGOING HD AT BEDSIDE-PATIENT INTUBATED TO FULL VENT SUPPORT. SEDATED WITH MORPHINE GTT, FENTANYL GTT, AND VERSED GTT. NOTED SOME SPONTANEOUS RESPIRATIONS WITHOUT DISTRESS. FIO2 DECREASED TO 50% BY RT-SPO2 REMAINS 95%. MINIMAL SECRETION VIE TRACHE. + CORNEAL, + GAG, + COUGH REFLEX. NGT FEDIG TOLERATING WELL WITHOUT SIGNIFICANT RESIDUALS. FC DRAINING WITH YELLOW UO.
--- NOTE | 2017-09-17 08:00 | NUR ---
RT PATIENT REC'D TRACHED ON [facility] VENT WITH SETTINGS SET BY MD RICHAR MCDANIEL. VENT ALARMS CHECKED+ AUDIBLE. CUFF PRESSURE CHECKED PRODUCT BLENDING SUPERVISOR. SX'D WITH MOD AMT STANTON SEMITHICK SECRETIONS. B/S DIM COARSE. PATIENT SEDATED APPEARS COMFORTABLE. AMBU BAG AT [facility]. CONT CURRENT PLAN OF RESP CARE.
[2017-09-17] MEDS: LACTOBACILLUS RHAMNOSUS GG 1 EACH CAP.SPRINK PO SCH ×2 (08:24→17:01)
[2017-09-17] MEDS: LORATADINE 10 MG TABLET PO SCH (08:24)
[2017-09-17] MEDS: MULTIPLE VIT (LYCOPENE/FA/MV,CA,IRON,MIN/LUT)1 TAB PO SCH (08:24)
[2017-09-17] MEDS: SEVELAMER CARBONATE 0.8 GM POWD.PACK GT SCH ×3 (08:24→17:01)
[2017-09-17] MEDS: PANTOPRAZOLE 40 MG VIAL IV SCH (08:24)
[2017-09-17] MEDS: HYDROCORTISONE SOD SUCCINATE 100 MG/2 ML VIAL IV SCH ×2 (08:24→17:00)
[2017-09-17] MEDS: MORPHINE SULFATE PF DRIP 250 MG in IV D5W 240 ML IV PRN (08:54)
[2017-09-17] MEDS: MIDAZOLAM HCL 100 MG in IV NS 0.9% 80 ML IV PRN ×2 (09:00→21:40)
--- NOTE | 2017-09-17 09:00 | NUR ---
HD COMPLETED-1 L REMOVED. TOLERATED WELL.
[2017-09-17] MEDS: LINEZOLID RTU BAG 600 MG in PREMIX 1 EA IV SCH ×2 (09:09→22:41)
[2017-09-17] MEDS: LAMIVUDI PO SCH (09:09)
[2017-09-17] MEDS: DOLUTEGRAVIR PO SCH (09:09)
[2017-09-17] MEDS: ABACAVIR PO SCH (09:09)
--- NOTE | 2017-09-17 10:00 | NUR ---
ATTEMPT TO DECREASE SEDATION-VERSED AT 8 MG/HR, MORPHINE DRIP AT 12 MG/HR. MONITOR CLOSELY.
--- NOTE | 2017-09-17 12:00 | NUR ---
PATIENT VERY TACHYPNEIC AT 38 OFF SEDATION-DOES NOT FOLLOW SIMPLE COMMANDS.
--- NOTE | 2017-09-17 15:45 | NUR ---
PATIENT SEEN BY DR. OLSON . ORDER TO DECREASE PEEP 12, DONE BY RT.
--- NOTE | 2017-09-17 15:55 | NUR ---
RT PER DR OLSON VT LOWERED TO 400, PEEP DECREASED TO 12.
[2017-09-17] MEDS: SERTRALINE HCL 25 MG TABLET PO SCH (17:01)
[2017-09-17] MEDS: MICAFUNGIN SODIUM 100 MG in IV NS 0.9% 100 ML IV SCH (17:01)
--- NOTE | 2017-09-17 18:00 | NUR ---
NO SIGNIFICANT CHANGES. VERY TACHYPNEIC DURING REPOSITIONING. AFEBRILE THE WHOLE SHIFT. BP STABLE WITHOUT PRESSORS.
--- NOTE | 2017-09-17 19:25 | NUR ---
AMIKACIN LEVEL RESULTS STILL PENDING-FOLLWED UP WITH LAB-SPOKE TO EMILY. WILL NOTIFY CLOTHING PATTERN PREPARER WHEN AVAILABLE. AMIKACIN POST HD NOT GIVEN. PREVIOUS LEVEL HIGH 09/15.
--- NOTE | 2017-09-17 20:00 | NUR ---
WINDOWS APPLICATION PACKAGER RECEIVED PATIENT SEDATED ON FENTANYL DRIP,VERSED DRIP AND MORPHINE DRIP WITH TRACH TO VENT ON AC MODE.VENT SETTINGS WELL TOLERATED NO RESPIRATORY DISTRESS NOTED.VSS.SR NORMOTENSIVE.PATIENT WITH ONGOING NGT FEEDING TOLERATING WELL.NO RESIDUAL NOTED.FC TO GRAVITY WITH YELLOW URINE.FLEXI SEAL IN PLACE.TURNED AND REPOSITIONED.CONTINUE MONITORING.
[2017-09-17] MEDS: LEVOFLOXACIN 250 MG /D5W 50 ML 250 MG in PREMIX 1 EA IV SCH (20:51)
--- NOTE | 2017-09-17 21:05 | NUR ---
PT RECEIVED TRACHED WITH SHILEY # 8. TOLERATING NOTED VENT SETTINGS. SX'D FOR SML AMT OF THIN WHITE SECRETIONS. DRAWER IN JACQUARD LOOM DONE AND TRACH IS SECURE. VENT ALARMS CHECKED AND AUDIBLE. AMBU BAG AT BEDSIDE. VENT PLUGGED INTO RED OUTLET. WILL CONTINUE TO MONITOR.
[2017-09-17] MEDS ORDERED: AMIKACIN 250 MG/ML VIAL ONE (22:04)
[2017-09-17] MEDS: D5W IV PRN (22:09)
[2017-09-17] MEDS: AMIKACIN IV PRN (22:09)
[2017-09-18] VITALS (36 sets, daily range): BP systolic 108–134; BP diastolic 61–84
--- NOTE | 2017-09-18 | NUR ---
PATIENT RESTING IN NO ACUTE DISTRESS.TUBE FEEDING TOLERATING WELL.VS STABLE. NO DISTRESS NOTED.TURNED AND REPOSITIONED.
[2017-09-18 04:41] LABS: CREATININE 1.5 mg/dL (0.6-1.3); POTASSIUM 3.2 mmol/L (3.5-5.1)
[2017-09-18] MEDS: METRONIDAZOLE 500 MG TABLET PO SCH ×3 (05:14→21:06)
[2017-09-18] MEDS: IV NS 0.9% 1,000 ML IV PRN (05:17)
[2017-09-18] MEDS: MORPHINE SULFATE PF DRIP 250 MG in IV D5W 240 ML IV PRN (05:32)
--- NOTE | 2017-09-18 06:56 | NUR ---
NO SIGNIFICANT CHANGE NOTED DURING THE SHIFT.AM CARE DONE.REMAINS SEDATED WITH FENTANYL,VERSED AND MORPHINE GTT.ALL DUE MEDICATIONS ADMINISTERED.
--- NOTE | 2017-09-18 07:30 | NUR ---
SHAREPOINT CONSULTANT RECEIVED PATIENT ON SEDATION AND RUNNING IVF ON MECHANICAL VENTILATORY SUPPORT SATURATING WELL MAINTAINED ON TUBE FEEDING , MONITORED FOR RESIDUAL MONITORED CLOSELY STILL HAS LOOSE BOWEL MOVEMENT DRAINING TO FLEXISEAL BAG WITH PETERS CATHETER DRAINING TO YELLOWISH URINE ADEQUATE IN AMOUNT
[2017-09-18] MEDS: SEVELAMER CARBONATE 0.8 GM POWD.PACK GT SCH ×3 (08:34→17:21)
[2017-09-18] MEDS: HYDROCORTISONE SOD SUCCINATE 100 MG/2 ML VIAL IV SCH ×2 (08:34→17:20)
[2017-09-18] MEDS: MULTIPLE VIT (LYCOPENE/FA/MV,CA,IRON,MIN/LUT)1 TAB PO SCH (08:34)
[2017-09-18] MEDS: LACTOBACILLUS RHAMNOSUS GG 1 EACH CAP.SPRINK PO SCH ×2 (08:34→17:20)
[2017-09-18] MEDS: LORATADINE 10 MG TABLET PO SCH (08:34)
[2017-09-18] MEDS: PANTOPRAZOLE 40 MG VIAL IV SCH (08:34)
[2017-09-18] MEDS: DOLUTEGRAVIR PO SCH (08:35)
[2017-09-18] MEDS: ABACAVIR PO SCH (08:35)
[2017-09-18] MEDS: LAMIVUDI PO SCH (08:35)
[2017-09-18] MEDS: LINEZOLID RTU BAG 600 MG in PREMIX 1 EA IV SCH ×2 (08:35→22:09)
[2017-09-18] MEDS: MIDAZOLAM HCL 100 MG in IV NS 0.9% 80 ML IV PRN ×2 (09:00→20:20)
--- NOTE | 2017-09-18 09:31 | NUR ---
RT PATIENT REC'D TRACHED ON [facility] V[facility] WITH SETTINGS SET BY MD RICHAR MCDANIEL. FIO2 TITRATED TO 50%. VENT ALARMS CHECKED+ AUDIBLE. CUFF PRESSURE CHECKED SOFTWARE TESTER. SX'D WITH MOD AMT STANTON SEMITHICK SECRETIONS. B/S DIM COARSE. PATIENT SEDATED APPEARS COMFORTABLE. AMBU BAG AT [facility]. CONT CURRENT PLAN OF RESP CARE.
--- NOTE | 2017-09-18 11:25 | NUR ---
SPOT BILLING CLERK SEDATIION VACATION EARLIER PLACED BACK ON SEDATION DUE TO TACHYPNEIC EPISODE, RELAYED TO DR. DANIELS
[2017-09-18] MEDS: ACETAMINOPHEN 325 MG TABLET PO PRN ×2 (12:08→17:44)
[2017-09-18] MEDS: LORAZEPAM INJ 2 MG/ML VIAL IV PRN (13:55)
[2017-09-18] MEDS: RENAL NOVASOURCE 1,000 ML BOTTLE GT PRN (15:31)
--- NOTE | 2017-09-18 16:57 | NUR ---
PER DR DANIELS PEEP LOWERED TO 10 Addendum: 09/18/17 at 1657 by BRYNN BARBER RT Amended: Links added.
[2017-09-18] MEDS: SERTRALINE HCL 25 MG TABLET PO SCH (17:20)
[2017-09-18] MEDS: MICAFUNGIN SODIUM 100 MG in IV NS 0.9% 100 ML IV SCH (17:22)
[2017-09-18] MEDS: FENTANYL CITRAT IV 2,500 MCG in IV NS 0.9% 200 ML IV PRN (18:12)
--- NOTE | 2017-09-18 20:00 | NUR ---
AUTOMOBILE BRAKE BONDER RECEIVED PATIENT SEDATED ON FENTANYL GTT,VERSED GTT AND MORPHINE GTT. ON VENT SUPPORT.VENT SETTINGS WELL TOLERATED SAT 98%.SR.NORMOTENSIVE.NGT FEEDING INFUSING.NO RESIDUAL NOTED.FC TO GRAVITY WITH CLEAR YELLOW URINE.FLEXI SEAL STILL WITH LIQUID STOOL .LEFT UPPER CHEST HD CATH WITH DRESSING C/D/I.NO ACUTE DISTRESS NOTED.TURNED AND REPOSITIONED.
[2017-09-18] MEDS: LEVOFLOXACIN 250 MG /D5W 50 ML 250 MG in PREMIX 1 EA IV SCH (21:06)
--- NOTE | 2017-09-18 21:55 | NUR ---
PT RECEIVED ON VENT VIA CHARTED SETTINGS AND ROUTE. AMBU BAG AT BEDSIDE, ALARMS SET AND AUDIBLE. VENT PLUGGED INTO RED OUTLET. PT HAS INCREASED RR. WILL CONTINUE TO MONITOR Addendum: 09/18/17 at 2156 by MARTHA DICKEY RT Amended: Links added.
[2017-09-19] VITALS (51 sets, daily range): BP systolic 106–139; BP diastolic 55–90
--- NOTE | 2017-09-19 | NUR ---
PATIENT AWAKE AND TACHYPNEIC 40'S.SUCTIONED SMALL AMOUNT WHITE SECRETIONS. AGITATED MORPHINE DRIP INCREASED TO 10 MG/HR.CONTINUE MONITORING. Addendum: 09/19/17 at 0040 by KIESHA WHITMAN RN CORRECTION MORPHINE DRIP INCREASED TO 14 MH/HR.
[2017-09-19] MEDS: MORPHINE SULFATE PF DRIP 250 MG in IV D5W 240 ML IV PRN (03:23)
[2017-09-19] MEDS: METRONIDAZOLE 500 MG TABLET PO SCH ×3 (04:50→20:59)
[2017-09-19 05:26] LABS: CALCIUM, SERUM 8.6 mg/dL (8.5-10.1); CREATININE 1.4 mg/dL (0.6-1.3)
[2017-09-19 05:40] LABS: POTASSIUM 2.8 mmol/L (3.5-5.1)
--- NOTE | 2017-09-19 06:30 | NUR ---
PLASTIC HOSPITAL PRODUCTS ASSEMBLER PATIENT RESTING.NO ACUTE DISTRESS NOTED.VS STABLE.SR/ST 90'S -140'S WHEN AGITATED.CONTINUED TO SAME FENTANYL,VERSED AND MORPHINE GTT.AM CARE DONE. TURNED AND REPOSITIONED.K+ LEVEL 2.8.PRAVEEN ,ALIYAH RUSSELL PAGED.AWAITING FOR ORDER. WILL ENDORSE TO INCOMING AM SHIFT RN FOR GLORIA.
--- NOTE | 2017-09-19 06:47 | NUR ---
DNP,ALIYAH RUSSELL CALLED BACK .HE SAID THEY WILL CORRECT THE POTASSIUM DURING HEMODIALYSIS.
--- NOTE | 2017-09-19 07:30 | NUR ---
REGIONAL DEDICATED TRUCK DRIVER RECEIVED PATIENT SEDATED ON MECHANICAL VENTILATORY SUPPORT SATURATING WELL AFEBRILE OBTUNDED WARM TO TOUCH MONITORED FEEDING RESIDUAL, THIS TIME PATIENT CAN TOLERATE FEEDING MONITORED CLOSELY ON PETERS CATHETER DRAINING TO YELLOWISH URINE LARGE IN AMOUNT
[2017-09-19] MEDS: MIDAZOLAM HCL 100 MG in IV NS 0.9% 80 ML IV PRN ×2 (07:39→18:19)
[2017-09-19] MEDS: SEVELAMER CARBONATE 0.8 GM POWD.PACK GT SCH ×3 (10:09→17:07)
[2017-09-19] MEDS: LINEZOLID RTU BAG 600 MG in PREMIX 1 EA IV SCH ×2 (10:09→21:54)
[2017-09-19] MEDS: PANTOPRAZOLE 40 MG VIAL IV SCH (10:09)
[2017-09-19] MEDS: LACTOBACILLUS RHAMNOSUS GG 1 EACH CAP.SPRINK PO SCH ×2 (10:10→17:07)
[2017-09-19] MEDS: DOLUTEGRAVIR PO SCH (10:10)
[2017-09-19] MEDS: LORATADINE 10 MG TABLET PO SCH (10:10)
[2017-09-19] MEDS: MULTIPLE VIT (LYCOPENE/FA/MV,CA,IRON,MIN/LUT)1 TAB PO SCH (10:10)
[2017-09-19] MEDS: HYDROCORTISONE SOD SUCCINATE 100 MG/2 ML VIAL IV SCH ×2 (10:10→17:07)
[2017-09-19] MEDS: ABACAVIR PO SCH (10:10)
[2017-09-19] MEDS: LAMIVUDI PO SCH (10:10)
[2017-09-19 11:04] LABS: ALBUMIN 1.9 g/dL (3.4-5.0); BILIRUBIN,DIRECT 0.8 mg/dL (0.0-0.2); BILIRUBIN,TOTAL 1.4 mg/dL (0.2-1.0); TOTAL PROTEIN, SERUM 5.9 g/dL (6.4-8.2)
[2017-09-19] MEDS: POTASSIUM CL. PREMIX PERIPHER. 50 ML IV SCH ×4 (11:11→14:06)
[2017-09-19] MEDS: IV NS 0.9% 1,000 ML IV PRN (11:50)
[2017-09-19] MEDS: LORAZEPAM INJ 2 MG/ML VIAL IV PRN ×3 (12:22→15:45)
[2017-09-19] MEDS: FENTANYL CITRAT IV 2,500 MCG in IV NS 0.9% 200 ML IV PRN (13:45)
--- NOTE | 2017-09-19 14:01 | NUR ---
COMPACT ASSEMBLER PATIENT BECAME AGITATED INCREASED MORPHINE DRIP AND VERSED DRIP TO MAX HEART RATE WENT TO 130'S MECHANICAL VENTILATOR ALARMING MONITORED CLOSELY
--- NOTE | 2017-09-19 16:09 | NUR ---
RN CLINICAL RESEARCH PATIENT BECAME VERY AGITATED, ATIVAN GIVEN HEART RATE INCREASED TO 156 DR. DANIELS IS IN THE UNIT AND ORDERED TO GIVE ADDITIONAL ATIVAN 2 MG IV MONITORED CLOSELY Addendum: 09/19/17 at 1611 by NICK SAENZ RN BLOOD PRESSURE SLIGHTLY ELEVATED
--- NOTE | 2017-09-19 16:20 | NUR ---
MARBLE HELPER DR. DANIELS SAW THE PATIENT AND ORDERED 10 MG OF MORPHINE IV PATENT IS VERY AGITATED, HEART RATE IS 156-160 SHE'S SQUIRMING AND OPENING HER MOUTH URINE OUTPUT IS ADEQUATE
[2017-09-19] MEDS ORDERED: MORPHINE SULFATE INJ 10 MG/ML DISP.SYRIN IV ONE (16:30)
[2017-09-19] MEDS ORDERED: LORAZEPAM INJ 2 MG/ML VIAL IV ONE (16:30)
[2017-09-19] MEDS: MICAFUNGIN SODIUM 100 MG in IV NS 0.9% 100 ML IV SCH (17:07)
[2017-09-19] MEDS: SERTRALINE HCL 25 MG TABLET PO SCH (17:07)
[2017-09-19] MEDS: ACETAMINOPHEN 325 MG TABLET PO PRN (17:08)
--- NOTE | 2017-09-19 18:20 | NUR ---
PAINT ROLLER COVER MACHINE SETTER PATIENT HEAR RATE DECREASED TO 120'S WARM TO TOUCH COOLING MEASURES NOTED PATIENT IS MORE CALM MONITORED CLOSELY
--- NOTE | 2017-09-19 18:26 | NUR ---
HARDWARE PRESS OPERATOR TRIGLYCERIDE -174 DR. DANIELS ORDERED TO TITRATE DOWN SEDATIONS , MORPHINE, FENTANYL AND VERSED ONCE DONE MAY START DIPRIVAN, MAX 100 MCG/ MIN TITRATION STARTED ENDROSED TO NOD
[2017-09-19] MEDS: PROPOFOL 10MG/ML 50ML 50 ML IV PRN ×4 (18:50→22:21)
--- NOTE | 2017-09-19 19:30 | NUR ---
ICU/RN RECEIVED PT ON VENT VIA TRACH,SEDATED,PARTIALLY OPENS EYES TO DEEP STERNAL STIMULATIO.ON MORPHINE DRIP AP 10MG/HR,DIPRIVAN DRIP AT 54.95MCG/KG/MINUTE.FENTANYL DRIP AT 50MCG/HR.VITAL SIGNS STABLE.
--- NOTE | 2017-09-19 20:21 | NUR ---
PT RECEIVED TRACHED SHLY 8 ON VENT. NO RESP DISTRESS NOTED. PT TOLERATING VENT SETTINGS. SX'D AND LAVAGED FOR SML AMT OF THIN SECRETIONS. VENT ALARMS SET AND AUDIBLE. AMBU BAG AT BEDSIDE. VENT PLUGGED INTO RED OUTLET. WILL CONTINUE TO MONITOR. Addendum: 09/19/17 at 2021 by KARAN HENSON RT Amended: Links added.
[2017-09-19] MEDS: LEVOFLOXACIN 250 MG /D5W 50 ML 250 MG in PREMIX 1 EA IV SCH (21:01)
[2017-09-20] VITALS (90 sets, daily range): BP systolic 98–139; BP diastolic 57–76
[2017-09-20] MEDS: PROPOFOL 10MG/ML 50ML 50 ML IV PRN ×17 (00:33→23:40)
[2017-09-20 05:10] LABS: LYMPHOCYTES # (AUTO) 1.9 /CMM (0.8-4.8); LYMPHOCYTES % (AUTO) 10.8 % (20.0-44.0); MEAN CORPUSCULAR HEMOGLOBIN 31 PG (26.0-33.0); MEAN CORPUSCULAR HGB CONC 34 g/dl (31.0-36.0); MEAN CORPUSCULAR VOLUME 92 fL (80-96); MONOCYTES # (AUTO) 1.6 /CMM (0.1-1.30); MONOCYTES % (AUTO) 9.2 % (2.0-12.0); NEUTROPHILS # (AUTO) 14.3 /CMM (1.8-8.9); PLATELET COUNT (AUTO) 150 /CMM (150-450); RDW COEFFICIENT OF VARIATION 16.5 (11.5-15.0); RED BLOOD CELL COUNT(AUTO) 2.14 MIL/uL (4.5-6.0); WHITE BLOOD COUNT (AUTO) 17.8 K/uL (4.3-11.0)
[2017-09-20 05:27] LABS: CALCIUM, SERUM 8.2 mg/dL (8.5-10.1); CREATININE 1.2 mg/dL (0.6-1.3); POTASSIUM 3.1 mmol/L (3.5-5.1)
[2017-09-20 05:32] LABS: HEMATOCRIT 20 % (39-51); HEMOGLOBIN 6.6 g/dL (13.5-17.5)
[2017-09-20] MEDS: METRONIDAZOLE 500 MG TABLET PO SCH ×3 (05:45→20:55)
[2017-09-20 05:48] LABS: LYMPHOCYTES % (MANUAL) 7 % (16-48); MONOCYTES % (MANUAL) 8 % (0-11.0); NEUTROPHILS % (MANUAL) 85 (42-76)
--- NOTE | 2017-09-20 06:00 | NUR ---
ICU/RN STARTED ON NOVASOURCE TUBE FEEDING AT 20ML/HR W/ GOAL OG 40ML/HR.
--- NOTE | 2017-09-20 06:10 | NUR ---
ICU/RN CALL PLACED TO ,RE:H&H OF 6.6 & 20.ORDERS RECEIVED
[2017-09-20] MEDS: RENAL NOVASOURCE 1,000 ML BOTTLE GT PRN (07:00)
[2017-09-20] MEDS: IV NS 0.9% 1,000 ML IV PRN (07:00)
--- NOTE | 2017-09-20 07:00 | NUR ---
ICU/RN REPORT AND CARE OF PT.GIVEN TO AMANDA
[2017-09-20] MEDS: LINEZOLID RTU BAG 600 MG in PREMIX 1 EA IV SCH ×2 (08:29→22:08)
[2017-09-20] MEDS: ABACAVIR PO SCH (08:30)
[2017-09-20] MEDS: LAMIVUDI PO SCH (08:30)
[2017-09-20] MEDS: HYDROCORTISONE SOD SUCCINATE 100 MG/2 ML VIAL IV SCH ×2 (08:30→16:38)
[2017-09-20] MEDS: DOLUTEGRAVIR PO SCH (08:30)
[2017-09-20] MEDS: PANTOPRAZOLE 40 MG VIAL IV SCH (08:30)
[2017-09-20] MEDS: LACTOBACILLUS RHAMNOSUS GG 1 EACH CAP.SPRINK PO SCH ×2 (08:30→16:38)
[2017-09-20] MEDS: SEVELAMER CARBONATE 0.8 GM POWD.PACK GT SCH ×3 (08:30→17:00)
[2017-09-20] MEDS: MULTIPLE VIT (LYCOPENE/FA/MV,CA,IRON,MIN/LUT)1 TAB PO SCH (08:30)
[2017-09-20] MEDS: LORATADINE 10 MG TABLET PO SCH (08:30)
[2017-09-20 08:53] LABS: ABG BASE EXCESS 5.2 mmol/L; ABG OXYGEN SATURATION 95.3 % (92.0-98.5); ABG PCO2 52.4 mmHg (35.0-45.0); AaDO2 210.6 mmHg; COHb 0.4 % (0.5-1.5); MetHb 0.1 % (0.0-1.5); O2Hb 94.8 % (94.0-97.0); PEEP,BG 10 cm H2O; SITE, ABG Right Radial
--- NOTE | 2017-09-20 09:00 | NUR ---
ICU/RN - Notes Fentanyl gtt titrated off, and Diprivan titrated up accordingly. Unable to sedation vacation, pt tachypneic RR 34 on Diprivan @ 80 mcg/kg/min. Dr Sosa at bedside and made aware. Per MD, keep pt on sedation.
--- NOTE | 2017-09-20 10:20 | NUR ---
ICU/RN - Notes PRBC transfusion started, no s/s of adverse reactions. VSS.
[2017-09-20] MEDS: POTASSIUM CL. PREMIX PERIPHER. 50 ML IV SCH ×4 (11:00→14:29)
--- NOTE | 2017-09-20 12:58 | NUR ---
ICU/RN - Notes PRBC transfusion finished, no s/s of adverse reactions. VSS.
[2017-09-20] MEDS: MORPHINE SULFATE INJ 4 MG/ML DISP.SYRIN IV PRN (14:40)
[2017-09-20] MEDS: LORAZEPAM INJ 2 MG/ML VIAL IV PRN (14:40)
--- NOTE | 2017-09-20 14:40 | NUR ---
ICU/RN - Notes Patient noted with increase in HR 118 and tachypneic RR 36. Administered Morphine 4mg IVP and Ativan 2mg IVP as ordered to ensure comfort while on ventilator.
[2017-09-20] MEDS ORDERED: AMIKACIN IV ONE (15:00)
[2017-09-20] MEDS ORDERED: D5W IV ONE (15:00)
[2017-09-20] MEDS: SERTRALINE HCL 25 MG TABLET PO SCH (16:38)
[2017-09-20] MEDS: MICAFUNGIN SODIUM 100 MG in IV NS 0.9% 100 ML IV SCH (17:01)
--- NOTE | 2017-09-20 17:10 | NUR ---
ICU/RN - Notes [place] NP made aware that pt's family signed consent for PEG placement, however no GI consultation. Per UNDER SHERIFF, will arrange for consultation.
--- NOTE | 2017-09-20 20:00 | NUR ---
ICU NOTES Received patient sedated on Diprivan drip at 80 mcg/kg/min on vent support.SR 80's.Normotensive. NGT feeding in progress well tolerated.FC to gravity moderate urine output.Fexi seal in place with liquid stool.Patient turned and repositioned.No acute distress noted.
--- NOTE | 2017-09-20 20:33 | NUR ---
PT RECEIVED TRACHED SHLY 8 ON VENT. NO RESP DISTRESS NOTED. PT TOLERATING VENT SETTINGS. SX'D AND LAVAGED FOR SML AMT OF THIN SECRETIONS. VENT ALARMS SET AND AUDIBLE. AMBU BAG AT BEDSIDE. VENT PLUGGED INTO RED OUTLET. WILL CONTINUE TO MONITOR. Addendum: 09/20/17 at 2032 by KARAN HENSON RT Amended: Links added.
[2017-09-20] MEDS: LEVOFLOXACIN 250 MG /D5W 50 ML 250 MG in PREMIX 1 EA IV SCH (20:55)
[2017-09-21] VITALS (69 sets, daily range): BP systolic 105–139; BP diastolic 57–87
[2017-09-21] MEDS: PROPOFOL 10MG/ML 50ML 50 ML IV PRN ×21 (00:55→23:32)
[2017-09-21] MEDS: METRONIDAZOLE 500 MG TABLET PO SCH ×3 (04:56→21:21)
[2017-09-21] MEDS: IV NS 0.9% 1,000 ML IV PRN (05:03)
[2017-09-21 05:39] LABS: CALCIUM, SERUM 7.9 mg/dL (8.5-10.1); CREATININE 1.1 mg/dL (0.6-1.3)
[2017-09-21 06:05] LABS: POTASSIUM 2.8 mmol/L (3.5-5.1)
--- NOTE | 2017-09-21 06:58 | NUR ---
Patient K+ level 2.8 called to with orders to give KCL 40 meq po and 40 meq iv. Needs to verify order for patient on hemodialysis.Will endorse to incoming shift RN for continuity of care.
[2017-09-21] MEDS ORDERED: POTASSIUM CHLORIDE 20 MEQ POWDER PACKET GT ONE (07:30)
--- NOTE | 2017-09-21 07:41 | NUR ---
INITIAL SERVICES MGR NOTE RCVD PT SEDATED, SHOWING NO S/O DISTRESS/PAIN AT THIS TIME. ST ON TELE. TRACH SHILEY #8 TOLERATING ORDERED VENT SETTINGS WELL. RIGHT NG-TUBE PLACEMENT VERIFIED BY AUSCULTATION/ASPIRATION. NO RESIDUAL OBTAINED. PT TOLERATING ORDERED TUBE FEEDING RATE. PETERS TO GRAVITY DRAINING CLEAR, PALE, YELLOW URINE. FLEXISEAL DRAINING BROWN STOOL. IV SITES C/D/I/PATENT. NO S/O INFILTRATION/PHLEBITIS OBSERVED UPON FLUSHING. WILL CONTINUE TO MONITOR PT FOR SAFETY AND COMFORT.
[2017-09-21] MEDS: LAMIVUDI PO SCH (08:12)
[2017-09-21] MEDS: MULTIPLE VIT (LYCOPENE/FA/MV,CA,IRON,MIN/LUT)1 TAB PO SCH (08:12)
[2017-09-21] MEDS: PANTOPRAZOLE 40 MG VIAL IV SCH (08:12)
[2017-09-21] MEDS: DOLUTEGRAVIR PO SCH (08:12)
[2017-09-21] MEDS: HYDROCORTISONE SOD SUCCINATE 100 MG/2 ML VIAL IV SCH ×2 (08:12→17:01)
[2017-09-21] MEDS: LACTOBACILLUS RHAMNOSUS GG 1 EACH CAP.SPRINK PO SCH ×2 (08:12→17:02)
[2017-09-21] MEDS: ABACAVIR PO SCH (08:12)
[2017-09-21] MEDS: LORATADINE 10 MG TABLET PO SCH (08:13)
[2017-09-21] MEDS: LINEZOLID RTU BAG 600 MG in PREMIX 1 EA IV SCH ×2 (08:13→20:46)
[2017-09-21 08:16] LABS: EOSINOPHILS # (AUTO) 0.1 /CMM (0.0-0.7); EOSINOPHILS % (AUTO) 0.7 % (0.0-6.0); HEMATOCRIT 24 % (39-51); HEMOGLOBIN 8.1 g/dL (13.5-17.5); LYMPHOCYTES % (AUTO) 12.5 % (20.0-44.0); MEAN CORPUSCULAR HEMOGLOBIN 31 PG (26.0-33.0); MEAN CORPUSCULAR HGB CONC 34 g/dl (31.0-36.0); MEAN CORPUSCULAR VOLUME 92 fL (80-96); MONOCYTES # (AUTO) 1.8 /CMM (0.1-1.30); MONOCYTES % (AUTO) 11.3 % (2.0-12.0); NEUTROPHILS % (AUTO) 75.5 % (43.0-81.0); PLATELET COUNT (AUTO) 135 /CMM (150-450); RDW COEFFICIENT OF VARIATION 16.5 (11.5-15.0); RED BLOOD CELL COUNT(AUTO) 2.59 MIL/uL (4.5-6.0); WHITE BLOOD COUNT (AUTO) 15.9 K/uL (4.3-11.0)
[2017-09-21] MEDS: POTASSIUM CL. PREMIX PERIPHER. 50 ML IV SCH ×4 (08:35→12:37)
[2017-09-21 09:00] LABS: MAGNESIUM 1.4 mg/dL (1.8-2.4); PHOSPHORUS 3.8 mg/dL (2.5-4.9)
--- NOTE | 2017-09-21 10:08 | NUR ---
COOKER CLEANER NOTE DR. MCKENZIE IN UNIT INFORMED OF DR. NORRIS'S ORDER TO REPLACE K, SHE AGREED AND RECOMMENDED TO PROCEED. SHE WAS INFORMED OF MG BEING LOW AND PT ON PHOS BINDERS DESPITE IMPROVED RENAL FUNCTION SHE ORDERED REPLACEMENT FOR MG AND WILL REVIEW PHOS.
[2017-09-21] MEDS: RENAL NOVASOURCE 1,000 ML BOTTLE GT PRN (10:27)
[2017-09-21] MEDS: Magnesium 1GM/D5W 100ML PREMIX 100 ML IV SCH ×3 (11:12→13:04)
--- NOTE | 2017-09-21 12:11 | NUR ---
ASSISTANT TO THE CEO NOTE PAULETTE AIRCRAFT ORDNANCE SYSTEMS MECHANIC IN UNIT UPDATED ON PT'S CONDITION, AWARE THAT PT'S KIDNEY FUNCTION HAS IMPROVED AND RECOMMENDED TO HOLD OFF ON CHANGING TUBE FEEDING FORMULA AT THIS TIME.
[2017-09-21] MEDS: LORAZEPAM INJ 2 MG/ML VIAL IV PRN ×2 (13:19→17:02)
[2017-09-21] MEDS: MORPHINE SULFATE INJ 4 MG/ML DISP.SYRIN IV PRN ×2 (13:19→17:02)
--- NOTE | 2017-09-21 14:52 | NUR ---
STEAM FINISHER NOTE JAKE BALES FOR DR. IRVING IN UNIT ASSESSING PT UPDATED ON PT'S CONDITION. PT TO GO FOR PEG PLACEMENT TOMORROW.
[2017-09-21] MEDS: Z GUARD REMEDY 2 OZ OINT TP PRN (17:02)
[2017-09-21] MEDS: SERTRALINE HCL 25 MG TABLET PO SCH (17:02)
[2017-09-21] MEDS: MICAFUNGIN SODIUM 100 MG in IV NS 0.9% 100 ML IV SCH (17:02)
--- NOTE | 2017-09-21 18:55 | NUR ---
MAINSPRING REVERSE WINDER NOTE PT REMAINS CRITICAL BUT STABLE, SEDATED ON DIPRIVAN, ST ON TELE. TOLERATING ORDERED VENT SETTINGS. RIGHT NG-TUBE PLACEMENT VERIFIED BY AUSCULTATION/ASPIRATION NO RESIDUAL OBTAINED. FLEXISEAL DISCONTINUED, SOFT STOOL OBSERVED. PETERS TO GRAVITY DRAINING PALE, YELLOW URINE. IV SITES C/D/I/PATENT. NO S/O INFILTRATION/PHLEBITIS OBSERVED, IV F INFUSING. PT'S CARE WILL BE ENDORSED TO HYDROELECTRIC MACHINERY MECHANIC HELPER RN FOR CONTINUITY OF CARE.
--- NOTE | 2017-09-21 19:30 | NUR ---
ICU/RN RECEIVED PT SEDATED,ON DIPRIVAN DRIP AT 80MCG/KG/MIN.OPENS EYES WHEN SUCTIONED,NO SECRETIONS OBTAINED BY RT,WILL ATTEMPT AGAIN LATER FOR SPUTUM CULTURE.SALEM SUMP TUBE ASPIRATED FOR RESIDUAL-NO RESIDUAL.RECEIVING NOVASOURCE AT 4OML/HR.ABDOMEN SOFT.
[2017-09-21] MEDS: LEVOFLOXACIN 250 MG /D5W 50 ML 250 MG in PREMIX 1 EA IV SCH (20:39)
[2017-09-22] VITALS (68 sets, daily range): BP systolic 101–136; BP diastolic 47–91
--- NOTE | 2017-09-22 | NUR ---
ICU/RN PT KEPT NPO,FOR PEG INSERTION IN AM.
[2017-09-22] MEDS: PROPOFOL 10MG/ML 50ML 50 ML IV PRN ×18 (01:11→23:18)
--- NOTE | 2017-09-22 01:48 | NUR ---
ICU/RN PLACED ON 40%FIO2.SUCTIONED FOR SCANT WHITE TO PALE PINK SECRETIONS,COUGHING VIGOROUSLY.TRACH DRESSING CHANGED.
[2017-09-22] MEDS: MORPHINE SULFATE INJ 4 MG/ML DISP.SYRIN IV PRN ×3 (03:13→23:39)
--- NOTE | 2017-09-22 03:13 | NUR ---
ICU/RN. LARGE AMT SECRETIONS FROM AROUND THE TRACH,SUCTIONED.MEDICATED W/4MG MORPHINE IVP FOR SEDATION PT CONTINUES TO COUGH HARD,DOES NOT FOLLOW COMMANDS.DIPRIVAN ADJUSTED TO PT'S WEIGHT OF 167LBS.
--- NOTE | 2017-09-22 04:28 | NUR ---
PATIENT RECEIVED ON [facility] VENT WITH SETTINGS ORDERED BY RICHAR HENDERSON. VENT ALARMS CHECKED & AUDIBLE THROUGH OUT ICU UNIT. CUFF PRESSURE CHECKED EMERGING TECHNOLOGIES DIRECTOR. PT SUCTIONED Q2 & PRN FOR MOD AMOUNT OF SEMITHICK SECRETIONS. B/S DIMINISHED. PATIENT APPEARS COMFORTABLE. AMBU BAG AT [facility]. MECHANICAL VENTILATOR PLUGGED INTO RED OUTLET. WILL CONTINUE TO MONITOR. Addendum: 09/22/17 at 0428 by BRIAN SCHWARTZ RT Amended: Links added.
[2017-09-22 04:52] LABS: BASOPHILS % (AUTO) 0.1 % (0.0-2.0); EOSINOPHILS # (AUTO) 0.1 /CMM (0.0-0.7); EOSINOPHILS % (AUTO) 0.4 % (0.0-6.0); HEMATOCRIT 23 % (39-51); HEMOGLOBIN 7.8 g/dL (13.5-17.5); LYMPHOCYTES # (AUTO) 2.1 /CMM (0.8-4.8); LYMPHOCYTES % (AUTO) 12.3 % (20.0-44.0); MEAN CORPUSCULAR HEMOGLOBIN 31 PG (26.0-33.0); MEAN CORPUSCULAR HGB CONC 33 g/dl (31.0-36.0); MEAN CORPUSCULAR VOLUME 92 fL (80-96); MONOCYTES # (AUTO) 2.3 /CMM (0.1-1.30); MONOCYTES % (AUTO) 13.7 % (2.0-12.0); NEUTROPHILS # (AUTO) 12.5 /CMM (1.8-8.9); NEUTROPHILS % (AUTO) 73.5 % (43.0-81.0); PLATELET COUNT (AUTO) 143 /CMM (150-450); RDW COEFFICIENT OF VARIATION 15.7 (11.5-15.0); RED BLOOD CELL COUNT(AUTO) 2.55 MIL/uL (4.5-6.0); WHITE BLOOD COUNT (AUTO) 17.1 K/uL (4.3-11.0)
[2017-09-22] MEDS: METRONIDAZOLE 500 MG TABLET PO SCH (04:57)
[2017-09-22] MEDS: IV NS 0.9% 1,000 ML IV PRN (05:11)
[2017-09-22 05:21] LABS: CALCIUM, SERUM 7.6 mg/dL (8.5-10.1); CREATININE 0.9 mg/dL (0.6-1.3); MAGNESIUM 1.6 mg/dL (1.8-2.4); PHOSPHORUS 3.3 mg/dL (2.5-4.9)
[2017-09-22 05:48] LABS: POTASSIUM 2.4 mmol/L (3.5-5.1)
--- NOTE | 2017-09-22 06:00 | NUR ---
ICU/RN SLEPT FROM 12M/N-629.REFUSING BATH AT THIS TIME TOLERATING BIPAP WELL. Addendum: 09/22/17 at 0614 by ELIO CALDWELL RN WRONG PT.
[2017-09-22 06:14] LABS: BAND % (MANUAL) 1 % (0.0-5.0); LYMPHOCYTES % (MANUAL) 11 % (16-48); MONOCYTES % (MANUAL) 21 % (0-11.0); NEUTROPHILS % (MANUAL) 67 (42-76)
--- NOTE | 2017-09-22 06:20 | NUR ---
ICU/RN TEXTED FO POTASSIUM OF 2.4.ORDERS RECEIVED.
[2017-09-22] MEDS ORDERED: POTASSIUM CHLORIDE 10 MEQ/50 ML PREMIXED IVPB FOR PERIPHERAL LINE IV ONE (07:00)
--- NOTE | 2017-09-22 07:53 | NUR ---
RN NOTE RECEIVED PT IN BED, SEDATED, NO SIGNS OF DISTRESS NOTED. TRACHED SHILEY #8 ON [facility] VENT SETTINGS AC 24 TV 450 FIO2 45% PEEP 5. SUCTIONED FOR AIRWAY CLEARANCE. ON DIPRIVAN @80MCG/KG/MIN. RIGHT NARE NG-TUBE IN PLACE. NO RESIDUAL NOTED, PT ON NPO FOR GT PLACEMENT TODAY. PETERS CATH DRAINING TO GRAVITY DRAINING YELLOW URINE RECEIVED AT 300 ML. WILL MONITOR UO Q2H. IV SITES C/D/I/PATENT. NO S/O INFILTRATION/PHLEBITIS OBSERVED UPON FLUSHING. KEPT COMFORTABLE. WILL CONTINUE TO MONITOR.
[2017-09-22] MEDS: PANTOPRAZOLE 40 MG VIAL IV SCH (08:27)
[2017-09-22] MEDS: POTASSIUM CL. PREMIX PERIPHER. 50 ML IV SCH ×8 (08:28→16:47)
[2017-09-22] MEDS: HYDROCORTISONE SOD SUCCINATE 100 MG/2 ML VIAL IV SCH ×2 (08:28→17:01)
[2017-09-22] MEDS: LACTOBACILLUS RHAMNOSUS GG 1 EACH CAP.SPRINK PO SCH ×3 (09:00→17:01)
--- NOTE | 2017-09-22 09:11 | NUR ---
RN NOTES SEEN AND EVALUATED BY PAULETTE ARCHER AT BEDSIDE. ALL CURRENT EVENTS REPORTED. VS AND LABS DISCUSSED WITH PAULETTE. K+ 2.4, THERES AN ORDER TO GIVE KCL 40 MEQ IV, PER PAULETTE OK TO GIVE, ONCE GIVEN WILL RE CHECK POTASSIUM LEVEL 1 HOUR AFTER ADMINISTRATION. PT CURRENTLY NPO, PLAN FOR GT PLACEMENT TODAY.
[2017-09-22] MEDS: Magnesium 1GM/D5W 100ML PREMIX 100 ML IV SCH ×3 (09:29→11:38)
[2017-09-22] MEDS: DOLUTEGRAVIR PO SCH (09:38)
[2017-09-22] MEDS: POTASSIUM CHLORIDE 20 MEQ POWDER PACKET GT SCH ×2 (09:38→09:39)
[2017-09-22] MEDS: ABACAVIR PO SCH (09:38)
[2017-09-22] MEDS: LAMIVUDI PO SCH (09:38)
[2017-09-22] MEDS: MULTIPLE VIT (LYCOPENE/FA/MV,CA,IRON,MIN/LUT)1 TAB PO SCH (09:39)
[2017-09-22] MEDS: LORATADINE 10 MG TABLET PO SCH (09:40)
[2017-09-22] MEDS: RENAL NOVASOURCE 1,000 ML BOTTLE GT PRN (11:44)
[2017-09-22] MEDS: SERTRALINE HCL 25 MG TABLET PO SCH (17:01)
--- NOTE | 2017-09-22 18:54 | NUR ---
RN NOTES PT IN BED, APPEARS CALM AND COMFORTABLE. LEFT IJ HD CATH PULLED OUT BY HD NURSE BILL EARLIER, SITE MONITORED FOR BLEEDING, PRESSURE DRESSING APPLIED. ONGOING GTF NOVASOURCE@40ML/HR RICHAR WELL NO RESIDUAL NOTED THIS TIME. FOR PEG PLACEMENT IN AM PER MD. WILL KEEP NPO POST MIDNIGHT. POTASSIUM CHLORIDE REPLACEMENT COMPLETED, AWAITING LAB DRAW
--- NOTE | 2017-09-22 19:15 | NUR ---
ICU/RN. RECEIVED PT ON VENT PER TRACH,ON DIPRIVAN DRIP FOR SEDATION AT 80 MCG/KG/MIN.OPENS EYES ,DOES NOT TRACK,DOES NOT FOLLOW COMMANDS.ON TUBE FEEDING NOVASOURCE AT 40ML/HR,NO RESIDUAL OBTAINED.ABDOMEN SOFT.MONITOR SHOWS NSR W/OUT ECTOPICS.
--- NOTE | 2017-09-22 19:48 | NUR ---
ICU/RN COUGHING VIGOROUSLY,SUCTIONED FOR SCANT AMT.THIN WHITE SECRETIONS FROM TRACH,LARGE SECRETIONS FROM AROUND TRACH.TRACH DRESSING CHANGED.GIVEN 4MG MORPHINE IVP FOR BUCKING VENT AND FOR R RATE OF 29-34 W/ IMMEDIATE EFFECT.
[2017-09-23] VITALS (45 sets, daily range): BP systolic 111–143; BP diastolic 41–88
[2017-09-23] MEDS: POTASSIUM CHLORIDE 20 MEQ POWDER PACKET GT SCH ×3 (00:21→20:36)
[2017-09-23] MEDS: PROPOFOL 10MG/ML 50ML 50 ML IV PRN ×17 (00:52→23:56)
[2017-09-23] MEDS: IV NS 0.9% 1,000 ML IV PRN (04:53)
[2017-09-23 05:28] LABS: BASOPHILS % (AUTO) 0.1 % (0.0-2.0); CALCIUM, SERUM 7.6 mg/dL (8.5-10.1); CREATININE 0.6 mg/dL (0.6-1.3); EOSINOPHILS # (AUTO) 0.2 /CMM (0.0-0.7); EOSINOPHILS % (AUTO) 1.3 % (0.0-6.0); HEMATOCRIT 23 % (39-51); HEMOGLOBIN 8.1 g/dL (13.5-17.5); LYMPHOCYTES % (AUTO) 18.3 % (20.0-44.0); MAGNESIUM 1.6 mg/dL (1.8-2.4); MEAN CORPUSCULAR HEMOGLOBIN 32 PG (26.0-33.0); MEAN CORPUSCULAR HGB CONC 35 g/dl (31.0-36.0); MEAN CORPUSCULAR VOLUME 91 fL (80-96); MONOCYTES # (AUTO) 2.2 /CMM (0.1-1.30); MONOCYTES % (AUTO) 13.1 % (2.0-12.0); NEUTROPHILS # (AUTO) 11.1 /CMM (1.8-8.9); NEUTROPHILS % (AUTO) 67.2 % (43.0-81.0); PHOSPHORUS 3.4 mg/dL (2.5-4.9); PLATELET COUNT (AUTO) 160 /CMM (150-450); POTASSIUM 3.1 mmol/L (3.5-5.1); RDW COEFFICIENT OF VARIATION 15.1 (11.5-15.0); RED BLOOD CELL COUNT(AUTO) 2.56 MIL/uL (4.5-6.0); WHITE BLOOD COUNT (AUTO) 16.5 K/uL (4.3-11.0)
--- NOTE | 2017-09-23 05:57 | NUR ---
ICU/RN CONDITION UNCHANGED.LOW GRADE TEMP=99.8.BP STABLE.SUCTIOUNED FOR COPIOUS AMT.WHITE SECRETIONS FROM AROUND TRACH.
--- NOTE | 2017-09-23 06:10 | NUR ---
PATIENT RECEIVED ON [facility] VENT WITH SETTINGS ORDERED BY MD RICHAR WELL. VENT ALARMS CHECKED & AUDIBLE THROUGH OUT ICU UNIT. CUFF PRESSURE CHECKED SCIENTIFIC ASSOCIATE. PT SUCTIONED FOR MOD AMOUNT OF SECRETIONS. B/S DIMINISHED. PATIENT APPEARS COMFORTABLE. AMBU BAG AT [facility]. MECHANICAL VENTILATOR PLUGGED INTO RED OUTLET. WILL CONTINUE TO MONITOR.
[2017-09-23 06:12] LABS: LYMPHOCYTES % (MANUAL) 14 % (16-48); METAMYELOCYTES % 1 % (0-0); MONOCYTES % (MANUAL) 16 % (0-11.0); NEUTROPHILS % (MANUAL) 69 (42-76)
--- NOTE | 2017-09-23 07:30 | NUR ---
MEAT BONER AND SLICER RECEIVED PATIENT SEDATED ON DIPRIVAN AT 80 MCGS ON MECHANICAL VENTILATORY SUPPORT SATURATING 100% LOW GRADE FEVER NOTED MONITORED CLOSELY PLACED ON NPO FOR PEG PROCEDURE DIURESING A LOT, MONITORED K IS LOW ALREADY ASKED PHARMACY FOR REPLACEMENT
[2017-09-23] MEDS: HYDROCORTISONE SOD SUCCINATE 100 MG/2 ML VIAL IV SCH ×2 (09:43→16:26)
[2017-09-23] MEDS: PANTOPRAZOLE 40 MG VIAL IV SCH (09:43)
[2017-09-23] MEDS: MORPHINE SULFATE INJ 4 MG/ML DISP.SYRIN IV PRN (09:58)
--- NOTE | 2017-09-23 11:00 | NUR ---
PAPER WOOD CUTTER PEG PLACEMENT IS ON GOING BY DR. LAY AND ANESTHESIOLOGIST ON BOARD OR NURSE AND TECH IN THE UNIT WELL
[2017-09-23] MEDS: MULTIPLE VIT (LYCOPENE/FA/MV,CA,IRON,MIN/LUT)1 TAB PO SCH (13:04)
[2017-09-23] MEDS: LORATADINE 10 MG TABLET PO SCH (13:05)
[2017-09-23] MEDS: LACTOBACILLUS RHAMNOSUS GG 1 EACH CAP.SPRINK PO SCH ×2 (13:05→16:26)
[2017-09-23] MEDS: ACETAMINOPHEN 325 MG TABLET PO PRN (13:05)
[2017-09-23] MEDS: DOLUTEGRAVIR PO SCH (13:06)
[2017-09-23] MEDS: ABACAVIR PO SCH (13:06)
[2017-09-23] MEDS: LAMIVUDI PO SCH (13:06)
[2017-09-23] MEDS: SERTRALINE HCL 25 MG TABLET PO SCH (16:27)
[2017-09-23] MEDS: RENAL NOVASOURCE 1,000 ML BOTTLE GT PRN (17:04)
--- NOTE | 2017-09-23 17:48 | NUR ---
Eliot pt received on mechanical vent. Pt tolerated current vent settings well, no changes made. Pt eliot is secure. Vent is plugged into a red outlet, alarms are set and audible, and BVM is at bedside. Addendum: 09/23/17 at 1749 by ALEXX LEMA RT Amended: Links added.
--- NOTE | 2017-09-23 20:00 | NUR ---
HEAD FIELD HOCKEY COACH NOTES RECEIVED PT IN BED, AWAKE, DOES NOT FOLLOW COMMAND, ABLE TO TRACK. TELE READS ST AT 106 BPM. ON VENT VIA TRACH AT ORDERED SETTING TOLERATING WELL. GT IN PLACE, RUNNING NOVASOURCE AT 20 ML/HR WITH GOAL OF 40 ML/HR, 30ML RESIDUAL. PETERS CATH IN PLACE, DRAINING WELL TO GRAVITY. VITA PICC AND HANK MIDLINE, RUNNING DIPRIVAN AT 70 MCG/KG/MIN AND KCL1/2NS AT 125 ML/HR AND NS AT TKO. HOB ELEVATED, SIDE RAILS X2, TURNED AND REPOSITIONED.
[2017-09-23] MEDS: ACETAMINOPHEN 650 MG/20.3 ML UDC NG PRN (20:36)
[2017-09-23] MEDS: IV NS 0.9% 250 ML IV PRN (20:42)
[2017-09-23] MEDS: LORAZEPAM INJ 2 MG/ML VIAL IV PRN (22:27)
[2017-09-24] VITALS (49 sets, daily range): BP systolic 116–143; BP diastolic 71–90
[2017-09-24] MEDS: PROPOFOL 10MG/ML 50ML 50 ML IV PRN ×15 (01:26→23:26)
--- NOTE | 2017-09-24 04:35 | NUR ---
RT NOTES PATIENT RECEIVED ON [facility] VENT NOTED SETTINGS ORDERED BY . VENT RICHAR WELL. VENT ALARMS CHECKED & AUDIBLE THROUGH OUT ICU UNIT. CUFF PRESSURE CHECKED ASBESTOS WIRE FINISHER. SUCTIONED Q2 & PRN FOR MOD AMOUNT OF SEMI THICK SECRETIONS. B/S DIMINISHED BILAT. PATIENT APPEARS COMFORTABLE. AMBU BAG AT [facility]. MECHANICAL VENTILATOR PLUGGED INTO RED OUTLET. WILL CONTINUE TO MONITOR. Addendum: 09/24/17 at 0435 by MEGHAN COUCH RT Amended: Links added.
[2017-09-24] MEDS: LORAZEPAM INJ 2 MG/ML VIAL IV PRN ×2 (04:44→08:00)
[2017-09-24 05:00] LABS: EOSINOPHILS # (AUTO) 0.1 /CMM (0.0-0.7); EOSINOPHILS % (AUTO) 0.3 % (0.0-6.0); HEMATOCRIT 26 % (39-51); HEMOGLOBIN 8.9 g/dL (13.5-17.5); LYMPHOCYTES # (AUTO) 3.5 /CMM (0.8-4.8); LYMPHOCYTES % (AUTO) 16.4 % (20.0-44.0); MEAN CORPUSCULAR HEMOGLOBIN 31 PG (26.0-33.0); MEAN CORPUSCULAR HGB CONC 34 g/dl (31.0-36.0); MEAN CORPUSCULAR VOLUME 91 fL (80-96); MONOCYTES # (AUTO) 2.5 /CMM (0.1-1.30); MONOCYTES % (AUTO) 11.8 % (2.0-12.0); NEUTROPHILS # (AUTO) 15.2 /CMM (1.8-8.9); NEUTROPHILS % (AUTO) 71.5 % (43.0-81.0); PLATELET COUNT (AUTO) 192 /CMM (150-450); RED BLOOD CELL COUNT(AUTO) 2.85 MIL/uL (4.5-6.0); WHITE BLOOD COUNT (AUTO) 21.3 K/uL (4.3-11.0)
[2017-09-24 05:27] LABS: CALCIUM, SERUM 7.2 mg/dL (8.5-10.1); CREATININE 0.6 mg/dL (0.6-1.3)
[2017-09-24 05:33] LABS: POTASSIUM 2.7 mmol/L (3.5-5.1)
[2017-09-24] MEDS ORDERED: POTASSIUM CHLORIDE 20 MEQ POWDER PACKET GT ONE (07:00)
--- NOTE | 2017-09-24 07:15 | NUR ---
SUPPLY CRIB ATTENDANT NOTES RECEIVED PATIENT SEDATED , RESPONSIVE TO DEEP PAIN STIMULI , OPENS EYES , NOT IN ACUTE DISTRESS , RESPIRATIONS EVEN AND UNLABORED , SPO2 OF 100% VIA MECHANICAL VENTILATOR SETTING ORDERED , ST 120 ON BEDSIDE MONITOR , FC DRAINING WELL VIA GRAVITY , GT PATENT AND INTACT WITH NOVASOURCE @ 40ML/HR TOLERATING WELL WITH NO RESIDUALS NOTED , VITA PICC LINE PATENT AND INTACT WITH 1/2 NS WITH KCL @ 75ML /HR , DIPRIVAN @ 70MCG/KG/MIN INFUSING WELL , ALL NEEDS ATTENDED , BED ON LOW AND LOCKED POSITION , SIDE RAILS X2, CALL LIGHT WITHIN REACH , HOB @ 35 , WILL CONTINUE TO MONITOR
--- NOTE | 2017-09-24 08:02 | NUR ---
RT PATIENT REC'D TRACHED ON [facility] VENT WITH SETTINGS SET BY MD RICHAR MCDANIEL. VENT ALARMS CHECKED+ AUDIBLE. CUFF PRESSURE CHECKED BUSINESS BANKING REPRESENTATIVE. SX'D WITH SUMEET MANN STANTON SEMITHICK SECRETIONS. B/S DIM COARSE. PATIENT SEDATED APPEARS COMFORTABLE. AMBU BAG AT H[facility]. CONT CURRENT PLAN OF RESP CARE. Addendum: 09/25/17 at 0904 by BRYNN BARBER RT Amended: Links added.
[2017-09-24] MEDS: LAMIVUDI PO SCH (08:23)
[2017-09-24] MEDS: DOLUTEGRAVIR PO SCH (08:23)
[2017-09-24] MEDS: LORATADINE 10 MG TABLET PO SCH (08:23)
[2017-09-24] MEDS: HYDROCORTISONE SOD SUCCINATE 100 MG/2 ML VIAL IV SCH ×2 (08:23→16:12)
[2017-09-24] MEDS: PANTOPRAZOLE 40 MG VIAL IV SCH (08:23)
[2017-09-24] MEDS: POTASSIUM CHLORIDE 20 MEQ POWDER PACKET GT SCH ×2 (08:23→20:48)
[2017-09-24] MEDS: LACTOBACILLUS RHAMNOSUS GG 1 EACH CAP.SPRINK PO SCH ×2 (08:23→16:12)
[2017-09-24] MEDS: ABACAVIR PO SCH (08:23)
[2017-09-24] MEDS: MULTIPLE VIT (LYCOPENE/FA/MV,CA,IRON,MIN/LUT)1 TAB PO SCH (08:23)
[2017-09-24] MEDS: POTASSIUM CL. PREMIX PERIPHER. 50 ML IV SCH ×4 (08:50→11:55)
--- NOTE | 2017-09-24 09:00 | NUR ---
RN CASE MANAGEMENT NOTES (SEDATION VACATION ) TITRATED DIPRIVAN TO 50MCG/KG/MIN , PATIENT NOTED WITH TACHYPNEA RR OF 35 , TACHYCARDIC HR OF 140'S , RATE CHANGED TO 80MCG/KG/MIN , WILL CONTINUE TO MONITOR . PATIENT OPENS EYES , ABLE TO FOLLOW SIMPLE COMMANDS .
--- NOTE | 2017-09-24 09:30 | NUR ---
FIXING CARPENTER NOTES SEEN AND EVALUATED BY PAULETTE ARCHER AMERICAN HISTORY PROFESSOR , DISCUSSED LABS , ELECTROLYTES REPLACED , TEMP OF 101.4 VIA CORE TEMP , SEDATED WITH PROPOFOL @ 80MCG / KG/ MIN , UNABLE TO DO SEDATION VACATION DUE TO DISTRESS , AMERICAN HISTORY PROFESSOR AWARE AWAITING FOR ORDERS
[2017-09-24] MEDS: ACETAMINOPHEN 650 MG/20.3 ML UDC NG PRN (09:58)
--- NOTE | 2017-09-24 10:00 | NUR ---
CHUTE BOSS NOTES SEEN AND EVALUATED BY DR MCKENZIE , DISCUSSED LABS , TEMP OF 101.4 GAGE CULTURES OBTAINED , ELECTROLYTES REPLACED , GT FEEDING OF NOVASOURCE @ 40ML/HR , PER MD ORDER DIETARY CONSULT TO CHANGE GT FORMULA , PT HAVING GOOD URINE OUTPUT , 350ML X2 HOURS . FREE WATER FLUSHED 200ML TID DUE TO NA OF 151 . MD AWARE
--- NOTE | 2017-09-24 10:05 | NUR ---
TELESALES CONSULTANT NOTES PATIENT NOTED TO HAVE TEMP OF 101.4F VIA CORE , GAGE CULTURES OBTAINED AND SENT TO LAB , TYLENOL 650MG GIVEN , COOLING MEASURES RENDERED , WILL CONTINUE TO MONITOR
--- NOTE | 2017-09-24 11:51 | NUR ---
WASHERY BOSS NOTES CALLED DR MCKENZIE , DISCUSSED CRITICAL MAGNESIUM LEVEL OF 1.0 , PER MD REPLACE WITH 4 GM OF MAGNESIUM REPEAT LEVEL AFTER ONE HOUR OF INFUSING MAGNESIUM , ORDER CARRIED OUT
[2017-09-24] MEDS: Magnesium 1GM/D5W 100ML PREMIX 100 ML IV SCH ×4 (12:01→16:55)
[2017-09-24] MEDS: Potassium Chloride 20 MEQ in IV D5W 1,000 ML IV PRN ×2 (12:07→21:41)
--- NOTE | 2017-09-24 13:15 | NUR ---
PUPIL PERSONNEL WORKER NOTES RECEIVED A CALL FROM RADIOLOGY REGARDING Small amount of free air under the diaphragm , REVIEWED CHEST XRAY RESULT WITH DR HEREDIA , PT TOLERATING GT FEEDING WITH ACTIVE BOWEL SOUNDS , ABDOMEN SOFT NON TENDER . MD AWARE . NO NEW ORDERS RECEIVED
[2017-09-24] MEDS: SERTRALINE HCL 25 MG TABLET PO SCH (16:12)
[2017-09-24] MEDS: RENAL NOVASOURCE 1,000 ML BOTTLE GT PRN (16:13)
[2017-09-24 18:07] LABS: MAGNESIUM 1.9 mg/dL (1.8-2.4); POTASSIUM 3.4 mmol/L (3.5-5.1)
--- NOTE | 2017-09-24 20:22 | NUR ---
received pt from day shift, sedated on diprivan at 80mcg, SR, ST, on vent, lungs congested, pitting edema throughout, f/c good output, GT to feeding, tolerates well, v/s stable, no pain, pt turned and repositioned.
[2017-09-25] VITALS (45 sets, daily range): BP systolic 90–148; BP diastolic 48–89
--- NOTE | 2017-09-25 00:09 | NUR ---
pt is resting in the bed, sedated on Diprivan at 80mcg, tolerates feeding, v/s stable, no pain, pt turned and repositioned q2hrs.
[2017-09-25] MEDS: PROPOFOL 10MG/ML 50ML 50 ML IV PRN ×13 (02:03→18:40)
[2017-09-25 03:46] LABS: APPEARANCE,URINE CLEAR (CLEAR); BILIRUBIN,URINE NEGATIVE (NEGATIVE); BLOOD, URINE NEGATIVE Ery/uL (NEGATIVE); COLOR,URINE YELLOW (YELLOW); KETONES,URINE NEGATIVE (NEGATIVE); LEUKOCYTE ESTERASE ,URINE NEGATIVE (NEGATIVE); NITRITE, URINE NEGATIVE (NEGATIVE); PROTEIN,URINE NEGATIVE (NEGATIVE); UGLUCOSE TRACE mg/dL (NEGATIVE); UROBILINOGEN,URINE 0.2 EU/dL (0.2)
[2017-09-25 04:02] LABS: BACTERIA,URINE Few /HPF (None Seen); RBC,URINE 0-2 /HPF (0-2); SQUAMOUS EPITHELIAL CELL,UR Few /HPF (None Seen); WBC,URINE 0-2 /HPF (0-3)
--- NOTE | 2017-09-25 04:17 | NUR ---
pt is resting in the bed, no acute distress overnight, sedated on Diprivan at 80mcg, tolerates feeding, v/s stable, no pain, pt cleaned, changed and repositioned q2hrs.
[2017-09-25 05:20] LABS: EOSINOPHILS # (AUTO) 0.1 /CMM (0.0-0.7); EOSINOPHILS % (AUTO) 0.5 % (0.0-6.0); HEMATOCRIT 25 % (39-51); HEMOGLOBIN 8.4 g/dL (13.5-17.5); LYMPHOCYTES # (AUTO) 2.4 /CMM (0.8-4.8); LYMPHOCYTES % (AUTO) 10.4 % (20.0-44.0); MEAN CORPUSCULAR HEMOGLOBIN 31 PG (26.0-33.0); MEAN CORPUSCULAR HGB CONC 34 g/dl (31.0-36.0); MEAN CORPUSCULAR VOLUME 93 fL (80-96); MONOCYTES # (AUTO) 2.7 /CMM (0.1-1.30); MONOCYTES % (AUTO) 12.1 % (2.0-12.0); NEUTROPHILS # (AUTO) 17.4 /CMM (1.8-8.9); PLATELET COUNT (AUTO) 183 /CMM (150-450); RDW COEFFICIENT OF VARIATION 15.3 (11.5-15.0); WHITE BLOOD COUNT (AUTO) 22.6 K/uL (4.3-11.0)
[2017-09-25 05:24] LABS: CALCIUM, SERUM 7.5 mg/dL (8.5-10.1); CREATININE 0.5 mg/dL (0.6-1.3); MAGNESIUM 1.4 mg/dL (1.8-2.4); PHOSPHORUS 2.4 mg/dL (2.5-4.9); POTASSIUM 3.2 mmol/L (3.5-5.1)
[2017-09-25] MEDS: ACETAMINOPHEN 650 MG/20.3 ML UDC NG PRN (05:28)
[2017-09-25] MEDS: Potassium Chloride 20 MEQ in IV D5W 1,000 ML IV PRN ×2 (06:28→16:34)
--- NOTE | 2017-09-25 07:45 | NUR ---
ICU/RN: Pt received in bed, on trach vent, mildly sedated on Diprivan at 80mcg/kg/min; pt able to track, unable to follow commands, gag and cough reflex present, orally suctioned with large amount of clear secretions. Tolerating TF with minimal residual. VITA PICC and HANK midline flushed, patent and intact. ST 110's on monitor, afebrile. FC draining tea colored urine to gravity. Turned and repositioned for comfort. Alarm sounds audible, will cont to monitor pt.
--- NOTE | 2017-09-25 07:46 | NUR ---
RT PATIENT REC'D TRACHED ON [facility] VENT WITH SETTINGS SET BY MD RICHAR MCDANIEL. VENT ALARMS CHECKED+ AUDIBLE. CUFF PRESSURE CHECKED RESIDENTIAL TREATMENT COUNSELOR. SX'D WITH SUMEET MANN STANTON SEMITHICK SECRETIONS. B/S DIM COARSE. PATIENT SEDATED APPEARS COMFORTABLE. AMBU BAG AT HOB. CONT CURRENT PLAN OF RESP CARE. Addendum: 09/25/17 at 0904 by BRYNN BARBER RT Amended: Links added.
[2017-09-25] MEDS: ABACAVIR PO SCH (08:23)
[2017-09-25] MEDS: DOLUTEGRAVIR PO SCH (08:23)
[2017-09-25] MEDS: LAMIVUDI PO SCH (08:23)
[2017-09-25] MEDS: LACTOBACILLUS RHAMNOSUS GG 1 EACH CAP.SPRINK PO SCH ×2 (08:24→16:05)
[2017-09-25] MEDS: LORATADINE 10 MG TABLET PO SCH (08:24)
[2017-09-25] MEDS: HYDROCORTISONE SOD SUCCINATE 100 MG/2 ML VIAL IV SCH ×2 (08:24→16:06)
[2017-09-25] MEDS: PANTOPRAZOLE 40 MG VIAL IV SCH (08:24)
[2017-09-25] MEDS: LORAZEPAM INJ 2 MG/ML VIAL IV PRN ×3 (08:24→16:05)
[2017-09-25] MEDS: MULTIPLE VIT (LYCOPENE/FA/MV,CA,IRON,MIN/LUT)1 TAB PO SCH (08:24)
[2017-09-25] MEDS: Z GUARD REMEDY 2 OZ OINT TP PRN (08:25)
[2017-09-25] MEDS: POTASSIUM CHLORIDE 20 MEQ POWDER PACKET GT SCH ×3 (08:32→22:16)
--- NOTE | 2017-09-25 10:00 | NUR ---
ICU/RN: Dr Wong rounds; updated on pt status, abn labs, abx therapy and respiratory status discussed. New orders noted and carried out.
--- NOTE | 2017-09-25 10:30 | NUR ---
ICU/RN: Dr Valdez rounds; updated on pt status. Unable to wean pt off sedation as pt becomes distressed aeb RR >30 and HR in 130's. Pt received PRN dose of Ativan for sedation in order to attempt to titrate off Diprivan. Per MD, "I'll take a look and see if I can readjust her meds."
[2017-09-25] MEDS: Magnesium 1GM/D5W 100ML PREMIX 100 ML IV SCH ×4 (10:41→13:49)
[2017-09-25] MEDS ORDERED: FENTANYL TD PATCH (75MCG/HR) 75 MCG/HR PATCH.TD72 TD SCH (11:30)
[2017-09-25] MEDS: QUETIAPINE FUMARATE 25 MG TABLET PO SCH ×2 (11:50→16:06)
[2017-09-25] MEDS: MORPHINE SULFATE INJ 4 MG/ML DISP.SYRIN IV PRN ×2 (12:16→23:15)
[2017-09-25] MEDS ORDERED: NEUTRA PHOS 1 POWD.PACKET NG ONE (12:30)
[2017-09-25] MEDS: PROSOURCE / PROSTAT (PYXIS) 30 ML UDC GT SCH (16:05)
[2017-09-25] MEDS: SERTRALINE HCL 25 MG TABLET PO SCH (16:06)
[2017-09-25] MEDS: FIBERSOURCE HN 1,000 ML BOTTLE GT PRN (18:09)
--- NOTE | 2017-09-25 18:50 | NUR ---
ICU/RN: JAKE Bergman at bedside. Updated on pt condition, informed of sputum cx results, pt currently off abx for abx vacation. Afebrile for past 12 hours.
--- NOTE | 2017-09-25 19:10 | NUR ---
ICU/RN: Family at bedside, per family, pt no longer has supply of home med Patricia Bergman, INTERNET SALESPERSON notified. Provided pt family with prescription in order to continue non-formulary home med. Family to shrimp picker medication from pharmacy tomorrow and bring to hospital. Copy of prescription placed in chart. Pt remains in stable condition, sedated on 50mcg/kg/min of Diprivan. Care endorsed to PM RN for GLORIA.
--- NOTE | 2017-09-25 19:26 | NUR ---
ICU/RN RECEIVED PT ON VENT PER TRACH,SEDATED W/ DIPRIVAN AT 5OMCG/KG/MIN.MONITOR SHOWS NSR.100%ON FIO2 40%. TOLERATING TUBE FEEDING WELL,NO RESIDUAL.
--- NOTE | 2017-09-25 20:10 | NUR ---
PT RECEIVED TRACHED ON VENT. NO RESP DISTRESS NOTED. PT TOLERATING VENT SETTINGS. SX'D AND LAVAGED FOR SML AMT OF THICK YELLOW SECRETIONS. VENT ALARMS SET AND AUDIBLE. VENT PLUGGED INTO RED OUTLET. TRACH SECURED, CUFF SALES OFFICE ADMINISTRATOR. WILL CONTINUE TO MONITOR. Addendum: 09/25/17 at 2010 by KARAN HENSON RT Amended: Links added.
[2017-09-25] MEDS: PROPOFOL 100 ML IV PRN (20:39)
--- NOTE | 2017-09-25 23:15 | NUR ---
ICU/RN RESP RATE=36/MIN.UNABLE TO ASSESS IF IN PAIN.EYES OPEN LOOKS TOWARD SPEAKER,BUT DOES NOT FOLLOW COMMANDS.GIVEN 4MG OF MORPHINE IVP W/ IMMEDIATE EFFECT.DIPRIVAN AT 45MC/KG/MIN.
[2017-09-26] VITALS (56 sets, daily range): BP systolic 98–159; BP diastolic 52–90
[2017-09-26] MEDS: LORAZEPAM INJ 2 MG/ML VIAL IV PRN ×4 (01:22→21:25)
[2017-09-26] MEDS: PROPOFOL 100 ML IV PRN ×2 (02:14→06:58)
[2017-09-26] MEDS: Potassium Chloride 20 MEQ in IV D5W 1,000 ML IV PRN ×3 (02:26→23:19)
--- NOTE | 2017-09-26 03:00 | NUR ---
ICU/RN AWAKE,NODS AND SHAKES HEAD APPROPRIATELY WHEN ASKED W/ QUESTIONS ANSWERABLE BY "YES,NO" QUESTIONS.FOLLOWS SIMPLE COMMANDS WHEN ORAL CARE DONE.
[2017-09-26] MEDS: MORPHINE SULFATE INJ 4 MG/ML DISP.SYRIN IV PRN ×3 (03:59→12:04)
--- NOTE | 2017-09-26 03:59 | NUR ---
ICU/RN PT AWAKE ALERT,RESP RATE OF 39/MINUTE.HV=699,O2 SAT=98%.DENIES PAIN.GIVEN 4MG MORPHINE IVP.ON 40MCG/KG OF DIPRIVAN.
[2017-09-26 04:57] LABS: EOSINOPHILS # (AUTO) 0.1 /CMM (0.0-0.7); EOSINOPHILS % (AUTO) 0.3 % (0.0-6.0); HEMATOCRIT 24 % (39-51); HEMOGLOBIN 8.1 g/dL (13.5-17.5); LYMPHOCYTES # (AUTO) 2.4 /CMM (0.8-4.8); LYMPHOCYTES % (AUTO) 11.4 % (20.0-44.0); MEAN CORPUSCULAR HEMOGLOBIN 31 PG (26.0-33.0); MEAN CORPUSCULAR HGB CONC 34 g/dl (31.0-36.0); MEAN CORPUSCULAR VOLUME 92 fL (80-96); MONOCYTES # (AUTO) 1.7 /CMM (0.1-1.30); MONOCYTES % (AUTO) 8.1 % (2.0-12.0); NEUTROPHILS # (AUTO) 16.6 /CMM (1.8-8.9); NEUTROPHILS % (AUTO) 80.2 % (43.0-81.0); PLATELET COUNT (AUTO) 186 /CMM (150-450); RDW COEFFICIENT OF VARIATION 15.6 (11.5-15.0); RED BLOOD CELL COUNT(AUTO) 2.58 MIL/uL (4.5-6.0); WHITE BLOOD COUNT (AUTO) 20.7 K/uL (4.3-11.0)
[2017-09-26] MEDS: POTASSIUM CHLORIDE 20 MEQ POWDER PACKET GT SCH ×2 (04:57→12:05)
[2017-09-26 05:19] LABS: CALCIUM, SERUM 7.6 mg/dL (8.5-10.1); CREATININE 0.4 mg/dL (0.6-1.3); MAGNESIUM 1.5 mg/dL (1.8-2.4); PHOSPHORUS 2.9 mg/dL (2.5-4.9); POTASSIUM 4.3 mmol/L (3.5-5.1)
[2017-09-26 05:37] LABS: BAND % (MANUAL) 1 % (0.0-5.0); LYMPHOCYTES % (MANUAL) 9 % (16-48); MONOCYTES % (MANUAL) 7 % (0-11.0); NEUTROPHILS % (MANUAL) 83 (42-76)
--- NOTE | 2017-09-26 07:05 | NUR ---
RT START NOTE, PT. 37 Y OLD MALE REC. NEMOD ASHU # 8. ON VENT WITH NOTED AC MODE ALARMS ARE SET AND FUNCTIONAL. EQUAL CHEST RISE NOTED. B/S BILATERALLY RHONCHI/RALES AND SUX'D FOR MODERATE AMT OF YELLOWISH SECRETIONS, PT. REMAIN STABLE AND CONTINUE FOR CARE AND MONITORING CLOSELY. AMBU BAG REMAIN AT THE BEDSIDE. VENT PLUGGED INTO RED OUTLET. Addendum: 09/26/17 at 0814 by CONRAD MACE RT Amended: Links added.
--- NOTE | 2017-09-26 07:06 | NUR ---
ICU/RN PT. REMAINS ALERT FOLLOWS SIMPLE COMMANDS,WIGGLE TOES AND MVES RT ARM BUT WEAK.REMAINS ON DIPRIVAN AT 40MCG/KG/MIN.REPORT AND CARE OF PT GIVEN TO NICK ACOSTA.SUCTIONED FOR COPIOUS AMT.OF PURULENT YELLOW SECRETIONS AROUND TRACH.SCANT FROM TRACH.
--- NOTE | 2017-09-26 07:30 | NUR ---
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
[2017-09-26] MEDS: HYDROCORTISONE SOD SUCCINATE 100 MG/2 ML VIAL IV SCH (08:32)
[2017-09-26] MEDS: MULTIPLE VIT (LYCOPENE/FA/MV,CA,IRON,MIN/LUT)1 TAB PO SCH (08:32)
[2017-09-26] MEDS: PROSOURCE / PROSTAT (PYXIS) 30 ML UDC GT SCH ×2 (08:32→15:57)
[2017-09-26] MEDS: LORATADINE 10 MG TABLET PO SCH (08:32)
[2017-09-26] MEDS: LACTOBACILLUS RHAMNOSUS GG 1 EACH CAP.SPRINK PO SCH ×2 (08:32→15:57)
[2017-09-26] MEDS: QUETIAPINE FUMARATE 25 MG TABLET PO SCH ×2 (08:32→15:58)
[2017-09-26] MEDS: PANTOPRAZOLE 40 MG VIAL IV SCH (08:32)
[2017-09-26] MEDS: ABACAVIR PO SCH (08:34)
[2017-09-26] MEDS: LAMIVUDI PO SCH (08:34)
[2017-09-26] MEDS: DOLUTEGRAVIR PO SCH (08:34)
--- NOTE | 2017-09-26 09:00 | NUR ---
LACQUERER SEDATION STARTED 1000 DR[address] REEVES SAW PATIENT AND ORDERED TO HOLD DIPRIVAN TITRATING DIPRIVAN TO LOW DOSE AFTER DIPRIVAN IS D/C ATIVAN 2 MG GIVEN SINCE HEART RATE WENT TO 130 AND RR TO 35 MONITORED CLOSELY
[2017-09-26] MEDS: Magnesium 1GM/D5W 100ML PREMIX 100 ML IV SCH ×2 (09:46→10:37)
[2017-09-26] MEDS: FIBERSOURCE HN 1,000 ML BOTTLE GT PRN (15:58)
[2017-09-26] MEDS: SERTRALINE HCL 25 MG TABLET PO SCH (15:58)
--- NOTE | 2017-09-26 17:49 | NUR ---
RT END OF THE SHIFT REPORT, PT. 37 Y OLD MALE REMAIN ALERT, AWAKE, AND RESPONSIVE. TRACHED SHILEY # 8 ON VENT WITH NOTED AC MODE ALARMS ARE SET AND FUNCTIONAL. EQUAL CHEST RISE NOTED. B/S BILATERALLY RALES AND SUX'D FOR LARGE AMT OF YELLOWISH SECRETIONS, HME CHANGED. NO CHANGES OR ABG NEEDED PER DR. LR. T/O DAY. PT. REMAIN STABLE AND CONTINUE FOR CARE AND MONITORING CLOSELY. AMBU BAG REMAIN AT THE BEDSIDE. VENT PLUGGED INTO RED OUTLET. REPORT WILL BE PASS TO PM SHIFT. Addendum: 09/26/17 at 1753 by CONRAD MACE RT Amended: Links added.
--- NOTE | 2017-09-26 18:18 | NUR ---
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
[2017-09-26] MEDS ORDERED: DOSING PER PHARMACY-TOBRA INHALATION 1 EA XX PRN (19:30)
--- NOTE | 2017-09-26 19:30 | NUR ---
ICU/RN RECEIVED PT ON VENT PER TRACH,FOLLOWS SIMPLE COMMANDS.ORIENTED TO NAME AND PLACE,RE-ORIENTED TO TIME AND SURROUNDINGS.SUCTIONED FOR SCANT THICK YELLOW SECRETIONS FR TRACH,AND MODERATE TO LARGE AMT.FROM AROUND TRACH.
--- NOTE | 2017-09-26 20:15 | NUR ---
ICU/RN PT HAD PROJECTILE EMESIS LARGE AMT TUBE FEEDING HELD AND GT CONNECTED TO SUCTION W/IMMEDIATE RETURN OF 200ML YELLOW DRAINAGE.COMPLETE BED BATH DONE.PT HAD LARGE AMT OF SOFT STOOL,BROWN-COLORED.
--- NOTE | 2017-09-26 20:50 | NUR ---
PT RECEIVED TRACHED ON VENT. NO RESP DISTRESS NOTED. PT IS AWAKE. PT TOLERATING VENT SETTINGS. SX'D AND LAVAGED FOR MOD AMT OF THICK YELLOW SECRETIONS. VENT ALARMS SET AND AUDIBLE. VENT PLUGGED INTO RED OUTLET. TRACH SECURED, CUFF WATCH CRYSTAL EDGE GRINDER. WILL CONTINUE TO MONITOR. Addendum: 09/26/17 at 2050 by KARAN HENSON RT Amended: Links added.
[2017-09-26] MEDS ORDERED: D5W INH SCH (21:00)
[2017-09-26] MEDS ORDERED: TOBRAMYCIN INH SCH (21:00)
[2017-09-26] MEDS ORDERED: TOBRAMYCIN 80 MG/2 ML VIAL ONE (21:46)
[2017-09-27] VITALS (52 sets, daily range): BP systolic 83–172; BP diastolic 45–132
[2017-09-27] MEDS: LORAZEPAM INJ 2 MG/ML VIAL IV PRN ×7 (00:50→21:05)
--- NOTE | 2017-09-27 03:00 | NUR ---
ICU/RN PT EXTREMELY AGITATED AND ATTEMPTED TO GET OUT OF BED HR166,RESP.[id number] 02 SAT=86-87%.GIVEN 4MG MORPHINE IVP,SUCTIONED FOR COPIOUS YELLOW SECRETIONS FR AROUND TRACH SITE,SCANT FROM TRACH.TRACH CARE DONE,DRESSING SATURATED W/ SECRETIONS,TRACH TIE CHANGED.REPOSITIONED UP IN BED.SAT REMAINS LOW,FIO2 INCREASED TO ^0%.RT AWARE.
[2017-09-27] MEDS: MORPHINE SULFATE INJ 4 MG/ML DISP.SYRIN IV PRN ×3 (03:05→13:00)
--- NOTE | 2017-09-27 03:52 | NUR ---
ICU/RN PT REMAINS RESTLESS,GIVEN 2MG ATIVAN IVP.SAT SLOWLY IMPROVED,BP NORMALIZING EQG=278/114-134MMHG DURING EVENT.0405 SBP 144MMHG.
[2017-09-27 04:59] LABS: BASOPHILS # (AUTO) 0.1 /CMM (0.0-0.2); BASOPHILS % (AUTO) 0.3 % (0.0-2.0); EOSINOPHILS # (AUTO) 0.4 /CMM (0.0-0.7); EOSINOPHILS % (AUTO) 1.4 % (0.0-6.0); HEMATOCRIT 25 % (39-51); HEMOGLOBIN 8.3 g/dL (13.5-17.5); LYMPHOCYTES # (AUTO) 3.7 /CMM (0.8-4.8); LYMPHOCYTES % (AUTO) 13.5 % (20.0-44.0); MEAN CORPUSCULAR HEMOGLOBIN 31 PG (26.0-33.0); MEAN CORPUSCULAR HGB CONC 34 g/dl (31.0-36.0); MEAN CORPUSCULAR VOLUME 93 fL (80-96); MONOCYTES # (AUTO) 1.4 /CMM (0.1-1.30); MONOCYTES % (AUTO) 4.9 % (2.0-12.0); NEUTROPHILS # (AUTO) 22.1 /CMM (1.8-8.9); NEUTROPHILS % (AUTO) 79.9 % (43.0-81.0); PLATELET COUNT (AUTO) 276 /CMM (150-450); RDW COEFFICIENT OF VARIATION 15.3 (11.5-15.0); RED BLOOD CELL COUNT(AUTO) 2.69 MIL/uL (4.5-6.0); WHITE BLOOD COUNT (AUTO) 27.6 K/uL (4.3-11.0)
[2017-09-27 05:17] LABS: CALCIUM, SERUM 8.3 mg/dL (8.5-10.1); CREATININE 0.4 mg/dL (0.6-1.3); PHOSPHORUS 3.6 mg/dL (2.5-4.9)
[2017-09-27 05:28] LABS: MAGNESIUM 1.1 mg/dL (1.8-2.4)
--- NOTE | 2017-09-27 05:41 | NUR ---
ICU/RN CALL PLACED TO DR SMITH FOR MAGNESIUM OF 1.1
[2017-09-27 06:07] LABS: LYMPHOCYTES % (MANUAL) 13 % (16-48); NEUTROPHILS % (MANUAL) 83 (42-76)
[2017-09-27 06:08] LABS: MONOCYTES % (MANUAL) 4 % (0-11.0)
--- NOTE | 2017-09-27 06:25 | NUR ---
ICU/RN DR SMITH RETURNED CALL,ORDERS RECEIVED.
--- NOTE | 2017-09-27 06:53 | NUR ---
ICU/RN UNABLE TO WEIGH PT SCALE IS BROKEN.WILL ENDORSE TO DAY SHIFT.
--- NOTE | 2017-09-27 07:30 | NUR ---
RIVETER HAND RECEIVED PATIENT ASLEEP ON BED ON MECHANICAL VENTILATOR SUPPORT SATURATING WELL WARM TO TOUCH TACHYCARDIA NOTED 120'S FEEDING TUBE HELD DUE TO VOMITING PATIENT MOVES AT TIMES EDEMATOUS NOTED OVER HIS SCROTAL AREA PETERS CONNECTED TO URINE BAG, DIURESING WELL MAGNESIUM IS LOW AWAITING REPLACEMENT
[2017-09-27] MEDS: Magnesium 1GM/D5W 100ML PREMIX 100 ML IV SCH ×6 (07:45→12:43)
[2017-09-27] MEDS: LORATADINE 10 MG TABLET PO SCH (09:16)
[2017-09-27] MEDS: PANTOPRAZOLE 40 MG VIAL IV SCH (09:16)
[2017-09-27] MEDS: QUETIAPINE FUMARATE 25 MG TABLET PO SCH ×2 (09:16→16:44)
[2017-09-27] MEDS: ACETAMINOPHEN 325 MG TABLET PO PRN ×2 (09:16→17:53)
[2017-09-27] MEDS: LACTOBACILLUS RHAMNOSUS GG 1 EACH CAP.SPRINK PO SCH ×2 (09:16→16:43)
[2017-09-27] MEDS: PROSOURCE / PROSTAT (PYXIS) 30 ML UDC GT SCH ×2 (09:16→16:44)
[2017-09-27] MEDS: MULTIPLE VIT (LYCOPENE/FA/MV,CA,IRON,MIN/LUT)1 TAB PO SCH (09:17)
[2017-09-27] MEDS: Potassium Chloride 20 MEQ in IV D5W 1,000 ML IV PRN (10:45)
[2017-09-27] MEDS ORDERED: Magnesium 1GM/D5W 100ML PREMIX 1 G in PREMIX 1 EA IV SCH (11:00)
[2017-09-27] MEDS: FIBERSOURCE HN 1,000 ML BOTTLE GT PRN (12:38)
[2017-09-27] MEDS ORDERED: FEE PK DOSING 1 MIN EA MC ONE (14:45)
--- NOTE | 2017-09-27 15:00 | NUR ---
DOCUMENTUM CONSULTANT PATIENT BECAME AGITATED HEART RATE GOES UP, ATIVAN AND DILAUDID GIVEN STILL AGITATION NOTED DESATURATION NOTED, INCREASED FI02 TO 100% BRIEFLY ADVISED PATIENT TO SLEEP, HE WAS ABLE TO SLEEP BRIEFLY BUT BECAME RESTLESS ONCE AGAIN WARM TO TOUCH, TYLENOL GIVEN THRU G TUBE FEEDING HELD DUE TO DYSPNEA AND TACHYCARDIA
[2017-09-27] MEDS: HYDROMORPHONE 1 MG/1 ML DISP.SYRIN IV PRN ×2 (15:39→21:09)
[2017-09-27] MEDS: VANCOMYCIN 1.25 GM in IV D5W 500 ML IV SCH ×2 (15:43→23:16)
[2017-09-27] MEDS: SERTRALINE HCL 25 MG TABLET PO SCH (16:44)
[2017-09-27] MEDS: ABACAVIR PO SCH (16:48)
[2017-09-27] MEDS: METOPROLOL TARTRATE INJ 5 MG/5 ML AMPUL IVP PRN (16:48)
[2017-09-27] MEDS: LAMIVUDI PO SCH (16:48)
[2017-09-27] MEDS: DOLUTEGRAVIR PO SCH (16:48)
--- NOTE | 2017-09-27 17:26 | NUR ---
Pt received on mechanical vent. Pt trach is secure. FiO2 was titrated to 50% per MD order. Vent is plugged into a red outlet, alarms are set and audible, and BVM is at bedside. Addendum: 09/27/17 at 1732 by ALEXX LEMA RT Amended: Links added.
[2017-09-27] MEDS ORDERED: LORAZEPAM INJ 2 MG/ML VIAL IV STA (18:00)
--- NOTE | 2017-09-27 18:57 | NUR ---
SUBSTATION MECHANIC PATIENT WENT TO TACHYCARDIA -160'S CAROL SANDSTONE SPLITTER INFORMED ORDERED TO GIVE ATIVAN 2 MG STAT
--- NOTE | 2017-09-27 19:04 | NUR ---
INDUSTRIAL INSULATOR MAGNESIUM REPLACEMENT DONE - 6 GMS MONITORED CLOSELY ENDORSED TO NOD
--- NOTE | 2017-09-27 20:00 | NUR ---
NECK SKEWER NOTES RECEIVED PT IN BED, AWAKE, FOLLOWS COMMAND, ABLE TO TRACK. TELE READS ST AT 150 BPM. ON VENT VIA TRACH AT ORDERED SETTING TOLERATING WELL. GT IN PLACE, CLAMPED, 250 ML RESIDUAL. PETERS CATH IN PLACE, DRAINING WELL TO GRAVITY. VITA PICC AND HANK MIDLINE, KCL D5W AT 70 ML/HR AND NS AT TKO. HOB ELEVATED, SIDE RAILS X2, TURNED AND REPOSITIONED.
[2017-09-27] MEDS ORDERED: LINEZOLID 600 MG TABLET PO SCH (21:00)
[2017-09-27] MEDS: ACETAMINOPHEN 650 MG/20.3 ML UDC NG PRN (21:05)
[2017-09-27] MEDS: TOBRAMYCIN 80 MG/2 ML VIAL INH SCH (23:35)
[2017-09-28] VITALS (36 sets, daily range): BP systolic 89–139; BP diastolic 51–81
[2017-09-28] MEDS: LORAZEPAM INJ 2 MG/ML VIAL IV PRN ×4 (02:29→17:21)
[2017-09-28] MEDS ORDERED: IV PREMIX D5W + KCL 1,000 ML IV ONE (02:36)
[2017-09-28] MEDS: Potassium Chloride 20 MEQ in IV D5W 1,000 ML IV PRN ×2 (03:52→17:21)
[2017-09-28] MEDS: HYDROMORPHONE 1 MG/1 ML DISP.SYRIN IV PRN ×4 (03:53→21:16)
--- NOTE | 2017-09-28 04:00 | NUR ---
GAMING MANAGER NOTES PT UNABLE TO TOLERATED TUBE FEEDING ALL NIGHT. RESIDUAL OF 400 AT THIS TIME. GTF ON HOLD.
[2017-09-28] MEDS: IV NS 0.9% 250 ML IV PRN (05:20)
[2017-09-28 05:25] LABS: CREATININE 0.4 mg/dL (0.6-1.3); POTASSIUM 3.6 mmol/L (3.5-5.1)
[2017-09-28] MEDS: VANCOMYCIN 1.25 GM in IV D5W 500 ML IV SCH (06:19)
[2017-09-28 06:52] LABS: EOSINOPHILS # (AUTO) 0.7 /CMM (0.0-0.7); EOSINOPHILS % (AUTO) 1.8 % (0.0-6.0); HEMATOCRIT 24 % (39-51); HEMOGLOBIN 7.8 g/dL (13.5-17.5); LYMPHOCYTES # (AUTO) 3.1 /CMM (0.8-4.8); LYMPHOCYTES % (AUTO) 8.2 % (20.0-44.0); MEAN CORPUSCULAR HEMOGLOBIN 31 PG (26.0-33.0); MEAN CORPUSCULAR HGB CONC 33 g/dl (31.0-36.0); MEAN CORPUSCULAR VOLUME 93 fL (80-96); MONOCYTES # (AUTO) 1.1 /CMM (0.1-1.30); MONOCYTES % (AUTO) 2.9 % (2.0-12.0); NEUTROPHILS # (AUTO) 32.6 /CMM (1.8-8.9); NEUTROPHILS % (AUTO) 87.1 % (43.0-81.0); PLATELET COUNT (AUTO) 291 /CMM (150-450); RDW COEFFICIENT OF VARIATION 16.4 (11.5-15.0); RED BLOOD CELL COUNT(AUTO) 2.53 MIL/uL (4.5-6.0)
[2017-09-28 07:14] LABS: WHITE BLOOD COUNT (AUTO) 37.5 K/uL (4.3-11.0)
--- NOTE | 2017-09-28 07:45 | NUR ---
RN NOTES RECEIVED PT IN BED, AWAKE, ALERT TO IMMEDIATE SURROUNDINGS,FOLLOWS COMMAND, ABLE TO TRACK, ABLE TO MOUTH WORDS TO COMMUNICATE, TRACHE MIDLINE. ON MECH VENT SETTINGS PRESCRIBED. SUCTIONED FOR AIRWAY CLEARANCE. ST ON BIODIESEL PRODUCTION ASSOCIATE HR AT 140'S TO 150 BPM. PT WITH LOW GRADE FEVER TEMP 100.00. GT IN PLACE, CLAMPED AT THIS TIME, PER REPORT WITH HIGH RESIDUALS. PETERS CATH IN PLACE, DRAINING WELL TO GRAVITY, NOTED WITH 550 ML UO THIS TIME. MAG 1.2 PER LAB REPORT, PER PHARMACY WILL REPLACE, AWARE. VITA PICCLINE RUNNING KCL D5W AT 70 ML/HR. HOB ELEVATED, SIDE RAILS X2, REPOSITIONED FOR COMFORT, WILL CONT TO MONITOR.
[2017-09-28] MEDS: LORATADINE 10 MG TABLET PO SCH (08:04)
[2017-09-28] MEDS: PROSOURCE / PROSTAT (PYXIS) 30 ML UDC GT SCH ×2 (08:04→16:20)
[2017-09-28] MEDS: LACTOBACILLUS RHAMNOSUS GG 1 EACH CAP.SPRINK PO SCH ×2 (08:04→16:21)
[2017-09-28] MEDS: PANTOPRAZOLE 40 MG VIAL IV SCH (08:04)
[2017-09-28] MEDS: MULTIPLE VIT (LYCOPENE/FA/MV,CA,IRON,MIN/LUT)1 TAB PO SCH (08:04)
[2017-09-28] MEDS: QUETIAPINE FUMARATE 25 MG TABLET PO SCH ×2 (08:04→16:21)
[2017-09-28] MEDS: TOBRAMYCIN 80 MG/2 ML VIAL INH SCH (09:04)
[2017-09-28 09:13] LABS: BAND % (MANUAL) 2 % (0.0-5.0); LYMPHOCYTES % (MANUAL) 15 % (16-48); MONOCYTES % (MANUAL) 5 % (0-11.0); NEUTROPHILS % (MANUAL) 78 (42-76)
[2017-09-28] MEDS ORDERED: Magnesium 1GM/D5W 100ML PREMIX 100 ML IV SCH (09:51)
--- NOTE | 2017-09-28 09:59 | NUR ---
RN NOTES PT WAS SEEN AND EVALUATED BY DR DANIELS AT BEDSIDE. PT TACHYCARDIC HR OF 160'S BPM EVEN AFTER ATIVAN AND DILAUDID ADMINISTRATION AN HOUR AGO. PT APPEARS ANXIOUS AND RESTLESS. PER DR DANIELS TO GIVE ATIVAN 2 MG IVP X1 AND DILAUDID 2MG IVP X1. ORDERS READ BACK NOTED AND CARRIED OUT.
[2017-09-28] MEDS ORDERED: HYDROMORPHONE INJ 2 MG/ML DISP.SYRIN IV ONE (10:00)
[2017-09-28] MEDS ORDERED: LORAZEPAM INJ 2 MG/ML VIAL IV ONE (10:00)
--- NOTE | 2017-09-28 10:02 | NUR ---
RN NOTES SPOKE WITH DR RAZA, REPORTED MAG OF 1.2, PER MD TO GIVE REPLACEMENT MAG 4GM IV Q1H. ORDERS READ BACK NOTED AND CARRIED OUT
[2017-09-28] MEDS: Magnesium 1GM/D5W 100ML PREMIX 100 ML IV SCH ×4 (10:52→14:16)
[2017-09-28] MEDS ORDERED: METOCLOPRAMIDE HCL 10 MG/2 ML VIAL IV SCH (11:30)
[2017-09-28] MEDS: ABACAVIR PO SCH (12:10)
[2017-09-28] MEDS: LAMIVUDI PO SCH (12:10)
[2017-09-28] MEDS: DOLUTEGRAVIR PO SCH (12:10)
[2017-09-28] MEDS ORDERED: VANCOMYCIN 1 GM in IV NS 0.9% 250 ML IV SCH (16:00)
[2017-09-28] MEDS: SERTRALINE HCL 25 MG TABLET PO SCH (16:21)
[2017-09-28] MEDS ORDERED: HYDROMORPHONE 1 MG/1 ML DISP.SYRIN IV PRN (18:00)
[2017-09-28] MEDS ORDERED: HYDROMORPHONE HCL 2 MG TABLET PO PRN (19:00)
[2017-09-28] MEDS: FIBERSOURCE HN 1,000 ML BOTTLE GT PRN (19:05)
--- NOTE | 2017-09-28 19:30 | NUR ---
RN INITIAL NOTES RECEIVED PT AWAKE ON BED, A/O X 2-3, ABLE TO MOUTH WORDS. ON VENT WITH SETTINGS AC 24, TV 400, FIO2 50%, PEEP 5, SHILEY 8, SATURATING WELL, TACHYPNEIC @ 30'S RPM BUT NO S/S OF RESP DISTRESS. CURRENTLY SINUS TACH, HR 150'S. GTUBE WITH FIBERSOURCE RESTARTED AT LOW RATE OF 10MLS/HR, WITH 150MLS RESIDUALS NOTED, WILL CLOSELY MONITOR. PETERS INTACT. RIGHT UPPER ARM WITH KCL 20MEQ IN D5W @ 70MLS/HR, FLUSHED AND PATENT, NO S/S OF INFILTRATION/INFECTION, DRESSING CDI. BED LOW AND LOCKED, SIDERAILS UP, CALL LIGHT WITHIN REACH. WILL MONITOR
--- NOTE | 2017-09-28 19:34 | NUR ---
RN NOTES PT IN BED RESTING, PT STILL TACHYCARDIC ON CELLULAR PHONE REPAIRER, ATIVAND PRN AND DILAUDID PRN GIVEN. GTF FIBERSOURCE RESTARTED @SLOW RATE OF 10ML/HR, WILL MONITOR IF PT IS TOLERATING, ALL MEDS GIVEN. BED BATH GIVEN. KEPT COMFORTABLE. ENDORSED TO SHANNA ACOSTA FOR CONTINUITY OF CARE
[2017-09-28] MEDS ORDERED: CLONIDINE HCL 0.2MG/24H PTWK 1 EA PATCH TD SCH (21:00)
[2017-09-28] MEDS: D5W IV SCH (21:16)
[2017-09-28] MEDS: TOBRAMYCIN IV SCH (21:16)
[2017-09-28] MEDS ORDERED: DIATR MEGLU/DIATRIZOATE SODIUM 30 ML BOTTLE (GASTROGRAPHIN) ONE (21:29)
[2017-09-28] MEDS: LINEZOLID RTU BAG 600 MG in PREMIX 1 EA IV SCH (21:49)
[2017-09-29] VITALS (36 sets, daily range): BP systolic 91–151; BP diastolic 51–92
[2017-09-29] MEDS: LORAZEPAM INJ 2 MG/ML VIAL IV PRN ×5 (00:32→23:43)
[2017-09-29] MEDS: ONDANSETRON HCL/PF 4 MG/2 ML VIAL IVP PRN (03:28)
--- NOTE | 2017-09-29 03:30 | NUR ---
RN NOTES HELD GTUBE FEEDING DUE TO PATIENT FEELING THE URGE TO VOMIT. WILL GIVE PRN ZOFRAN AND MONITOR
[2017-09-29] MEDS ORDERED: IV PREMIX D5W + KCL 1,000 ML IV ONE (03:34)
[2017-09-29] MEDS ORDERED: HYDROMORPHONE INJ 2 MG/ML DISP.SYRIN ONE ×2 (03:35→22:56)
[2017-09-29] MEDS: HYDROMORPHONE 1 MG/1 ML DISP.SYRIN IV PRN (03:39)
[2017-09-29] MEDS: Potassium Chloride 20 MEQ in IV D5W 1,000 ML IV PRN ×2 (04:42→20:00)
[2017-09-29 04:47] LABS: BASOPHILS # (AUTO) 0.1 /CMM (0.0-0.2); BASOPHILS % (AUTO) 0.4 % (0.0-2.0); EOSINOPHILS # (AUTO) 0.6 /CMM (0.0-0.7); EOSINOPHILS % (AUTO) 2.3 % (0.0-6.0); HEMATOCRIT 21 % (39-51); LYMPHOCYTES # (AUTO) 2.7 /CMM (0.8-4.8); LYMPHOCYTES % (AUTO) 11.4 % (20.0-44.0); MEAN CORPUSCULAR HEMOGLOBIN 32 PG (26.0-33.0); MEAN CORPUSCULAR HGB CONC 34 g/dl (31.0-36.0); MEAN CORPUSCULAR VOLUME 93 fL (80-96); MONOCYTES # (AUTO) 1.4 /CMM (0.1-1.30); MONOCYTES % (AUTO) 5.9 % (2.0-12.0); NEUTROPHILS # (AUTO) 19.2 /CMM (1.8-8.9); PLATELET COUNT (AUTO) 276 /CMM (150-450); RDW COEFFICIENT OF VARIATION 15.8 (11.5-15.0)
[2017-09-29 04:59] LABS: CALCIUM, SERUM 8.6 mg/dL (8.5-10.1); CREATININE 0.5 mg/dL (0.6-1.3); MAGNESIUM 1.3 mg/dL (1.8-2.4); POTASSIUM 3.1 mmol/L (3.5-5.1)
[2017-09-29 05:00] LABS: BILIRUBIN,DIRECT 0.6 mg/dL (0.0-0.2); BILIRUBIN,TOTAL 1.1 mg/dL (0.2-1.0); TOTAL PROTEIN, SERUM 6.5 g/dL (6.4-8.2)
[2017-09-29 05:08] LABS: HEMOGLOBIN 6.9 g/dL (13.5-17.5)
[2017-09-29 05:32] LABS: HEMOGLOBIN 7.4 g/dL (13.5-17.5)
[2017-09-29 05:33] LABS: LYMPHOCYTES % (MANUAL) 12 % (16-48); MONOCYTES % (MANUAL) 5 % (0-11.0); NEUTROPHILS % (MANUAL) 83 (42-76)
--- NOTE | 2017-09-29 06:20 | NUR ---
RN CLOSING NOTES PT REMAINS STABLE OF THE MOMENT. ALL DUE MEDS GIVEN, AM CARE PROVIDED. WILL ENDORSE GLORIA TO AM RN
--- NOTE | 2017-09-29 07:45 | NUR ---
ICU/RN - Initial Notes Received pt in bed awake, alert x1-2, follows commands. ST 140's on tele monitor. Tachypneic with RR 35. GT clamped, npo at this time as pt was not tolerating tube feedings. Putnam catheter intact draining urine to gravity. IVF infusing well. Safety and comfort measures in place. Will continue to monitor pt closely.
--- NOTE | 2017-09-29 08:07 | NUR ---
RT NOTE PT RECEIVED MECHANICALLY VENTILATED VIA SHILEY 8 CUFFED TRACH TUBE. SETTINGS PRESCRIBED AC 24 400 50% +5. ALARMS SET PER PROTOCOL AND AUDIBLE. VENT PLUGGED IN TO RED OUTLET. AMBU BAG AT BED SIDE. NO DISTRESS NOTED. WILL CONTINUE TO MONITOR. Addendum: 09/29/17 at 0809 by POLLO JONES RT Amended: Links added.
[2017-09-29] MEDS: PROSOURCE / PROSTAT (PYXIS) 30 ML UDC GT SCH ×2 (08:13→16:19)
[2017-09-29] MEDS: LINEZOLID RTU BAG 600 MG in PREMIX 1 EA IV SCH ×2 (08:13→21:02)
[2017-09-29] MEDS: ABACAVIR PO SCH (08:14)
[2017-09-29] MEDS: DOLUTEGRAVIR PO SCH (08:14)
[2017-09-29] MEDS: MULTIPLE VIT (LYCOPENE/FA/MV,CA,IRON,MIN/LUT)1 TAB PO SCH (08:14)
[2017-09-29] MEDS: QUETIAPINE FUMARATE 25 MG TABLET PO SCH ×2 (08:14→16:18)
[2017-09-29] MEDS: LAMIVUDI PO SCH (08:14)
[2017-09-29] MEDS: LACTOBACILLUS RHAMNOSUS GG 1 EACH CAP.SPRINK PO SCH ×2 (08:14→16:18)
[2017-09-29] MEDS: LORATADINE 10 MG TABLET PO SCH (08:14)
[2017-09-29] MEDS: HYDROMORPHONE INJ 0.5 MG/0.5 ML SYRINGE IV PRN ×4 (08:14→23:02)
[2017-09-29] MEDS: PANTOPRAZOLE 40 MG VIAL IV SCH (08:14)
--- NOTE | 2017-09-29 08:15 | NUR ---
ICU/RN - Notes Pt tachycardic HR 140s and tachypneic RR 40s, appears in distress. Administered Ativan 2mg IVP and Dilaudid 2mg IVP as ordered. Will continue to monitor.
[2017-09-29] MEDS: Magnesium 1GM/D5W 100ML PREMIX 100 ML IV SCH ×4 (11:12→14:15)
--- NOTE | 2017-09-29 12:43 | NUR ---
ICU/RN - Notes Pt complains of abdominal pain, tachycardic HR 140's, and tachypneic RR 40's. Administered Dilaudid 2mg IVP as ordered for PRN pain. Comfort measures in place. Will continue to monitor.
[2017-09-29] MEDS ORDERED: Magnesium 1GM/D5W 100ML PREMIX 100 ML IV SCH (13:00)
[2017-09-29] MEDS: POTASSIUM CL. PREMIX PERIPHER. 50 ML IV SCH ×4 (14:46→18:23)
--- NOTE | 2017-09-29 15:45 | NUR ---
ICU/RN - Notes Pt refused bed bath at this time.
[2017-09-29] MEDS: FIBERSOURCE HN 1,000 ML BOTTLE GT PRN (15:47)
--- NOTE | 2017-09-29 16:05 | NUR ---
ICU/RN - Notes Gastric residuals reassessed at 5mL. Tube feeding restarted at a slow rate 10mL/hr. Will monitor for tolerance. Pt states that she's actually hungry and no complaints of nausea at this time.
--- NOTE | 2017-09-29 18:01 | NUR ---
ICU/RN - Notes Pt noted with increasing tachypnea RR 50's and tachycardia HR 154 with elevated BP 151/92 and O2 saturation at 93%. Administered Dilaudid 2mg IVP and Ativan 2mg IVP as ordered for PRN distress. HOB kept elevated. Will continue to monitor.
--- NOTE | 2017-09-29 18:58 | NUR ---
ICU/RN - Notes Pt appears without distress post administration of Ativan and Dilaudid, despite HR 140's. RR rate decreased to 33.
--- NOTE | 2017-09-29 19:10 | NUR ---
RN INITIAL NOTES RECEIVED PT ASLEEP ON BED, EASILY AROUSABLE, A/O X 2-3, ABLE TO MOUTH WORDS. ON VENT WITH SETTINGS AC 24, TV 400, FIO2 50%, PEEP 5, SHILEY 8, SATURATING WELL, TACHYPNEIC @ 30'S RPM BUT NO S/S OF RESP DISTRESS. CURRENTLY SINUS TACH, HR 140'S. GTUBE WITH FIBERSOURCE @ 10MLS/HR, WITH 120MLS RESIDUALS NOTED, WILL CLOSELY MONITOR. PETERS INTACT. RIGHT UPPER ARM WITH KCL 20MEQ IN D5W @ 70MLS/HR, FLUSHED AND PATENT, NO S/S OF INFILTRATION/INFECTION, DRESSING CDI. BED LOW AND LOCKED, SIDERAILS UP, CALL LIGHT WITHIN REACH. WILL MONITOR
--- NOTE | 2017-09-29 19:15 | NUR ---
Received pt trached with lebron #8. Pt on vent support, pt stable on current settings, no SOB or respiratory distress noted, ventilator is plugged into red outlet, alarms audible and on. Ambu bag at bedside, will continue monitoring per MDS orders. Addendum: 09/29/17 at 1915 by VICTORIA JENSEN RT Amended: Links added.
[2017-09-29] MEDS: D5W IV SCH (20:00)
[2017-09-29] MEDS: TOBRAMYCIN IV SCH (20:00)
[2017-09-30] VITALS (38 sets, daily range): BP systolic 90–151; BP diastolic 52–95
[2017-09-30] MEDS ORDERED: HYDROMORPHONE INJ 0.5 MG/0.5 ML SYRINGE ONE (02:38)
[2017-09-30] MEDS: HYDROMORPHONE INJ 0.5 MG/0.5 ML SYRINGE IV PRN ×4 (02:41→21:45)
[2017-09-30 05:08] LABS: CALCIUM, SERUM 7.8 mg/dL (8.5-10.1); CREATININE 0.4 mg/dL (0.6-1.3); MAGNESIUM 1.3 mg/dL (1.8-2.4); POTASSIUM 3.6 mmol/L (3.5-5.1)
[2017-09-30] MEDS: LORAZEPAM INJ 2 MG/ML VIAL IV PRN ×5 (05:53→20:48)
--- NOTE | 2017-09-30 06:20 | NUR ---
RN CLOSING NOTES PT REMAINS STABLE OF THE MOMENT. ALL DUE MEDS GIVEN, AM CARE PROVIDED. WILL ENDORSE GLORIA TO AM RN
[2017-09-30] MEDS: ACETAMINOPHEN 650 MG/20.3 ML UDC NG PRN ×2 (07:58→20:40)
--- NOTE | 2017-09-30 08:00 | NUR ---
ICU/RN - Initial Notes Received pt in bed awake, alert x1-2, follows commands. ST 130's on tele monitor. Tachypneic with RR 35. GT intact, tube feeding residuals 120 mL at this time. Putnam catheter intact draining urine to gravity. PICC line patent and intact with IVF infusing well. Pt complains of headache, administered Tylenol as ordered. Safety and comfort measures in place. Will continue to monitor pt closely.
[2017-09-30 08:01] LABS: BASOPHILS # (AUTO) 0.1 /CMM (0.0-0.2); BASOPHILS % (AUTO) 0.4 % (0.0-2.0); EOSINOPHILS # (AUTO) 0.7 /CMM (0.0-0.7); EOSINOPHILS % (AUTO) 4.6 % (0.0-6.0); HEMATOCRIT 21 % (39-51); HEMOGLOBIN 7.1 g/dL (13.5-17.5); LYMPHOCYTES # (AUTO) 1.8 /CMM (0.8-4.8); LYMPHOCYTES % (AUTO) 12.1 % (20.0-44.0); MEAN CORPUSCULAR HEMOGLOBIN 32 PG (26.0-33.0); MEAN CORPUSCULAR HGB CONC 34 g/dl (31.0-36.0); MEAN CORPUSCULAR VOLUME 93 fL (80-96); MONOCYTES % (AUTO) 6.4 % (2.0-12.0); NEUTROPHILS # (AUTO) 11.6 /CMM (1.8-8.9); NEUTROPHILS % (AUTO) 76.5 % (43.0-81.0); PLATELET COUNT (AUTO) 221 /CMM (150-450); RDW COEFFICIENT OF VARIATION 16.2 (11.5-15.0); RED BLOOD CELL COUNT(AUTO) 2.25 MIL/uL (4.5-6.0); WHITE BLOOD COUNT (AUTO) 15.1 K/uL (4.3-11.0)
[2017-09-30] MEDS: MULTIPLE VIT (LYCOPENE/FA/MV,CA,IRON,MIN/LUT)1 TAB PO SCH (08:04)
[2017-09-30] MEDS: LORATADINE 10 MG TABLET PO SCH (08:04)
[2017-09-30] MEDS: LACTOBACILLUS RHAMNOSUS GG 1 EACH CAP.SPRINK PO SCH ×2 (08:04→17:08)
[2017-09-30] MEDS: PROSOURCE / PROSTAT (PYXIS) 30 ML UDC GT SCH ×2 (08:05→17:08)
[2017-09-30] MEDS: ABACAVIR PO SCH (08:05)
[2017-09-30] MEDS: QUETIAPINE FUMARATE 25 MG TABLET PO SCH ×2 (08:05→17:08)
[2017-09-30] MEDS: PANTOPRAZOLE 40 MG VIAL IV SCH (08:05)
[2017-09-30] MEDS: LINEZOLID RTU BAG 600 MG in PREMIX 1 EA IV SCH ×2 (08:05→20:40)
[2017-09-30] MEDS: LAMIVUDI PO SCH (08:05)
[2017-09-30] MEDS: DOLUTEGRAVIR PO SCH (08:05)
--- NOTE | 2017-09-30 08:58 | NUR ---
ICU/RN - Notes Pt complains of generalized pain. Administered Dilaudid 2mg IVP as ordered for PRN pain. Comfort measures in place. Will reassess pain accordingly.
--- NOTE | 2017-09-30 10:23 | NUR ---
ICU/RN - Notes Pt HR up to 149, tachypneic with RR up to 45. Administered Ativan 2mg IVP as ordered. Will continue to monitor.
[2017-09-30] MEDS: Potassium Chloride 20 MEQ in IV D5W 1,000 ML IV PRN (10:48)
[2017-09-30] MEDS: Magnesium 1GM/D5W 100ML PREMIX 100 ML IV SCH ×4 (11:55→15:39)
--- NOTE | 2017-09-30 15:41 | NUR ---
ICU/RN - Notes Pt complains of generalized pain. Administered Dilaudid 2mg IVP as ordered for PRN pain. Comfort measures in place. Will reassess pain accordingly.
--- NOTE | 2017-09-30 17:08 | NUR ---
ICU/RN - Notes Pt HR up to 140's, tachypneic with RR up to 45. Administered Ativan 2mg IVP as ordered. Will continue to monitor.
--- NOTE | 2017-09-30 19:56 | NUR ---
Received pt on vent support, pt stable on current settings, no SOB or respiratory distress noted, ventilator is plugged into red outlet, alarms audible and on. Ambu bag at bedside, will continue monitoring per MDS orders. Addendum: 09/30/17 at 1956 by MARIS NORTH RT Amended: Links added.
--- NOTE | 2017-09-30 20:00 | NUR ---
SUPERINTENDENT SEED MILL NOTE PATIENT IS OBSERVED WITH LOW GRADE TEMP OF 100.8. PATIENT ALSO IS OBSERVED TO BE TACHYPNEIC, ST AT 140-150s AND OBSERVED TO BE VERY ANXIOUS. REASSURANCE PROVIDED NEEDED, MINIMAL HELP AT THIS TIME. WILL GIVE TYLENOL AND ATB ORDERED THEN GIVE 1u PRBC ENDORSED.
--- NOTE | 2017-09-30 22:56 | NUR ---
AIX SYSTEM ADMINISTRATOR NOTE 1u PRBC TRANSFUSION STARTED. PATIENT'S TEMP, 98.8. PATIENT IS MORE CALM AND RESTING COMFORTABLY IN BED. VERIFIED WITH DAVE MIRANDA. WILL MONITOR CLOSELY FOR ANY TRANSFUSION REACTION.
[2017-10-01] VITALS (37 sets, daily range): BP systolic 100–143; BP diastolic 58–96
--- NOTE | 2017-10-01 00:22 | NUR ---
TECHNOLOGY ADMINISTRATOR NOTE PATIENT'S TOLERANCE TO GTF MONITORED CLOSELY. PER ENDORSEMENT, PATIENT HAVE HAD HIGH RESIDUALS FOR THE PAST COUPLE DAYS AND GTF RATE HAS BEEN AT 10cc/hr. ATTEMPTED TO TITRATE GTF RATE TO GOAL GRADUALLY AND MONITORED CLOSELY. AT 15cc/hr, NO GASTRIC RESIDUAL NOTED, GTF RATE INCREASED TO 20cc/hr AT THIS TIME, WILL CLOSELY MONITOR.
[2017-10-01] MEDS ORDERED: HYDROMORPHONE INJ 0.5 MG/0.5 ML SYRINGE ONE ×2 (01:36→04:42)
[2017-10-01] MEDS: Potassium Chloride 20 MEQ in IV D5W 1,000 ML IV PRN ×2 (01:41→16:57)
[2017-10-01] MEDS: HYDROMORPHONE INJ 0.5 MG/0.5 ML SYRINGE IV PRN ×7 (01:42→23:00)
[2017-10-01] MEDS: IV NS 0.9% 250 ML IV PRN (01:44)
--- NOTE | 2017-10-01 02:45 | NUR ---
ICU NOTE 1u PRBC TRANSFUSED WITH NO ADVERSE REACTION NOTED. PT IN NO DISTRESS.
[2017-10-01] MEDS: LORAZEPAM INJ 2 MG/ML VIAL IV PRN ×5 (03:39→22:59)
[2017-10-01 04:55] LABS: BASOPHILS # (AUTO) 0.1 /CMM (0.0-0.2); BASOPHILS % (AUTO) 0.5 % (0.0-2.0); EOSINOPHILS # (AUTO) 0.9 /CMM (0.0-0.7); EOSINOPHILS % (AUTO) 6.8 % (0.0-6.0); HEMATOCRIT 23 % (39-51); HEMOGLOBIN 7.8 g/dL (13.5-17.5); LYMPHOCYTES # (AUTO) 1.8 /CMM (0.8-4.8); LYMPHOCYTES % (AUTO) 14.4 % (20.0-44.0); MEAN CORPUSCULAR HEMOGLOBIN 30 PG (26.0-33.0); MEAN CORPUSCULAR HGB CONC 33 g/dl (31.0-36.0); MEAN CORPUSCULAR VOLUME 91 fL (80-96); MONOCYTES % (AUTO) 8.3 % (2.0-12.0); NEUTROPHILS # (AUTO) 8.7 /CMM (1.8-8.9); PLATELET COUNT (AUTO) 248 /CMM (150-450); RDW COEFFICIENT OF VARIATION 15.7 (11.5-15.0); RED BLOOD CELL COUNT(AUTO) 2.58 MIL/uL (4.5-6.0); WHITE BLOOD COUNT (AUTO) 12.5 K/uL (4.3-11.0)
[2017-10-01 05:15] LABS: CALCIUM, SERUM 7.7 mg/dL (8.5-10.1); CREATININE 0.5 mg/dL (0.6-1.3); MAGNESIUM 1.3 mg/dL (1.8-2.4)
--- NOTE | 2017-10-01 06:25 | NUR ---
TELEGRAPHIC TYPEWRITER OPERATOR NOTE NO ACUTE CHANGE IN CONDITION OBSERVED OVERNIGHT. PATIENT REMAINS ST AT 130-140s, TACHYPNEIC. PATIENT MEDICATED WITH ATIVAN AND DILAUDID ORDERED PRN, BP STABLE AND MAINTAINED. 1u PRBC TRANSFUSED ORDERED, NO ACUTE SIGNS OF BLEEDING. IVF INFUSING ON VITA PICC LINE. GTF TOLERATING WELL, WAS ABLE TO REACH GOAL OF 40cc/hr AT THIS TIME, MINIMAL GASTRIC RESIDUAL NOTED. WILL ENDORSE ACCORDINGLY FOR CLOSE MONITORING.
--- NOTE | 2017-10-01 08:00 | NUR ---
LABS R/V'D WITHOUT REPORTABLE VALUES. PT AWAKE. REMAINS TACHYCARDIA AND TACHYPNEIC. WILL USE ATIVAN AND DILAUDID IN ATTEMPTS TO CONTROL HR AND RR.
--- NOTE | 2017-10-01 09:15 | NUR ---
COUGHING, CHOKING, GAGGING, TACHYPNEA AND TACHYCARDIA. VOMITED TUBE FDG APPROX 75 MLS. THEREFORE FEEDING OFF AND DILAUDID AND ROBITUSSIN WILL BE GIVEN SOON PHARMACY DELIVERS DRUGS
[2017-10-01] MEDS: PANTOPRAZOLE 40 MG VIAL IV SCH (09:28)
[2017-10-01] MEDS: QUETIAPINE FUMARATE 25 MG TABLET PO SCH ×2 (09:29→17:01)
[2017-10-01] MEDS: MULTIPLE VIT (LYCOPENE/FA/MV,CA,IRON,MIN/LUT)1 TAB PO SCH (09:29)
[2017-10-01] MEDS: LINEZOLID RTU BAG 600 MG in PREMIX 1 EA IV SCH ×2 (09:29→20:05)
[2017-10-01] MEDS: DOLUTEGRAVIR PO SCH (09:29)
[2017-10-01] MEDS: LORATADINE 10 MG TABLET PO SCH (09:29)
[2017-10-01] MEDS: ABACAVIR PO SCH (09:29)
[2017-10-01] MEDS: LAMIVUDI PO SCH (09:29)
[2017-10-01] MEDS: PROSOURCE / PROSTAT (PYXIS) 30 ML UDC GT SCH ×2 (09:30→17:03)
[2017-10-01] MEDS: GUAIFENESIN 300 MG/15 ML UDC PO PRN (09:46)
[2017-10-01] MEDS: Magnesium 1GM/D5W 100ML PREMIX 100 ML IV SCH ×4 (12:03→15:42)
[2017-10-01] MEDS: LACTOBACILLUS RHAMNOSUS GG 1 EACH CAP.SPRINK PO SCH ×2 (12:37→17:01)
[2017-10-01 12:53] LABS: THYROID STIMULATING HORMONE 5.311 uIU/mL (0.358-3.74)
[2017-10-01] MEDS: FIBERSOURCE HN 1,000 ML BOTTLE GT PRN (13:19)
--- NOTE | 2017-10-01 13:25 | NUR ---
PEG FDG RESUMED AT 40 MLS/HR. CURRENTLY NO COUGHING OR GAGGING AFTER DILAUDID AND ATIVAN.
[2017-10-01] MEDS: CLOTRIMAZOLE 1% 15 GM TUBE TP SCH (17:03)
--- NOTE | 2017-10-01 17:28 | NUR ---
RT NOTE PT REMAINS MECHANICALLY VENTILATED VIA SHILEY 8 DCT CUFFED TRACH TUBE. PT AWAKE AND ALERT. SETTINGS PRESCRIBED AC 24 400 +5. ALARMS SET PER PROTOCOL AND AUDIBLE. VENT PLUGGED IN TO RED OUTLET. AMBU BAG AT BED SIDE. NO DISTRESS NOTED.
--- NOTE | 2017-10-01 19:30 | NUR ---
N INITIAL NOTES RECEIVED PT AWAKE ON BED, A/O X 2-3, ABLE TO MOUTH WORDS. ON VENT WITH SETTINGS AC 24, TV 450, FIO2 50%, PEEP 5, SHILEY 8, SATURATING WELL, TACHYPNEIC @ 30-40'S RPM BUT NO S/S OF RESP DISTRESS. CURRENTLY SINUS TACH, HR 130'S. GTUBE WITH FIBERSOURCE @ 40MLS/HR, WITH 100MLS RESIDUALS NOTED, WILL CLOSELY MONITOR. PETERS INTACT. RIGHT UPPER ARM WITH KCL 20MEQ IN D5W @ 70MLS/HR, FLUSHED AND PATENT, NO S/S OF INFILTRATION/INFECTION, DRESSING CDI. BED LOW AND LOCKED, SIDERAILS UP, CALL LIGHT WITHIN REACH. WILL MONITOR
--- NOTE | 2017-10-01 19:55 | NUR ---
Received pt on vent support, pt stable on current settings, no SOB or respiratory distress noted, ventilator is plugged into red outlet, alarms audible and on. Ambu bag at bedside, will continue monitoring per MDS orders. Addendum: 10/01/17 at 1955 by VICTORIA JENSEN RT Amended: Links added.
[2017-10-01] MEDS ORDERED: TOBRAMYCIN IV SCH (21:00)
[2017-10-01] MEDS ORDERED: D5W IV SCH (21:00)
[2017-10-02] VITALS (36 sets, daily range): BP systolic 90–164; BP diastolic 56–96
[2017-10-02] MEDS: HYDROMORPHONE INJ 0.5 MG/0.5 ML SYRINGE IV PRN ×4 (03:03→21:34)
[2017-10-02] MEDS: LORAZEPAM INJ 2 MG/ML VIAL IV PRN ×5 (03:09→21:34)
[2017-10-02 05:27] LABS: BASOPHILS % (AUTO) 0.3 % (0.0-2.0); EOSINOPHILS # (AUTO) 0.6 /CMM (0.0-0.7); EOSINOPHILS % (AUTO) 5.3 % (0.0-6.0); HEMATOCRIT 23 % (39-51); HEMOGLOBIN 7.6 g/dL (13.5-17.5); LYMPHOCYTES # (AUTO) 1.7 /CMM (0.8-4.8); LYMPHOCYTES % (AUTO) 14.9 % (20.0-44.0); MEAN CORPUSCULAR HEMOGLOBIN 31 PG (26.0-33.0); MEAN CORPUSCULAR HGB CONC 34 g/dl (31.0-36.0); MEAN CORPUSCULAR VOLUME 92 fL (80-96); MONOCYTES # (AUTO) 0.7 /CMM (0.1-1.30); MONOCYTES % (AUTO) 6.4 % (2.0-12.0); NEUTROPHILS # (AUTO) 8.1 /CMM (1.8-8.9); NEUTROPHILS % (AUTO) 73.1 % (43.0-81.0); PLATELET COUNT (AUTO) 232 /CMM (150-450); RDW COEFFICIENT OF VARIATION 15.9 (11.5-15.0); RED BLOOD CELL COUNT(AUTO) 2.45 MIL/uL (4.5-6.0); WHITE BLOOD COUNT (AUTO) 11.1 K/uL (4.3-11.0)
[2017-10-02] MEDS: IV NS 0.9% 250 ML IV PRN (05:58)
[2017-10-02] MEDS: Potassium Chloride 20 MEQ in IV D5W 1,000 ML IV PRN ×2 (05:58→20:36)
[2017-10-02 06:00] LABS: CALCIUM, SERUM 8.5 mg/dL (8.5-10.1); CREATININE 0.5 mg/dL (0.6-1.3); MAGNESIUM 1.3 mg/dL (1.8-2.4); PHOSPHORUS 4.1 mg/dL (2.5-4.9); POTASSIUM 3.9 mmol/L (3.5-5.1)
--- NOTE | 2017-10-02 06:20 | NUR ---
RN CLOSING NOTES PT REMAINS STABLE OF THE MOMENT. ALL DUE MEDS GIVEN, AM CARE PROVIDED. WILL ENDORSE GLORIA TO AM RN
--- NOTE | 2017-10-02 07:10 | NUR ---
RN NOTES RECEIVED PT ON BED, AWAKE A/O X 2-3, MOUTH WORDS. VENT/ TRACH DEPENDENT , WITH SETTINGS AC 24, TV 450, FIO2 50%, PEEP 5, SHILEY 8, TOLERATING CURRENT SETTING WELL, ON TELE HR IN 140'S, TACHYPNEIC @ 30-40'S RPM, NO S/S OF RESPIRATORY DISTRESS NOTED . FIBERSOURCE AT 40CC/HR RUNNING VIA G-TUBE, 90 CC RESIDUALS NOTED, PETERS DRAINING TO GRAVITY , RIGHT UPPER ARM PICC LINE SITE CDI, D5W WITH 20 MEQ KCL RUINING AT 70CC/HR ,CALL LIGHT WITHIN EASY REACH, BED LOCKED AND IN LOWEST POSITION , WILL MONITOR PT CLOSELY.
[2017-10-02] MEDS: LORATADINE 10 MG TABLET PO SCH (08:30)
[2017-10-02] MEDS: LINEZOLID RTU BAG 600 MG in PREMIX 1 EA IV SCH ×2 (08:30→21:34)
[2017-10-02] MEDS: QUETIAPINE FUMARATE 25 MG TABLET PO SCH ×2 (08:30→16:05)
[2017-10-02] MEDS: DOLUTEGRAVIR PO SCH (08:30)
[2017-10-02] MEDS: LACTOBACILLUS RHAMNOSUS GG 1 EACH CAP.SPRINK PO SCH ×2 (08:30→16:05)
[2017-10-02] MEDS: MULTIPLE VIT (LYCOPENE/FA/MV,CA,IRON,MIN/LUT)1 TAB PO SCH (08:30)
[2017-10-02] MEDS: PANTOPRAZOLE 40 MG VIAL IV SCH (08:30)
[2017-10-02] MEDS: LAMIVUDI PO SCH (08:30)
[2017-10-02] MEDS: ABACAVIR PO SCH (08:30)
[2017-10-02] MEDS: PROSOURCE / PROSTAT (PYXIS) 30 ML UDC GT SCH ×2 (08:31→16:06)
[2017-10-02] MEDS: CLOTRIMAZOLE 1% 15 GM TUBE TP SCH ×2 (08:32→16:06)
[2017-10-02] MEDS: ONDANSETRON HCL/PF 4 MG/2 ML VIAL IVP PRN ×2 (08:45→14:28)
--- NOTE | 2017-10-02 08:50 | NUR ---
RN NOTES PT VOMITED ABOUT 100CC GREENISH STOMACH LIQUIDLY STOMACH CONTENT, TF HELD, DR DANIELS ON THE FLOOR SEEING THE PT NOTIFIED. CONTINUE TO MONITOR .
[2017-10-02] MEDS: Magnesium 1GM/D5W 100ML PREMIX 100 ML IV SCH ×4 (09:35→12:24)
[2017-10-02] MEDS: ACETAMINOPHEN 325 MG TABLET PO PRN ×2 (09:44→18:30)
[2017-10-02] MEDS ORDERED: FEE PK DOSING 1 MIN EA MC ONE (11:13)
[2017-10-02] MEDS: NS 0.9% IV SCH (11:37)
[2017-10-02] MEDS: TOBRAMYCIN IV SCH (11:37)
--- NOTE | 2017-10-02 12:44 | NUR ---
RN NOTES NO TF RESIDUAL NOTED, TF RESTARTED AT 40CC/HR , CONTINUE TO MONITOR
--- NOTE | 2017-10-02 14:45 | NUR ---
RN NOTES PT C/O NAUSEA , ZOFRAN GIVEN , 100CC RESIDUAL NOTED, TF TURNED OFF AT THIS TIME , CONTINUE TO MONITOR .
--- NOTE | 2017-10-02 14:46 | NUR ---
RN NOTES PT VOMITTED SMALL AMOUNT OF GREENISH STOMACH CONTENT , , CRYSTAL NOTIFIED , TF ON HOLD .CONTINUE TO MONITOR
[2017-10-02] MEDS: FIBERSOURCE HN 1,000 ML BOTTLE GT PRN (16:06)
--- NOTE | 2017-10-02 16:45 | NUR ---
RN NOTES NO TF RESIDUAL NOTED , TF RESTARTED AT 40CC/HR , CONTINUE TO MONITOR .
--- NOTE | 2017-10-02 18:00 | NUR ---
RN NOTES HR IN 150'S, T=101, RESPIRATION IN HIGH 3O'S , DR ROJAS , BONG DIRECTOR CRAFT CENTER AND DR QUEZADA NOTIFIED , NEW ORDER RECEIVED . TF AT 40CC/HR AT THIS TIME , D51/2NS AT 75CC/HR RUNNING VIA R UPPER ARM PICC LINE , SUPPORTIVE FAMILY AT THE BEDSIDE, WILL ENDORSE TO CADDY MASTER NURSE FOR GLORIA.
[2017-10-02] MEDS ORDERED: FENTANYL TD PATCH (25 MCG/HR) 25 MCG/HR PATCH.TD72 TD SCH (19:00)
[2017-10-02] MEDS ORDERED: MICAFUNGIN SODIUM 100 MG in IV NS 0.9% 100 ML IV SCH (19:00)
[2017-10-02] MEDS: FLUCONAZOLE (100 MG) 100 MG TABLET PO SCH (19:19)
--- NOTE | 2017-10-02 19:30 | NUR ---
INITIAL NOTES RECEIVED PT AWAKE ON BED, A/O X 2-3, ABLE TO MOUTH WORDS. ON VENT WITH SETTINGS AC 24, TV 450, FIO2 50%, PEEP 5, SHILEY 8, SATURATING WELL, TACHYPNEIC @ 30'S RPM BUT NO S/S OF RESP DISTRESS. CURRENTLY SINUS TACH, HR 130'S. GTUBE WITH FIBERSOURCE @ 40MLS/HR, WITH NO RESIDUALS. PETERS INTACT. RIGHT UPPER ARM WITH KCL 20MEQ IN D5W @ 70MLS/HR, FLUSHED AND PATENT, NO S/S OF INFILTRATION/INFECTION, DRESSING CDI. BED LOW AND LOCKED, SIDERAILS UP, CALL LIGHT WITHIN REACH. WILL MONITOR
[2017-10-02] MEDS: CEFEPIME 1 GM in IV D5W 50 ML IV SCH (20:45)
[2017-10-02] MEDS: METRONIDAZOLE 500 MG TABLET PO SCH (20:45)
[2017-10-03] VITALS (35 sets, daily range): BP systolic 93–121; BP diastolic 53–78
[2017-10-03] MEDS: HYDROMORPHONE INJ 0.5 MG/0.5 ML SYRINGE IV PRN ×6 (03:11→22:31)
[2017-10-03] MEDS: METRONIDAZOLE 500 MG TABLET PO SCH ×3 (04:04→20:18)
[2017-10-03 05:08] LABS: BASOPHILS # (AUTO) 0.1 /CMM (0.0-0.2); BASOPHILS % (AUTO) 0.7 % (0.0-2.0); EOSINOPHILS # (AUTO) 0.9 /CMM (0.0-0.7); EOSINOPHILS % (AUTO) 8.6 % (0.0-6.0); HEMATOCRIT 22 % (39-51); HEMOGLOBIN 7.5 g/dL (13.5-17.5); LYMPHOCYTES # (AUTO) 2.8 /CMM (0.8-4.8); LYMPHOCYTES % (AUTO) 25.8 % (20.0-44.0); MEAN CORPUSCULAR HEMOGLOBIN 32 PG (26.0-33.0); MEAN CORPUSCULAR HGB CONC 34 g/dl (31.0-36.0); MEAN CORPUSCULAR VOLUME 93 fL (80-96); MONOCYTES # (AUTO) 0.9 /CMM (0.1-1.30); MONOCYTES % (AUTO) 7.8 % (2.0-12.0); NEUTROPHILS # (AUTO) 6.3 /CMM (1.8-8.9); NEUTROPHILS % (AUTO) 57.1 % (43.0-81.0); PLATELET COUNT (AUTO) 226 /CMM (150-450); RDW COEFFICIENT OF VARIATION 16.2 (11.5-15.0); RED BLOOD CELL COUNT(AUTO) 2.39 MIL/uL (4.5-6.0); WHITE BLOOD COUNT (AUTO) 11.1 K/uL (4.3-11.0)
[2017-10-03 05:32] LABS: CALCIUM, SERUM 8.2 mg/dL (8.5-10.1); CREATININE 0.4 mg/dL (0.6-1.3); MAGNESIUM 1.4 mg/dL (1.8-2.4); PHOSPHORUS 4.2 mg/dL (2.5-4.9)
[2017-10-03] MEDS: IV NS 0.9% 250 ML IV PRN (05:42)
--- NOTE | 2017-10-03 05:54 | NUR ---
RT RECEIVED PT TRACHED ON [facility] VENT WITH NOTED SETTING. PT TOLERATING SETTING WELL. NO SOB OR DISTRESS NOTED ON SHIFT. VENT TO RED OUTLET. ALARMS SET AND AUDIBLE. AMBU BAG AT [facility]. MLD DONE. TRACH PATENT AND SECURE. Addendum: 10/03/17 at 0556 by MONTRELL GARRISON RT Amended: Links added.
--- NOTE | 2017-10-03 06:30 | NUR ---
RN CLOSING NOTES PT REMAINS STABLE OF THE MOMENT. ALL DUE MEDS GIVEN, AM CARE PROVIDED. WILL ENDORSE GLORIA TO AM RN
--- NOTE | 2017-10-03 07:10 | NUR ---
RN NOTES NOTES RECEIVED PT ON BED , A/O X 2-3, ABLE TO MOUTH WORDS. VENT/ TRACH DEPENDENT , TOLERATING CURRENT VENT SETTING WELL, AC 24, TV 450, FIO2 50%, PEEP 5, SHILEY 8, O2 SAT 100% AT THIS TIME , TACHYPNEIC @ 30'S RPM BUT NO S/S OF RESP DISTRESS NOTED, ON TELE HR ST IN 120'S, GTUBE WITH FIBERSOURCE @ 40MLS/HR, NO RESIDUAL NOTED, PETERS INTACT DRAINING TO GRAVITY , RIGHT UPPER ARM PICC LINE SITE CDI, WITH KCL 20MEQ IN D5W @ 70MLS/HR RUNNING ,SR UP x3, BED LOCKED AND IN LOWEST POSITION , CONTINUE TO MONITOR CLSOELY.
[2017-10-03] MEDS: CEFEPIME 1 GM in IV D5W 50 ML IV SCH ×2 (08:23→20:18)
[2017-10-03] MEDS: LAMIVUDI PO SCH (08:23)
[2017-10-03] MEDS: ABACAVIR PO SCH (08:23)
[2017-10-03] MEDS: DOLUTEGRAVIR PO SCH (08:23)
[2017-10-03] MEDS: PANTOPRAZOLE 40 MG VIAL IV SCH (08:24)
[2017-10-03] MEDS: QUETIAPINE FUMARATE 25 MG TABLET PO SCH ×2 (08:24→16:23)
[2017-10-03] MEDS: PROSOURCE / PROSTAT (PYXIS) 30 ML UDC GT SCH ×2 (08:24→16:23)
[2017-10-03] MEDS: LORATADINE 10 MG TABLET PO SCH (08:24)
[2017-10-03] MEDS: MULTIPLE VIT (LYCOPENE/FA/MV,CA,IRON,MIN/LUT)1 TAB PO SCH (08:24)
[2017-10-03] MEDS: LACTOBACILLUS RHAMNOSUS GG 1 EACH CAP.SPRINK PO SCH ×2 (08:25→16:23)
[2017-10-03] MEDS: CLOTRIMAZOLE 1% 15 GM TUBE TP SCH ×2 (08:26→16:24)
[2017-10-03] MEDS: LINEZOLID RTU BAG 600 MG in PREMIX 1 EA IV SCH ×2 (09:10→21:11)
[2017-10-03] MEDS: ACETAMINOPHEN 325 MG TABLET PO PRN (09:38)
[2017-10-03] MEDS: LORAZEPAM INJ 2 MG/ML VIAL IV PRN ×3 (09:38→22:30)
[2017-10-03] MEDS: Magnesium 1GM/D5W 100ML PREMIX 100 ML IV SCH ×4 (10:05→13:16)
--- NOTE | 2017-10-03 11:00 | NUR ---
RN NOTES TRACH CARE DONE, TOLERATING TF WELL AT 40CC/HR WELL AT THIS TIME , CONTINUE TO MONITOR .
[2017-10-03] MEDS: Potassium Chloride 20 MEQ in IV D5W 1,000 ML IV PRN ×2 (11:07→23:28)
--- NOTE | 2017-10-03 16:00 | NUR ---
RN NOTES TRACH SUCTIONING DONE, TOLERATING CURRENT VENT SETTING WELL,D5W WITH 20 MEQ KCL RUNNING VIA R UPPER ARM PICC LINE , SUPPORTIVE FAMILY AT THE BEDSIDE, TOLERATING TF WELL , NO RESIDUAL NOTED,
[2017-10-03] MEDS: DIAZEPAM 10 MG TABLET PO SCH (16:23)
--- NOTE | 2017-10-03 18:00 | NUR ---
RT END OF THE SHIFT REPORT PT. 37 Y OLD MALE REMAIN TRACH'D SHILEY # 8 AND ON VENT WITH NOTED SETTINGS, ALARMS ARE SET AND FUNCTIONAL. NO DISTRESS NOTED T/O SHIFT. B/S BILATERALLY RHONCHI. EQUAL CHEST RISE NOTED. SUX'D FOR MINIMUM AMT. YELLOWISH SECRETIONS, NO CHANGES AND CONTINUE FOR MONITOR AND CARE FOR PT. AMBU BAG REMAIN AT THE BEDSIDE. VENT PLUGGED INTO RED OUTLET. HME CHANGED, REPORT WILL PASS TO PM SHIFT. Addendum: 10/03/17 at 1800 by CONRAD MACE RT Amended: Links added.
--- NOTE | 2017-10-03 18:44 | NUR ---
RN NOTES HR IN 140'S , RESPIRATION IN MID 30'S, 02 SAT 99%, D5W WITH 20 MEQ KCL RUNNING VIA R UPPER ARM PICC LINE ,PETERS DRAINING TO GRAVITY WITH YELLOW CLEAR URIN, SR UP x3, CALL LIGHT WITHIN EASY REACH, BED LOCKED AND IN LOWEST POSITION , WILL ENDORSE TO SEAL EXTRUSION OPERATOR NURSE FOR GLORIA.
[2017-10-03] MEDS: FLUCONAZOLE (100 MG) 100 MG TABLET PO SCH (19:20)
[2017-10-03] MEDS: FIBERSOURCE HN 1,000 ML BOTTLE GT PRN (19:30)
--- NOTE | 2017-10-03 19:30 | NUR ---
INITIAL NOTES RECEIVED PT AWAKE ON BED, A/O X 2-3, ABLE TO MOUTH WORDS. ON VENT WITH SETTINGS AC 24, TV 450, FIO2 50%, PEEP 5, SHILEY 8, SATURATING WELL, TACHYPNEIC @ 30'S RPM BUT NO S/S OF RESP DISTRESS. CURRENTLY SINUS TACH, HR 130-140'S. GTUBE WITH FIBERSOURCE @ 40MLS/HR, WITH NO RESIDUALS. PETERS INTACT. RIGHT UPPER ARM WITH KCL 20MEQ IN D5W @ 70MLS/HR, FLUSHED AND PATENT, NO S/S OF INFILTRATION/INFECTION, DRESSING CDI. BED LOW AND LOCKED, SIDERAILS UP, CALL LIGHT WITHIN REACH. WILL MONITOR
--- NOTE | 2017-10-03 21:13 | NUR ---
PT RECEIVED ON VENT VIA CHARTED SETTINGS AND ROUTE. VENT PLUGGED INTO RED OUTLET. VENT ALARMS SET AND AUDIBLE. DISCONNECT ALARMS CHECKED. PT HAS INCREASED RR AND HR AT THIS TIME. Addendum: 10/03/17 at 2116 by MARTHA DICKEY RT Amended: Links added.
[2017-10-03] MEDS: ACETAMINOPHEN 650 MG/20.3 ML UDC NG PRN (23:27)
[2017-10-03] MEDS: NS 0.9% IV SCH (23:28)
[2017-10-03] MEDS: TOBRAMYCIN IV SCH (23:28)
[2017-10-04] VITALS (37 sets, daily range): BP systolic 85–144; BP diastolic 51–94
[2017-10-04] MEDS: HYDROMORPHONE INJ 0.5 MG/0.5 ML SYRINGE IV PRN ×5 (01:30→23:44)
[2017-10-04] MEDS: LORAZEPAM INJ 2 MG/ML VIAL IV PRN ×5 (01:30→23:36)
[2017-10-04] MEDS: METRONIDAZOLE 500 MG TABLET PO SCH ×3 (04:20→20:06)
[2017-10-04 05:04] LABS: CALCIUM, SERUM 8.3 mg/dL (8.5-10.1); CREATININE 0.4 mg/dL (0.6-1.3); MAGNESIUM 1.3 mg/dL (1.8-2.4); POTASSIUM 4.7 mmol/L (3.5-5.1)
--- NOTE | 2017-10-04 06:20 | NUR ---
RN CLOSING NOTES PT REMAINS STABLE OF THE MOMENT. ALL DUE MEDS GIVEN, AM CARE PROVIDED. BED LOW AND LOCKED, SIDERAILS UP, CALL LIGHT WITHIN REACH. WILL ENDORSE GLORIA TO AM RN
[2017-10-04] MEDS: MULTIPLE VIT (LYCOPENE/FA/MV,CA,IRON,MIN/LUT)1 TAB PO SCH (08:18)
[2017-10-04] MEDS: LORATADINE 10 MG TABLET PO SCH (08:18)
[2017-10-04] MEDS: DIAZEPAM 10 MG TABLET PO SCH ×2 (08:18→16:17)
[2017-10-04] MEDS: LAMIVUDI PO SCH (08:18)
[2017-10-04] MEDS: QUETIAPINE FUMARATE 25 MG TABLET PO SCH ×2 (08:18→16:16)
[2017-10-04] MEDS: LACTOBACILLUS RHAMNOSUS GG 1 EACH CAP.SPRINK PO SCH ×2 (08:18→16:17)
[2017-10-04] MEDS: DOLUTEGRAVIR PO SCH (08:18)
[2017-10-04] MEDS: CEFEPIME 1 GM in IV D5W 50 ML IV SCH ×2 (08:18→20:07)
[2017-10-04] MEDS: ABACAVIR PO SCH (08:18)
[2017-10-04] MEDS: PANTOPRAZOLE 40 MG VIAL IV SCH (08:18)
[2017-10-04] MEDS: CLOTRIMAZOLE 1% 15 GM TUBE TP SCH ×2 (08:19→16:19)
[2017-10-04] MEDS: PROSOURCE / PROSTAT (PYXIS) 30 ML UDC GT SCH ×2 (08:19→16:19)
[2017-10-04] MEDS: LINEZOLID RTU BAG 600 MG in PREMIX 1 EA IV SCH (08:34)
--- NOTE | 2017-10-04 09:47 | NUR ---
RT NOTE: VENT CHANGES MADE PER MD ORDER.
[2017-10-04] MEDS: Magnesium 1GM/D5W 100ML PREMIX 100 ML IV SCH ×2 (10:04→11:03)
--- NOTE | 2017-10-04 16:22 | NUR ---
RT NOTE: PATIENT RECEIVED WITH #8 SHILEY TRACH ON PB 840 VENT. ALARMS VERIFIED AND AUDIBLE. SUCTIONED AND LAVAGED SMALL- MODERATE AMOUNT OF THIN WHITE SECRETIONS. B/S=BILATERAL SCATTERED RHONCHI THROUGHOUT LUNGS. VENT PLUGGED INTO RED OUTLET. AMBU BAG AT [facility].
[2017-10-04] MEDS: Potassium Chloride 20 MEQ in IV D5W 1,000 ML IV PRN (16:54)
[2017-10-04 16:56] LABS: ABG BASE EXCESS 4.1 mmol/L; ABG OXYGEN SATURATION 93.3 % (92.0-98.5); ABG PCO2 47.3 mmHg (35.0-45.0); ABG PH 7.409 (7.350-7.450); ABG PO2 74.5 mmHg (75.0-100.0); AaDO2 156.3 mmHg; COHb 0.1 % (0.5-1.5); MetHb 0.9 % (0.0-1.5); O2Hb 92.4 % (94.0-97.0); PEEP,BG 5 cm H2O; SITE, ABG Right Radial; VT, ABG 500 mL
--- NOTE | 2017-10-04 18:30 | NUR ---
NO SIGNIFICANT CHANGE OF CONDITION. REMAINS TACHYCARDIC 140'S. MD AWARE. TO KEEP PATIENT IN ICU. NO SIGNIFICANT CHANGE IN HR/RR WITH PRN ATIVAN/DILAUDID. AFEBRILE DURING THE SHIFT.
[2017-10-04] MEDS ORDERED: DOSING PER PHARMACY-TOBRA INHALATION 1 EA XX PRN (19:30)
--- NOTE | 2017-10-04 19:30 | NUR ---
LABOR RELATIONS DIRECTOR: RECEIVED TRACH TO VENT PT WT VENT SETTINGS ORDERED. ALERT AND AWAKE, WATCHING TV. ABLE TO FOLLOW COMMANDS AND MAKE NEEDS KNOWN VIA MOUTHING OF WORDS. ST ON GUIDANCE AND CONTROL SYSTEM ENGINEER WT HR IN THE 140s BUT APPEARS CALM AND NOT RESTLESS. TEMP. 100.3 (ORAL). COOLING MEASURES RENDERED. GTF TOLERATING WELL WT 10CC RESIDUAL. VITA PICC INFUSING D5W WT 20 MEQ KCL AT 70ML/HR WT NO S/S OF COMPLICATIONS. F/C PATENT AND INTACT DRAINING CLEAR YELLOW URINE TO GRAVITY. HOB ELEVATED AT 45 DEGREES. SAFETY PRECAUTION NOTED. CALL LIGHT WITHIN EASY REACH.
[2017-10-04] MEDS: ACETAMINOPHEN 325 MG TABLET PO PRN (19:54)
[2017-10-04] MEDS: FIBERSOURCE HN 1,000 ML BOTTLE GT PRN (19:55)
[2017-10-04] MEDS: FLUCONAZOLE (100 MG) 100 MG TABLET PO SCH (19:55)
[2017-10-04] MEDS ORDERED: FEE PK DOSING 1 MIN EA MC ONE (20:26)
--- NOTE | 2017-10-04 20:48 | NUR ---
PT RECEIVED TRACHED ON VENT. NO RESP DISTRESS NOTED. PT TOLERATING VENT SETTINGS. SX'D FOR SML AMT OF THIN WHITE SECRETIONS. VENT ALARMS SET AND AUDIBLE. AMBU BAG AT BEDSIDE. WILL CONTINUE TO MONITOR. Addendum: 10/04/17 at 2051 by KARAN HENSON RT Amended: Links added.
[2017-10-04] MEDS ORDERED: LINEZOLID 600 MG TABLET PO SCH (21:00)
--- NOTE | 2017-10-04 21:00 | NUR ---
ACCOUNT SUPPORT MANAGER: REASSESS AFTER GIVEN TYLENOL WT GOOD EFFECT. PT VERBALIZED RELIEF WT NO PAIN AT THIS TIME (0/10).
--- NOTE | 2017-10-04 21:40 | NUR ---
HEAD OF IT: KARE[facility] PHARMACIST CALLED AND ASKED TO PLACE ORDER FOR FENTANYL PATCH 75MCG/HR Q72H PREVIOUSLY ORDERED PER DR. DANIELS. MED. ADMINISTRATION TO START ON 10/05/17 AT 1900. NOTED AND CARRIED.
[2017-10-04] MEDS: VANCOMYCIN 1.25 GM in IV NS 0.9% 500 ML IV SCH (21:53)
[2017-10-04] MEDS: TOBRAMYCIN 80 MG/2 ML VIAL INH SCH (23:39)
[2017-10-05] VITALS (37 sets, daily range): BP systolic 88–126; BP diastolic 45–73
[2017-10-05] MEDS: LORAZEPAM INJ 2 MG/ML VIAL IV PRN ×5 (03:55→19:07)
[2017-10-05] MEDS: METRONIDAZOLE 500 MG TABLET PO SCH ×3 (04:04→21:07)
[2017-10-05] MEDS: IV NS 0.9% 100 ML BAG IV PRN (04:09)
--- NOTE | 2017-10-05 04:30 | NUR ---
MOLD CHIPPER: REASSESSED AFTER GIVEN ATIVAN WT GOOD EFFECT. PT APPEARS CALM, EYES CLOSED EASILY AROUSES WHEN TOUCHED BUT HR REMAINS HIGH IN THE 130s. WILL CONTINUE TO MONITOR.
[2017-10-05 05:17] LABS: CALCIUM, SERUM 9.2 mg/dL (8.5-10.1); CREATININE 0.6 mg/dL (0.6-1.3); POTASSIUM 4.2 mmol/L (3.5-5.1)
[2017-10-05] MEDS: VANCOMYCIN 1.25 GM in IV NS 0.9% 500 ML IV SCH ×2 (05:24→12:39)
--- NOTE | 2017-10-05 06:00 | NUR ---
JEWEL BEARING MAKER: UNABLE TO OBTAIN WEIGHT AT THIS TIME D/T NON-WORKING BED SCALE.
[2017-10-05] MEDS: Potassium Chloride 20 MEQ in IV D5W 1,000 ML IV PRN ×2 (07:50→23:02)
[2017-10-05] MEDS: HYDROMORPHONE INJ 0.5 MG/0.5 ML SYRINGE IV PRN ×5 (07:50→22:10)
[2017-10-05] MEDS: TOBRAMYCIN 80 MG/2 ML VIAL INH SCH ×2 (08:18→19:27)
[2017-10-05] MEDS: DIAZEPAM 10 MG TABLET PO SCH ×2 (08:19→16:29)
[2017-10-05] MEDS: DOLUTEGRAVIR PO SCH (08:19)
[2017-10-05] MEDS: LAMIVUDI PO SCH (08:19)
[2017-10-05] MEDS: LACTOBACILLUS RHAMNOSUS GG 1 EACH CAP.SPRINK PO SCH ×2 (08:19→16:29)
[2017-10-05] MEDS: LORATADINE 10 MG TABLET PO SCH (08:19)
[2017-10-05] MEDS: ABACAVIR PO SCH (08:19)
[2017-10-05] MEDS: MULTIPLE VIT (LYCOPENE/FA/MV,CA,IRON,MIN/LUT)1 TAB PO SCH (08:19)
[2017-10-05] MEDS: PANTOPRAZOLE 40 MG VIAL IV SCH (08:19)
[2017-10-05] MEDS: QUETIAPINE FUMARATE 25 MG TABLET PO SCH ×2 (08:19→16:29)
[2017-10-05] MEDS: CEFEPIME 1 GM in IV D5W 50 ML IV SCH ×2 (08:19→21:06)
[2017-10-05] MEDS: CLOTRIMAZOLE 1% 15 GM TUBE TP SCH ×2 (08:20→16:30)
[2017-10-05] MEDS: PROSOURCE / PROSTAT (PYXIS) 30 ML UDC GT SCH ×2 (08:20→16:30)
[2017-10-05] MEDS: Magnesium 1GM/D5W 100ML PREMIX 100 ML IV SCH ×2 (11:22→12:22)
[2017-10-05] MEDS ORDERED: FENTANYL TD PATCH (25 MCG/HR) 25 MCG/HR PATCH.TD72 TD SCH (18:00)
--- NOTE | 2017-10-05 19:00 | NUR ---
NO SIGNIFICANT CHANGE IN CONDITION. REMAINS TACHYCARDIC 130-150'S. DR. JACOB AWARE. TACHYPNEIC AT 30'S. DR. DANIELS INCREASED VALIUM TO 10 MG TID AND FENTANYL PATCH TO 100 MCG Q72H. T MAX -100.3. ROBIN PAPPAS AWARE. PATIENT TO REMAIN IN ICU PER DR. DANIELS.
--- NOTE | 2017-10-05 19:30 | NUR ---
ICU/RN RECEIVED PT ON VENT PER TRACH,ECHO IN PROGRESS.PT.W/ EYES CLOSED BUT AROUSES EASILY DOES NOT FOLLOW COMMANDS.MONITOR SHOWS SINUS TACH.02 SAT 96% 0N 40% FIO2..TUBE FEEDING CHECKED FOR RESIDUAL,NOTHING OBTAINED.
[2017-10-05] MEDS: FENTANYL PATCH (100 MCG/HR) 100 MCG/HR PATCH.TD72 TD SCH (19:58)
[2017-10-05] MEDS ORDERED: FENTANYL PATCH (100 MCG/HR) 100 MCG/HR PATCH.TD72 TD SCH (21:00)
[2017-10-05] MEDS ORDERED: FENTANYL TD PATCH (75MCG/HR) 75 MCG/HR PATCH.TD72 TD SCH (21:00)
[2017-10-06] VITALS (31 sets, daily range): BP systolic 88–132; BP diastolic 50–91
[2017-10-06] MEDS: LORAZEPAM INJ 2 MG/ML VIAL IV PRN ×2 (00:52→05:24)
[2017-10-06] MEDS: FIBERSOURCE HN 1,000 ML BOTTLE GT PRN (02:46)
[2017-10-06] MEDS: HYDROMORPHONE INJ 0.5 MG/0.5 ML SYRINGE IV PRN (02:47)
--- NOTE | 2017-10-06 03:00 | NUR ---
ICU/RN DILAUDID 2MG GIVEN FOR SEDATION W/ RESP.RATE OF 40/MIN.HEART RATE OF146/MIN.PT AWAKE ALERT,FOLLOWS COMMANDS,DENIES PAIN OR DISCOMFORT.SUCTIONED TRACH FOR SMALL-MODERATE PALE YELLOW SECRETIONS TRACH CARE DONE,AFTER SUCTIONED AROUND TRACH TUBE.
[2017-10-06] MEDS: IV NS 0.9% 100 ML BAG IV PRN (04:14)
[2017-10-06] MEDS: METRONIDAZOLE 500 MG TABLET PO SCH ×3 (04:48→20:32)
[2017-10-06 05:04] LABS: BASOPHILS # (AUTO) 0.1 /CMM (0.0-0.2); BASOPHILS % (AUTO) 0.5 % (0.0-2.0); EOSINOPHILS # (AUTO) 0.5 /CMM (0.0-0.7); EOSINOPHILS % (AUTO) 4.3 % (0.0-6.0); LYMPHOCYTES # (AUTO) 2.7 /CMM (0.8-4.8); LYMPHOCYTES % (AUTO) 24.5 % (20.0-44.0); MEAN CORPUSCULAR HEMOGLOBIN 31 PG (26.0-33.0); MEAN CORPUSCULAR HGB CONC 33 g/dl (31.0-36.0); MEAN CORPUSCULAR VOLUME 93 fL (80-96); MONOCYTES # (AUTO) 0.7 /CMM (0.1-1.30); MONOCYTES % (AUTO) 6.7 % (2.0-12.0); PLATELET COUNT (AUTO) 265 /CMM (150-450); RDW COEFFICIENT OF VARIATION 16.5 (11.5-15.0); RED BLOOD CELL COUNT(AUTO) 2.16 MIL/uL (4.5-6.0); WHITE BLOOD COUNT (AUTO) 10.9 K/uL (4.3-11.0)
[2017-10-06 05:13] LABS: CALCIUM, SERUM 8.6 mg/dL (8.5-10.1); CREATININE 0.4 mg/dL (0.6-1.3); POTASSIUM 3.9 mmol/L (3.5-5.1)
[2017-10-06 05:21] LABS: HEMATOCRIT 20 % (39-51)
[2017-10-06 05:22] LABS: HEMOGLOBIN 6.7 g/dL (13.5-17.5)
[2017-10-06 05:36] LABS: EOSINOPHILS % (MANUAL) 3 % (0-4); LYMPHOCYTES % (MANUAL) 25 % (16-48); MONOCYTES % (MANUAL) 3 % (0-11.0); NEUTROPHILS % (MANUAL) 69 (42-76)
--- NOTE | 2017-10-06 05:38 | NUR ---
ICU/RN CRITICAL H& H REPORTED TO .ORDER TO GIVE 1UNIT PRC.NO ACTIVE BLEEDING NOTED.
--- NOTE | 2017-10-06 05:59 | NUR ---
RT PT RECEIVED ON [facility] VENT WITH NOTED SETTING. VENT TO RED OUTLET. AMBU BAG AT [facility]. SURVEYOR HYDROGRAPHIC DONE. ALARMS SET AND AUDIBLE. NO SOB OR RESP DISTRESS NO SHIFT. Addendum: 10/06/17 at 0601 by MONTRELL GARRISON RT Amended: Links added.
--- NOTE | 2017-10-06 06:20 | NUR ---
ICU/RN NO SIGNIFICANT CHANGE IN PT'S CONDITION.REMAINS TACHYPNEIC AND TACHYCARDIC.
[2017-10-06] MEDS: TOBRAMYCIN 80 MG/2 ML VIAL INH SCH ×2 (07:38→20:01)
[2017-10-06] MEDS: LAMIVUDI PO SCH (08:19)
[2017-10-06] MEDS: PANTOPRAZOLE 40 MG VIAL IV SCH (08:19)
[2017-10-06] MEDS: DOLUTEGRAVIR PO SCH (08:19)
[2017-10-06] MEDS: ABACAVIR PO SCH (08:19)
[2017-10-06] MEDS: CEFEPIME 1 GM in IV D5W 50 ML IV SCH ×2 (08:20→20:32)
[2017-10-06] MEDS: CLOTRIMAZOLE 1% 15 GM TUBE TP SCH ×2 (08:20→16:59)
[2017-10-06] MEDS: LACTOBACILLUS RHAMNOSUS GG 1 EACH CAP.SPRINK PO SCH ×2 (08:20→16:59)
[2017-10-06] MEDS: DIAZEPAM 10 MG TABLET PO SCH ×3 (08:20→16:59)
[2017-10-06] MEDS: MULTIPLE VIT (LYCOPENE/FA/MV,CA,IRON,MIN/LUT)1 TAB PO SCH (08:20)
[2017-10-06] MEDS: LORATADINE 10 MG TABLET PO SCH (08:20)
[2017-10-06] MEDS: QUETIAPINE FUMARATE 25 MG TABLET PO SCH ×2 (08:20→16:59)
[2017-10-06] MEDS: PROSOURCE / PROSTAT (PYXIS) 30 ML UDC GT SCH ×2 (08:22→16:59)
--- NOTE | 2017-10-06 09:22 | NUR ---
RECEPTIONIST NOTE 0720: Received patient awake, A/Ox3, able to mouth words. No c/o discomfort at this time. With trache to vent, with episodes of RR >30's. With GT intact, feeding tolerated, no residuals. Kept HOB elevated. ST 130's on the monitor. Temp 99.7. Putnam cath intact, noted with clear maggie colored urine drained to BSD. VITA PICC intact, IVF infusing as ordered. 0815: Noted patient with RR 35, ST 130's, with c/o anxiety, will administer Valium as ordered. Dr. Sosa in the unit, updated re: the patient, no new order at this time. 0900: Started on blood transfusion. 0915: No any adverse reactions from blood noted at this time. Will continue to monitor. No any significant changes.
[2017-10-06] MEDS: HYDROCODONE/APAP 5/325MG 1 EACH TABLET PO PRN (10:05)
[2017-10-06] MEDS: Potassium Chloride 20 MEQ in IV D5W 1,000 ML IV PRN (13:32)
--- NOTE | 2017-10-06 16:31 | NUR ---
TD/RN REPORT FROM ICU REPORT RECEIVED FROM ICU NURSE CHIKA, PT DOWNGRADED TO [facility] WITH DX OF ACUTE ENCEPHALOPATHY SECONDARY TO OD (TRAZODONE & WINE), VENT DEPENDENT PT. AWAITING FOR PT'S ARRIVAL.
--- NOTE | 2017-10-06 17:40 | NUR ---
TD/PC MAINTENANCE TECHNICIAN FROM ICU - ROOM 107 PT ARRIVED VIA BED, ACCOMPANIED BY ICU NURSE CHIKA. PT A/O X 3, ABLE TO MOUTH WORDS. NO ACUTE DISTRESS FOR CHANGE OF CONDITION NOTED. ON VENTILATOR, RATES SET PRESCRIBED, SATURATING @ 99%, LUNG SOUNDS CLEAR. ON TELE WITH SINUS TACHY, HR 135. PICC LINE WITH ON GOING INFUSION OF D5W, 20MEQ KCL @ 70CC/HR, SITE PATENT WITH NO S/S INFECTION. GT FEEDING RE-STARTED, FIBERSOURCE @ 40CC/HR, NO GASTRIC RESIDUAL NOTED, PATENT. PETERS CATHETER INTACT WITH YELLOW URINE OUTPUT. PT IS COMFORTABLE. CL WITHIN REACHED AND SAFETY MAINTAINED. ON GOING MONITORING.
[2017-10-06] MEDS: ACETAMINOPHEN 325 MG TABLET PO PRN (17:46)
--- NOTE | 2017-10-06 17:48 | NUR ---
DOCUMENTATION ENGINEER NOTE 1600: Per CN, Dr. Sosa okayed to transfer to [facility], MD aware for ST 130's and Tachy >30's. Fentanyl patch on, Xanax given RTC and [place] x1 give on my shift. 1630: Report given to Maryam ACOSTA for GLORIA. 1730: Transferred patient via bed and using ACLS protocol. Noted with ST 140's and diaphoretic. But became 130's and calmer when arrived in the room. Endorsed to Maryam.
--- NOTE | 2017-10-06 19:30 | NUR ---
[facility]/RN NOTES: RECEIVED PT. IN BED W/ HOB ELEVATED. PT. ON MECHANICAL VENTILATOR W/ PRESCRIBED SETTING TOLERATING WELL. NO FACIAL GRIMACE OR MOANING NOTED. PT. ABLE TO MOUTH WORDS. ON TELE MONITOR ST. DENIES ANY C/O CHEST PAIN OR SOB AT PRESENT. NO S/S OF RESPIRATORY DISTRESS. A/O X 3. HAS PICC LINE ON VITA PATENT AND INTACT W/ NO S/S OF INFECTION/INFILTRATION NOTED. W/ IVF OF D5W W/ 20 KCL @ 70 CC/ HR TOLERATING WELL. HAS GTF INPLACE PATENT W/ NO RESIDUAL NOTED. TOLERATING FEEDING WELL. HAS F/C INPLACE DRAINING YELLOW COLOR URINE. CALL LIGHT W/ REACH. WILL CONTINUE TO MONITOR.
--- NOTE | 2017-10-06 19:30 | NUR ---
TD/RN AM SHIFT END NOTES NO ACUTE CHANGE OF CONDITION NOTED SINCE PT WAS DOWNGRADED TO [facility] STATUS LATE THIS AFTERNOON FROM ICU. ALL NEEDS MET. PT ENDORSED TO PM NURSE TO CONTINUE CARE. CL WITHIN REACHED AND SAFETY MAINTAINED.
--- NOTE | 2017-10-06 20:01 | NUR ---
RCVD PT ON VENT WITH NOTED SETTINGS. PT IS ALERT AND AWAKE . VENTS PLUGGED INTO RED OUTLET, VENT ALARM WORKING AND AUDIBLE. SUCTIONED SMALL AMOUNT OF PALE YELLOW THICK SECRETIONS . BILATERAL BS NOTED, NO RESPIRATORY DISTRESS NOTED AT THIS TIME. WILL CONTINUE TO MONITOR THE PT.
[2017-10-07] VITALS: BP 98/59
[2017-10-07 04:00] VITALS: BP 103/66
[2017-10-07] MEDS: METRONIDAZOLE 500 MG TABLET PO SCH ×3 (04:51→21:36)
[2017-10-07] MEDS: ONDANSETRON HCL/PF 4 MG/2 ML VIAL IVP PRN ×2 (04:51→14:27)
[2017-10-07] MEDS: Potassium Chloride 20 MEQ in IV D5W 1,000 ML IV PRN ×2 (05:25→21:36)
[2017-10-07] MEDS: HYDROCODONE/APAP 5/325MG 1 EACH TABLET PO PRN ×2 (05:33→14:46)
[2017-10-07 06:52] LABS: CALCIUM, SERUM 9.3 mg/dL (8.5-10.1); CREATININE 0.6 mg/dL (0.6-1.3); POTASSIUM 4.5 mmol/L (3.5-5.1)
--- NOTE | 2017-10-07 07:30 | NUR ---
[facility]/RN AM NOTES: RECEIVED PT. IN BED W/ HOB ELEVATED. AWAKE, A/O X 3, WITH SHILEY #8, ON MECHANICAL VENTILATOR W/ PRESCRIBED SETTING TOLERATING WELL. NO FACIAL GRIMACE OR MOANING NOTED. PT. ABLE TO MOUTH WORDS. TELEMETRY READS ST HR 134. DENIES ANY C/O CHEST PAIN OR SOB AT PRESENT. NO S/S OF RESPIRATORY DISTRESS. PICC LINE ON VITA PATENT AND INTACT, WITH D5W +20 MEQ KLC AT 70 ML/HR, SITE CLEAR, CDI DRESSING, HAS GTF INPLACE PATENT FIBERSOURCE 40 ML/HR, 0 RESIDUAL, F/C IN PLACE DRAINING YELLOW COLOR URINE. CALL LIGHT WITHIN REACH. SAFETY MEASURES IN PLACE. WILL CONTINUE TO MONITOR.
--- NOTE | 2017-10-07 07:34 | NUR ---
[facility]/RN NOTES: NO ACUTE CHANGES NOTED DURING THIS SHIFT. REPORT GIVEN TO AM NURSE FOR GLORIA.
[2017-10-07] MEDS: TOBRAMYCIN 80 MG/2 ML VIAL INH SCH ×2 (07:38→19:33)
--- NOTE | 2017-10-07 07:41 | NUR ---
Eliot pt received on mechanical vent. Pt trach is secure. Vent is plugged into a red outlet, alarms are set and audible and BVM is at bedside. Addendum: 10/07/17 at 0741 by ALEXX LEMA RT Amended: Links added.
[2017-10-07 08:00] VITALS: BP 117/72
[2017-10-07] MEDS: CEFEPIME 1 GM in IV D5W 50 ML IV SCH ×2 (08:55→21:36)
[2017-10-07] MEDS: PROSOURCE / PROSTAT (PYXIS) 30 ML UDC GT SCH ×2 (08:56→16:36)
[2017-10-07] MEDS: LACTOBACILLUS RHAMNOSUS GG 1 EACH CAP.SPRINK PO SCH ×2 (08:56→16:36)
[2017-10-07] MEDS: PANTOPRAZOLE 40 MG VIAL IV SCH (08:56)
[2017-10-07] MEDS: DIAZEPAM 10 MG TABLET PO SCH ×3 (08:57→16:36)
[2017-10-07] MEDS: DOLUTEGRAVIR PO SCH (08:57)
[2017-10-07] MEDS: LAMIVUDI PO SCH (08:57)
[2017-10-07] MEDS: LORATADINE 10 MG TABLET PO SCH (08:57)
[2017-10-07] MEDS: QUETIAPINE FUMARATE 25 MG TABLET PO SCH ×2 (08:57→16:36)
[2017-10-07] MEDS: ABACAVIR PO SCH (08:57)
[2017-10-07] MEDS: MULTIPLE VIT (LYCOPENE/FA/MV,CA,IRON,MIN/LUT)1 TAB PO SCH (08:57)
[2017-10-07] MEDS: CLOTRIMAZOLE 1% 15 GM TUBE TP SCH ×2 (08:58→16:36)
--- NOTE | 2017-10-07 09:30 | NUR ---
[facility] RN NOTES DUE MEDS GIVEN. MAXIPIME IV STARTED EARLIER.
[2017-10-07 12:00] VITALS: BP 96/56
[2017-10-07 16:00] VITALS: BP 100/51
--- NOTE | 2017-10-07 18:39 | NUR ---
PROFESSOR OF BUSINESS CLOSING NOTES PT. IN BED RESTING COMFORTABLY, W/ HOB ELEVATED. AWAKE, A/O X 3, WITH SHILEY #8, ON MECHANICAL VENTILATOR W/ PRESCRIBED SETTING TOLERATING WELL. NO FACIAL GRIMACE OR MOANING NOTED. PT. ABLE TO MOUTH WORDS. TELEMETRY READS ST HR 134 - 144. DENIES ANY CHEST PAIN OR SOB AT PRESENT. NO S/S OF RESPIRATORY DISTRESS. PICC LINE ON VITA PATENT AND INTACT, WITH D5W +20 MEQ KLC AT 70 ML/HR, SITE CLEAR, CDI DRESSING, HAS GTF IN PLACE PATENT FIBERSOURCE 40 ML/HR, 0 RESIDUAL, F/C IN PLACE DRAINING YELLOW COLOR URINE WITH 1300 ML OUTPUT. CALL LIGHT WITHIN REACH. SAFETY MEASURES IN PLACE. WILL CONTINUE TO MONITOR. SAFETY PRECAUTIONS IMPLEMENTED: BED IN LOCKED, LOW POSITION WITH TWO SIDE RAILS UP. CALL LIGHT AND BELONGINGS WITHIN EASY REACH. TURNED AND REPOSITIONED. PRESCRIBED WOUND TREATMENT AND PM CARE DONE. ALL NEEDS MET. NO OTHER SIGNIFICANT CHANGE IN CONDITION. WILL ENDORSE TO NEXT SHIFT FOR GLORIA.
--- NOTE | 2017-10-07 20:00 | NUR ---
DIRECTOR OF FRONT OFFICE INITIAL NOTES PT. IN BED RESTING COMFORTABLY, W/ HOB ELEVATED. AWAKE, A/O X 3, WITH SHILEY #8, ON MECHANICAL VENTILATOR W/ PRESCRIBED SETTING TOLERATING WELL. NO FACIAL GRIMACE OR MOANING NOTED. PT. ABLE TO MOUTH WORDS. TELEMETRY READS ST HR 110-130. MD AWARE. DENIES ANY CHEST PAIN OR SOB AT PRESENT. NO S/S OF RESPIRATORY DISTRESS. PICC LINE ON VITA PATENT AND INTACT, WITH D5W +20 MEQ KLC AT 70 ML/HR, SITE CLEAR, CDI DRESSING, HAS GTF IN PLACE PATENT FIBERSOURCE 40 ML/HR, 0 RESIDUAL, F/C IN PLACE DRAINING YELLOW COLOR URINE WITH 1300 ML OUTPUT. CALL LIGHT
[2017-10-07 20:39] LABS: BASOPHILS # (AUTO) 0.1 /CMM (0.0-0.2); BASOPHILS % (AUTO) 0.5 % (0.0-2.0); EOSINOPHILS # (AUTO) 0.6 /CMM (0.0-0.7); EOSINOPHILS % (AUTO) 3.8 % (0.0-6.0); HEMATOCRIT 30 % (39-51); HEMOGLOBIN 9.7 g/dL (13.5-17.5); LYMPHOCYTES # (AUTO) 5.6 /CMM (0.8-4.8); LYMPHOCYTES % (AUTO) 36.7 % (20.0-44.0); MEAN CORPUSCULAR HEMOGLOBIN 31 PG (26.0-33.0); MEAN CORPUSCULAR HGB CONC 33 g/dl (31.0-36.0); MEAN CORPUSCULAR VOLUME 94 fL (80-96); MONOCYTES # (AUTO) 0.9 /CMM (0.1-1.30); NEUTROPHILS # (AUTO) 8.1 /CMM (1.8-8.9); PLATELET COUNT (AUTO) 367 /CMM (150-450); RDW COEFFICIENT OF VARIATION 16.3 (11.5-15.0); RED BLOOD CELL COUNT(AUTO) 3.15 MIL/uL (4.5-6.0); WHITE BLOOD COUNT (AUTO) 15.3 K/uL (4.3-11.0)
[2017-10-07 23:22] VITALS: BP 107/66
[2017-10-08] VITALS: BP 116/70
[2017-10-08] MEDS: LORAZEPAM INJ 2 MG/ML VIAL IV PRN (00:19)
[2017-10-08] MEDS: HYDROMORPHONE INJ 0.5 MG/0.5 ML SYRINGE IV PRN (02:18)
[2017-10-08 04:39] VITALS: BP 103/64
[2017-10-08] MEDS: METRONIDAZOLE 500 MG TABLET PO SCH ×3 (05:45→21:07)
[2017-10-08] MEDS: FIBERSOURCE HN 1,000 ML BOTTLE GT PRN (05:50)
--- NOTE | 2017-10-08 06:19 | NUR ---
HOSPITAL UNIT COORDINATOR CLOSING NOTES PT. IN BED RESTING COMFORTABLY, W/ HOB ELEVATED. AWAKE, A/O X 3, WITH SHILEY #8, ON MECHANICAL VENTILATOR W/ PRESCRIBED SETTING TOLERATING WELL. WITH FACIAL GRIMACE AND MOANING NOTED. PAIN MGMT PRN AND ATIVAN FOR ANXIETY GIVE QS ORDERED. PT. ABLE TO MOUTH WORDS. TELEMETRY READS ST HR 110-130. MD AWARE. DENIES ANY CHEST PAIN OR SOB AT PRESENT. NO S/S OF RESPIRATORY DISTRESS. PICC LINE ON VITA PATENT AND INTACT, WITH D5W +20 MEQ KLC AT 70 ML/HR, SITE CLEAR, CDI DRESSING, HAS GTF IN PLACE PATENT FIBERSOURCE 60ML ML/HR, 0 RESIDUAL, F/C IN PLACE DRAINING YELLOW COLOR URINE WITH 1500 ML
[2017-10-08 06:54] LABS: CALCIUM, SERUM 9.5 mg/dL (8.5-10.1); CREATININE 0.5 mg/dL (0.6-1.3); POTASSIUM 4.4 mmol/L (3.5-5.1)
--- NOTE | 2017-10-08 07:30 | NUR ---
CIGAR INSPECTOR AM NOTES: RECEIVED PT. IN BED W/ HOB ELEVATED. AWAKE, A/O X 3, WITH SHILEY #8, ON MECHANICAL VENTILATOR W/ PRESCRIBED SETTING TOLERATING WELL. NO FACIAL GRIMACE OR MOANING NOTED. PT. ABLE TO MOUTH WORDS. TELEMETRY READS ST HR 135. DENIES ANY C/O CHEST PAIN OR SOB AT PRESENT. NO S/S OF RESPIRATORY DISTRESS. PICC LINE ON VITA PATENT AND INTACT, WITH D5W +20 MEQ KLC AT 70 ML/HR, SITE CLEAR, CDI DRESSING, HAS GTF IN PLACE PATENT FIBERSOURCE 40 ML/HR, 0 RESIDUAL, F/C IN PLACE DRAINING YELLOW COLOR URINE. CALL LIGHT WITHIN REACH. SAFETY MEASURES IN PLACE. WILL CONTINUE TO MONITOR.
--- NOTE | 2017-10-08 07:36 | NUR ---
Eliot pt received on mechanical vent. Pt trach is secure. Vent is plugged into a red outlet, alarms are set and audible, and BVM is at bedside. Addendum: 10/08/17 at 0753 by ALEXX LEMA RT Amended: Links added.
[2017-10-08] MEDS: TOBRAMYCIN 80 MG/2 ML VIAL INH SCH ×2 (07:43→19:28)
[2017-10-08 08:00] VITALS: BP_SYST 113; BP_SYST 117; BP_DIAS 54; BP_DIAS 69
[2017-10-08] MEDS: CEFEPIME 1 GM in IV D5W 50 ML IV SCH ×2 (09:17→21:08)
[2017-10-08] MEDS: PROSOURCE / PROSTAT (PYXIS) 30 ML UDC GT SCH ×2 (09:17→17:14)
[2017-10-08] MEDS: LACTOBACILLUS RHAMNOSUS GG 1 EACH CAP.SPRINK PO SCH ×2 (09:18→17:14)
[2017-10-08] MEDS: PANTOPRAZOLE 40 MG VIAL IV SCH (09:18)
[2017-10-08] MEDS: LORATADINE 10 MG TABLET PO SCH (09:18)
[2017-10-08] MEDS: ABACAVIR PO SCH (09:19)
[2017-10-08] MEDS: LAMIVUDI PO SCH (09:19)
[2017-10-08] MEDS: DIAZEPAM 10 MG TABLET PO SCH ×3 (09:19→17:14)
[2017-10-08] MEDS: MULTIPLE VIT (LYCOPENE/FA/MV,CA,IRON,MIN/LUT)1 TAB PO SCH (09:19)
[2017-10-08] MEDS: DOLUTEGRAVIR PO SCH (09:19)
[2017-10-08] MEDS: QUETIAPINE FUMARATE 25 MG TABLET PO SCH ×2 (09:19→17:14)
--- NOTE | 2017-10-08 09:30 | NUR ---
IT TRAINER NOTES DUE MEDS GIVEN. MAXIPIME IV STARTED EARLIER.
[2017-10-08] MEDS: CLOTRIMAZOLE 1% 15 GM TUBE TP SCH ×2 (09:35→17:16)
[2017-10-08 12:00] VITALS: BP 110/63
[2017-10-08] MEDS: Potassium Chloride 20 MEQ in IV D5W 1,000 ML IV PRN (12:36)
[2017-10-08 16:00] VITALS: BP 104/65
--- NOTE | 2017-10-08 19:19 | NUR ---
RESEARCH ASSOCIATE PROFESSOR CLOSING NOTES PT. IN BED RESTING COMFORTABLY, W/ HOB ELEVATED. AWAKE, A/O X 3, WITH SHILEY #8, ON MECHANICAL VENTILATOR W/ PRESCRIBED SETTING TOLERATING WELL. NO FACIAL GRIMACE OR MOANING NOTED. PT. ABLE TO MOUTH WORDS. TELEMETRY READS ST HR 134 - 137. DENIES ANY CHEST PAIN OR SOB AT PRESENT. NO S/S OF RESPIRATORY DISTRESS. PICC LINE ON VITA PATENT AND INTACT, WITH D5W +20 MEQ KLC AT 70 ML/HR, SITE CLEAR, CDI DRESSING, HAS GTF IN PLACE PATENT FIBERSOURCE 40 ML/HR, 0 RESIDUAL, F/C IN PLACE DRAINING YELLOW COLOR URINE WITH 1700 ML OUTPUT. CALL LIGHT WITHIN REACH. SAFETY MEASURES IN PLACE. WILL CONTINUE TO MONITOR. SAFETY PRECAUTIONS IMPLEMENTED: BED IN LOCKED, LOW POSITION WITH TWO SIDE RAILS UP. CALL LIGHT AND BELONGINGS WITHIN EASY REACH. TURNED AND REPOSITIONED. PRESCRIBED WOUND TREATMENT AND PM CARE DONE. ALL NEEDS MET. NO OTHER SIGNIFICANT CHANGE IN CONDITION. WILL ENDORSE TO NEXT SHIFT FOR GLORIA.
--- NOTE | 2017-10-08 19:40 | NUR ---
RN INITIAL NOTES, RECEIVED PATIENT IN BED, ALERT AND ORIENTED, ON VENT SETTINGS, NO SOB/ACUTE DISTRESS NOTED, MOUTH WORDS ABLE TO LET NEEDS AND CONCERNS KNOW, VITA PICC LINE IN PLACE, INTACT AND PATENT, IVF INFUSING WELL AND PATIENT TOLERATED WELL, WELL GTF WITH ZERO RESIDUAL AT THIS TIME , HOB ELEVATED AT ALL TIMES, FOR ASPIRATION PRECAUTIONS, DRY AND CLEAN AT THIS TIME, BED LOCKED AND IN LOWEST POSITION, CALL LIGHT W/I REACH, WILL CONTINUE TO MONITOR CLOSELY.
[2017-10-08 20:00] VITALS: BP 102/59
[2017-10-08] MEDS: HYDROCODONE/APAP 5/325MG 1 EACH TABLET PO PRN (21:08)
[2017-10-08] MEDS ORDERED: FENTANYL PATCH (100 MCG/HR) 100 MCG/HR PATCH.TD72 TD ONE (22:12)
--- NOTE | 2017-10-08 22:15 | NUR ---
RN NOTES FENTANYL PATCH NOT AVAILABLE IN 1ST FLOOR. MEDICATION OVERRIDE PERFORMED BY RELIEF CHARGE NURSE, MED AVAILABLE IN 3RD FLOOR, MEDSURG/TELE. MEDICATION GIVEN TO PRIMARY NURSE VAISHALI TO ADMINISTER
[2017-10-08] MEDS: FENTANYL PATCH (100 MCG/HR) 100 MCG/HR PATCH.TD72 TD SCH (22:27)
[2017-10-09] VITALS (7 sets, daily range): BP systolic 90–126; BP diastolic 54–74
[2017-10-09] MEDS: ALPRAZOLAM 1 MG TABLET PO PRN (00:01)
[2017-10-09] MEDS: Potassium Chloride 20 MEQ in IV D5W 1,000 ML IV PRN ×2 (03:54→17:11)
[2017-10-09] MEDS: FIBERSOURCE HN 1,000 ML BOTTLE GT PRN (03:55)
[2017-10-09] MEDS: METRONIDAZOLE 500 MG TABLET PO SCH ×2 (04:07→12:57)
--- NOTE | 2017-10-09 07:00 | NUR ---
OPENING NOTE RECEIVED PT ON BED VENT/TRACH DEPENDENT ALERT ORIENTED X 3 ABLE TO MOUTH WORDS RESPIRATIONS EVEN AND UNLABORED ,NO SOB NOTED TRACH SUCTIONING DONE. ON TELE ST HR 120'S, PETERS DRAINING TO GRAVITY WITH CLEAR YELLOW URINE, FIBERSOURCE AT 40 CC/HR VIA G-TUBE, R UPPER ARM PICC CDI RUNNING D5W WITH 20 mEQ POTASSIUM AT 70C/HR. BED IN LOWEST POSITION LOCKED, CALL HERRERA WITHIN EASY REACH. CONTINUE TO MONITOR.
--- NOTE | 2017-10-09 07:00 | NUR ---
RN CLOSING NOTES, PATIENT IN BED AWAKE, ALERT AND ORIENTED, ON VENT SETTINGS, NO DISTRESS/SOB NOTED AT THIS TIME AND NO SIGNIFICANT GLORIA DURING MY SHIFT, PICC LINE IN VITA INTACT AND PATENT, IVF INFUSING WELL AND PATIENT TOLERATED WELL, GTF RUNNING ORDERED, WITH ZERO RESIDUAL AT THIS TIME, INFUSING WELL AND PATIENT TOLERATED WELL TOO, HOB ELEVATED FOR ASPIRATION PRECAUTIONS, F/C DRAINING YELLOW URINE PER GRAVITY, PATENCY INTACT, KEPT DRY AND CLEAN, BED LOCKED AND IN LOWEST POSITION, REPOSITION PER PROTOCOL, CALL LIGHT W/W REACH, WILL ENDORSE TO NEXT SHIFT NURSE.
[2017-10-09 07:08] LABS: CREATININE 0.4 mg/dL (0.6-1.3); POTASSIUM 4.5 mmol/L (3.5-5.1)
[2017-10-09 07:25] LABS: CALCIUM, SERUM 9.5 mg/dL (8.5-10.1)
[2017-10-09] MEDS: TOBRAMYCIN 80 MG/2 ML VIAL INH SCH ×2 (08:05→19:32)
[2017-10-09] MEDS: PANTOPRAZOLE 40 MG VIAL IV SCH (08:30)
[2017-10-09] MEDS: CEFEPIME 1 GM in IV D5W 50 ML IV SCH (08:30)
[2017-10-09] MEDS: PROSOURCE / PROSTAT (PYXIS) 30 ML UDC GT SCH ×2 (08:31→16:33)
[2017-10-09] MEDS: LACTOBACILLUS RHAMNOSUS GG 1 EACH CAP.SPRINK PO SCH ×2 (08:32→16:28)
[2017-10-09] MEDS: MULTIPLE VIT (LYCOPENE/FA/MV,CA,IRON,MIN/LUT)1 TAB PO SCH (08:32)
[2017-10-09] MEDS: QUETIAPINE FUMARATE 25 MG TABLET PO SCH ×2 (08:32→16:28)
[2017-10-09] MEDS: ABACAVIR PO SCH (08:32)
[2017-10-09] MEDS: DIAZEPAM 10 MG TABLET PO SCH ×3 (08:32→17:43)
[2017-10-09] MEDS: LAMIVUDI PO SCH (08:32)
[2017-10-09] MEDS: DOLUTEGRAVIR PO SCH (08:32)
[2017-10-09] MEDS: LORATADINE 10 MG TABLET PO SCH (08:32)
[2017-10-09] MEDS: CLOTRIMAZOLE 1% 15 GM TUBE TP SCH ×2 (08:33→16:28)
[2017-10-09] MEDS: ACETAMINOPHEN 325 MG TABLET PO PRN (14:57)
--- NOTE | 2017-10-09 16:08 | NUR ---
RT NOTE: PATIENT RECEIVED WITH #8 SHILEY TRACH ON PB 840 VENT. ALARMS VERIFIED AND AUDIBLE. SUCTIONED AND LAVAGED SMALL-MODERATE AMOUNT OF THICK CLEAR/WHITE SECRETIONS. VENT PLUGGED INTO RED OUTLET. [facility]
--- NOTE | 2017-10-09 19:06 | NUR ---
CLOSING PT REMAINS ON VENTILATOR NO DISTRESS ALERT AND ORIENTED ALL SHIFT. VALIUM DECREASED TO 0.5 MG. PT ON FEEDINGS TOLERATED WELL NO RESIDUAL. PT TURNED PER PROTOCOL VITAL SIGNS STABLE AFEBRILE ALL SHIFT.
--- NOTE | 2017-10-09 19:40 | NUR ---
OUTDOOR POWER EQUIPMENT MECHANIC INITIAL NOTES, PATIENT IN BED AWAKE, ALERT AND ORIENTED ABLE TO MOUTH WORDS AND VERBALIZED NEEDS AND CONCERNS, ON VENT SETTINGS NO SOB/ACUTE DISTRESS NOTED AT THIS TIME, AT BEDSIDE, GTF/IVF INFUSING WELL AND PATIENT TOLERATED BOTH WELL, HANK PICC LINE INTACT AND PATENT, NO RESIDUAL FROM GT AT THIS TIME, HOB ELEVATED FOR ASPIRATION PRECAUTIONS, NOTED DRY AND CLEAN, AND WELL REPOSITION, BED LOCKED AND IN LOWEST [POSITION, CALL LIGHT W/I REACH, WILL CONTINUE TO MONITOR CLOSELY Addendum: 10/09/17 at 2045 by VAISHALI MILLER RN PICC LINE IN [facility]
[2017-10-10] VITALS: BP 90/50
--- NOTE | 2017-10-10 01:45 | NUR ---
RT NOTES PT RECEIVED ON [facility] VENT WITH NOTED SETTING. VENT TO RED OUTLET. AMBU BAG AT [facility]. PRODUCT SUPPORT ENGINEER DONE. ALARMS SET AND AUDIBLE. NO SOB OR RESP DISTRESS NOTED SHIFT. Addendum: 10/10/17 at 0146 by MEGHAN COUCH RT Amended: Links added.
[2017-10-10] MEDS: HYDROCODONE/APAP 5/325MG 1 EACH TABLET PO PRN ×2 (03:40→08:11)
[2017-10-10] MEDS: FIBERSOURCE HN 1,000 ML BOTTLE GT PRN (03:52)
[2017-10-10 04:00] VITALS: BP 97/58
[2017-10-10] MEDS: Potassium Chloride 20 MEQ in IV D5W 1,000 ML IV PRN ×2 (07:07→22:42)
--- NOTE | 2017-10-10 07:41 | NUR ---
MEDICAL AFFAIRS LEADER: OPENING NOTE RECEIVED PT A/OX3. ON MECHANICAL VENTILATION. SETTING INCLUDE KOHI 8, AC 24, TV 500, FIO2 40%, PEEP 5. NO DISTRESS NOTED. NO SOB NOTED. NO PAIN NOTED. F/C IN PLACE AND DRAINING. ON FIBERSOURCE RUNNING 40 CC/HR. SITE CLEAR AND PATENT. PICC LINE RUNNING D5 20 MEW KCL AT 70 ML/HR. RESTING COMFORTABLY IN BED. CALL LIGHT WITHIN REACH.
[2017-10-10] MEDS: TOBRAMYCIN 80 MG/2 ML VIAL INH SCH ×2 (07:53→20:15)
[2017-10-10 08:00] VITALS: BP 101/57
[2017-10-10] MEDS: DIAZEPAM 10 MG TABLET PO SCH ×3 (08:11→16:38)
[2017-10-10] MEDS: PANTOPRAZOLE 40 MG VIAL IV SCH (08:11)
[2017-10-10] MEDS: QUETIAPINE FUMARATE 25 MG TABLET PO SCH ×2 (08:11→16:38)
[2017-10-10] MEDS: LORATADINE 10 MG TABLET PO SCH (08:12)
[2017-10-10] MEDS: ABACAVIR PO SCH (08:12)
[2017-10-10] MEDS: LACTOBACILLUS RHAMNOSUS GG 1 EACH CAP.SPRINK PO SCH ×2 (08:12→16:40)
[2017-10-10] MEDS: LAMIVUDI PO SCH (08:12)
[2017-10-10] MEDS: CLOTRIMAZOLE 1% 15 GM TUBE TP SCH ×2 (08:12→16:43)
[2017-10-10] MEDS: DOLUTEGRAVIR PO SCH (08:12)
[2017-10-10] MEDS: MULTIPLE VIT (LYCOPENE/FA/MV,CA,IRON,MIN/LUT)1 TAB PO SCH (08:12)
[2017-10-10] MEDS: PROSOURCE / PROSTAT (PYXIS) 30 ML UDC GT SCH ×2 (08:17→16:40)
--- NOTE | 2017-10-10 09:33 | NUR ---
GAVE REPORT TO JULY ACOSTA FROM ICU. LEFT PT A/OX3. NO DISTRESS NOTED. NO SOB NOTED. NO PAIN NOTED. ALL MORNING MEDICATIONS PROVIDED THROUGH G-TUBE. ENDORSED INFORMATION TO JULY ACOSTA.
[2017-10-10 12:00] VITALS: BP_SYST 96; BP_SYST 98; BP_DIAS 56; BP_DIAS 58
[2017-10-10] MEDS: HYDROMORPHONE INJ 0.5 MG/0.5 ML SYRINGE IV PRN ×2 (14:04→22:33)
[2017-10-10 16:00] VITALS: BP 93/59
--- NOTE | 2017-10-10 16:13 | NUR ---
Patient received with #8 Jasmineley trach on PB 840 vent. Alarms verified and audible. Suctioned and lavaged moderate-large amount of thin white secretions. Vent plugged into red outlet. Ambu bag at [facility].
[2017-10-10 20:00] VITALS: BP 94/54
[2017-10-10] MEDS ORDERED: HYDROMORPHONE INJ 0.5 MG/0.5 ML SYRINGE ONE (22:31)
[2017-10-11] VITALS: BP 92/54
[2017-10-11 04:00] VITALS: BP 100/60
[2017-10-11] MEDS: FIBERSOURCE HN 1,000 ML BOTTLE GT PRN (04:52)
[2017-10-11] MEDS: ONDANSETRON HCL/PF 4 MG/2 ML VIAL IVP PRN ×3 (05:09→23:30)
[2017-10-11 06:36] LABS: BASOPHILS # (AUTO) 0.1 /CMM (0.0-0.2); BASOPHILS % (AUTO) 0.4 % (0.0-2.0); EOSINOPHILS # (AUTO) 0.6 /CMM (0.0-0.7); EOSINOPHILS % (AUTO) 3.5 % (0.0-6.0); HEMATOCRIT 28 % (39-51); HEMOGLOBIN 9.6 g/dL (13.5-17.5); LYMPHOCYTES # (AUTO) 7.2 /CMM (0.8-4.8); LYMPHOCYTES % (AUTO) 43.7 % (20.0-44.0); MEAN CORPUSCULAR HEMOGLOBIN 31 PG (26.0-33.0); MEAN CORPUSCULAR HGB CONC 34 g/dl (31.0-36.0); MEAN CORPUSCULAR VOLUME 92 fL (80-96); MONOCYTES # (AUTO) 1.1 /CMM (0.1-1.30); NEUTROPHILS # (AUTO) 7.4 /CMM (1.8-8.9); NEUTROPHILS % (AUTO) 45.4 % (43.0-81.0); PLATELET COUNT (AUTO) 490 /CMM (150-450); RDW COEFFICIENT OF VARIATION 15.9 (11.5-15.0); RED BLOOD CELL COUNT(AUTO) 3.08 MIL/uL (4.5-6.0); WHITE BLOOD COUNT (AUTO) 16.4 K/uL (4.3-11.0)
[2017-10-11] MEDS: TOBRAMYCIN 80 MG/2 ML VIAL INH SCH ×2 (07:22→19:56)
--- NOTE | 2017-10-11 07:22 | NUR ---
RT PATIENT REC'D TRACHED ON [facility] VENT WITH SETTINGS SET BY MD RICHAR MCDANIEL. VENT ALARMS CHECKED + AUDIBLE. CUFF PRESSURE CHECKED NUCLEAR PHYSICS PROFESSOR. SUCTIONED WITH SMALL AMT [place] SEMITHICK SECRETIONS. DIM COARSE B/S. PATIENT IN NO DISTRESS AT THIS TIME. AMBU BAG AT HOB. Addendum: 10/11/17 at 0909 by BRYNN BARBER RT Amended: Links added.
--- NOTE | 2017-10-11 07:36 | NUR ---
CASING TESTER INITIAL NOTE RN RECEIVED PT RESTING HOWEVER AROUSABLE A/OX2-3. ON MECHANICAL VENTILATION. SETTING INCLUDE KHOI 8, AC 24, TV 500, FIO2 40%, PEEP 5. NO DISTRESS NOTED. NO SOB NOTED. NO PAIN NOTED. F/C IN PLACE AND DRAINING.GTF FIBERSOURCE RUNNING 40 CC/HR. SITE CLEAR AND PATENT. PICC LINE RUNNING D5 20 MEW KCL AT 70 ML/HR CLEAN DRY AND INTACT . SAFETY MEASURE REMAIN IN PLACE . CALL LIGHT WITHIN REACH. RN WILL CONTINUE TO MONITOR THROUGHOUT THE DAY
[2017-10-11 08:00] VITALS: BP 93/55
[2017-10-11] MEDS: ABACAVIR PO SCH (08:16)
[2017-10-11] MEDS: LAMIVUDI PO SCH (08:16)
[2017-10-11] MEDS: PANTOPRAZOLE 40 MG VIAL IV SCH (08:16)
[2017-10-11] MEDS: DOLUTEGRAVIR PO SCH (08:16)
[2017-10-11] MEDS: LACTOBACILLUS RHAMNOSUS GG 1 EACH CAP.SPRINK PO SCH ×2 (08:16→16:19)
[2017-10-11] MEDS: QUETIAPINE FUMARATE 25 MG TABLET PO SCH ×2 (08:17→16:20)
[2017-10-11] MEDS: HYDROCODONE/APAP 5/325MG 1 EACH TABLET PO PRN ×2 (08:17→12:54)
[2017-10-11] MEDS: MULTIPLE VIT (LYCOPENE/FA/MV,CA,IRON,MIN/LUT)1 TAB PO SCH (08:17)
[2017-10-11] MEDS: DIAZEPAM 10 MG TABLET PO SCH ×3 (08:18→16:19)
[2017-10-11] MEDS: CLOTRIMAZOLE 1% 15 GM TUBE TP SCH ×2 (08:18→16:24)
[2017-10-11] MEDS: LORATADINE 10 MG TABLET PO SCH (08:18)
[2017-10-11] MEDS: PROSOURCE / PROSTAT (PYXIS) 30 ML UDC GT SCH ×2 (08:28→16:20)
[2017-10-11 12:00] VITALS: BP 118/62
[2017-10-11] MEDS: ACETAMINOPHEN 325 MG TABLET PO PRN (15:14)
[2017-10-11 16:00] VITALS: BP 103/62
--- NOTE | 2017-10-11 18:45 | NUR ---
RN CLOSING NOTE PATIENT STABLE THROUGHOUT THE DAY PATIENT HAS EXPERIENCED MILD ANXIETY VALIUM ADMINISTERED, NO CHANGES TO VENT SETTING PATIENT TOLERATED WELL THROUGHOUT THE DAY , PATIENT CLEAN DRY , ALL NEEDS ATTENDED PATIETN RESTING PER REQUEST RN WILL ENDORSE CONTINUATION OF CARE TO PM RN
--- NOTE | 2017-10-11 19:15 | NUR ---
RN NOTE RECEIVED PATIENT IN THE BED, ALERT/ORIENTED, ANXIOUS, HR 155, ST, SO2 96%, RESPIRATORY THERAPIST IS BY BEDSIDE, ANXIETY MED GIVEN, O RESIDUAL, ONGOING IV FLUIDS, ALL SAFETY MEASURES TAKEN, BED IN THE LOWEST POSITION, CALL LIGHT WITHIN REACH, WILL CONTINUE TO MONITOR PATIENT
[2017-10-11] MEDS: ALPRAZOLAM 1 MG TABLET PO PRN (19:43)
[2017-10-11 20:00] VITALS: BP 123/63
--- NOTE | 2017-10-11 20:23 | NUR ---
RN NOTE NOT ABLE TO SCAN FENTANYL PATCH, CALLED PHARMACY TO CLARIFY, WAITING FOR THEM TO CALL BACK
[2017-10-11] MEDS: FENTANYL PATCH (100 MCG/HR) 100 MCG/HR PATCH.TD72 TD SCH (21:00)
[2017-10-12] VITALS: BP 107/47
[2017-10-12 04:00] VITALS: BP 92/57
[2017-10-12] MEDS: ACETAMINOPHEN 325 MG TABLET PO PRN ×2 (04:39→12:13)
[2017-10-12] MEDS: LORAZEPAM INJ 2 MG/ML VIAL IV PRN (04:47)
--- NOTE | 2017-10-12 06:48 | NUR ---
RN CLOSING NOTE NO RESPIRATORY DISTRESS NOTED, ON MECHANICAL VENTILATOR, TOLERATED WELL, PLUGGED TO RED OUTLET AND WORKING PROPERLY, SO2 98% -99% ON MY SHIFT, PATIENT HAD TEMPERATURE, AFEBRILE AFTER TYLENOL VIA G-TUBE, STILL SINUS TACHYCARDIA 126-149 BEATS/MIN, PETERS CATHETER IS INTACT AND DRAINS URINE, ALERT/ORIENTED X 3, RESTED WELL DURING MY SHIFT, ON CONTINIOUS FEEDING FIBERSOURCE 40 ML/HR, TOLERATED WELL WITH 5ML RESIDUAL, WOUND CARE PROVIDED, TURNED AND REPOSITIONED Q 2 HOURS, RIGHT UPPER PICCLINE NO S/S OF INFECTION/INFILTRATION NOTED, D5W 20 MEQ KCL AT 70 ML/HR, TOLERATES WELL, ALL SAFETY MEASURES TAKEN, BED IN THE LOWEST POSITION, CALL LIGHT WITHIN REACH ALL BELONGINGS WITHIN REACH, SIDE RAILS UP X 2, BED IN THE LOWEST POSITION, WILL ENDORSE TO AM SHIFT FOR GLORIA
--- NOTE | 2017-10-12 07:45 | NUR ---
RT PLACED PT ON SIMV MODE PER MD ORDER WITH NOTED SETTINGS. PT DID NOT TOLERATE WEANING ORDER. RN AWARE. PT PLACED BACK ON AC MODE.
[2017-10-12 08:00] VITALS: BP 115/62
[2017-10-12] MEDS: TOBRAMYCIN 80 MG/2 ML VIAL INH SCH ×2 (08:08→19:30)
[2017-10-12] MEDS: DIAZEPAM 10 MG TABLET PO SCH ×3 (09:00→17:17)
[2017-10-12] MEDS: LACTOBACILLUS RHAMNOSUS GG 1 EACH CAP.SPRINK PO SCH ×2 (09:51→17:16)
[2017-10-12] MEDS: LAMIVUDI PO SCH (09:52)
[2017-10-12] MEDS: PANTOPRAZOLE 40 MG VIAL IV SCH (09:52)
[2017-10-12] MEDS: MULTIPLE VIT (LYCOPENE/FA/MV,CA,IRON,MIN/LUT)1 TAB PO SCH (09:52)
[2017-10-12] MEDS: ABACAVIR PO SCH (09:52)
[2017-10-12] MEDS: QUETIAPINE FUMARATE 25 MG TABLET PO SCH ×2 (09:52→17:17)
[2017-10-12] MEDS: DOLUTEGRAVIR PO SCH (09:52)
[2017-10-12] MEDS: LORATADINE 10 MG TABLET PO SCH (09:53)
[2017-10-12] MEDS: CLOTRIMAZOLE 1% 15 GM TUBE TP SCH ×2 (09:54→17:17)
[2017-10-12] MEDS: PROSOURCE / PROSTAT (PYXIS) 30 ML UDC GT SCH ×2 (09:56→17:16)
[2017-10-12] MEDS: Potassium Chloride 20 MEQ in IV D5W 1,000 ML IV PRN (10:07)
[2017-10-12] MEDS: FIBERSOURCE HN 1,000 ML BOTTLE GT PRN (10:12)
--- NOTE | 2017-10-12 11:48 | NUR ---
RN NOTE REPORT PROVIDED TO CHARGE NURSE CLEO, PATIENT IS STILL ST 140, SO2 99%, ASLEEP, EASILY AWAKENED, NO RESPIRATORY DISTRESS, DID NOT TOLERATE WEANING OFF, FAILED 2ND TRIAL, CHARGE NURSE IS AWARE, ALL SAFETY MEASURES TAKEN, NO ACUTE CHANGES FROM 7. 30 AM TO 11.50 AM,
[2017-10-12 12:00] VITALS: BP 92/50
[2017-10-12 16:00] VITALS: BP 90/51
--- NOTE | 2017-10-12 16:51 | NUR ---
RN NOTE PATIENT RECEIVED IN STABLE CONDITION ELEVATED HR THROUGHOUT HE DAY , PATIENT RESTING COMFORTABLY NO COMPLAINTS NOTED NO SOB NOTED AT THIS TIME PATIENT NEEDS ATTENDED RN WILL CONTINUE TO FOLLOW THE PATIENT PROGRESS THROUGHOUT THE DAY
--- NOTE | 2017-10-12 18:33 | NUR ---
RN CLOSING NOTE patient remains in stable condition turned and repositioned patient remains to make needs known and attempts to increase activity elevated respiratory rate throughout the day noted , patient failed weaning trail today after 2nd attempt patient remains in acute setting at this time rn will endorse care to pm rn
--- NOTE | 2017-10-12 19:30 | NUR ---
TRAINING AND DEVELOPMENT PROFESSIONAL OPENING NOTES RECEIVED REPORT FROM KIMI ACOSTA. PATIENT A/O X1, MOUTHS WORDS & VENT-TRACH DEPENDENT. TRACH INTACT W/ VENT SETTINGS AC 24, TV 500, FIO2 40%, PEEP 5. NO RESPIRATORY DISTRESS NOTED, SATING WELL @ 99-100%. ON TELE SINUS TACH, HR 126. RIGHT UPPER ARM PICC LINE INTACT W/ DRESSING CDI & IVF D5W W/ 20 MEQ KCL @ 20 ML/HR. G-TUBE INTACT & FLUSHING WELL W/ FIBERSOURCE @ 40 ML/HR. NO RESIDUAL NOTED @ THIS TIME. PETERS CATH INTACT & DRAINING YELLOW URINE. NO S/S OF PAIN OR DISCOMFORT @ THIS TIME. SAFETY MEASURES IN PLACE W/ SIDE RAILS UP & BED LOCKED & IN LOWEST POSITION. WILL CONTINUE TO MONITOR.
[2017-10-12] MEDS: NYSTATIN (PYXIS) 500,000 UNIT/5 ML ORAL.SUSP PO SCH (19:53)
[2017-10-12 20:00] VITALS: BP 106/61
[2017-10-12] MEDS: CEFEPIME 1 GM in IV D5W 50 ML IV SCH (20:29)
[2017-10-12] MEDS: FLUCONAZOLE (100 MG) 100 MG TABLET PO SCH (20:30)
[2017-10-12] MEDS: ONDANSETRON HCL/PF 4 MG/2 ML VIAL IVP PRN (20:50)
[2017-10-13] VITALS: BP 98/55
[2017-10-13] MEDS: Potassium Chloride 20 MEQ in IV D5W 1,000 ML IV PRN ×2 (02:33→17:57)
[2017-10-13 04:00] VITALS: BP_SYST 97; BP_SYST 98; BP_DIAS 53
[2017-10-13] MEDS: HYDROCODONE/APAP 5/325MG 1 EACH TABLET PO PRN (04:11)
--- NOTE | 2017-10-13 07:30 | NUR ---
SOFTBALL WINDER AM NOTES: RECEIVED PT. IN BED W/ HOB ELEVATED. AWAKE, A/O X 3, WITH SHILEY #8, ON MECHANICAL VENTILATOR W/ PRESCRIBED SETTING TOLERATING WELL. NO FACIAL GRIMACE OR MOANING NOTED. PT. ABLE TO MOUTH WORDS. TELEMETRY READS ST HR 110. DENIES ANY C/O CHEST PAIN OR SOB AT PRESENT. NO S/S OF RESPIRATORY DISTRESS. PICC LINE ON VITA PATENT AND INTACT, WITH D5W +20 MEQ KLC AT 70 ML/HR, SITE CLEAR, CDI DRESSING, HAS GTF IN PLACE PATENT FIBERSOURCE 40 ML/HR, 0 RESIDUAL, F/C IN PLACE DRAINING YELLOW COLOR URINE. CALL LIGHT WITHIN REACH. SAFETY MEASURES IN PLACE. WILL CONTINUE TO MONITOR.
[2017-10-13] MEDS: TOBRAMYCIN 80 MG/2 ML VIAL INH SCH ×2 (07:35→19:43)
[2017-10-13 08:00] VITALS: BP 97/58
--- NOTE | 2017-10-13 09:30 | NUR ---
CANE CUTTER NOTES ADMINISTERED DUE MEDS.
[2017-10-13] MEDS: CEFEPIME 1 GM in IV D5W 50 ML IV SCH ×2 (09:32→20:02)
[2017-10-13] MEDS: MULTIPLE VIT (LYCOPENE/FA/MV,CA,IRON,MIN/LUT)1 TAB PO SCH (09:33)
[2017-10-13] MEDS: NYSTATIN (PYXIS) 500,000 UNIT/5 ML ORAL.SUSP PO SCH ×3 (09:33→17:57)
[2017-10-13] MEDS: LORATADINE 10 MG TABLET PO SCH (09:33)
[2017-10-13] MEDS: DIAZEPAM 10 MG TABLET PO SCH ×3 (09:33→17:57)
[2017-10-13] MEDS: QUETIAPINE FUMARATE 25 MG TABLET PO SCH ×2 (09:33→17:57)
[2017-10-13] MEDS: DOLUTEGRAVIR PO SCH (09:33)
[2017-10-13] MEDS: PROSOURCE / PROSTAT (PYXIS) 30 ML UDC GT SCH ×2 (09:33→17:58)
[2017-10-13] MEDS: ABACAVIR PO SCH (09:33)
[2017-10-13] MEDS: LACTOBACILLUS RHAMNOSUS GG 1 EACH CAP.SPRINK PO SCH ×2 (09:33→17:57)
[2017-10-13] MEDS: PANTOPRAZOLE 40 MG VIAL IV SCH (09:33)
[2017-10-13] MEDS: LAMIVUDI PO SCH (09:33)
[2017-10-13] MEDS: CLOTRIMAZOLE 1% 15 GM TUBE TP SCH ×2 (09:34→17:58)
[2017-10-13] MEDS: FIBERSOURCE HN 1,000 ML BOTTLE GT PRN (09:44)
[2017-10-13 12:00] VITALS: BP 101/59
[2017-10-13 16:00] VITALS: BP 97/53
--- NOTE | 2017-10-13 19:30 | NUR ---
TELE / RN NOTES: RECEIVED PATIENT A/O X 2-3 IN BED W/ HOB ELEVATED. ABLE TO MOUTHS WORDS & VENT-TRACH DEPENDENT. TRACH INTACT W/ VENT SETTINGS AC 24, TV 500, FIO2 40%, PEEP 5. NO RESPIRATORY DISTRESS NOTED, SATING WELL @ 100 %. ON TELE SINUS TACH, HR 130. RIGHT UPPER ARM PICC LINE INTACT W/ DRESSING CDI & IVF D5W W/ 20 MEQ KCL @ 20 ML/HR. G-TUBE INTACT & FLUSHING WELL W/ FIBERSOURCE @ 40 ML/HR. NO RESIDUAL NOTED @ THIS TIME. PETERS CATH INTACT & DRAINING YELLOW URINE. NO S/S OF PAIN OR DISCOMFORT @ THIS TIME. SAFETY MEASURES IN PLACE W/ SIDE RAILS UP & BED LOCKED & IN LOWEST POSITION. WILL CONTINUE TO MONITOR
--- NOTE | 2017-10-13 19:51 | NUR ---
FLASK PUSHER CLOSING NOTES PT. IN BED RESTING COMFORTABLY, W/ HOB ELEVATED. AWAKE, A/O X 3, WITH SHILEY #8, ON MECHANICAL VENTILATOR W/ PRESCRIBED SETTING TOLERATING WELL. NO FACIAL GRIMACE OR MOANING NOTED. PT. ABLE TO MOUTH WORDS. DENIES ANY CHEST PAIN OR SOB AT PRESENT. NO S/S OF RESPIRATORY DISTRESS. PICC LINE ON VITA PATENT AND INTACT, WITH D5W +20 MEQ KLC AT 70 ML/HR, SITE CLEAR, CDI DRESSING, HAS GTF IN PLACE PATENT FIBERSOURCE 40 ML/HR, 0 RESIDUAL, F/C IN PLACE DRAINING YELLOW COLOR URINE WITH 1100 ML OUTPUT. CALL LIGHT WITHIN REACH. SAFETY MEASURES IN PLACE. SAFETY PRECAUTIONS IMPLEMENTED: BED IN LOCKED, LOW POSITION WITH TWO SIDE RAILS UP. CALL LIGHT AND BELONGINGS WITHIN EASY REACH. TURNED AND REPOSITIONED Q 2HOURS. PRESCRIBED WOUND TREATMENT AND PM CARE DONE. ALL NEEDS MET. NO OTHER SIGNIFICANT CHANGE IN CONDITION. ENDORSED TO NEXT SHIFT FOR GLORIA.
[2017-10-13 20:00] VITALS: BP 120/58
[2017-10-13] MEDS: FLUCONAZOLE (100 MG) 100 MG TABLET PO SCH (20:02)
--- NOTE | 2017-10-13 20:35 | NUR ---
TELE/RN NOTES: REPORT GIVEN TO SUBACUTE NURSE NELLY TO CONTINUE GLORIA. PT. TRANSFERRED VIA BED W/ R.T. TO ROOM 277 - 2. NURSE AND R.T. BY PT. SIDE.
[2017-10-14] MEDS ORDERED: GUAI100S11 GT (07:53)
[2017-10-14] MEDS ORDERED: CLOT15CR35 TP (07:53)
[2017-10-14] MEDS ORDERED: HYDR-3974 GT (07:53)
[2017-10-14] MEDS ORDERED: MULT-447 GT (07:53)
[2017-10-14] MEDS ORDERED: ACET650S11 RC (07:53)
[2017-10-14] MEDS ORDERED: FENT1PAT10 TD (07:53)
[2017-10-14] MEDS ORDERED: QUET25TA GT (07:53)
[2017-10-14] MEDS ORDERED: TOBR40VI2 INH (07:53)
[2017-10-14] MEDS ORDERED: METO5AMP3 IVP (07:53)
[2017-10-14] MEDS ORDERED: ALLA266C2 TP (07:53)
[2017-10-14] MEDS ORDERED: NUTR150016 GT (07:53)
[2017-10-14] MEDS ORDERED: DIAZ5TAB4 GT (07:53)
[2017-10-14] MEDS ORDERED: ACID1TAB12 GT (07:53)
[2017-10-14] MEDS ORDERED: LORA10TA7 GT (07:53)
[2017-10-14] MEDS ORDERED: PANT40SU2 GT (07:53)
[2017-10-14] MEDS ORDERED: AMIN30LI4 GT (07:53)
[2017-10-14] MEDS ORDERED: ACET-868 GT (07:53)
== END 2017-10-13 20:50 | DRG 5 ==
LOC: EDSEX 14:03 → EDBD 14:03 → ER 14:03 → ICU 16:51 → TELE-TD 10-06 17:21 → TELE1 10-07 11:48
PROVIDERS: ADMIT Internal Medicine; ATTEND Internal Medicine
PROC: 5A1945Z Respiratory Ventilation, 24-96 Consecutive Hours (ICD-10-PCS; principal; 2017-08-20)
PROC: 0BH17EZ Insertion of Endotracheal Airway into Trachea, Via Natural or Artificial Opening (ICD-10-PCS; principal; 2017-08-20)
PROC: 02HV33Z Insertion of Infusion Device into Superior Vena Cava, Percutaneous Approach (ICD-10-PCS; 2017-08-21)
PROC: 3E0G76Z Introduction of Nutritional Substance into Upper GI, Via Natural or Artificial Opening (ICD-10-PCS; 2017-08-23)
PROC: B548ZZA Ultrasonography of Superior Vena Cava, Guidance (ICD-10-PCS; 2017-08-23)
PROC: 0DH63UZ Insertion of Feeding Device into Stomach, Percutaneous Approach (ICD-10-PCS; 2017-08-23)
PROC: 02HV33Z Insertion of Infusion Device into Superior Vena Cava, Percutaneous Approach (ICD-10-PCS; 2017-08-23)
PROC: 5A1955Z Respiratory Ventilation, Greater than 96 Consecutive Hours (ICD-10-PCS; 2017-08-24)
PROC: 0BH17EZ Insertion of Endotracheal Airway into Trachea, Via Natural or Artificial Opening (ICD-10-PCS; 2017-08-24)
PROC: B54BZZA Ultrasonography of Right Lower Extremity Veins, Guidance (ICD-10-PCS; 2017-08-28)
PROC: 0JHN3XZ Insertion of Tunneled Vascular Access Device into Right Lower Leg Subcutaneous Tissue and Fascia, Percutaneous Approach (ICD-10-PCS; 2017-08-28)
PROC: 06HM33Z Insertion of Infusion Device into Right Femoral Vein, Percutaneous Approach (ICD-10-PCS; 2017-08-28)
PROC: 5A1D70Z Performance of Urinary Filtration, Intermittent, Less than 6 Hours Per Day (ICD-10-PCS; 2017-08-29)
PROC: 30233N1 Transfusion of Nonautologous Red Blood Cells into Peripheral Vein, Percutaneous Approach (ICD-10-PCS; 2017-08-30)
PROC: 5A1D70Z Performance of Urinary Filtration, Intermittent, Less than 6 Hours Per Day (ICD-10-PCS; 2017-08-30)
PROC: 5A1D70Z Performance of Urinary Filtration, Intermittent, Less than 6 Hours Per Day (ICD-10-PCS; 2017-09-03)
PROC: 0B113F4 Bypass Trachea to Cutaneous with Tracheostomy Device, Percutaneous Approach (ICD-10-PCS; 2017-09-05)
PROC: 5A1D70Z Performance of Urinary Filtration, Intermittent, Less than 6 Hours Per Day (ICD-10-PCS; 2017-09-05)
PROC: 5A1D70Z Performance of Urinary Filtration, Intermittent, Less than 6 Hours Per Day (ICD-10-PCS; 2017-09-06)
PROC: 5A1D70Z Performance of Urinary Filtration, Intermittent, Less than 6 Hours Per Day (ICD-10-PCS; 2017-09-07)
PROC: 5A1D70Z Performance of Urinary Filtration, Intermittent, Less than 6 Hours Per Day (ICD-10-PCS; 2017-09-09)
PROC: 5A1D70Z Performance of Urinary Filtration, Intermittent, Less than 6 Hours Per Day (ICD-10-PCS; 2017-09-11)
PROC: 05H633Z Insertion of Infusion Device into Left Subclavian Vein, Percutaneous Approach (ICD-10-PCS; 2017-09-11)
PROC: 5A1D70Z Performance of Urinary Filtration, Intermittent, Less than 6 Hours Per Day (ICD-10-PCS; 2017-09-13)
PROC: 5A1D70Z Performance of Urinary Filtration, Intermittent, Less than 6 Hours Per Day (ICD-10-PCS; 2017-09-15)
PROC: 5A1D70Z Performance of Urinary Filtration, Intermittent, Less than 6 Hours Per Day (ICD-10-PCS; 2017-09-17)
PROC: 5A1D70Z Performance of Urinary Filtration, Intermittent, Less than 6 Hours Per Day (ICD-10-PCS; 2017-09-22)
DX: T43.211A Poisoning by selective serotonin and norepinephrine reuptake inhibitors, accidental (unintentional), initial encounter (principal); R65.21 Severe sepsis with septic shock; N17.0 Acute kidney failure with tubular necrosis; J69.0 Pneumonitis due to inhalation of food and vomit; G92 Toxic encephalopathy; A41.9 Sepsis, unspecified organism; E43 Unspecified severe protein-calorie malnutrition; G93.1 Anoxic brain damage, not elsewhere classified; J96.01 Acute respiratory failure with hypoxia; Y92.89 Other specified places as the place of occurrence of the external cause; D63.8 Anemia in other chronic diseases classified elsewhere; E66.01 Morbid (severe) obesity due to excess calories; E83.39 Other disorders of phosphorus metabolism; E83.42 Hypomagnesemia; E87.2 Acidosis; E87.6 Hypokalemia; F10.10 Alcohol abuse, uncomplicated; F32.9 Major depressive disorder, single episode, unspecified; J15.6 Pneumonia due to other Gram-negative bacteria; Z99.11 Dependence on respirator [ventilator] status; Z99.2 Dependence on renal dialysis; R13.10 Dysphagia, unspecified; Z93.0 Tracheostomy status; Z93.1 Gastrostomy status; F64.9 Gender identity disorder, unspecified; N18.6 End stage renal disease; Z98.82 Breast implant status; Y90.9 Presence of alcohol in blood, level not specified; D62 Acute posthemorrhagic anemia; T79.7XXA Traumatic subcutaneous emphysema, initial encounter; T88.8XXA Other specified complications of surgical and medical care, not elsewhere classified, initial encounter; Y84.8 Other medical procedures as the cause of abnormal reaction of the patient, or of later complication, without mention of misadventure at the time of the procedure; Y82.9 Unspecified medical devices associated with adverse incidents; X58.XXXA Exposure to other specified factors, initial encounter; D47.3 Essential (hemorrhagic) thrombocythemia; T70.29XA Other effects of high altitude, initial encounter; F41.9 Anxiety disorder, unspecified; R00.0 Tachycardia, unspecified; B95.2 Enterococcus as the cause of diseases classified elsewhere; J90 Pleural effusion, not elsewhere classified; Z87.440 Personal history of urinary (tract) infections; Z87.01 Personal history of pneumonia (recurrent); N39.0 Urinary tract infection, site not specified; B96.5 Pseudomonas (aeruginosa) (mallei) (pseudomallei) as the cause of diseases classified elsewhere; E87.0 Hyperosmolality and hypernatremia; B20 Human immunodeficiency virus [HIV] disease
CPT/HCPCS: 31720; 36415; 36569; 36600; 70450-TC; 71010-TC; 71045-TC; 74018; 76700-TC; 76770-TC; 80048-TC; 80053-TC; 80061-TC; 80076-TC; 80150; 80202-TC; 81000-TC; 82272-TC; 82533; 82570-TC; 82803-TC; 82962-TC; 83605-TC; 83690-TC; 83735-TC; 84100-TC; 84132-TC; 84155-TC; 84300-TC; 84439-TC; 84443-TC; 84478-TC; 84481; 84484-TC; 85025-TC; 85027-TC; 85610-TC; 85730-TC; 86360; 86704; 86705; 86706; 86803; 86850-TC; 86921-TC; 87040-TC; 87070-TC; 87081-TC; 87086-TC; 87186-TC; 87340; 87536; 90935-TC; 93307-TC; 94002-TC; 94003-TC; 94640-TC; 94760-TC; 94762-TC; 94799-TC; 99082-TC; A4216; A4349; A4606; A4623; A6402; A6403; A7526; A9563; C1750; C1751; C1769; C9113; G0480; J0278; J0330; J0456; J0692; J0885; J1170; J1644; J1650; J1720; J1956; J2020; J2060; J2185; J2248; J2250; J2270; J2274; J2370; J2405; J2543; J2704; J2765; J2997; J3010; J3260; J3370; J3475; J3480; J3490; J7030; J7040; J7042; J7050; J7060; J7070; P9016-BL; P9047; Q9963; Z7610

== ENCOUNTER 2017-10-13 22:55 | Inpatient (IN) | payer MEDICAID ==
[~2017-10-13] VITALS: Ht 162.6 cm; Wt 45.4 kg
[2017-10-13 21:15] VITALS: BP 86/45
[2017-10-13 21:30] VITALS: BP 86/45
--- NOTE | 2017-10-13 22:00 | NUR ---
PATIENT ADMITTED FROM [facility] 37 YRS OLD TRANSGENDER,ALERT X 3,ABLE MOUTH WORDS,TRACH SHILEY#8 CUFFED,VENT AC 24,TV500,VML987% PEEP 5.RIGHT UPPER ARM PICC LINE,ON PETERS CATHETER.PEG GT FEEDING FIBERSOURCE 40CC/HR X 20HRS.DX;HYPOXEMIC RESPIRATORY FAILURE,ANOXIC ENCEPHALOPATHY,SEPSIS,DRUG OVERDOSE,CHRONIC ANEMIA,PERSISTENT TACHYCARDIA AND HIV POSITIVE.PATIENT IS UNDER THE CARE OF ,ALL MEDICATIONS CLARIFIED.COMPLETE BODY /SKIN ASSESSMENT DONE.SKIN TREATMENT INITIATED ORDERED.PM CARE RENDERED.HOB ELEVATED.KEPT CLEAN LISA.PT PREFERRED TO BE CALLED "BEN" HIS NICKNAME.CALL LIGHT WITHIN REACH,WILL CONTINUE TO MONITOR.
[~2017-10-13 22:55] MED LIST: ABAC1TAB15 PO; ALPR1TAB7 GT; CALC-261 PO; LIDO30CR TP; MULT1TAB62 PO
[2017-10-14] MEDS ORDERED: ACETAMINOPHEN 325 MG TABLET PO PRN
[2017-10-14] MEDS ORDERED: ACETAMINOPHEN 650 MG/SUPP.RECT RC PRN
[2017-10-14] MEDS ORDERED: ONDANSETRON HCL 4 MG/5 ML SOLUTION PO PRN
[2017-10-14] MEDS ORDERED: GUAIFENESIN 300 MG/15 ML UDC PO PRN
[2017-10-14] MEDS ORDERED: ALPRAZOLAM 0.25 MG TABLET PO PRN
[2017-10-14 01:17] VITALS: BP 91/60
[2017-10-14] MEDS: HYDROCODONE/APAP 5/325MG 1 EACH TABLET PO PRN ×2 (02:42→09:21)
[2017-10-14 05:15] VITALS: BP 89/48
[2017-10-14] MEDS ORDERED: CLOT15CR35 TP (07:53)
[2017-10-14] MEDS ORDERED: ACET-868 GT (07:53)
[2017-10-14] MEDS ORDERED: FENT1PAT10 TD (07:53)
[2017-10-14] MEDS ORDERED: DIAZ5TAB4 GT (07:53)
[2017-10-14] MEDS ORDERED: LORA10TA7 GT (07:53)
[2017-10-14] MEDS ORDERED: METO5AMP3 IVP (07:53)
[2017-10-14] MEDS ORDERED: GUAI100S11 GT (07:53)
[2017-10-14] MEDS ORDERED: ACID1TAB12 GT (07:53)
[2017-10-14] MEDS ORDERED: PANT40SU2 GT (07:53)
[2017-10-14] MEDS ORDERED: TOBR40VI2 INH (07:53)
[2017-10-14] MEDS ORDERED: AMIN30LI4 GT (07:53)
[2017-10-14] MEDS ORDERED: ACET650S11 RC (07:53)
[2017-10-14] MEDS ORDERED: NUTR150016 GT (07:53)
[2017-10-14] MEDS ORDERED: QUET25TA GT (07:53)
[2017-10-14] MEDS ORDERED: MULT-447 GT (07:53)
[2017-10-14] MEDS ORDERED: ALLA266C2 TP (07:53)
[2017-10-14] MEDS ORDERED: HYDR-3974 GT (07:53)
[2017-10-14 08:32] VITALS: BP 94/58
[2017-10-14] MEDS: PROSOURCE / PROSTAT (PYXIS) 30 ML UDC GT SCH ×2 (08:34→17:53)
[2017-10-14] MEDS: PANTOPRAZOLE 40 MG/PACK PACK GT SCH (08:34)
[2017-10-14] MEDS ORDERED: DIAZEPAM 5 MG TABLET PO SCH (09:00)
[2017-10-14] MEDS ORDERED: MULTIPLE VIT (LYCOPENE/FA/MV,CA,IRON,MIN/LUT)1 TAB PO SCH (09:00)
[2017-10-14] MEDS ORDERED: LORATADINE 10 MG TABLET PO SCH (09:00)
[2017-10-14] MEDS ORDERED: LACTOBACILLUS RHAMNOSUS GG 1 EACH CAP.SPRINK PO SCH (09:00)
[2017-10-14] MEDS ORDERED: DOLUTEGRAVIR PO SCH (09:00)
[2017-10-14] MEDS ORDERED: ABACAVIR PO SCH (09:00)
[2017-10-14] MEDS ORDERED: LAMIVUDI PO SCH (09:00)
[2017-10-14 12:00] VITALS: BP 93/54
--- NOTE | 2017-10-14 13:00 | NUR ---
Resident in bed alert responsive to verbal stimulation respond appropriately by mouthing words. Remain on ventilator with current vent setting well tolerated. Dr. Sosa notified of new admission and clarified a few medications. Dr. Sosa discontinued Tobramycin, Metoprolol IV and gave order for breathing treatment Albuterol and Atrovent Q6h. including order to start weaning resident on Monday. Resident informed. Mother at bedside visiting. Call light with in reach and able too use when she needed it.
[2017-10-14] MEDS ORDERED: ACETAMINOPHEN 650 MG/20 ML UDC- FOR SA PATIENTS ONLY GT PRN (13:30)
[2017-10-14] MEDS: IPRATROPIUM NEB FS 0.5 MG/2.5 ML AMPUL.NEB NEB SCH ×2 (14:32→19:32)
[2017-10-14] MEDS: ALBUTEROL FS 2.5 MG/0.5 ML VIAL.NEB NEB SCH ×2 (14:32→19:32)
--- NOTE | 2017-10-14 16:36 | NUR ---
PATIENT RECEIVED ON MECHANICAL VENTILATION. TRACH IS SECURED AND PATENT. ALARMS ON AND AUDIBLE. AMBU BAG/BACK UP TRACH @ BEDSIDE. NO SOB NOTED T/O SHIFT. HME CHANGED. Addendum: 10/14/17 at 1637 by PARAMJIT PETTIT RT Amended: Links added.
[2017-10-14] MEDS: QUETIAPINE FUMARATE 25 MG TABLET PO SCH (17:53)
[2017-10-14] MEDS: LACTOBACILLUS RHAMNOSUS GG 1 EACH CAP.SPRINK GT SCH (17:53)
[2017-10-14] MEDS: DIAZEPAM 5 MG TABLET PO SCH (17:53)
[2017-10-14] MEDS: FIBERSOURCE HN 1,000 ML BOTTLE GT PRN (17:54)
--- NOTE | 2017-10-14 18:02 | NUR ---
Notified Dr. Sosa that resident's HR ranging from 115-125, order given to d/c albuterol. Order carried out.
[2017-10-14 20:39] VITALS: BP 101/59
[2017-10-14] MEDS ORDERED: NEOMY SULF/BACITRAC ZN/POLY 15 GM TUBE TP SCH (21:00)
[2017-10-14] MEDS ORDERED: VITAMINS A AND D 56.7 GM TUBE TP SCH ×2 (21:00)
[2017-10-14] MEDS ORDERED: Z GUARD REMEDY 4 OZ OINT TP SCH ×2 (21:00)
[2017-10-14] MEDS ORDERED: HYDROGEL DRESSING 90 GM TUBE TP SCH (21:00)
[2017-10-14] MEDS ORDERED: FLUOCINONIDE 0.05% CREAM 30 GM TUBE TP SCH (21:00)
[2017-10-14] MEDS ORDERED: ZINC OXIDE 30 GM TUBE TP SCH ×2 (21:00)
[2017-10-14] MEDS: ALPRAZOLAM 0.25 MG TABLET PO PRN (21:04)
[2017-10-14] MEDS: VITAMINS A AND D 56.7 GM TUBE TP SCH (22:00)
[2017-10-14] MEDS: CLOTRIMAZOLE 1% 15 GM TUBE TP SCH (22:00)
[2017-10-14] MEDS: NYSTATIN TOP POWDER 15 GM BOTTLE TP SCH ×2 (22:00)
[2017-10-14] MEDS: Z GUARD REMEDY 4 OZ OINT TP SCH ×3 (22:00)
[2017-10-15] VITALS: BP 100/77
[2017-10-15] MEDS: FENTANYL PATCH (100 MCG/HR) 100 MCG/HR PATCH.TD72 TD SCH
[2017-10-15] MEDS: HYDROCODONE/APAP 5/325MG 1 EACH TABLET GT PRN ×2 (01:00→08:18)
[2017-10-15] MEDS: IPRATROPIUM NEB FS 0.5 MG/2.5 ML AMPUL.NEB NEB SCH ×4 (01:23→19:47)
[2017-10-15] MEDS: ALBUTEROL FS 2.5 MG/0.5 ML VIAL.NEB NEB SCH ×2 (01:23→07:17)
[2017-10-15 04:00] VITALS: BP 106/60
[2017-10-15 08:03] VITALS: BP 98/61
[2017-10-15] MEDS: LORATADINE 10 MG TABLET GT SCH (09:00)
[2017-10-15] MEDS: LAMIVUDI GT SCH (09:00)
[2017-10-15] MEDS: VITAMINS A AND D 56.7 GM TUBE TP SCH ×2 (09:00→21:20)
[2017-10-15] MEDS: NYSTATIN TOP POWDER 15 GM BOTTLE TP SCH ×4 (09:00→21:20)
[2017-10-15] MEDS: PANTOPRAZOLE 40 MG/PACK PACK GT SCH (09:00)
[2017-10-15] MEDS: DIAZEPAM 5 MG TABLET PO SCH ×3 (09:00→17:47)
[2017-10-15] MEDS: PROSOURCE / PROSTAT (PYXIS) 30 ML UDC GT SCH ×2 (09:00→17:47)
[2017-10-15] MEDS: Z GUARD REMEDY 4 OZ OINT TP SCH ×6 (09:00→21:20)
[2017-10-15] MEDS: QUETIAPINE FUMARATE 25 MG TABLET PO SCH ×2 (09:00→17:47)
[2017-10-15] MEDS: ABACAVIR GT SCH (09:00)
[2017-10-15] MEDS: DOLUTEGRAVIR GT SCH (09:00)
[2017-10-15] MEDS: CLOTRIMAZOLE 1% 15 GM TUBE TP SCH ×2 (09:00→21:20)
[2017-10-15] MEDS: MULTIVIT, IRON, MIN NO. 8, FA 1 TAB GT SCH (09:00)
[2017-10-15] MEDS: LACTOBACILLUS RHAMNOSUS GG 1 EACH CAP.SPRINK GT SCH ×2 (09:00→17:47)
[2017-10-15 19:21] VITALS: BP 95/54
[2017-10-15] MEDS: FIBERSOURCE HN 1,000 ML BOTTLE GT PRN (21:33)
[2017-10-16] MEDS: IPRATROPIUM NEB FS 0.5 MG/2.5 ML AMPUL.NEB NEB SCH ×4 (01:54→19:56)
[2017-10-16 08:14] VITALS: BP 99/58
[2017-10-16] MEDS: NYSTATIN TOP POWDER 15 GM BOTTLE TP SCH ×4 (09:00→21:00)
[2017-10-16] MEDS: LORATADINE 10 MG TABLET GT SCH (09:00)
[2017-10-16] MEDS: Z GUARD REMEDY 4 OZ OINT TP SCH ×6 (09:00→21:00)
[2017-10-16] MEDS: MULTIVIT, IRON, MIN NO. 8, FA 1 TAB GT SCH (09:00)
[2017-10-16] MEDS: PROSOURCE / PROSTAT (PYXIS) 30 ML UDC GT SCH ×2 (09:00→17:47)
[2017-10-16] MEDS: LACTOBACILLUS RHAMNOSUS GG 1 EACH CAP.SPRINK GT SCH ×2 (09:00→17:47)
[2017-10-16] MEDS: DIAZEPAM 5 MG TABLET PO SCH ×3 (09:00→17:47)
[2017-10-16] MEDS: VITAMINS A AND D 56.7 GM TUBE TP SCH ×2 (09:00→21:00)
[2017-10-16] MEDS: PANTOPRAZOLE 40 MG/PACK PACK GT SCH (09:00)
[2017-10-16] MEDS: QUETIAPINE FUMARATE 25 MG TABLET PO SCH ×2 (09:00→17:47)
[2017-10-16] MEDS: LAMIVUDI GT SCH (09:00)
[2017-10-16] MEDS: CLOTRIMAZOLE 1% 15 GM TUBE TP SCH ×2 (09:00→21:00)
[2017-10-16] MEDS: ABACAVIR GT SCH (09:00)
[2017-10-16] MEDS: DOLUTEGRAVIR GT SCH (09:00)
[2017-10-16] MEDS: ONDANSETRON 4 MG TAB.RAPDIS GT PRN (11:48)
--- NOTE | 2017-10-16 13:56 | NUR ---
Resident's mother signed off on admission ppwk (patient rights acknowledgement, documentation of preferred intensity of care, conditions of admission, [place] Standard Admission Agreement, and voluntary prior express consent form) however, per the resident she would prefer for her friend Mary Ann Webb to be her primary contact as she speaks Surinamese. The resident's mother Leesa Gordon only speaks Bulgarian. Per the resident, hospital can contact her friend first and mother as a secondary contact. Mother was okay with this. Admitting updated the resident's face sheet and SW placed a copy in the resident's chart. SW spoke to the resident's friend Mary Ann and she stated that she can come tomorrow to sign off on the admission ppwk.
--- NOTE | 2017-10-16 14:30 | NUR ---
Patients' HR elevated ranges 140-160, he is calm and sleepy at this time. [employer] REPA[employer]ER Renea came to do rounds, aware of elevated HR. Patient complained of pain pointing to her chest and started to get anxious. Spoke to [employer] REPAIRER and made her aware patient has pain medication as needed. [employer] REPAIRER made aware too patient vomited earlier, prn zofran via GT given earlier. [employer] REPAIRER concerned of vomiting and HR has been elevated. Patient has history of tachycardic. Has new order of ativan 0.5 mg IV PUSH now x 1. PSYCHIATRY CONSULT. Patient closely monitor.
--- NOTE | 2017-10-16 14:37 | NUR ---
SW was informed by charge nurse that resident needs a psych consult. FELIPE had already informed Dr. Alston that resident is in subacute as she was following her on the acute side of the hospital. She stated she will see the resident and SW informed her already that Dr. Alston (psychiatrist) was already informed.
[2017-10-16] MEDS ORDERED: LORAZEPAM INJ 2 MG/ML VIAL IVP ONE (15:00)
--- NOTE | 2017-10-16 15:00 | NUR ---
Faxed order to pharmacy, verified order with [facility] spoke to kristina. OK to get it in refrigerator E KIT NEW ORDER of ATIVAN 0.5 MG (0.25 ML). Spoke to patient and agreed that he has to be given ativan IV PUSH for anxiety per MD ORDER. Despite of patient tried to redirect by calming him down, offered to be turn and reposition, he refused at thsi time. HR still elevated. IV PUSH ATIVAN 0.5 MG =0.25 ML GIVEN. HR AT THIS TIME 147. Patient closely monitored.
--- NOTE | 2017-10-16 16:00 | NUR ---
Patient still having elevated HR WENT UP TO 167. Patient is awake, noted agitation, his mom at bedside. Called answering service of DR. SMITH, environmental studies department chair is DR.Tim Wang, left message, waiting for call back. Patient closely monitored.
--- NOTE | 2017-10-16 16:45 | NUR ---
Dr. Blue DEE called back, made aware patient has temp 103.1. HAS stat orders labs CBC, BMP, Blood culture x 2, sputum C and S, Urine C and S. Provided cooling measures. Noted and carried out.
[2017-10-16 18:21] LABS: CALCIUM, SERUM 10.5 mg/dL (8.5-10.1); CREATININE 0.6 mg/dL (0.6-1.3); POTASSIUM 4.3 mmol/L (3.5-5.1)
[2017-10-16 18:25] LABS: BASOPHILS # (AUTO) 0.1 /CMM (0.0-0.2); BASOPHILS % (AUTO) 0.5 % (0.0-2.0); EOSINOPHILS % (AUTO) 0.6 % (0.0-6.0); HEMATOCRIT 27 % (39-51); HEMOGLOBIN 9.3 g/dL (13.5-17.5); LYMPHOCYTES # (AUTO) 2.5 /CMM (0.8-4.8); LYMPHOCYTES % (AUTO) 14.6 % (20.0-44.0); MEAN CORPUSCULAR HGB CONC 34 g/dl (31.0-36.0); MEAN CORPUSCULAR VOLUME 89 fL (80-96); MONOCYTES # (AUTO) 0.8 /CMM (0.1-1.30); MONOCYTES % (AUTO) 4.9 % (2.0-12.0); NEUTROPHILS # (AUTO) 13.8 /CMM (1.8-8.9); NEUTROPHILS % (AUTO) 79.4 % (43.0-81.0); PLATELET COUNT (AUTO) 485 /CMM (150-450); RDW COEFFICIENT OF VARIATION 15.3 (11.5-15.0); RED BLOOD CELL COUNT(AUTO) 3.05 MIL/uL (4.5-6.0); WHITE BLOOD COUNT (AUTO) 17.3 K/uL (4.3-11.0)
[2017-10-16] MEDS ORDERED: DOSING PER PHARMACY-TOBRA INHALATION 1 EA XX PRN (20:30)
[2017-10-16] MEDS: TOBRAMYCIN 80 MG/2 ML VIAL INH SCH (21:00)
[2017-10-16] MEDS: CEFEPIME 1 GM in IV D5W 50 ML IV SCH (21:00)
[2017-10-16 22:53] VITALS: BP 93/56
[2017-10-17] MEDS: IPRATROPIUM NEB FS 0.5 MG/2.5 ML AMPUL.NEB NEB SCH ×4 (01:54→20:13)
[2017-10-17] MEDS: HYDROCODONE/APAP 5/325MG 1 EACH TABLET GT PRN (05:23)
[2017-10-17] MEDS: FIBERSOURCE HN 1,000 ML BOTTLE GT PRN (06:18)
[2017-10-17 08:24] VITALS: BP 102/60
[2017-10-17] MEDS: TOBRAMYCIN 80 MG/2 ML VIAL INH SCH ×2 (08:37→20:13)
[2017-10-17] MEDS: CEFEPIME 1 GM in IV D5W 50 ML IV SCH ×2 (09:00→21:00)
[2017-10-17] MEDS: MULTIVIT, IRON, MIN NO. 8, FA 1 TAB GT SCH (09:00)
--- NOTE | 2017-10-17 09:00 | NUR ---
Seen by Dr. Sosa. Received order to do psych consult for anxiety. Notified him that weaning was not done yesterday due to pt's anxiety.
[2017-10-17] MEDS: DOLUTEGRAVIR GT SCH (10:00)
[2017-10-17] MEDS: Z GUARD REMEDY 4 OZ OINT TP SCH ×6 (10:00→21:29)
[2017-10-17] MEDS: LAMIVUDI GT SCH (10:00)
[2017-10-17] MEDS: NYSTATIN TOP POWDER 15 GM BOTTLE TP SCH ×4 (10:00→21:29)
[2017-10-17] MEDS: CLOTRIMAZOLE 1% 15 GM TUBE TP SCH ×2 (10:00→21:28)
[2017-10-17] MEDS: LORATADINE 10 MG TABLET GT SCH (10:00)
[2017-10-17] MEDS: PANTOPRAZOLE 40 MG/PACK PACK GT SCH (10:00)
[2017-10-17] MEDS: DIAZEPAM 5 MG TABLET PO SCH ×3 (10:00→16:10)
[2017-10-17] MEDS: PROSOURCE / PROSTAT (PYXIS) 30 ML UDC GT SCH ×2 (10:00→16:08)
[2017-10-17] MEDS: VITAMINS A AND D 56.7 GM TUBE TP SCH ×2 (10:00→21:29)
[2017-10-17] MEDS: ABACAVIR GT SCH (10:00)
[2017-10-17] MEDS: QUETIAPINE FUMARATE 25 MG TABLET PO SCH (10:00)
[2017-10-17] MEDS: LACTOBACILLUS RHAMNOSUS GG 1 EACH CAP.SPRINK GT SCH ×2 (10:00→16:07)
--- NOTE | 2017-10-17 11:20 | NUR ---
Spoke with Dr. Alston [phone] and received order to reduce Seroquel dose from 50 mg BID to 25 mg TID, start Zoloft 25 mg daily at [address]. [address] Alston that pt verbalized she is anxious and asked for another dose of Diazepam. Pt's heart rate 171. Encouraged pt to take slower breaths, checked on pt and talked with pt every 15 minutes, turned tv on for pt. Dr. Alston ordered Xanax 0.5 mg GT once for anxiety and panic disorder. Pt aware.
--- NOTE | 2017-10-17 12:17 | NUR ---
Received a call from Emily from [facility]. She stated that they were not notified that the resident was now in the subacute unit. She requested clinicals to be faxed to [phone] with ref # [id number] so she can provide an authorization #. FELIPE faxed clinicals and informed subacute manager msw Rianna and admitting director Kaley.
[2017-10-17] MEDS ORDERED: ALPRAZOLAM 0.5 MG TABLET GT ONE (12:30)
[2017-10-17] MEDS: QUETIAPINE FUMARATE 25 MG TABLET GT SCH ×2 (12:53→16:08)
--- NOTE | 2017-10-17 14:05 | NUR ---
Pt complaining of chest pain. He said he feels like getting punched in the chest. BP 115/65 HR 147 O2 sat 95%. Pt anxious, was given routine doses of Diazepam and Seroquel at 1300. Dr. Hurtado ordered EKG. Notified pt.
--- NOTE | 2017-10-17 14:35 | NUR ---
Resident's friend Mary Ann came to sign admission ppwk (patient rights acknowledgement, documentation of preferred intensity of care, conditions of admission, , [place] Standard Admission Agreement, and voluntary prior express consent form). The resident wishes to be full code with maximum treatment. Charge nurse informed. Admission ppwk placed in the resident's chart.
--- NOTE | 2017-10-17 14:37 | NUR ---
FELIPE spoke with the resident and assessed for suicidal ideation for prior overdose resulting in admission to [facility] in 07/2017. The resident stated that she does not wish to harm herself. Denied suicidal ideation or plan.
--- NOTE | 2017-10-17 14:50 | NUR ---
EKG showed sinus tachycardia. Relayed result to Dr. Hurtado. No new order. Pt's friend Mary Ann and pt's mother are visiting. Pt verbalized she feels better. Pt calmed down when they came.
--- NOTE | 2017-10-17 14:59 | NUR ---
UR Review: Emily from [facility] ([phone] fax: [phone]) left SW a voice message indicating that she authorized 2 weeks from 10/13/2017- 10/26/2017 with clinicals due before end of 10/26/2017 (at least two days before she indicated). Informed Kaley. Addendum: 10/17/17 at 1505 by RYAN WANG Auth # [id number]
--- NOTE | 2017-10-17 18:00 | NUR ---
Received order from Dr. Hurtado to DC Putnam catheter.
--- NOTE | 2017-10-17 18:25 | NUR ---
Clarified stop dates of antibiotics with OUTBOUND SUPERVISOR Lisa. Received order to give Cefepime and Tobramycin for a total of 7 days.
[2017-10-17] MEDS: FENTANYL PATCH (100 MCG/HR) 100 MCG/HR PATCH.TD72 TD SCH (21:28)
[2017-10-18] MEDS: IPRATROPIUM NEB FS 0.5 MG/2.5 ML AMPUL.NEB NEB SCH ×4 (02:26→19:41)
[2017-10-18 08:00] VITALS: BP 98/64
--- NOTE | 2017-10-18 08:18 | NUR ---
PT RECEIVED ON VENT SUPPORT VIA TRACH WITH PARAMETERS BELLOW ORDER: AC 24 VT 500 ML FIO2 40% PEEP 5 B/S CLEAR BILATERAL, SXN VERY THIN SMALL CLEAR SECRETIONS. Addendum: 10/18/17 at 0820 by KIMO FISHER RT Amended: Links added.
--- NOTE | 2017-10-18 08:22 | NUR ---
VENT CHANGES JAVIEROW ORDER: SIMV 10 VT 500 FIO2 40% PS 20 PEEP 5. EXHALED VT 623ML SPO2 98% HR 100 RR18 Addendum: 10/18/17 at 0826 by KIMO FISHER RT Amended: Links added.
[2017-10-18] MEDS: DIAZEPAM 5 MG TABLET PO SCH ×3 (09:00→17:08)
[2017-10-18] MEDS: NYSTATIN TOP POWDER 15 GM BOTTLE TP SCH ×4 (09:00→21:31)
[2017-10-18] MEDS: VITAMINS A AND D 56.7 GM TUBE TP SCH ×2 (09:00→21:31)
[2017-10-18] MEDS: GABAPENTIN 300 MG CAPSULE GT SCH ×3 (09:00→17:00)
[2017-10-18] MEDS: CLOTRIMAZOLE 1% 15 GM TUBE TP SCH ×2 (09:00→21:31)
[2017-10-18] MEDS: Z GUARD REMEDY 4 OZ OINT TP SCH ×6 (09:00→21:31)
[2017-10-18] MEDS ORDERED: GABAPENTIN 100 MG CAPSULE GT PRN ×2 (09:00→13:00)
[2017-10-18] MEDS: CEFEPIME 1 GM in IV D5W 50 ML IV SCH ×2 (09:15→21:00)
[2017-10-18] MEDS: DOLUTEGRAVIR GT SCH (09:41)
[2017-10-18] MEDS: LAMIVUDI GT SCH (09:41)
[2017-10-18] MEDS: PROSOURCE / PROSTAT (PYXIS) 30 ML UDC GT SCH ×2 (09:41→17:07)
[2017-10-18] MEDS: ABACAVIR GT SCH (09:41)
[2017-10-18] MEDS: PANTOPRAZOLE 40 MG/PACK PACK GT SCH (09:44)
[2017-10-18] MEDS: LACTOBACILLUS RHAMNOSUS GG 1 EACH CAP.SPRINK GT SCH ×2 (09:44→17:06)
[2017-10-18] MEDS: MULTIVIT, IRON, MIN NO. 8, FA 1 TAB GT SCH (09:44)
[2017-10-18 09:50] LABS: ABG BASE EXCESS 5.3 mmol/L; ABG OXYGEN SATURATION 96.5 % (92.0-98.5); ABG PCO2 51.2 mmHg (35.0-45.0); ABG PH 7.398 (7.350-7.450); ABG PO2 98.4 mmHg (75.0-100.0); AaDO2 127.9 mmHg; COHb 0.3 % (0.5-1.5); MetHb 0.5 % (0.0-1.5); O2Hb 95.7 % (94.0-97.0); PEEP,BG 5 cm H2O; SITE, ABG Left Brachial; VENT MODE, BG simv 10 / ps 20; VT, ABG 450 mL
[2017-10-18] MEDS: LORATADINE 10 MG TABLET GT SCH (09:59)
--- NOTE | 2017-10-18 10:00 | NUR ---
Seen and examined by Dr. Fontenot, psychiatrist with new order to DC Seroquel, add Neurontin and change dose of Valium from 5mg. to 2.5mg. Order noted and carried out. Resident made harrison of new order and signed consent Neurontin.
[2017-10-18] MEDS ORDERED: TUBERCULIN,PURIF.PROT.DERIV. 5 TU/0.1 ML VIAL ID SCH (10:30)
[2017-10-18] MEDS: SERTRALINE HCL 25 MG TABLET GT SCH (13:00)
[2017-10-18] MEDS: GABAPENTIN 100 MG CAPSULE GT SCH ×2 (13:00→17:07)
[2017-10-18] MEDS: FIBERSOURCE HN 1,000 ML BOTTLE GT PRN (13:27)
[2017-10-18] MEDS: TOBRAMYCIN 80 MG/2 ML VIAL INH SCH ×2 (14:28→20:28)
--- NOTE | 2017-10-18 16:20 | NUR ---
Received a telephone order from [facility] stating that Dr. Leon Hurtado said that Valium 2.5mg. was changed back to 5mg because low dose is not sufficient for him. Notified Dr. Fontenot of the change in the dose. Appreciated the call and said it is patient's attending physician who ordered it therefore to follow. Order noted and carried out.
--- NOTE | 2017-10-18 19:42 | NUR ---
RECEIVED TRACH PT ON VENT. TRACH WELL SECURED. PLASTIC SURGERY MANAGER DONE. VENT PLUGGED INTO RED OUTLET. ALARMS TESTED AND WELL FUNCTIONING WITH AMBU BAG PLACED AT BEDSIDE. PT TOLERATED Q6/Q12 BREATHING TX REQUESTED BY . IraX PRN. NO ADVERSE REACTION NOTED. WILL CONT TO MONITOR PT.
[2017-10-18] MEDS: DIAZEPAM 5 MG TABLET GT SCH (21:31)
[2017-10-19] MEDS: IPRATROPIUM NEB FS 0.5 MG/2.5 ML AMPUL.NEB NEB SCH ×4 (00:43→19:30)
[2017-10-19 01:26] VITALS: BP 98/60
[2017-10-19] MEDS: ALPRAZOLAM 0.25 MG TABLET PO PRN (06:47)
[2017-10-19 07:45] VITALS: BP 95/58
[2017-10-19] MEDS: CEFEPIME 1 GM in IV D5W 50 ML IV SCH ×3 (09:00→21:05)
[2017-10-19] MEDS: TOBRAMYCIN 80 MG/2 ML VIAL INH SCH ×2 (09:28→20:00)
[2017-10-19] MEDS: LORATADINE 10 MG TABLET GT SCH (09:46)
[2017-10-19] MEDS: LACTOBACILLUS RHAMNOSUS GG 1 EACH CAP.SPRINK GT SCH ×2 (09:46→17:00)
[2017-10-19] MEDS: PROSOURCE / PROSTAT (PYXIS) 30 ML UDC GT SCH ×2 (09:47→17:00)
[2017-10-19] MEDS: ABACAVIR GT SCH (09:47)
[2017-10-19] MEDS: PANTOPRAZOLE 40 MG/PACK PACK GT SCH (09:47)
[2017-10-19] MEDS: DOLUTEGRAVIR GT SCH (09:47)
[2017-10-19] MEDS: MULTIVIT, IRON, MIN NO. 8, FA 1 TAB GT SCH (09:47)
[2017-10-19] MEDS: GABAPENTIN 100 MG CAPSULE GT SCH (09:47)
[2017-10-19] MEDS: LAMIVUDI GT SCH (09:47)
[2017-10-19] MEDS: DIAZEPAM 5 MG TABLET GT SCH ×4 (09:48→21:05)
[2017-10-19] MEDS: Z GUARD REMEDY 4 OZ OINT TP SCH ×6 (09:51→21:00)
[2017-10-19] MEDS: VITAMINS A AND D 56.7 GM TUBE TP SCH ×2 (09:51→21:00)
[2017-10-19] MEDS: NYSTATIN TOP POWDER 15 GM BOTTLE TP SCH ×4 (09:51→21:00)
[2017-10-19] MEDS: CLOTRIMAZOLE 1% 15 GM TUBE TP SCH ×2 (09:51→21:00)
[2017-10-19] MEDS: ONDANSETRON 4 MG TAB.RAPDIS GT PRN (10:42)
--- NOTE | 2017-10-19 13:53 | NUR ---
SW visited the resident to check in. Resident stated that he was doing okay and better than the previous few days when he had increased heart rate. Resident was watching television and no distress was noted.
[2017-10-19] MEDS: GABAPENTIN 300 MG CAPSULE GT SCH ×2 (17:00→21:05)
[2017-10-19] MEDS: FIBERSOURCE HN 1,000 ML BOTTLE GT PRN (18:26)
--- NOTE | 2017-10-19 21:03 | NUR ---
RCVD PT ON VENT WITH NOTED SETTINGS. BREATHING TX GIVEN, NO ADVERSE REACTION NOTED. SUCTIONED MODERATE AMOUNT OF PALE YELLOW THICK SECRETIONS . VENT PLUGGED INTO RED OUTLET, VENT ALARM WORKING AND AUDIBLE. AMBU BAG AT BEDSIDE. WILL CONTINUE TO MONITOR THE PT.
[2017-10-19] MEDS: HYDROCODONE/APAP 5/325MG 1 EACH TABLET GT PRN (22:00)
[2017-10-20 00:48] VITALS: BP 107/68
[2017-10-20] MEDS: IPRATROPIUM NEB FS 0.5 MG/2.5 ML AMPUL.NEB NEB SCH ×4 (02:50→20:21)
[2017-10-20 06:49] LABS: BASOPHILS # (AUTO) 0.1 /CMM (0.0-0.2); BASOPHILS % (AUTO) 0.6 % (0.0-2.0); EOSINOPHILS % (AUTO) 2.5 % (0.0-6.0); HEMATOCRIT 24 % (39-51); HEMOGLOBIN 8.3 g/dL (13.5-17.5); LYMPHOCYTES # (AUTO) 4.2 /CMM (0.8-4.8); LYMPHOCYTES % (AUTO) 48.5 % (20.0-44.0); MEAN CORPUSCULAR HGB CONC 34 g/dl (31.0-36.0); MEAN CORPUSCULAR VOLUME 91 fL (80-96); MONOCYTES # (AUTO) 0.8 /CMM (0.1-1.30); MONOCYTES % (AUTO) 9.2 % (2.0-12.0); NEUTROPHILS # (AUTO) 3.4 /CMM (1.8-8.9); NEUTROPHILS % (AUTO) 39.2 % (43.0-81.0); PLATELET COUNT (AUTO) 432 /CMM (150-450); RDW COEFFICIENT OF VARIATION 16.1 (11.5-15.0); RED BLOOD CELL COUNT(AUTO) 2.66 MIL/uL (4.5-6.0); WHITE BLOOD COUNT (AUTO) 8.6 K/uL (4.3-11.0)
--- NOTE | 2017-10-20 06:52 | NUR ---
Patient did not void during the night,no bladder distention noted,denies pain.He said that he voided a lot yesterday.Told pt if he's retaining urine we might put back his singletary catheter.He said he try to pee.Will continue to monitor and will endorse.
[2017-10-20 06:55] LABS: CALCIUM, SERUM 9.9 mg/dL (8.5-10.1); CREATININE 0.4 mg/dL (0.6-1.3); POTASSIUM 4.2 mmol/L (3.5-5.1)
[2017-10-20] MEDS: TOBRAMYCIN 80 MG/2 ML VIAL INH SCH ×2 (08:07→23:52)
[2017-10-20] MEDS: DOLUTEGRAVIR GT SCH (09:45)
[2017-10-20] MEDS: PROSOURCE / PROSTAT (PYXIS) 30 ML UDC GT SCH ×2 (09:45→17:46)
[2017-10-20] MEDS: LAMIVUDI GT SCH (09:45)
[2017-10-20] MEDS: PANTOPRAZOLE 40 MG/PACK PACK GT SCH (09:45)
[2017-10-20] MEDS: ABACAVIR GT SCH (09:45)
[2017-10-20] MEDS: LACTOBACILLUS RHAMNOSUS GG 1 EACH CAP.SPRINK GT SCH ×2 (09:45→17:46)
[2017-10-20] MEDS: GABAPENTIN 300 MG CAPSULE GT SCH ×4 (09:45→21:08)
[2017-10-20] MEDS: DIAZEPAM 5 MG TABLET GT SCH ×4 (09:46→21:09)
[2017-10-20] MEDS: NYSTATIN TOP POWDER 15 GM BOTTLE TP SCH ×4 (09:51→21:13)
[2017-10-20] MEDS: Z GUARD REMEDY 4 OZ OINT TP SCH ×6 (09:51→21:14)
[2017-10-20] MEDS: CLOTRIMAZOLE 1% 15 GM TUBE TP SCH ×2 (09:51→21:13)
[2017-10-20] MEDS: VITAMINS A AND D 56.7 GM TUBE TP SCH ×2 (09:52→21:14)
[2017-10-20] MEDS: LORATADINE 10 MG TABLET GT SCH (09:54)
[2017-10-20] MEDS: MULTIVIT, IRON, MIN NO. 8, FA 1 TAB GT SCH (09:54)
[2017-10-20] MEDS: CEFEPIME 1 GM in IV D5W 50 ML IV SCH ×2 (09:57→20:56)
--- NOTE | 2017-10-20 11:00 | NUR ---
Resident had a shower in the shower room. She's able pass urine using urinal with urine output of 600 ml. Resident continue with IV ATB Cefepime with no adverse reaction. Resident stable, watching TV and call light and TV control within his reach.
[2017-10-20] MEDS: SERTRALINE HCL 25 MG TABLET GT SCH (12:50)
--- NOTE | 2017-10-20 14:20 | NUR ---
Resident seen by ST with new order that patient may have ice chips 2-3 times a day with RT/RN supervision. For aspiration precaution. Endorsed.
--- NOTE | 2017-10-20 18:04 | NUR ---
PATIENT RECEIVED ON MECHANICAL VENTILATION. SP02 > 92%, TRACH SECURED AND PATENT. ALARMS ON AND AUDIBLE. AMBU BAG/ BACK UP TRACH @ BEDSIDE. NO SOB NOTED T/O SHIFT. MONITORED CLOSELY. Addendum: 10/20/17 at 1805 by PARAMJIT PETTIT RT Amended: Links added.
[2017-10-20 20:30] VITALS: BP 103/62
[2017-10-20] MEDS: FENTANYL PATCH (100 MCG/HR) 100 MCG/HR PATCH.TD72 TD SCH (21:13)
[2017-10-21] MEDS: IPRATROPIUM NEB FS 0.5 MG/2.5 ML AMPUL.NEB NEB SCH ×4 (01:15→19:53)
[2017-10-21] MEDS: FIBERSOURCE HN 1,000 ML BOTTLE GT PRN (05:38)
[2017-10-21] MEDS: VITAMINS A AND D 56.7 GM TUBE TP SCH ×2 (09:00→21:00)
[2017-10-21] MEDS: CEFEPIME 1 GM in IV D5W 50 ML IV SCH ×2 (09:00→21:00)
[2017-10-21] MEDS: PROSOURCE / PROSTAT (PYXIS) 30 ML UDC GT SCH ×2 (09:00→17:56)
[2017-10-21] MEDS: Z GUARD REMEDY 4 OZ OINT TP SCH ×6 (09:00→21:00)
[2017-10-21] MEDS: CLOTRIMAZOLE 1% 15 GM TUBE TP SCH ×2 (09:00→21:00)
[2017-10-21] MEDS: NYSTATIN TOP POWDER 15 GM BOTTLE TP SCH ×4 (09:00→21:00)
[2017-10-21] MEDS: TOBRAMYCIN 80 MG/2 ML VIAL INH SCH ×2 (09:21→20:02)
[2017-10-21] MEDS: LORATADINE 10 MG TABLET GT SCH (09:58)
[2017-10-21] MEDS: LACTOBACILLUS RHAMNOSUS GG 1 EACH CAP.SPRINK GT SCH ×2 (09:59→17:56)
[2017-10-21] MEDS: PANTOPRAZOLE 40 MG/PACK PACK GT SCH (09:59)
[2017-10-21] MEDS: MULTIVIT, IRON, MIN NO. 8, FA 1 TAB GT SCH (09:59)
[2017-10-21] MEDS: ABACAVIR GT SCH (09:59)
[2017-10-21] MEDS: DOLUTEGRAVIR GT SCH (09:59)
[2017-10-21] MEDS: DIAZEPAM 5 MG TABLET GT SCH ×4 (09:59→21:00)
[2017-10-21] MEDS: LAMIVUDI GT SCH (09:59)
[2017-10-21] MEDS: GABAPENTIN 300 MG CAPSULE GT SCH ×4 (09:59→21:00)
[2017-10-21] MEDS: SERTRALINE HCL 25 MG TABLET GT SCH (13:16)
--- NOTE | 2017-10-21 14:00 | NUR ---
Resident OOB to mena chair. Initially she verbalized she is shy and does not want to be up in the gerichair and be taken to activity room. She asked if there are other people in the activity room. Explained to resident other resident and their family comes to the activity room but if she prefers she can stay in the room. Resident stayed up more than 4 hours and she wants to stay even longer, Mother at bedside and pleased to see patient in a better mood, smiling and appears to be motivated with the plan of care to get back on her feet.
[2017-10-21] MEDS: ONDANSETRON 4 MG TAB.RAPDIS GT PRN (14:45)
--- NOTE | 2017-10-21 15:00 | NUR ---
Dr. Leon Hurtado notified that patient is complaining of GT stoma pain and noted to have hypergranulation tissue. Referred to Gabi HAJI per Dr. Hurtado. Ms Ashley will see patient on Monday. Resident informed.
[2017-10-21 19:21] VITALS: BP 98/62
--- NOTE | 2017-10-21 20:19 | NUR ---
Received the patient on SIMV 10,500, PS20, 40% as per MD order. Breath sounds equal bilateral. Breathing tx gien as ordered and tolerated well. No adverse reactions noted. Ambu bag at the bed side. Vent plugged into red outlet and alarms set and audible. Patiets' airways suctioned as needed.
[2017-10-22] MEDS: IPRATROPIUM NEB FS 0.5 MG/2.5 ML AMPUL.NEB NEB SCH ×4 (00:30→19:30)
[2017-10-22] MEDS: FIBERSOURCE HN 1,000 ML BOTTLE GT PRN (05:55)
[2017-10-22 07:53] VITALS: BP 104/67
[2017-10-22] MEDS: CEFEPIME 1 GM in IV D5W 50 ML IV SCH ×2 (08:41→21:42)
[2017-10-22] MEDS: TOBRAMYCIN 80 MG/2 ML VIAL INH SCH ×2 (08:59→21:27)
[2017-10-22] MEDS: LORATADINE 10 MG TABLET GT SCH (09:00)
[2017-10-22] MEDS: ABACAVIR GT SCH (09:00)
[2017-10-22] MEDS: NYSTATIN TOP POWDER 15 GM BOTTLE TP SCH ×4 (09:00→21:55)
[2017-10-22] MEDS: PROSOURCE / PROSTAT (PYXIS) 30 ML UDC GT SCH ×2 (09:00→17:45)
[2017-10-22] MEDS: PANTOPRAZOLE 40 MG/PACK PACK GT SCH (09:00)
[2017-10-22] MEDS: DOLUTEGRAVIR GT SCH (09:00)
[2017-10-22] MEDS: LACTOBACILLUS RHAMNOSUS GG 1 EACH CAP.SPRINK GT SCH ×2 (09:00→17:45)
[2017-10-22] MEDS: LAMIVUDI GT SCH (09:00)
[2017-10-22] MEDS: GABAPENTIN 300 MG CAPSULE GT SCH ×4 (09:00→21:55)
[2017-10-22] MEDS: CLOTRIMAZOLE 1% 15 GM TUBE TP SCH ×2 (09:00→21:55)
[2017-10-22] MEDS: VITAMINS A AND D 56.7 GM TUBE TP SCH ×2 (09:00→21:55)
[2017-10-22] MEDS: Z GUARD REMEDY 4 OZ OINT TP SCH ×6 (09:00→21:55)
[2017-10-22] MEDS: DIAZEPAM 5 MG TABLET GT SCH ×4 (09:00→21:55)
[2017-10-22] MEDS: MULTIVIT, IRON, MIN NO. 8, FA 1 TAB GT SCH (09:00)
[2017-10-22] MEDS: SERTRALINE HCL 25 MG TABLET GT SCH (12:34)
[2017-10-22 20:09] VITALS: BP 95/52
[2017-10-23] MEDS: IPRATROPIUM NEB FS 0.5 MG/2.5 ML AMPUL.NEB NEB SCH ×4 (00:49→19:37)
[2017-10-23] MEDS: FIBERSOURCE HN 1,000 ML BOTTLE GT PRN (06:01)
[2017-10-23 07:42] VITALS: BP 91/52
[2017-10-23] MEDS: TOBRAMYCIN 80 MG/2 ML VIAL INH SCH (08:24)
--- NOTE | 2017-10-23 08:59 | NUR ---
RECD PT ON SIMV 10 500 PS 20 40% AMBU BAG ON BEDSIDE ALARMS ON AND AUDIBLE TRACH INTACT AND SECURED SX SMALL YELLOW THIN SECRETIONS TX GIVEN RICHAR WELL NO ADVERSE REACTION NOTED ATT PT PLAC ON SIMV 4 PER MD ORDERS TOLERATING WELL NO RESP DISTRESS SP02 100% HR 102 WILL TAKE ABG IN 2 HRS
--- NOTE | 2017-10-23 09:09 | NUR ---
Seen by JAKE Ruff. Received order to place pt on SIMV 4 PS 15 Peep 5 and do ABG 2 hours after vent change. Also received order for ST eval for PMV use. Pt aware of new orders.
[2017-10-23] MEDS: CEFEPIME 1 GM in IV D5W 50 ML IV SCH (09:44)
[2017-10-23] MEDS: MULTIVIT, IRON, MIN NO. 8, FA 1 TAB GT SCH (09:47)
[2017-10-23] MEDS: PROSOURCE / PROSTAT (PYXIS) 30 ML UDC GT SCH ×2 (09:47→17:40)
[2017-10-23] MEDS: CLOTRIMAZOLE 1% 15 GM TUBE TP SCH ×2 (09:47→21:56)
[2017-10-23] MEDS: LACTOBACILLUS RHAMNOSUS GG 1 EACH CAP.SPRINK GT SCH ×2 (09:47→17:40)
[2017-10-23] MEDS: LAMIVUDI GT SCH (09:47)
[2017-10-23] MEDS: VITAMINS A AND D 56.7 GM TUBE TP SCH ×2 (09:47→21:57)
[2017-10-23] MEDS: LORATADINE 10 MG TABLET GT SCH (09:47)
[2017-10-23] MEDS: GABAPENTIN 300 MG CAPSULE GT SCH ×4 (09:47→21:56)
[2017-10-23] MEDS: ABACAVIR GT SCH (09:47)
[2017-10-23] MEDS: DOLUTEGRAVIR GT SCH (09:47)
[2017-10-23] MEDS: DIAZEPAM 5 MG TABLET GT SCH ×4 (09:47→21:56)
[2017-10-23] MEDS: Z GUARD REMEDY 4 OZ OINT TP SCH ×6 (09:47→21:57)
[2017-10-23] MEDS: NYSTATIN TOP POWDER 15 GM BOTTLE TP SCH ×4 (09:47→21:57)
[2017-10-23] MEDS: PANTOPRAZOLE 40 MG/PACK PACK GT SCH (09:47)
[2017-10-23] MEDS: ONDANSETRON 4 MG TAB.RAPDIS GT PRN (10:12)
--- NOTE | 2017-10-23 10:55 | NUR ---
Informed resident that upon admission, social welfare clerk schedules podiatry, dental, and optometry evaluations. Resident stated that she does not need optometry evaluation as she has her glasses and can see okay with them. She stated that she does have braces and dentist can come and see if he can change the bands. Will inform the dentist. Resident also okay with podiatry referral. SW faxed referral to office of Dr. De Paz/Dr. Mooney DDIra (Dr. Mooney scheduled to come on November 06, 2017) and to [facility] at the [facility] for podiatry.
[2017-10-23 11:08] LABS: ABG BASE EXCESS 2.9 mmol/L; ABG OXYGEN SATURATION 97.4 % (92.0-98.5); ABG PCO2 49.2 mmHg (35.0-45.0); ABG PH 7.382 (7.350-7.450); ABG PO2 116.6 mmHg (75.0-100.0); COHb 0.3 % (0.5-1.5); MetHb 0.3 % (0.0-1.5); O2Hb 96.8 % (94.0-97.0); PEEP,BG 5 cm H2O; SITE, ABG Right Radial; VENT MODE, BG simv 4 /ps 20; VT, ABG 500 mL
--- NOTE | 2017-10-23 11:15 | NUR ---
Relayed ABG result to JAKE Ruff. No new order.
--- NOTE | 2017-10-23 13:00 | NUR ---
Seen by ST Nj. She said pt is not ready for PMV or advanced diet yet. Pt may still have ice chips for now.
[2017-10-23] MEDS: SERTRALINE HCL 25 MG TABLET GT SCH (13:01)
--- NOTE | 2017-10-23 14:20 | NUR ---
Seen by SUPPLY CHAIN DIRECTOR Gabi Jolley for G-tube site hypergranulation. Received order to apply Madeline cohesive around the G-tube stoma daily and to keep dry. Pt aware of new order.
[2017-10-23 19:58] VITALS: BP 98/53
[2017-10-23] MEDS: FENTANYL PATCH (100 MCG/HR) 100 MCG/HR PATCH.TD72 TD SCH (21:56)
[2017-10-24] MEDS: IPRATROPIUM NEB FS 0.5 MG/2.5 ML AMPUL.NEB NEB SCH ×4 (01:34→20:01)
[2017-10-24 07:57] VITALS: BP 99/63
[2017-10-24] MEDS: DIAZEPAM 5 MG TABLET GT SCH ×4 (09:07→21:01)
[2017-10-24] MEDS: DOLUTEGRAVIR GT SCH (09:07)
[2017-10-24] MEDS: ABACAVIR GT SCH (09:07)
[2017-10-24] MEDS: GABAPENTIN 300 MG CAPSULE GT SCH ×4 (09:07→21:01)
[2017-10-24] MEDS: PANTOPRAZOLE 40 MG/PACK PACK GT SCH (09:07)
[2017-10-24] MEDS: LAMIVUDI GT SCH (09:07)
[2017-10-24] MEDS: CLOTRIMAZOLE 1% 15 GM TUBE TP SCH ×2 (09:07→21:01)
[2017-10-24] MEDS: PROSOURCE / PROSTAT (PYXIS) 30 ML UDC GT SCH ×2 (09:07→17:25)
[2017-10-24] MEDS: LACTOBACILLUS RHAMNOSUS GG 1 EACH CAP.SPRINK GT SCH ×2 (09:07→17:25)
[2017-10-24] MEDS: LORATADINE 10 MG TABLET GT SCH (09:07)
[2017-10-24] MEDS: MULTIVIT, IRON, MIN NO. 8, FA 1 TAB GT SCH (09:07)
[2017-10-24] MEDS: Z GUARD REMEDY 4 OZ OINT TP SCH ×6 (09:08→21:01)
[2017-10-24] MEDS: VITAMINS A AND D 56.7 GM TUBE TP SCH ×2 (09:08→21:01)
[2017-10-24] MEDS: NYSTATIN TOP POWDER 15 GM BOTTLE TP SCH ×4 (09:08→21:01)
[2017-10-24] MEDS: SERTRALINE HCL 25 MG TABLET GT SCH (12:42)
--- NOTE | 2017-10-24 15:00 | NUR ---
RT Farhat reported that pt tolerated about 20 minutes of PMV use. Pt happy to hear his own voice.
--- NOTE | 2017-10-24 15:25 | NUR ---
Dr. Sosa ordered to place pt on CPAP PSV 12 Peep 5 titrate SPO2 greater than 94%, ABG 1 hour post vent change on 10/25/17. Pt aware of new order. Notified pt's mother and friend Mary Ann.
[2017-10-24 20:45] VITALS: BP 106/54
[2017-10-25] MEDS: IPRATROPIUM NEB FS 0.5 MG/2.5 ML AMPUL.NEB NEB SCH ×4 (02:06→19:30)
[2017-10-25 07:55] VITALS: BP 105/63
[2017-10-25 09:20] LABS: ABG BASE EXCESS 8.5 mmol/L; ABG OXYGEN SATURATION 95.4 % (92.0-98.5); ABG PCO2 70.9 mmHg (35.0-45.0); ABG PH 7.327 (7.350-7.450); ABG PO2 89.9 mmHg (75.0-100.0); AaDO2 113.8 mmHg; COHb 0.3 % (0.5-1.5); MetHb 0.6 % (0.0-1.5); O2Hb 94.5 % (94.0-97.0); SITE, ABG Right Radial; VENT MODE, BG CPAP 5 PS :12 40%
[2017-10-25] MEDS: DOLUTEGRAVIR GT SCH (09:30)
[2017-10-25] MEDS: LACTOBACILLUS RHAMNOSUS GG 1 EACH CAP.SPRINK GT SCH ×2 (09:30→17:32)
[2017-10-25] MEDS: ABACAVIR GT SCH (09:30)
[2017-10-25] MEDS: PROSOURCE / PROSTAT (PYXIS) 30 ML UDC GT SCH ×2 (09:30→17:32)
[2017-10-25] MEDS: LAMIVUDI GT SCH (09:30)
[2017-10-25] MEDS: LORATADINE 10 MG TABLET GT SCH (09:30)
[2017-10-25] MEDS: GABAPENTIN 300 MG CAPSULE GT SCH ×4 (09:30→21:21)
[2017-10-25] MEDS: MULTIVIT, IRON, MIN NO. 8, FA 1 TAB GT SCH (09:30)
[2017-10-25] MEDS: PANTOPRAZOLE 40 MG/PACK PACK GT SCH (09:30)
[2017-10-25] MEDS: DIAZEPAM 5 MG TABLET GT SCH ×3 (09:32→17:32)
[2017-10-25] MEDS: Z GUARD REMEDY 4 OZ OINT TP SCH ×6 (09:34→21:21)
[2017-10-25] MEDS: NYSTATIN TOP POWDER 15 GM BOTTLE TP SCH ×4 (09:34→21:21)
[2017-10-25] MEDS: CLOTRIMAZOLE 1% 15 GM TUBE TP SCH ×2 (09:34→21:21)
[2017-10-25] MEDS: VITAMINS A AND D 56.7 GM TUBE TP SCH ×2 (09:34→21:22)
--- NOTE | 2017-10-25 11:00 | NUR ---
Resident currently on CPAP , Peep 5, Ps12 fi02 40%, O2 sat 100%, in no s/s of distress. ABG done reported to Dr. Sosa by RT with order to chnage PS to [address] patient on AC as previously ordered PRN distress. Resident aware. Mother visited.
[2017-10-25] MEDS: SERTRALINE HCL 25 MG TABLET GT SCH (12:47)
--- NOTE | 2017-10-25 17:30 | NUR ---
Noted an order from Dr. Sosa to decrease Valium frequency to Q12 and decrease Fentanyl patch dose from 100mcg to 50 mcg.
--- NOTE | 2017-10-25 18:14 | NUR ---
RT NOTE ABG DRAWN ON CPAP 5 MODE WITH 12 PRESSURE SUPPORT. RESULTS SHOWN TO DR DANIELS AND PER REQUEST INCREASE PRESSURE SUPPORT TO 20. ABG DRAWN AGAIN 2 HOURS POST CHANGE AND DR DANIELS IS AWARE OF RESULTS ON CURRENT SETTINGS. PT MAY BE PLACED BACK ON AC MODE IF IN DISTRESS. NO RESPIRATORY DISTRESS NOTED T.O SHIFT. NICOLE CHARGE NURSE AWARE.
[2017-10-25 20:00] VITALS: BP 102/62
[2017-10-26] MEDS: IPRATROPIUM NEB FS 0.5 MG/2.5 ML AMPUL.NEB NEB SCH ×4 (01:46→20:32)
--- NOTE | 2017-10-26 04:16 | NUR ---
RT RECD PT TRACHED INTATC AND SECURED PT ON CPAP PER MD ORDERS. PT ALAERT AWAKE ORIENTED. TOLERATING VENT SETTINGS NO RESP DISTRESS. TX GIVEN RICHAR WELL NO ADVERSE REACTION. ALARMS ON AND AUDIBLE. VENT PLUGGED IN RED OUTLET. BAG AND MASK AT BEDSIDE
[2017-10-26 07:41] VITALS: BP 93/55
[2017-10-26] MEDS: VITAMINS A AND D 56.7 GM TUBE TP SCH ×2 (09:00→21:57)
[2017-10-26] MEDS: PANTOPRAZOLE 40 MG/PACK PACK GT SCH (09:00)
[2017-10-26] MEDS: MULTIVIT, IRON, MIN NO. 8, FA 1 TAB GT SCH (09:00)
[2017-10-26] MEDS: NYSTATIN TOP POWDER 15 GM BOTTLE TP SCH ×4 (09:00→21:57)
[2017-10-26] MEDS: ABACAVIR GT SCH (09:00)
[2017-10-26] MEDS: CLOTRIMAZOLE 1% 15 GM TUBE TP SCH ×2 (09:00→21:56)
[2017-10-26] MEDS: LORATADINE 10 MG TABLET GT SCH (09:00)
[2017-10-26] MEDS: DIAZEPAM 5 MG TABLET GT SCH ×2 (09:00→17:00)
[2017-10-26] MEDS: LACTOBACILLUS RHAMNOSUS GG 1 EACH CAP.SPRINK GT SCH ×2 (09:00→17:00)
[2017-10-26] MEDS: GABAPENTIN 300 MG CAPSULE GT SCH ×4 (09:00→20:58)
[2017-10-26] MEDS: PROSOURCE / PROSTAT (PYXIS) 30 ML UDC GT SCH ×2 (09:00→17:00)
[2017-10-26] MEDS: LAMIVUDI GT SCH (09:00)
[2017-10-26] MEDS: Z GUARD REMEDY 4 OZ OINT TP SCH ×6 (09:00→21:57)
[2017-10-26] MEDS: DOLUTEGRAVIR GT SCH (09:00)
--- NOTE | 2017-10-26 12:03 | NUR ---
Social Service Section of [facility] (admission) completed. Resident is awake and alert. He is oriented to person, place, and time. Resident's diagnosis is Hypoxic respiratory failure 2nd ARDS,barotrauma and septic shock tolerating CPAP weaning with compensated hypercarbia probably related to high dose fentanyl and benzodiazepine; Septic shock off abx; ARF -resolved; Agitation; Anemia; HIV; S/p drug overdose-possible suicide attempt. Current diet order is: FIBERSOURCE 40ML/HR X 20 HOURS/DAY+PROSTAT BID. Resident declined optometry referral (states he has his glasses) and will be seen by dentist Dr. Mooney on 11/06/2017 (has braces). Referral for grounds keeper Dr. Freeman was sent and he will be seeing her this week. Resident is able to communicate by mouthing words and can be understood by others. Resident would like to get well enough to return home.
[2017-10-26] MEDS: SERTRALINE HCL 25 MG TABLET GT SCH (13:52)
[2017-10-26 20:49] VITALS: BP 92/55
[2017-10-26] MEDS: FENTANYL TD PATCH (50 MCG/HR) 50 MCG/HR PATCH.TD72 TD SCH (21:00)
[2017-10-26] MEDS: FIBERSOURCE HN 1,000 ML BOTTLE GT PRN (22:42)
[2017-10-27] MEDS: IPRATROPIUM NEB FS 0.5 MG/2.5 ML AMPUL.NEB NEB SCH ×4 (01:46→20:31)
[2017-10-27 07:37] VITALS: BP 104/54
[2017-10-27] MEDS: CLOTRIMAZOLE 1% 15 GM TUBE TP SCH ×2 (09:00→21:11)
[2017-10-27] MEDS: VITAMINS A AND D 56.7 GM TUBE TP SCH ×2 (09:00→21:11)
[2017-10-27] MEDS: DIAZEPAM 5 MG TABLET GT SCH ×2 (09:00→17:22)
[2017-10-27] MEDS: Z GUARD REMEDY 4 OZ OINT TP SCH ×6 (09:00→21:11)
[2017-10-27] MEDS: NYSTATIN TOP POWDER 15 GM BOTTLE TP SCH ×4 (09:00→21:11)
--- NOTE | 2017-10-27 09:37 | NUR ---
UR Review: FELIPE sent clinicals to Emily from [facility] ([phone] fax: [phone]) for continued authorization. She stated that they will review clinicals to determine if resident meets criteria for residential care, which is a different authorization process and that resident is currently under snf. Informed subacute fleet sales manager and Kaley. FELIPE will follow up. Addendum: 10/31/17 at 0724 by RYAN WANG Emily called and left a message. Clinicals need to be faxed again on 11/02/2017.
[2017-10-27] MEDS: LORATADINE 10 MG TABLET GT SCH (09:43)
[2017-10-27] MEDS: LAMIVUDI GT SCH (09:43)
[2017-10-27] MEDS: ABACAVIR GT SCH (09:43)
[2017-10-27] MEDS: GABAPENTIN 300 MG CAPSULE GT SCH ×4 (09:43→21:11)
[2017-10-27] MEDS: LACTOBACILLUS RHAMNOSUS GG 1 EACH CAP.SPRINK GT SCH ×2 (09:43→17:18)
[2017-10-27] MEDS: DOLUTEGRAVIR GT SCH (09:43)
[2017-10-27] MEDS: PROSOURCE / PROSTAT (PYXIS) 30 ML UDC GT SCH ×2 (09:44→17:34)
[2017-10-27] MEDS: MULTIVIT, IRON, MIN NO. 8, FA 1 TAB GT SCH (09:44)
[2017-10-27] MEDS: PANTOPRAZOLE 40 MG/PACK PACK GT SCH (09:44)
--- NOTE | 2017-10-27 10:03 | NUR ---
Dr. Quick DMP came to see the resident however at this time, resident stated that she does not want her nails to be cut.
[2017-10-27] MEDS: SERTRALINE HCL 25 MG TABLET GT SCH (13:03)
[2017-10-27 19:51] VITALS: BP 100/57
[2017-10-28] MEDS: IPRATROPIUM NEB FS 0.5 MG/2.5 ML AMPUL.NEB NEB SCH ×4 (00:53→19:48)
[2017-10-28] MEDS: ALPRAZOLAM 0.25 MG TABLET PO PRN (02:35)
[2017-10-28] MEDS: FIBERSOURCE HN 1,000 ML BOTTLE GT PRN (02:35)
[2017-10-28] MEDS: PANTOPRAZOLE 40 MG/PACK PACK GT SCH (09:00)
[2017-10-28] MEDS: ABACAVIR GT SCH (09:00)
[2017-10-28] MEDS: MULTIVIT, IRON, MIN NO. 8, FA 1 TAB GT SCH (09:00)
[2017-10-28] MEDS: CLOTRIMAZOLE 1% 15 GM TUBE TP SCH ×2 (09:00→20:58)
[2017-10-28] MEDS: LORATADINE 10 MG TABLET GT SCH (09:00)
[2017-10-28] MEDS: LACTOBACILLUS RHAMNOSUS GG 1 EACH CAP.SPRINK GT SCH ×2 (09:00→17:00)
[2017-10-28] MEDS: VITAMINS A AND D 56.7 GM TUBE TP SCH ×2 (09:00→20:59)
[2017-10-28] MEDS: LAMIVUDI GT SCH (09:00)
[2017-10-28] MEDS: Z GUARD REMEDY 4 OZ OINT TP SCH ×6 (09:00→20:59)
[2017-10-28] MEDS: DIAZEPAM 5 MG TABLET GT SCH ×2 (09:00→17:00)
[2017-10-28] MEDS: DOLUTEGRAVIR GT SCH (09:00)
[2017-10-28] MEDS: PROSOURCE / PROSTAT (PYXIS) 30 ML UDC GT SCH ×2 (09:00→17:00)
[2017-10-28] MEDS: GABAPENTIN 300 MG CAPSULE GT SCH ×4 (09:00→20:58)
[2017-10-28] MEDS: NYSTATIN TOP POWDER 15 GM BOTTLE TP SCH ×4 (09:00→20:58)
[2017-10-28 09:01] VITALS: BP 118/53
[2017-10-28] MEDS: SERTRALINE HCL 25 MG TABLET GT SCH (13:31)
[2017-10-28 21:05] VITALS: BP 103/58
[2017-10-29] MEDS: IPRATROPIUM NEB FS 0.5 MG/2.5 ML AMPUL.NEB NEB SCH ×4 (01:41→20:05)
[2017-10-29] MEDS: FIBERSOURCE HN 1,000 ML BOTTLE GT PRN (05:50)
[2017-10-29 08:01] VITALS: BP 94/56
[2017-10-29] MEDS: PROSOURCE / PROSTAT (PYXIS) 30 ML UDC GT SCH ×2 (09:00→17:00)
[2017-10-29] MEDS: LACTOBACILLUS RHAMNOSUS GG 1 EACH CAP.SPRINK GT SCH ×2 (09:00→17:00)
[2017-10-29] MEDS: DOLUTEGRAVIR GT SCH (09:00)
[2017-10-29] MEDS: PANTOPRAZOLE 40 MG/PACK PACK GT SCH (09:00)
[2017-10-29] MEDS: MULTIVIT, IRON, MIN NO. 8, FA 1 TAB GT SCH (09:00)
[2017-10-29] MEDS: LORATADINE 10 MG TABLET GT SCH (09:00)
[2017-10-29] MEDS: DIAZEPAM 5 MG TABLET GT SCH ×2 (09:00→17:00)
[2017-10-29] MEDS: VITAMINS A AND D 56.7 GM TUBE TP SCH ×2 (09:00→21:23)
[2017-10-29] MEDS: LAMIVUDI GT SCH (09:00)
[2017-10-29] MEDS: ABACAVIR GT SCH (09:00)
[2017-10-29] MEDS: GABAPENTIN 300 MG CAPSULE GT SCH ×4 (09:00→21:21)
[2017-10-29] MEDS: Z GUARD REMEDY 4 OZ OINT TP SCH ×2 (09:00→21:21)
[2017-10-29] MEDS: SERTRALINE HCL 25 MG TABLET GT SCH (13:00)
[2017-10-29 20:21] VITALS: BP 98/61
[2017-10-29] MEDS: FENTANYL TD PATCH (50 MCG/HR) 50 MCG/HR PATCH.TD72 TD SCH (21:00)
[2017-10-30] MEDS: IPRATROPIUM NEB FS 0.5 MG/2.5 ML AMPUL.NEB NEB SCH ×4 (00:56→20:04)
[2017-10-30] MEDS: Z GUARD REMEDY 4 OZ OINT TP SCH ×2 (09:00→21:16)
[2017-10-30] MEDS: GABAPENTIN 300 MG CAPSULE GT SCH ×3 (09:00→17:00)
[2017-10-30] MEDS: ABACAVIR GT SCH (09:00)
[2017-10-30] MEDS: LACTOBACILLUS RHAMNOSUS GG 1 EACH CAP.SPRINK GT SCH ×2 (09:00→17:00)
[2017-10-30] MEDS: PANTOPRAZOLE 40 MG/PACK PACK GT SCH (09:00)
[2017-10-30] MEDS: PROSOURCE / PROSTAT (PYXIS) 30 ML UDC GT SCH ×2 (09:00→17:00)
[2017-10-30] MEDS: DOLUTEGRAVIR GT SCH (09:00)
[2017-10-30] MEDS: VITAMINS A AND D 56.7 GM TUBE TP SCH ×2 (09:00→21:16)
[2017-10-30] MEDS: LAMIVUDI GT SCH (09:00)
[2017-10-30] MEDS: LORATADINE 10 MG TABLET GT SCH (09:00)
[2017-10-30] MEDS: MULTIVIT, IRON, MIN NO. 8, FA 1 TAB GT SCH (09:00)
[2017-10-30] MEDS: DIAZEPAM 5 MG TABLET GT SCH ×2 (09:00→21:16)
[2017-10-30] MEDS: SERTRALINE HCL 25 MG TABLET GT SCH (13:12)
[2017-10-30 13:52] VITALS: BP 99/59
[2017-10-30] MEDS: FIBERSOURCE HN 1,000 ML BOTTLE GT PRN (14:40)
--- NOTE | 2017-10-30 15:00 | NUR ---
Seen by ST Nj. Received order for pt to have pureed diet, small portion, at lunch only for oral gratification, with RT/RN supervision.
[2017-10-30 20:07] VITALS: BP 99/57
[2017-10-30] MEDS: GABAPENTIN 100 MG CAPSULE GT SCH (21:16)
[2017-10-31] MEDS: IPRATROPIUM NEB FS 0.5 MG/2.5 ML AMPUL.NEB NEB SCH ×4 (01:22→19:57)
[2017-10-31 07:31] VITALS: BP 100/57
[2017-10-31] MEDS: PROSOURCE / PROSTAT (PYXIS) 30 ML UDC GT SCH ×2 (09:00→17:00)
[2017-10-31] MEDS: GABAPENTIN 100 MG CAPSULE GT SCH ×4 (09:00→21:34)
[2017-10-31] MEDS: LACTOBACILLUS RHAMNOSUS GG 1 EACH CAP.SPRINK GT SCH ×2 (09:00→17:00)
[2017-10-31] MEDS: DIAZEPAM 5 MG TABLET GT SCH ×2 (09:00→21:34)
[2017-10-31] MEDS: VITAMINS A AND D 56.7 GM TUBE TP SCH ×2 (09:00→21:34)
[2017-10-31] MEDS: PANTOPRAZOLE 40 MG/PACK PACK GT SCH (09:00)
[2017-10-31] MEDS: DOLUTEGRAVIR GT SCH (09:00)
[2017-10-31] MEDS: ABACAVIR GT SCH (09:00)
[2017-10-31] MEDS: MULTIVIT, IRON, MIN NO. 8, FA 1 TAB GT SCH (09:00)
[2017-10-31] MEDS: LAMIVUDI GT SCH (09:00)
[2017-10-31] MEDS: LORATADINE 10 MG TABLET GT SCH (09:00)
[2017-10-31] MEDS: Z GUARD REMEDY 4 OZ OINT TP SCH ×2 (09:00→21:34)
[2017-10-31 12:35] LABS: ABG BASE EXCESS 5.4 mmol/L; ABG OXYGEN SATURATION 97.5 % (92.0-98.5); ABG PCO2 49.7 mmHg (35.0-45.0); ABG PH 7.411 (7.350-7.450); ABG PO2 143.7 mmHg (75.0-100.0); AaDO2 84.3 mmHg; COHb 0.1 % (0.5-1.5); MetHb 1.3 % (0.0-1.5); O2Hb 96.1 % (94.0-97.0); SITE, ABG Right Brachial; VENT MODE, BG cpap 5/ ps 20
[2017-10-31] MEDS: SERTRALINE HCL 25 MG TABLET GT SCH (13:00)
--- NOTE | 2017-10-31 16:00 | NUR ---
ABG done today ,relayed result to ,resident is on CPAP.Change FiO2 to 30%.continue to monitor.
[2017-10-31] MEDS: FENTANYL TD PATCH (50 MCG/HR) 50 MCG/HR PATCH.TD72 TD SCH (17:00)
[2017-10-31 20:59] VITALS: BP_SYST 98
[2017-10-31 22:26] VITALS: BP_SYST 98
[2017-11-01] MEDS: IPRATROPIUM NEB FS 0.5 MG/2.5 ML AMPUL.NEB NEB SCH ×4 (01:30→20:10)
[2017-11-01 07:42] VITALS: BP 94/52
[2017-11-01] MEDS: VITAMINS A AND D 56.7 GM TUBE TP SCH ×2 (09:00→21:23)
[2017-11-01] MEDS: LORATADINE 10 MG TABLET GT SCH (09:50)
[2017-11-01] MEDS: LACTOBACILLUS RHAMNOSUS GG 1 EACH CAP.SPRINK GT SCH ×2 (09:50→17:57)
[2017-11-01] MEDS: LAMIVUDI GT SCH (09:51)
[2017-11-01] MEDS: ABACAVIR GT SCH (09:51)
[2017-11-01] MEDS: DIAZEPAM 5 MG TABLET GT SCH ×2 (09:51→21:23)
[2017-11-01] MEDS: DOLUTEGRAVIR GT SCH (09:51)
[2017-11-01] MEDS: GABAPENTIN 100 MG CAPSULE GT SCH ×4 (09:51→21:23)
[2017-11-01] MEDS: PROSOURCE / PROSTAT (PYXIS) 30 ML UDC GT SCH ×2 (09:51→17:57)
[2017-11-01] MEDS: MULTIVIT, IRON, MIN NO. 8, FA 1 TAB GT SCH (09:51)
[2017-11-01] MEDS: FIBERSOURCE HN 1,000 ML BOTTLE GT PRN (09:51)
[2017-11-01] MEDS: PANTOPRAZOLE 40 MG/PACK PACK GT SCH (09:51)
[2017-11-01] MEDS: Z GUARD REMEDY 4 OZ OINT TP SCH ×2 (09:51→21:23)
--- NOTE | 2017-11-01 10:30 | NUR ---
Obtain an order from Dr. Kerns to [facility] Protonix and change to Famotidine due to non-coverage.
--- NOTE | 2017-11-01 13:12 | NUR ---
Amy called the resident's friend (Mary Ann) and notified her about IDT meetings on November 03, 2017 and November 10, 2017 from 12:30-1:30PM. She stated that she is currently in [place] and is not able to attend meeting on November 03, 2017. She stated she will try to attend the next one for November 10, 2017 and SW to check in with her prior to the next IDT meeting.
[2017-11-01] MEDS: SERTRALINE HCL 25 MG TABLET GT SCH (13:58)
--- NOTE | 2017-11-01 15:36 | NUR ---
Resident up in the chair, family at bedside. Stable and no evidence of distress. Remain on ventilator with current vent setting of CPAP Peep +5, PS 20 with F102 40% well tolerated. Seen and examined by Dr. Kerns no new order given. Reported to MD that patient is already eating lunch. He told him that GT can be removed once he is eating 3 full meals. Resident smiled and looks very motivated.
--- NOTE | 2017-11-01 18:14 | NUR ---
RT PATIENT RECEIVED ON MECHANICAL VENTILATION. PATIENT TOLERATES CPAP WELL. TX GIVEN ORDERED, NO ADVERSE REACTIONS NOTED. SUCTION DONE. TRACH SECURED AND PATENT AT ALL TIMES. NO SOB NOTED. ALARMS ON AND AUDIBLE. VENT IS PLUGGED INTO RED OUTLET. AMBU BAG/BACK UP TRACH @ BEDSIDE. MONITORED CLOSELY. HME REPLACED. Addendum: 11/01/17 at 1815 by PARAMJIT PETTIT RT Amended: Links added.
[2017-11-01 19:47] VITALS: BP 96/58
[2017-11-02] MEDS: IPRATROPIUM NEB FS 0.5 MG/2.5 ML AMPUL.NEB NEB SCH ×4 (01:33→20:38)
[2017-11-02 07:38] VITALS: BP 96/62
--- NOTE | 2017-11-02 07:48 | NUR ---
Received evelyn pt on mechanical vent. Pt evelyn is secure. Vent is plugged into a red outlet, alarms are set and audible, and BVM is at bedside. Addendum: 11/02/17 at 0748 by ALEXX LEMA RT Amended: Links added.
--- NOTE | 2017-11-02 07:53 | NUR ---
UR Review: FELIPE sent updated clinicals to Emily from [facility] ([phone] fax: [phone]) for continued authorization. FELIPE will follow up.
[2017-11-02] MEDS: LORATADINE 10 MG TABLET GT SCH (09:32)
[2017-11-02] MEDS: GABAPENTIN 100 MG CAPSULE GT SCH ×4 (09:32→21:11)
[2017-11-02] MEDS: LACTOBACILLUS RHAMNOSUS GG 1 EACH CAP.SPRINK GT SCH ×2 (09:32→17:00)
[2017-11-02] MEDS: DOLUTEGRAVIR GT SCH (09:32)
[2017-11-02] MEDS: LAMIVUDI GT SCH (09:32)
[2017-11-02] MEDS: ABACAVIR GT SCH (09:32)
[2017-11-02] MEDS: FAMOTIDINE 40 MG TABLET GT SCH (09:32)
[2017-11-02] MEDS: VITAMINS A AND D 56.7 GM TUBE TP SCH ×2 (09:33→21:12)
[2017-11-02] MEDS: MULTIVIT, IRON, MIN NO. 8, FA 1 TAB GT SCH (09:33)
[2017-11-02] MEDS: PROSOURCE / PROSTAT (PYXIS) 30 ML UDC GT SCH ×2 (09:33→17:00)
[2017-11-02] MEDS: DIAZEPAM 5 MG TABLET GT SCH ×2 (09:33→21:11)
[2017-11-02] MEDS: Z GUARD REMEDY 4 OZ OINT TP SCH ×2 (09:33→21:11)
--- NOTE | 2017-11-02 11:16 | NUR ---
gum worker met with the resident who stated that he was doing much better and has been eating. He stated he is happy about the possibility of getting the g-tube removed. He stated that he changed his mind and does not want to be seen by the dentist. He noted that he called and spoke with his dentist and the dentist told him to wait until he is better and leaves the hospital to come and see him. Resident has braces and resident at this time does not want to be seen by the dentist. SW spoke to resident and he stated that he has been feeling better, has been walking with PT, and can't wait to go home. He talked about his dog that he has at home, and that his mother is caring for, and stated that he wants to get back to being active.
[2017-11-02] MEDS: SERTRALINE HCL 25 MG TABLET GT SCH (13:04)
[2017-11-02 19:46] VITALS: BP 98/58
[2017-11-02] MEDS: FIBERSOURCE HN 1,000 ML BOTTLE GT PRN (21:12)
[2017-11-03] MEDS: IPRATROPIUM NEB FS 0.5 MG/2.5 ML AMPUL.NEB NEB SCH ×4 (01:30→20:14)
[2017-11-03 08:09] VITALS: BP 94/52
[2017-11-03] MEDS: DOLUTEGRAVIR GT SCH (09:45)
[2017-11-03] MEDS: FAMOTIDINE 40 MG TABLET GT SCH (09:45)
[2017-11-03] MEDS: Z GUARD REMEDY 4 OZ OINT TP SCH ×2 (09:45→21:29)
[2017-11-03] MEDS: LORATADINE 10 MG TABLET GT SCH (09:45)
[2017-11-03] MEDS: LAMIVUDI GT SCH (09:45)
[2017-11-03] MEDS: ABACAVIR GT SCH (09:45)
[2017-11-03] MEDS: LACTOBACILLUS RHAMNOSUS GG 1 EACH CAP.SPRINK GT SCH ×2 (09:45→17:59)
[2017-11-03] MEDS: DIAZEPAM 5 MG TABLET GT SCH ×2 (09:45→21:28)
[2017-11-03] MEDS: PROSOURCE / PROSTAT (PYXIS) 30 ML UDC GT SCH ×2 (09:45→17:59)
[2017-11-03] MEDS: GABAPENTIN 100 MG CAPSULE GT SCH ×4 (09:45→21:28)
[2017-11-03] MEDS: VITAMINS A AND D 56.7 GM TUBE TP SCH ×2 (09:45→21:29)
[2017-11-03] MEDS: MULTIVIT, IRON, MIN NO. 8, FA 1 TAB GT SCH (09:45)
[2017-11-03] MEDS: SERTRALINE HCL 25 MG TABLET GT SCH (13:05)
--- NOTE | 2017-11-03 13:55 | NUR ---
INTERDISCIPLINARY PLAN OF CARE CONFERENCE was held today. Resident's family unable to attend. Dr. Sosa and the interdisciplinary team reviewed the current plan of care in detail, current medications, treatment and labs. Patient is tolerating current vent setting CPAP, Peep 5, PS 20 Fi02 40% and doing well. Dr. Sosa ordered to put patient on cool aerosol on Monday and ABG after 1 hour. Order noted and carried out. Resident notified of what's discussed in the meeting.
[2017-11-03] MEDS: ONDANSETRON 4 MG TAB.RAPDIS GT PRN (15:05)
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
[2017-11-03] MEDS: FENTANYL TD PATCH (50 MCG/HR) 50 MCG/HR PATCH.TD72 TD SCH (17:59)
[2017-11-03 20:00] VITALS: BP 98/57
[2017-11-03] MEDS: FIBERSOURCE HN 1,000 ML BOTTLE GT PRN (20:56)
[2017-11-03 23:32] VITALS: BP_SYST 77
[2017-11-04] MEDS: IPRATROPIUM NEB FS 0.5 MG/2.5 ML AMPUL.NEB NEB SCH ×4 (02:32→20:32)
--- NOTE | 2017-11-04 05:02 | NUR ---
PT RCVD TRACHED ON MECHANICAL VENT. TRACH IS SECURE AND PATENT. AMBU BAG AT BEDSIDE. VENT PLUGGED INTO RED OUTLET. ALARMS ON AND AUDIBLE. Addendum: 11/04/17 at 0502 by RASHARD WYNN RT Amended: Links added.
[2017-11-04 07:31] VITALS: BP 92/60
[2017-11-04] MEDS: Z GUARD REMEDY 4 OZ OINT TP SCH ×2 (09:00→21:00)
[2017-11-04] MEDS: VITAMINS A AND D 56.7 GM TUBE TP SCH ×2 (09:00→21:00)
[2017-11-04] MEDS: FAMOTIDINE 40 MG TABLET GT SCH (09:37)
[2017-11-04] MEDS: LACTOBACILLUS RHAMNOSUS GG 1 EACH CAP.SPRINK GT SCH ×2 (09:37→17:57)
[2017-11-04] MEDS: LAMIVUDI GT SCH (09:37)
[2017-11-04] MEDS: PROSOURCE / PROSTAT (PYXIS) 30 ML UDC GT SCH ×2 (09:37→17:57)
[2017-11-04] MEDS: ABACAVIR GT SCH (09:37)
[2017-11-04] MEDS: GABAPENTIN 100 MG CAPSULE GT SCH ×4 (09:37→21:00)
[2017-11-04] MEDS: MULTIVIT, IRON, MIN NO. 8, FA 1 TAB GT SCH (09:37)
[2017-11-04] MEDS: LORATADINE 10 MG TABLET GT SCH (09:37)
[2017-11-04] MEDS: DOLUTEGRAVIR GT SCH (09:37)
[2017-11-04] MEDS: DIAZEPAM 5 MG TABLET GT SCH ×2 (09:38→21:00)
[2017-11-04] MEDS: SERTRALINE HCL 25 MG TABLET GT SCH (12:57)
--- NOTE | 2017-11-04 15:00 | NUR ---
Resident in bed tolerating current vent setting of CPAP, mother at bedside. Resident ate 100% of his vegan lunch, no s/s of aspiration, PMV in place. RT at bedside. Resident in good mood, she said that one day she will walk in the hallway as promised wearing high heels.
[2017-11-04 19:37] VITALS: BP 99/57
[2017-11-05] MEDS: FIBERSOURCE HN 1,000 ML BOTTLE GT PRN (00:17)
[2017-11-05] MEDS: IPRATROPIUM NEB FS 0.5 MG/2.5 ML AMPUL.NEB NEB SCH ×4 (01:30→19:57)
[2017-11-05 07:34] VITALS: BP 97/48
[2017-11-05] MEDS: LAMIVUDI GT SCH (09:50)
[2017-11-05] MEDS: MULTIVIT, IRON, MIN NO. 8, FA 1 TAB GT SCH (09:50)
[2017-11-05] MEDS: Z GUARD REMEDY 4 OZ OINT TP SCH ×2 (09:50→21:20)
[2017-11-05] MEDS: FAMOTIDINE 40 MG TABLET GT SCH (09:50)
[2017-11-05] MEDS: DOLUTEGRAVIR GT SCH (09:50)
[2017-11-05] MEDS: VITAMINS A AND D 56.7 GM TUBE TP SCH ×2 (09:50→21:20)
[2017-11-05] MEDS: GABAPENTIN 100 MG CAPSULE GT SCH ×4 (09:50→21:20)
[2017-11-05] MEDS: ABACAVIR GT SCH (09:50)
[2017-11-05] MEDS: DIAZEPAM 5 MG TABLET GT SCH ×2 (09:50→21:20)
[2017-11-05] MEDS: PROSOURCE / PROSTAT (PYXIS) 30 ML UDC GT SCH ×2 (09:50→17:19)
[2017-11-05] MEDS: LACTOBACILLUS RHAMNOSUS GG 1 EACH CAP.SPRINK GT SCH ×2 (09:50→17:19)
[2017-11-05] MEDS: LORATADINE 10 MG TABLET GT SCH (09:50)
[2017-11-05] MEDS: SERTRALINE HCL 25 MG TABLET GT SCH (12:40)
--- NOTE | 2017-11-05 13:00 | NUR ---
Resident is on vegan diet. Seen by Dietitian ,asked to place an order for vegan diet.placed an order.continue to monitor.resident is getting oral gratification at lunch time only.
--- NOTE | 2017-11-05 16:30 | NUR ---
Resident noted with blood tinged secretions from the trach.no SOB ,no distress noticed.resident complaints that she had cough at last night after she drink juice.blood spots noticed on the ventilator tubing while she cough.vital signs are stable.T-98.3,BP-100/56,RI-91,R-14,X4rou-661%. made aware,got new order for CXR.noted and carried out.MOm was at the bed side.continue to monitor.
--- NOTE | 2017-11-05 18:35 | NUR ---
Relayed CXR result to ,no new order at this time.continue to monitor.
[2017-11-05 20:17] VITALS: BP 111/66
[2017-11-06] MEDS: IPRATROPIUM NEB FS 0.5 MG/2.5 ML AMPUL.NEB NEB SCH ×4 (01:21→20:19)
[2017-11-06] MEDS: DIAZEPAM 5 MG TABLET GT SCH ×2 (09:15→21:23)
[2017-11-06] MEDS: Z GUARD REMEDY 4 OZ OINT TP SCH ×2 (09:35→21:24)
[2017-11-06] MEDS: GABAPENTIN 100 MG CAPSULE GT SCH ×4 (09:35→21:23)
[2017-11-06] MEDS: FAMOTIDINE 40 MG TABLET GT SCH (09:35)
[2017-11-06] MEDS: PROSOURCE / PROSTAT (PYXIS) 30 ML UDC GT SCH ×2 (09:35→17:21)
[2017-11-06] MEDS: LORATADINE 10 MG TABLET GT SCH (09:35)
[2017-11-06] MEDS: LACTOBACILLUS RHAMNOSUS GG 1 EACH CAP.SPRINK GT SCH ×2 (09:35→17:21)
[2017-11-06] MEDS: MULTIVIT, IRON, MIN NO. 8, FA 1 TAB GT SCH (09:35)
[2017-11-06] MEDS: VITAMINS A AND D 56.7 GM TUBE TP SCH ×2 (09:35→21:24)
[2017-11-06] MEDS: ABACAVIR GT SCH (09:35)
[2017-11-06] MEDS: LAMIVUDI GT SCH (09:35)
[2017-11-06] MEDS: DOLUTEGRAVIR GT SCH (09:35)
[2017-11-06] MEDS: FIBERSOURCE HN 1,000 ML BOTTLE GT PRN (09:36)
--- NOTE | 2017-11-06 12:15 | NUR ---
Seen by ST Nj. Received order to change diet to mechanical soft lunch only with RT supervision.
[2017-11-06] MEDS: SERTRALINE HCL 25 MG TABLET GT SCH (13:38)
--- NOTE | 2017-11-06 15:00 | NUR ---
Pt ambulated with PT. Pt tolerated well. She said she felt tired but was happy to walk. PT Maya asked her a few times to sit and take a break from walking but she refused and said she wanted to keep walking.
[2017-11-06] MEDS: ONDANSETRON 4 MG TAB.RAPDIS GT PRN (15:55)
[2017-11-06] MEDS: FENTANYL TD PATCH (50 MCG/HR) 50 MCG/HR PATCH.TD72 TD SCH (17:38)
--- NOTE | 2017-11-06 17:43 | NUR ---
PT ON MECH VENT TRACH INTACT AND SECURED. ALARMS ON AND AUDIBLE VENT PLUGGED IN RED OUTLET BAG AND MASK AT BEDSIDE. TX GIVEN RICHAR WELL NO ADVERSE REACTION NOTED ATT. SX SMALL BLOOD THIN PALE YELLOW SECRETIONS. CHANGE OUT TOLENTINO AND CIRCUIT WILL CONTINUE TO MONITOR. PT WALKED WITH PT AND VENT RICHAR WELL
[2017-11-06 19:52] VITALS: BP 97/59
[2017-11-07] MEDS: IPRATROPIUM NEB FS 0.5 MG/2.5 ML AMPUL.NEB NEB SCH ×4 (01:34→20:25)
[2017-11-07 07:50] VITALS: BP 92/55
[2017-11-07] MEDS: ABACAVIR GT SCH (09:41)
[2017-11-07] MEDS: LACTOBACILLUS RHAMNOSUS GG 1 EACH CAP.SPRINK GT SCH ×2 (09:41→17:43)
[2017-11-07] MEDS: LAMIVUDI GT SCH (09:41)
[2017-11-07] MEDS: DOLUTEGRAVIR GT SCH (09:41)
[2017-11-07] MEDS: PROSOURCE / PROSTAT (PYXIS) 30 ML UDC GT SCH ×2 (09:42→17:43)
[2017-11-07] MEDS: GABAPENTIN 100 MG CAPSULE GT SCH ×4 (09:42→21:45)
[2017-11-07] MEDS: MULTIVIT, IRON, MIN NO. 8, FA 1 TAB GT SCH (09:42)
[2017-11-07] MEDS: FAMOTIDINE 40 MG TABLET GT SCH (09:42)
[2017-11-07] MEDS: LORATADINE 10 MG TABLET GT SCH (09:44)
[2017-11-07] MEDS: DIAZEPAM 5 MG TABLET GT SCH ×2 (09:44→21:45)
[2017-11-07] MEDS: Z GUARD REMEDY 4 OZ OINT TP SCH ×2 (10:00→21:45)
[2017-11-07] MEDS: VITAMINS A AND D 56.7 GM TUBE TP SCH ×2 (10:00→21:45)
--- NOTE | 2017-11-07 10:30 | NUR ---
RT NOTE PT IN STABLE CONDITION. PT ON MECHANICAL VENTILATION. SETTINGS PRESCRIBED. ALARMS SET PER PROTOCOL AND AUDIBLE. TRACH MIDLINE AND SECURE. VENT PLUGGED IN TO RED OUTLET. AMBU BAG AT BED SIDE. NO DISTRESS NOTED. WILL CONTINUE TO MONITOR.
[2017-11-07 11:09] LABS: ABG BASE EXCESS 0.9 mmol/L; ABG OXYGEN SATURATION 96.5 % (92.0-98.5); ABG PCO2 46.3 mmHg (35.0-45.0); ABG PH 7.375 (7.350-7.450); ABG PO2 98.9 mmHg (75.0-100.0); AaDO2 60.6 mmHg; COHb 0.3 % (0.5-1.5); MetHb 0.4 % (0.0-1.5); O2Hb 95.8 % (94.0-97.0); SITE, ABG Right Radial; VENT MODE, BG CPAP PS 20 +5 30%
[2017-11-07 12:14] LABS: ABG BASE EXCESS 0.1 mmol/L; ABG PCO2 45.7 mmHg (35.0-45.0); ABG PH 7.368 (7.350-7.450); ABG PO2 95.1 mmHg (75.0-100.0); AaDO2 50.6 mmHg; COHb 0.1 % (0.5-1.5); MetHb 0.5 % (0.0-1.5); O2Hb 95.4 % (94.0-97.0); SITE, ABG Right Radial; VENT MODE, BG CA 28%
--- NOTE | 2017-11-07 12:44 | NUR ---
Pt on cool aerosol and tolerating well. Relayed ABG result to Dr. Sosa. He ordered to continue cool aerosol as tolerated.
[2017-11-07] MEDS: SERTRALINE HCL 25 MG TABLET GT SCH (12:52)
[2017-11-07] MEDS: FIBERSOURCE HN 1,000 ML BOTTLE GT PRN (16:31)
--- NOTE | 2017-11-07 19:30 | NUR ---
RN NOTES Received pt on C/A 30% with no respiratory distress or SOB. Will continue to monitor.
[2017-11-07 20:02] VITALS: BP 101/62
[2017-11-07 22:12] VITALS: BP 101/62
[2017-11-08] MEDS: IPRATROPIUM NEB FS 0.5 MG/2.5 ML AMPUL.NEB NEB SCH ×4 (01:47→19:30)
[2017-11-08 08:00] VITALS: BP 93/51
[2017-11-08] MEDS: DOLUTEGRAVIR GT SCH (09:46)
[2017-11-08] MEDS: LAMIVUDI GT SCH (09:46)
[2017-11-08] MEDS: ABACAVIR GT SCH (09:46)
[2017-11-08] MEDS: LORATADINE 10 MG TABLET GT SCH (09:46)
[2017-11-08] MEDS: LACTOBACILLUS RHAMNOSUS GG 1 EACH CAP.SPRINK GT SCH ×2 (09:46→16:37)
[2017-11-08] MEDS: MULTIVIT, IRON, MIN NO. 8, FA 1 TAB GT SCH (09:47)
[2017-11-08] MEDS: FAMOTIDINE 40 MG TABLET GT SCH (09:47)
[2017-11-08] MEDS: PROSOURCE / PROSTAT (PYXIS) 30 ML UDC GT SCH ×2 (09:47→16:37)
[2017-11-08] MEDS: DIAZEPAM 5 MG TABLET GT SCH ×2 (09:47→21:10)
[2017-11-08] MEDS: GABAPENTIN 100 MG CAPSULE GT SCH ×4 (09:47→21:10)
[2017-11-08] MEDS: Z GUARD REMEDY 4 OZ OINT TP SCH ×2 (09:48→21:10)
[2017-11-08] MEDS: VITAMINS A AND D 56.7 GM TUBE TP SCH ×2 (09:48→21:10)
[2017-11-08] MEDS: SERTRALINE HCL 25 MG TABLET GT SCH (12:50)
--- NOTE | 2017-11-08 15:00 | NUR ---
Resident ambulated with PT using FWW while on cool aerosol. She walk from the room around the nursing station twice without episode of SOB, ambulation well tolerated. Resident's mother and friends at bedside.
--- NOTE | 2017-11-08 15:15 | NUR ---
Informed resident's friend Mary Ann about upcoming IDT meeting on Friday November 10, 2017 from 12:30-1:30pm. She stated that she is unable to attend and will be out of town.
[2017-11-08] MEDS: FIBERSOURCE HN 1,000 ML BOTTLE GT PRN (21:10)
[2017-11-08 22:16] VITALS: BP 99/65
[2017-11-09] MEDS: IPRATROPIUM NEB FS 0.5 MG/2.5 ML AMPUL.NEB NEB SCH ×4 (01:30→20:08)
--- NOTE | 2017-11-09 06:52 | NUR ---
Still noted with tracheal bleeding when suctioned.No respiratory distress noted during the night.Will continue to monitor.
[2017-11-09 08:44] VITALS: BP 96/60
[2017-11-09] MEDS: LAMIVUDI GT SCH (09:00)
[2017-11-09] MEDS: PROSOURCE / PROSTAT (PYXIS) 30 ML UDC GT SCH ×2 (09:00→17:00)
[2017-11-09] MEDS: DIAZEPAM 5 MG TABLET GT SCH ×2 (09:00→21:21)
[2017-11-09] MEDS: GABAPENTIN 100 MG CAPSULE GT SCH ×4 (09:00→21:21)
[2017-11-09] MEDS: FAMOTIDINE 40 MG TABLET GT SCH (09:00)
[2017-11-09] MEDS: Z GUARD REMEDY 4 OZ OINT TP SCH ×2 (09:00→21:21)
[2017-11-09] MEDS: DOLUTEGRAVIR GT SCH (09:00)
[2017-11-09] MEDS: MULTIVIT, IRON, MIN NO. 8, FA 1 TAB GT SCH (09:00)
[2017-11-09] MEDS: LORATADINE 10 MG TABLET GT SCH (09:00)
[2017-11-09] MEDS: ABACAVIR GT SCH (09:00)
[2017-11-09] MEDS: LACTOBACILLUS RHAMNOSUS GG 1 EACH CAP.SPRINK GT SCH ×2 (09:00→17:00)
[2017-11-09] MEDS: VITAMINS A AND D 56.7 GM TUBE TP SCH ×2 (09:00→21:21)
[2017-11-09] MEDS: SERTRALINE HCL 25 MG TABLET GT SCH (12:55)
--- NOTE | 2017-11-09 15:00 | NUR ---
Seen by JAKE Ruff. Notified her that pt has tremors on the hands. Pt said it is not new and has had it in the past. JAKE Ruff explained that it might be because of body deconditioning. She advised pt to exercise her arms or ask PT to show her exercises on how to strengthen the arms and hands. JAKE Ruff also ordered to check TSH in AM. Pt aware.
--- NOTE | 2017-11-09 16:52 | NUR ---
Dr. Hurtado ordered to DC PICC line. Removed pt's PICC line with catheter tip intact and no bleeding was noted. Pressure dressing placed on the site. Pt tolerated procedure well.
[2017-11-09] MEDS: FENTANYL TD PATCH (50 MCG/HR) 50 MCG/HR PATCH.TD72 TD SCH (17:00)
--- NOTE | 2017-11-09 18:52 | NUR ---
Received order to decrease pt's feeding of Fibersource HN to 55mL/hr for 12 hours only since pt is already eating three meals a day. Addendum: 11/09/17 at 1859 by MICHELLE ERICKSON RN Also received order to do weekly weights x 4.
[2017-11-09 23:25] VITALS: BP 92/58
[2017-11-10] MEDS: IPRATROPIUM NEB FS 0.5 MG/2.5 ML AMPUL.NEB NEB SCH ×4 (01:02→19:30)
[2017-11-10 07:36] VITALS: BP 92/56
[2017-11-10] MEDS: Z GUARD REMEDY 4 OZ OINT TP SCH ×2 (09:00→21:17)
[2017-11-10] MEDS: PROSOURCE / PROSTAT (PYXIS) 30 ML UDC GT SCH ×2 (09:00→17:59)
[2017-11-10] MEDS: MULTIVIT, IRON, MIN NO. 8, FA 1 TAB GT SCH (09:00)
[2017-11-10] MEDS: ABACAVIR GT SCH (09:00)
[2017-11-10] MEDS: LAMIVUDI GT SCH (09:00)
[2017-11-10] MEDS: FAMOTIDINE 40 MG TABLET GT SCH (09:00)
[2017-11-10] MEDS: LORATADINE 10 MG TABLET GT SCH (09:00)
[2017-11-10] MEDS: DOLUTEGRAVIR GT SCH (09:00)
[2017-11-10] MEDS: LACTOBACILLUS RHAMNOSUS GG 1 EACH CAP.SPRINK GT SCH ×2 (09:00→17:59)
[2017-11-10] MEDS: VITAMINS A AND D 56.7 GM TUBE TP SCH ×2 (09:00→21:17)
[2017-11-10] MEDS: GABAPENTIN 100 MG CAPSULE GT SCH ×4 (09:00→21:16)
[2017-11-10] MEDS: DIAZEPAM 5 MG TABLET GT SCH ×2 (09:00→21:17)
[2017-11-10] MEDS: SERTRALINE HCL 25 MG TABLET GT SCH (13:12)
--- NOTE | 2017-11-10 13:40 | NUR ---
IDT meeting held, resident's mother attended the meeting. Current orders, medications, treatment and labs reviewed. Dr. Sosa seen TSH level done today with new order to start patient on Synthroid 0.05mg via GT Q AM daily and repeat level in 2 weeks. It was mentioned patient is gradually losing weight despite eating well and receiving GT feeding. Dr. Sosa wants to continue the same feeding orders and add Boost in between meals per patient's request. PT also reported patient has shown significant progress. Dr. Sosa said that he will assess patient next week and write an order whether to start capping patient's trach. Resident informed.
--- NOTE | 2017-11-10 16:00 | NUR ---
Seen and examined by RAISSA Ashley TRANSPORTATION DEPARTMENT HEAD with new order to culture stoma site, triple ATB to the peristoma and calorie count x 3 days. Resident informed. Orders carried out.
[2017-11-10] MEDS: FIBERSOURCE HN 1,000 ML BOTTLE GT PRN (20:00)
[2017-11-10] MEDS: NEOMY SULF/BACITRAC ZN/POLY 15 GM TUBE TP SCH (21:17)
[2017-11-11 00:27] VITALS: BP 95/55
[2017-11-11] MEDS: IPRATROPIUM NEB FS 0.5 MG/2.5 ML AMPUL.NEB NEB SCH ×4 (01:01→21:30)
[2017-11-11] MEDS: LEVOTHYROXINE SODIUM 50 MCG TABLET GT SCH (05:06)
[2017-11-11 07:44] VITALS: BP 98/69
[2017-11-11] MEDS: BOOST PLUS FOOD-CHOCLATE 237 ML BOX PO SCH ×2 (08:00→11:30)
[2017-11-11] MEDS: ABACAVIR GT SCH (09:59)
[2017-11-11] MEDS: DIAZEPAM 5 MG TABLET GT SCH ×2 (09:59→21:46)
[2017-11-11] MEDS: Z GUARD REMEDY 4 OZ OINT TP SCH ×2 (09:59→21:46)
[2017-11-11] MEDS: LAMIVUDI GT SCH (09:59)
[2017-11-11] MEDS: PROSOURCE / PROSTAT (PYXIS) 30 ML UDC GT SCH ×2 (09:59→17:59)
[2017-11-11] MEDS: MULTIVIT, IRON, MIN NO. 8, FA 1 TAB GT SCH (09:59)
[2017-11-11] MEDS: LACTOBACILLUS RHAMNOSUS GG 1 EACH CAP.SPRINK GT SCH ×2 (09:59→17:59)
[2017-11-11] MEDS: LORATADINE 10 MG TABLET GT SCH (09:59)
[2017-11-11] MEDS: DOLUTEGRAVIR GT SCH (09:59)
[2017-11-11] MEDS: GABAPENTIN 100 MG CAPSULE GT SCH ×4 (09:59→21:46)
[2017-11-11] MEDS: NEOMY SULF/BACITRAC ZN/POLY 15 GM TUBE TP SCH ×2 (09:59→21:46)
[2017-11-11] MEDS: FAMOTIDINE 40 MG TABLET GT SCH (09:59)
[2017-11-11] MEDS: VITAMINS A AND D 56.7 GM TUBE TP SCH ×2 (10:00→21:46)
--- NOTE | 2017-11-11 12:00 | NUR ---
Notified Dr. Sosa that resident is complaining of GT site pain and requesting topical cream and has tendency to constipate. New order given for Lidocaine 2% jelly, routine DSS and PRN MOM for constipation. Resident aware of new orders.
[2017-11-11] MEDS: SERTRALINE HCL 25 MG TABLET GT SCH (13:21)
[2017-11-11] MEDS ORDERED: MAGNESIUM HYDROXIDE 30 ML UDC GT PRN (13:30)
[2017-11-11] MEDS: LIDOCAINE 2% JEL 5 ML TUBE TP SCH ×2 (14:00→21:47)
--- NOTE | 2017-11-11 18:17 | NUR ---
NO SOB NOTED ON 28% VIA COOL AEROSOL. Addendum: 11/11/17 at 1818 by KIMO FISHER RT Amended: Links added.
[2017-11-11 20:00] VITALS: BP 100/66
[2017-11-11] MEDS: FIBERSOURCE HN 1,000 ML BOTTLE GT PRN (20:00)
[2017-11-11] MEDS: LIDOCAINE 2% GEL 30 ML TUBE TP SCH (21:47)
[2017-11-12] MEDS: IPRATROPIUM NEB FS 0.5 MG/2.5 ML AMPUL.NEB NEB SCH ×4 (00:35→20:10)
[2017-11-12] MEDS: LEVOTHYROXINE SODIUM 50 MCG TABLET GT SCH (05:09)
[2017-11-12] MEDS: BOOST PLUS FOOD-CHOCLATE 237 ML BOX PO SCH ×2 (08:00→11:30)
[2017-11-12 08:01] VITALS: BP 98/62
[2017-11-12] MEDS: LAMIVUDI GT SCH (09:00)
[2017-11-12] MEDS: LIDOCAINE 2% JEL 5 ML TUBE TP SCH ×2 (09:00→21:02)
[2017-11-12] MEDS: FAMOTIDINE 40 MG TABLET GT SCH (09:00)
[2017-11-12] MEDS: PROSOURCE / PROSTAT (PYXIS) 30 ML UDC GT SCH ×2 (09:00→17:00)
[2017-11-12] MEDS: Z GUARD REMEDY 4 OZ OINT TP SCH ×2 (09:00→21:00)
[2017-11-12] MEDS: DOLUTEGRAVIR GT SCH (09:00)
[2017-11-12] MEDS: LACTOBACILLUS RHAMNOSUS GG 1 EACH CAP.SPRINK GT SCH ×2 (09:00→17:00)
[2017-11-12] MEDS: NEOMY SULF/BACITRAC ZN/POLY 15 GM TUBE TP SCH ×2 (09:00→20:59)
[2017-11-12] MEDS: MULTIVIT, IRON, MIN NO. 8, FA 1 TAB GT SCH (09:00)
[2017-11-12] MEDS: DIAZEPAM 5 MG TABLET GT SCH ×2 (09:00→20:59)
[2017-11-12] MEDS: VITAMINS A AND D 56.7 GM TUBE TP SCH ×2 (09:00→21:00)
[2017-11-12] MEDS: ABACAVIR GT SCH (09:00)
[2017-11-12] MEDS: LIDOCAINE 2% GEL 30 ML TUBE TP SCH ×2 (09:00→21:01)
[2017-11-12] MEDS: DOCUSATE SODIUM LIQ 100 MG/10 ML UDC GT SCH (09:00)
[2017-11-12] MEDS: GABAPENTIN 100 MG CAPSULE GT SCH ×4 (09:00→20:59)
[2017-11-12] MEDS: LORATADINE 10 MG TABLET GT SCH (09:00)
[2017-11-12] MEDS: SERTRALINE HCL 25 MG TABLET GT SCH (13:00)
--- NOTE | 2017-11-12 16:00 | NUR ---
AWAKE AND ALERT TRACHED PATIENT RECEIVED ON COOL AEROSOL 28%@5LPM. TOLERATING WELL. TRACH CUFF IS COMPLETELY DEFLATED. PMV USED WITH EVERY MEAL. PATIENT TOLERATED WELL. PATIENT'S RESPIRATIONS REMAINS EVEN AND UNLABORED. NF11=44-404% THROUGHOUT THE DAY. WILL CONTINUE TO MONITOR.
[2017-11-12] MEDS: FENTANYL TD PATCH (50 MCG/HR) 50 MCG/HR PATCH.TD72 TD SCH (17:00)
[2017-11-12 20:02] VITALS: BP 98/59
[2017-11-13] MEDS: IPRATROPIUM NEB FS 0.5 MG/2.5 ML AMPUL.NEB NEB SCH ×4 (01:16→19:30)
[2017-11-13] MEDS: FIBERSOURCE HN 1,000 ML BOTTLE GT PRN (03:45)
[2017-11-13] MEDS: LEVOTHYROXINE SODIUM 50 MCG TABLET GT SCH (06:03)
[2017-11-13] MEDS: BOOST PLUS FOOD-CHOCLATE 237 ML BOX PO SCH ×2 (08:00→11:30)
[2017-11-13] MEDS: LIDOCAINE 2% JEL 5 ML TUBE TP SCH ×2 (09:00→21:24)
[2017-11-13 09:01] VITALS: BP 93/63
[2017-11-13] MEDS: LAMIVUDI GT SCH (09:40)
[2017-11-13] MEDS: DOCUSATE SODIUM LIQ 100 MG/10 ML UDC GT SCH (09:40)
[2017-11-13] MEDS: ABACAVIR GT SCH (09:40)
[2017-11-13] MEDS: PROSOURCE / PROSTAT (PYXIS) 30 ML UDC GT SCH ×2 (09:40→17:08)
[2017-11-13] MEDS: MULTIVIT, IRON, MIN NO. 8, FA 1 TAB GT SCH (09:40)
[2017-11-13] MEDS: LORATADINE 10 MG TABLET GT SCH (09:40)
[2017-11-13] MEDS: FAMOTIDINE 40 MG TABLET GT SCH (09:40)
[2017-11-13] MEDS: LACTOBACILLUS RHAMNOSUS GG 1 EACH CAP.SPRINK GT SCH ×2 (09:40→17:08)
[2017-11-13] MEDS: GABAPENTIN 100 MG CAPSULE GT SCH ×4 (09:40→21:23)
[2017-11-13] MEDS: DOLUTEGRAVIR GT SCH (09:40)
[2017-11-13] MEDS: DIAZEPAM 5 MG TABLET GT SCH ×2 (09:40→21:24)
[2017-11-13] MEDS: NEOMY SULF/BACITRAC ZN/POLY 15 GM TUBE TP SCH ×2 (09:41→21:24)
[2017-11-13] MEDS: LIDOCAINE 2% GEL 30 ML TUBE TP SCH ×2 (09:52→21:24)
[2017-11-13] MEDS: Z GUARD REMEDY 4 OZ OINT TP SCH ×2 (09:52→21:24)
[2017-11-13] MEDS: VITAMINS A AND D 56.7 GM TUBE TP SCH ×2 (09:52→21:24)
--- NOTE | 2017-11-13 11:39 | NUR ---
Seen by Dr. Kerns. Relayed G-tube site culture result. Received order to give Zosyn 4.5 gm IV q 6 hours for 10 days. He also ordered GI consult for G-tube to be removed. Notified JAKE Jolley.
[2017-11-13] MEDS: SERTRALINE HCL 25 MG TABLET GT SCH (13:00)
--- NOTE | 2017-11-13 13:50 | NUR ---
Reminded Dr. Kerns of pt's allergies to Penicillin and Meropenem, clarified with him if he still wants pt on Zosyn. Dr. Kerns ordered to DC Zosyn.
--- NOTE | 2017-11-13 15:20 | NUR ---
Relayed GT site culture and sensitivity result to Dr. Kerns.
--- NOTE | 2017-11-13 15:21 | NUR ---
Pt ambulated with PT, tolerated well.
[2017-11-13] MEDS ORDERED: PIPERACILLIN /TAZOBACTAM 4.5 G in IV D5W 50 ML IV SCH (18:00)
[2017-11-13 20:06] VITALS: BP 108/60
[2017-11-14] MEDS: IPRATROPIUM NEB FS 0.5 MG/2.5 ML AMPUL.NEB NEB SCH ×4 (01:48→19:41)
[2017-11-14] MEDS: LEVOTHYROXINE SODIUM 50 MCG TABLET GT SCH (05:57)
[2017-11-14 07:57] VITALS: BP 98/58
[2017-11-14] MEDS: BOOST PLUS FOOD-CHOCLATE 237 ML BOX PO SCH ×2 (08:00→11:30)
[2017-11-14] MEDS: VITAMINS A AND D 56.7 GM TUBE TP SCH ×2 (09:00→21:06)
[2017-11-14] MEDS: PROSOURCE / PROSTAT (PYXIS) 30 ML UDC GT SCH ×2 (09:00→17:38)
[2017-11-14] MEDS: LIDOCAINE 2% JEL 5 ML TUBE TP SCH ×2 (09:00→21:06)
[2017-11-14] MEDS: LIDOCAINE 2% GEL 30 ML TUBE TP SCH ×2 (09:00→21:06)
[2017-11-14] MEDS: GABAPENTIN 100 MG CAPSULE GT SCH ×4 (09:00→21:05)
[2017-11-14] MEDS: LAMIVUDI GT SCH (09:00)
[2017-11-14] MEDS: DIAZEPAM 5 MG TABLET GT SCH ×2 (09:00→21:05)
[2017-11-14] MEDS: DOLUTEGRAVIR GT SCH (09:00)
[2017-11-14] MEDS: ABACAVIR GT SCH (09:00)
[2017-11-14] MEDS: MULTIVIT, IRON, MIN NO. 8, FA 1 TAB GT SCH (09:00)
[2017-11-14] MEDS: LACTOBACILLUS RHAMNOSUS GG 1 EACH CAP.SPRINK GT SCH ×2 (09:00→17:38)
[2017-11-14] MEDS: Z GUARD REMEDY 4 OZ OINT TP SCH ×2 (09:00→21:06)
[2017-11-14] MEDS: NEOMY SULF/BACITRAC ZN/POLY 15 GM TUBE TP SCH ×2 (09:00→21:06)
[2017-11-14] MEDS: DOCUSATE SODIUM LIQ 100 MG/10 ML UDC GT SCH (09:00)
[2017-11-14] MEDS: FAMOTIDINE 40 MG TABLET GT SCH (09:00)
[2017-11-14] MEDS: LORATADINE 10 MG TABLET GT SCH (09:00)
--- NOTE | 2017-11-14 09:22 | NUR ---
Seen by Dr. Sosa. He said he will order trach capping. Relayed GT site C & S result to him. No new order.
--- NOTE | 2017-11-14 11:00 | NUR ---
Received order from Dr. Sosa to do trach capping from 8am to 8pm daily as tolerated.
--- NOTE | 2017-11-14 12:45 | NUR ---
Spoke with Dr. Kerns regarding pt's GT site infection. Reminded him that culture showed Pseudomonas aeruginosa and VRE. Notified him that Dr. Sosa did not want to treat it. Dr. Kerns said he will review the result again and let the charge nurse know immediately if he wants to order any antibiotics. No new order at this time.
[2017-11-14] MEDS: SERTRALINE HCL 25 MG TABLET GT SCH (13:00)
--- NOTE | 2017-11-14 16:43 | NUR ---
JAKE Jolley ordered NPO at midnight tonight in preparation for EGD/G-tube removal tomorrow. She also ordered to try giving medications by mouth crushed and mixed in apple sauce. Pt tolerated it well. Notified JAKE Ashley.
[2017-11-14 22:24] VITALS: BP 106/67
[2017-11-15] MEDS: IPRATROPIUM NEB FS 0.5 MG/2.5 ML AMPUL.NEB NEB SCH ×4 (02:27→20:21)
[2017-11-15] MEDS: LEVOTHYROXINE SODIUM 50 MCG TABLET GT SCH (05:47)
--- NOTE | 2017-11-15 05:47 | NUR ---
Pts 0600 meds was not given due to pt is NPO after midnight, due to procedure this morning.
[2017-11-15 07:39] VITALS: BP 99/63
[2017-11-15] MEDS: BOOST PLUS FOOD-CHOCLATE 237 ML BOX PO SCH ×2 (08:00→11:54)
--- NOTE | 2017-11-15 08:18 | NUR ---
Spoke with Alyssa from admitting department confirming that an outpatient account is not needed. Called surgery to confirm if patient is on the schedule today, according to Bruce patient's name is not on their list but will ask Dr. Rubio when he comes at 0830. Resident on NPO status at this time.
[2017-11-15] MEDS: LIDOCAINE 2% GEL 30 ML TUBE TP SCH ×2 (09:00→21:02)
[2017-11-15] MEDS: LIDOCAINE 2% JEL 5 ML TUBE TP SCH ×2 (09:00→21:02)
[2017-11-15] MEDS: Z GUARD REMEDY 4 OZ OINT TP SCH ×2 (09:00→21:02)
[2017-11-15] MEDS: NEOMY SULF/BACITRAC ZN/POLY 15 GM TUBE TP SCH ×2 (09:00→21:02)
[2017-11-15] MEDS: VITAMINS A AND D 56.7 GM TUBE TP SCH ×2 (09:00→21:02)
--- NOTE | 2017-11-15 10:01 | NUR ---
Called surgery again spoke with Latonia to check if patient is on their schedule now, she said she is not. Confirmed with Gabi Jolley NP, GI that patient will have EGD today. Resident notified.
--- NOTE | 2017-11-15 11:05 | NUR ---
Received a call from OR staff, stating that Dr. Rubio wants the patient in 10 minutes, later on cancelled the procedure and said Dr. Rubio will not do it today but no date given for new schedule. Resident notified and requested Boost drink for now while waiting for lunch saying she is hungry. Will wait for another order from .
[2017-11-15] MEDS: FAMOTIDINE 40 MG TABLET GT SCH (11:30)
[2017-11-15] MEDS: LORATADINE 10 MG TABLET GT SCH (11:30)
[2017-11-15] MEDS: DOLUTEGRAVIR GT SCH (11:30)
[2017-11-15] MEDS: MULTIVIT, IRON, MIN NO. 8, FA 1 TAB GT SCH (11:30)
[2017-11-15] MEDS: LAMIVUDI GT SCH (11:30)
[2017-11-15] MEDS: ABACAVIR GT SCH (11:30)
[2017-11-15] MEDS: DOCUSATE SODIUM LIQ 100 MG/10 ML UDC GT SCH (11:30)
[2017-11-15] MEDS: GABAPENTIN 100 MG CAPSULE GT SCH ×4 (11:30→21:02)
[2017-11-15] MEDS: DIAZEPAM 5 MG TABLET GT SCH ×2 (11:30→21:02)
[2017-11-15] MEDS: PROSOURCE / PROSTAT (PYXIS) 30 ML UDC GT SCH ×2 (11:30→17:00)
[2017-11-15] MEDS: LACTOBACILLUS RHAMNOSUS GG 1 EACH CAP.SPRINK GT SCH ×2 (11:30→17:00)
[2017-11-15] MEDS: ONDANSETRON 4 MG TAB.RAPDIS GT PRN (13:00)
--- NOTE | 2017-11-15 13:07 | NUR ---
Resident said that she felt nauseated and would like to skip therapy today. Rehab notified. CARE PARTNER reported patient with small scratch on her face, she said she left patient sitting on the chair but found resident back in the bed. Patient transferred herself back in bed. Denies any fall/injury, when asked what happened with her face, she said that she might have scratch it. Patient with scratch sanchez in her forehead between her eyebrows,
--- NOTE | 2017-11-15 13:40 | NUR ---
Resident vomited with large amount of formula like color. Resident drank her Boost earlier but did not want to eat lunch at this time. All medications given by mouth. Resident vomited large amount of formula like color. She said "maybe after I took the medications by mouth my stomach felt bad". Zofran PRN given as ordered but gave it via GT. Dr. Sosa made aware of the episode of vomiting no new order at this time.
[2017-11-15] MEDS: SERTRALINE HCL 25 MG TABLET GT SCH (13:55)
[2017-11-15] MEDS: FENTANYL TD PATCH (50 MCG/HR) 50 MCG/HR PATCH.TD72 TD SCH (17:38)
[2017-11-15 20:13] VITALS: BP 94/58
[2017-11-16] MEDS: IPRATROPIUM NEB FS 0.5 MG/2.5 ML AMPUL.NEB NEB SCH ×4 (01:41→19:17)
[2017-11-16] MEDS: LEVOTHYROXINE SODIUM 50 MCG TABLET GT SCH (06:04)
[2017-11-16 07:55] VITALS: BP 101/62
[2017-11-16] MEDS: BOOST PLUS FOOD-CHOCLATE 237 ML BOX PO SCH ×2 (08:00→11:30)
--- NOTE | 2017-11-16 08:28 | NUR ---
RT PLACED PT ON TRACH CAP WITH 2LPM O2 VIA NC PER MD ORDER. TOLERATING WELL AT THIS TIME. PATIENT AWAKE AND VERBALLY RESPONSIVE. RN AWARE AND NOTIFIED. NO SIGNS OF DISTRESS NOTED AT THIS TIME. WILL CONTINUE TO MONITOR THE PATIENT FOR ANY CHANGES.
[2017-11-16] MEDS: ABACAVIR GT SCH (09:00)
[2017-11-16] MEDS: FAMOTIDINE 40 MG TABLET GT SCH (09:00)
[2017-11-16] MEDS: LAMIVUDI GT SCH (09:00)
[2017-11-16] MEDS: MULTIVIT, IRON, MIN NO. 8, FA 1 TAB GT SCH (09:00)
[2017-11-16] MEDS: DIAZEPAM 5 MG TABLET GT SCH ×2 (09:00→21:20)
[2017-11-16] MEDS: VITAMINS A AND D 56.7 GM TUBE TP SCH ×2 (09:00→21:20)
[2017-11-16] MEDS: LIDOCAINE 2% GEL 30 ML TUBE TP SCH ×2 (09:00→21:20)
[2017-11-16] MEDS: PROSOURCE / PROSTAT (PYXIS) 30 ML UDC GT SCH ×2 (09:00→17:57)
[2017-11-16] MEDS: LORATADINE 10 MG TABLET GT SCH (09:00)
[2017-11-16] MEDS: NEOMY SULF/BACITRAC ZN/POLY 15 GM TUBE TP SCH ×2 (09:00→21:20)
[2017-11-16] MEDS: DOLUTEGRAVIR GT SCH (09:00)
[2017-11-16] MEDS: Z GUARD REMEDY 4 OZ OINT TP SCH ×2 (09:00→21:20)
[2017-11-16] MEDS: GABAPENTIN 100 MG CAPSULE GT SCH ×4 (09:00→21:20)
[2017-11-16] MEDS: LIDOCAINE 2% JEL 5 ML TUBE TP SCH ×2 (09:00→21:20)
[2017-11-16] MEDS: DOCUSATE SODIUM LIQ 100 MG/10 ML UDC GT SCH (09:00)
[2017-11-16] MEDS: LACTOBACILLUS RHAMNOSUS GG 1 EACH CAP.SPRINK GT SCH ×2 (09:00→17:57)
--- NOTE | 2017-11-16 11:23 | NUR ---
Followed up EGD schedule with FINISH GRINDER Gabi Jolley. She said there is no definite schedule yet, but maybe it will be done on Monday or Monday. Pt aware.
[2017-11-16] MEDS: SERTRALINE HCL 25 MG TABLET GT SCH (13:27)
--- NOTE | 2017-11-16 18:24 | NUR ---
Pt's G-tube site has granulation tissue, no swelling, no drainage noted. T 98.0 F.
[2017-11-16 19:47] VITALS: BP 103/64
[2017-11-16] MEDS ORDERED: GABAPENTIN 100 MG CAPSULE PO PRN (21:30)
[2017-11-16] MEDS ORDERED: MAGNESIUM HYDROXIDE 30 ML UDC PO PRN (21:30)
[2017-11-17] MEDS: IPRATROPIUM NEB FS 0.5 MG/2.5 ML AMPUL.NEB NEB SCH ×4 (00:54→19:40)
[2017-11-17] MEDS ORDERED: HYDROCODONE/APAP 5/325MG 1 EACH TABLET PO PRN (01:30)
[2017-11-17] MEDS ORDERED: ACETAMINOPHEN 650 MG/20 ML UDC- FOR SA PATIENTS ONLY PO PRN (01:30)
[2017-11-17] MEDS ORDERED: ONDANSETRON 4 MG TAB.RAPDIS PO PRN (01:30)
[2017-11-17] MEDS: LEVOTHYROXINE SODIUM 50 MCG TABLET PO SCH (05:23)
[2017-11-17 07:34] VITALS: BP 99/66
[2017-11-17] MEDS: BOOST PLUS FOOD-CHOCLATE 237 ML BOX PO SCH ×2 (08:00→11:30)
[2017-11-17] MEDS ORDERED: DOCUSATE SODIUM LIQ 100 MG/10 ML UDC PO SCH (09:00)
[2017-11-17] MEDS: MULTIVIT, IRON, MIN NO. 8, FA 1 TAB PO SCH (09:27)
[2017-11-17] MEDS: NEOMY SULF/BACITRAC ZN/POLY 15 GM TUBE TP SCH ×2 (09:27→21:18)
[2017-11-17] MEDS: LORATADINE 10 MG TABLET PO SCH (09:27)
[2017-11-17] MEDS: FAMOTIDINE 40 MG TABLET PO SCH (09:27)
[2017-11-17] MEDS: LACTOBACILLUS RHAMNOSUS GG 1 EACH CAP.SPRINK PO SCH ×2 (09:27→17:46)
[2017-11-17] MEDS: DIAZEPAM 5 MG TABLET PO SCH ×2 (09:27→21:18)
[2017-11-17] MEDS: PROSOURCE / PROSTAT (PYXIS) 30 ML UDC PO SCH ×2 (09:27→17:46)
[2017-11-17] MEDS: GABAPENTIN 100 MG CAPSULE PO SCH ×4 (09:27→21:18)
[2017-11-17] MEDS: VITAMINS A AND D 56.7 GM TUBE TP SCH ×2 (09:28→21:19)
[2017-11-17] MEDS: Z GUARD REMEDY 4 OZ OINT TP SCH ×2 (09:28→21:18)
[2017-11-17] MEDS: LIDOCAINE 2% GEL 30 ML TUBE TP SCH ×2 (09:28→21:19)
--- NOTE | 2017-11-17 10:42 | NUR ---
KATIUSKA spoke with Emily from [facility] who stated that she has been receiving updated clinicals and has authorized until 11/23/2017. She stated that she would like to see more notes regarding trach status and SW informed the case sealer who are responsible for sending the clinicals. KATIUSKA spoke to Dr. Sosa who stated that he will see the resident next week but that there is plans to decannulate the resident. KATIUSKA informed him that sw is unavailable November 27- and he acknowledged and stated that he will notify SW as to decannulation plans and timeline. KATIUSKA obtained from Emily a list of contracted home health agencies that can follow up with the resident once she is discharged. SW to set up home health prior to the patient's discharge. SW was provided with number of speciality MH Services ([phone]) and psych inpatient MH services ([phone]) as well. SW to provide mental health resources to the resident prior to discharge. Resident talked with the therapist about her reasons for being in the hospital and stated that she was excited to be leaving home soon. She denied suicidal ideations. SW talked to the resident about Victims of Crime Program and she stated that she was interested in applying. SW to assist the resident in filling out an application. Informed resident that this program can pay up to 40 therapy sessions for her. She notified katiuska that it is okay to reach out to Detective Sosa (tel [phone]) for information that is needed (date of crime, crime report number, etc). KATIUSKA called Detective Sosa and left a message with contact information.
[2017-11-17] MEDS: SERTRALINE HCL 25 MG TABLET PO SCH (13:43)
--- NOTE | 2017-11-17 14:57 | NUR ---
Informed Mary Ann, resident's friend, about upcoming IDT meeting on December 01, 2017 from 12:30-1:30pm. She stated she will be on vacation and will not be available. SW to ask the resident's mother and resident if they would like to attend the IDT meeting.
[2017-11-17 21:09] LABS: BASOPHILS % (AUTO) 0.5 % (0.0-2.0); EOSINOPHILS % (AUTO) 4.5 % (0.0-6.0); HEMATOCRIT 31 % (39-51); HEMOGLOBIN 10.5 g/dL (13.5-17.5); LYMPHOCYTES # (AUTO) 5.1 /CMM (0.8-4.8); LYMPHOCYTES % (AUTO) 54.6 % (20.0-44.0); MEAN CORPUSCULAR HGB CONC 34 g/dl (31.0-36.0); MEAN CORPUSCULAR VOLUME 93 fL (80-96); MONOCYTES # (AUTO) 0.7 /CMM (0.1-1.30); MONOCYTES % (AUTO) 7.4 % (2.0-12.0); NEUTROPHILS # (AUTO) 3.1 /CMM (1.8-8.9); PLATELET COUNT (AUTO) 299 /CMM (150-450); RDW COEFFICIENT OF VARIATION 17.3 (11.5-15.0); RED BLOOD CELL COUNT(AUTO) 3.36 MIL/uL (4.5-6.0); WHITE BLOOD COUNT (AUTO) 9.3 K/uL (4.3-11.0)
[2017-11-17 21:39] LABS: ALBUMIN 3.2 g/dL (3.4-5.0); BILIRUBIN,TOTAL 0.2 mg/dL (0.2-1.0); CALCIUM, SERUM 9.5 mg/dL (8.5-10.1); CREATININE 0.5 mg/dL (0.6-1.3); POTASSIUM 4.3 mmol/L (3.5-5.1); TOTAL PROTEIN, SERUM 7.6 g/dL (6.4-8.2)
[2017-11-17 22:03] LABS: INR 0.93 (0.87-1.13)
[2017-11-17 23:35] VITALS: BP 101/62
[2017-11-18] MEDS: IPRATROPIUM NEB FS 0.5 MG/2.5 ML AMPUL.NEB NEB SCH ×4 (01:12→20:38)
[2017-11-18] MEDS: LEVOTHYROXINE SODIUM 50 MCG TABLET PO SCH (05:08)
[2017-11-18 07:44] VITALS: BP 95/61
[2017-11-18] MEDS: BOOST PLUS FOOD-CHOCLATE 237 ML BOX PO SCH ×2 (08:00→11:30)
[2017-11-18] MEDS: DIAZEPAM 5 MG TABLET PO SCH ×2 (09:00→20:50)
[2017-11-18] MEDS: MULTIVIT, IRON, MIN NO. 8, FA 1 TAB PO SCH (09:00)
[2017-11-18] MEDS: Z GUARD REMEDY 4 OZ OINT TP SCH ×2 (09:00→20:50)
[2017-11-18] MEDS: GABAPENTIN 100 MG CAPSULE PO SCH ×4 (09:00→20:50)
[2017-11-18] MEDS: FAMOTIDINE 40 MG TABLET PO SCH (09:00)
[2017-11-18] MEDS: NEOMY SULF/BACITRAC ZN/POLY 15 GM TUBE TP SCH ×2 (09:00→20:50)
[2017-11-18] MEDS: LIDOCAINE 2% GEL 30 ML TUBE TP SCH (09:00)
[2017-11-18] MEDS: LORATADINE 10 MG TABLET PO SCH (09:00)
[2017-11-18] MEDS: DOCUSATE SODIUM 100 MG CAPSULE PO SCH (09:00)
[2017-11-18] MEDS: PROSOURCE / PROSTAT (PYXIS) 30 ML UDC PO SCH ×2 (09:00→17:00)
[2017-11-18] MEDS: LACTOBACILLUS RHAMNOSUS GG 1 EACH CAP.SPRINK PO SCH ×2 (09:00→17:00)
[2017-11-18] MEDS: VITAMINS A AND D 56.7 GM TUBE TP SCH ×2 (09:00→20:50)
--- NOTE | 2017-11-18 09:47 | NUR ---
Patient picked up by surgical staff, transferred to OR for PEG removal procedure. Pt awake, alert and responsive. No SOB/ no distress noted. Consents signed by patient's mother.
--- NOTE | 2017-11-18 10:50 | NUR ---
Pt returned from surgery s/p PEG removal. Dressing intact, minimum strikethrough serosanguineous drainage noted. Pt sleeping but arouses easily to verbal and tactile stimuli. IVF ongoing as ordered. Hold all medication while pt is NPO. Pt may resume liquid diet 12hrs post surgery then resume to regular diet tomorrow AM as tolerated. Pt's mother Leesa notified of pt's condition. VS: BP 108/63, HR 83, RR 12, Temp 98.0. On O2 via NC, trach capped. No SOB/ no distress noted. Pt's needs met and attended.
[2017-11-18] MEDS: SERTRALINE HCL 25 MG TABLET PO SCH (13:00)
[2017-11-18] MEDS: FENTANYL TD PATCH (50 MCG/HR) 50 MCG/HR PATCH.TD72 TD SCH (17:49)
[2017-11-19 00:16] VITALS: BP 105/61
[2017-11-19] MEDS: IPRATROPIUM NEB FS 0.5 MG/2.5 ML AMPUL.NEB NEB SCH ×4 (02:29→20:03)
[2017-11-19] MEDS: LEVOTHYROXINE SODIUM 50 MCG TABLET PO SCH (05:13)
[2017-11-19 08:00] VITALS: BP 105/64
[2017-11-19] MEDS: BOOST PLUS FOOD-CHOCLATE 237 ML BOX PO SCH ×2 (08:00→11:30)
[2017-11-19] MEDS: PROSOURCE / PROSTAT (PYXIS) 30 ML UDC PO SCH ×2 (09:00→17:00)
[2017-11-19] MEDS: MULTIVIT, IRON, MIN NO. 8, FA 1 TAB PO SCH (09:00)
[2017-11-19] MEDS: VITAMINS A AND D 56.7 GM TUBE TP SCH ×2 (09:00→21:27)
[2017-11-19] MEDS: LACTOBACILLUS RHAMNOSUS GG 1 EACH CAP.SPRINK PO SCH ×2 (09:00→17:00)
[2017-11-19] MEDS: GABAPENTIN 100 MG CAPSULE PO SCH ×4 (09:00→21:27)
[2017-11-19] MEDS: FAMOTIDINE 40 MG TABLET PO SCH (09:00)
[2017-11-19] MEDS: DOCUSATE SODIUM 100 MG CAPSULE PO SCH (09:00)
[2017-11-19] MEDS: NEOMY SULF/BACITRAC ZN/POLY 15 GM TUBE TP SCH ×2 (09:00→21:27)
[2017-11-19] MEDS: Z GUARD REMEDY 4 OZ OINT TP SCH ×2 (09:00→21:27)
[2017-11-19] MEDS: DIAZEPAM 5 MG TABLET PO SCH ×2 (09:00→21:27)
[2017-11-19] MEDS: LORATADINE 10 MG TABLET PO SCH (09:00)
--- NOTE | 2017-11-19 09:45 | NUR ---
D/C NPO diet,resume mechanical soft vegan diet x3 meals.
[2017-11-19] MEDS: SERTRALINE HCL 25 MG TABLET PO SCH (13:00)
--- NOTE | 2017-11-19 20:00 | NUR ---
RN NOTES Received pt on R/A, teacher of the sight impaired, with no difficulty breathing or speaking. O2sat 99%. Dressing to gt site intact, dry and clean. No c/o pain or discomfort.
[2017-11-19 20:06] VITALS: BP 115/62
[2017-11-20] MEDS: IPRATROPIUM NEB FS 0.5 MG/2.5 ML AMPUL.NEB NEB SCH ×4 (01:29→20:05)
[2017-11-20] MEDS: LEVOTHYROXINE SODIUM 50 MCG TABLET PO SCH (06:00)
[2017-11-20] MEDS: DOCUSATE SODIUM 100 MG CAPSULE PO SCH (08:46)
[2017-11-20] MEDS: BOOST PLUS FOOD-CHOCLATE 237 ML BOX PO SCH ×2 (08:46→11:30)
[2017-11-20] MEDS: MULTIVIT, IRON, MIN NO. 8, FA 1 TAB PO SCH (08:46)
[2017-11-20] MEDS: PROSOURCE / PROSTAT (PYXIS) 30 ML UDC PO SCH ×2 (08:46→17:42)
[2017-11-20] MEDS: LACTOBACILLUS RHAMNOSUS GG 1 EACH CAP.SPRINK PO SCH ×2 (08:46→17:42)
[2017-11-20] MEDS: LORATADINE 10 MG TABLET PO SCH (08:46)
[2017-11-20] MEDS: GABAPENTIN 100 MG CAPSULE PO SCH ×4 (08:46→21:50)
[2017-11-20] MEDS: DIAZEPAM 5 MG TABLET PO SCH ×2 (08:46→21:50)
[2017-11-20] MEDS: FAMOTIDINE 40 MG TABLET PO SCH (08:46)
[2017-11-20] MEDS: Z GUARD REMEDY 4 OZ OINT TP SCH ×2 (08:58→21:50)
[2017-11-20] MEDS: NEOMY SULF/BACITRAC ZN/POLY 15 GM TUBE TP SCH ×2 (08:58→21:50)
[2017-11-20] MEDS: VITAMINS A AND D 56.7 GM TUBE TP SCH ×2 (08:58→21:50)
--- NOTE | 2017-11-20 11:42 | NUR ---
Seen by Dr. Kerns. He looked at pt's old G-tube site. G-tube site already closed and Dr. Kerns said it looks good. Dr. 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
--- NOTE | 2017-11-20 11:53 | NUR ---
Asked Dr. Kerns if pt can have food brought in by her family. He said it is fine.
[2017-11-20] MEDS: SERTRALINE HCL 25 MG TABLET PO SCH (13:42)
[2017-11-20 20:12] VITALS: BP 110/63
[2017-11-21] MEDS: IPRATROPIUM NEB FS 0.5 MG/2.5 ML AMPUL.NEB NEB SCH ×4 (01:51→19:59)
[2017-11-21] MEDS: LEVOTHYROXINE SODIUM 50 MCG TABLET PO SCH (05:59)
[2017-11-21 08:00] VITALS: BP 87/61
[2017-11-21] MEDS: LORATADINE 10 MG TABLET PO SCH (08:58)
[2017-11-21] MEDS: LACTOBACILLUS RHAMNOSUS GG 1 EACH CAP.SPRINK PO SCH ×2 (08:58→16:58)
[2017-11-21] MEDS: DOCUSATE SODIUM 100 MG CAPSULE PO SCH (08:58)
[2017-11-21] MEDS: BOOST PLUS FOOD-CHOCLATE 237 ML BOX PO SCH ×2 (08:58→11:30)
[2017-11-21] MEDS: NEOMY SULF/BACITRAC ZN/POLY 15 GM TUBE TP SCH ×2 (08:59→20:55)
[2017-11-21] MEDS: GABAPENTIN 100 MG CAPSULE PO SCH ×4 (08:59→20:55)
[2017-11-21] MEDS: FAMOTIDINE 40 MG TABLET PO SCH (08:59)
[2017-11-21] MEDS: DIAZEPAM 5 MG TABLET PO SCH ×2 (08:59→20:55)
[2017-11-21] MEDS: PROSOURCE / PROSTAT (PYXIS) 30 ML UDC PO SCH ×2 (08:59→16:58)
[2017-11-21] MEDS: MULTIVIT, IRON, MIN NO. 8, FA 1 TAB PO SCH (08:59)
[2017-11-21] MEDS: Z GUARD REMEDY 4 OZ OINT TP SCH ×2 (08:59→20:55)
[2017-11-21] MEDS: VITAMINS A AND D 56.7 GM TUBE TP SCH ×2 (08:59→20:55)
--- NOTE | 2017-11-21 09:00 | NUR ---
Seen by Dr. Sosa. Received order for trach capping continuously as tolerated. Dr. Sosa told pt that if trach capping is well tolerated, pt will be decannulated next week.
--- NOTE | 2017-11-21 10:38 | NUR ---
called Detective Sosa (tel [phone]) for information that is needed (date of crime, crime report number, etc) for victims of crime information. He did not answer and SW left a message with contact information Addendum: 11/22/17 at 0911 by RYAN WANG Information Services Tech called the therapist and provided the required information.
--- NOTE | 2017-11-21 12:44 | NUR ---
SW spoke to the resident and her mother and informed them of upcoming IDT meeting on Friday December 01, 2017 12:30-1:30PM. Resident stated she had some questions (such as will she be needing oxygen when she is discharged as she feels she has SOB at times and whether this was normal when she walks to the bathroom). SW informed charge nurse who stated she will mention it to Dr. Sosa's CONSTRUCTION OR LEAK GANG LABORER when she does her rounds on . Resident stated she would like to attend the IDT meeting to also share her questions. informed resident and her mother that SW will be unavailable week of 11/27-12/01 and they acknowledged. Mother is also asking for a letter of verification for the resident's admission as her health insurance and job are asking for it. Per resident, it is okay to provide this letter to her.
[2017-11-21] MEDS: SERTRALINE HCL 25 MG TABLET PO SCH (13:00)
[2017-11-21] MEDS: FENTANYL TD PATCH (50 MCG/HR) 50 MCG/HR PATCH.TD72 TD SCH (16:58)
[2017-11-21 19:50] VITALS: BP 95/60
[2017-11-22] MEDS: IPRATROPIUM NEB FS 0.5 MG/2.5 ML AMPUL.NEB NEB SCH ×4 (02:04→19:30)
[2017-11-22] MEDS: LEVOTHYROXINE SODIUM 50 MCG TABLET PO SCH (06:18)
[2017-11-22] MEDS: BOOST PLUS FOOD-CHOCLATE 237 ML BOX PO SCH ×2 (08:00→11:30)
[2017-11-22 08:14] VITALS: BP 104/63
[2017-11-22] MEDS: FAMOTIDINE 40 MG TABLET PO SCH (09:00)
[2017-11-22] MEDS: DOCUSATE SODIUM 100 MG CAPSULE PO SCH (09:00)
[2017-11-22] MEDS: DIAZEPAM 5 MG TABLET PO SCH ×2 (09:00→21:21)
[2017-11-22] MEDS: LACTOBACILLUS RHAMNOSUS GG 1 EACH CAP.SPRINK PO SCH ×2 (09:00→17:00)
[2017-11-22] MEDS: Z GUARD REMEDY 4 OZ OINT TP SCH ×2 (09:00→21:21)
[2017-11-22] MEDS: PROSOURCE / PROSTAT (PYXIS) 30 ML UDC PO SCH ×2 (09:00→17:00)
[2017-11-22] MEDS: GABAPENTIN 100 MG CAPSULE PO SCH ×4 (09:00→21:21)
[2017-11-22] MEDS: NEOMY SULF/BACITRAC ZN/POLY 15 GM TUBE TP SCH ×2 (09:00→21:21)
[2017-11-22] MEDS: LORATADINE 10 MG TABLET PO SCH (09:00)
[2017-11-22] MEDS: MULTIVIT, IRON, MIN NO. 8, FA 1 TAB PO SCH (09:00)
[2017-11-22] MEDS: VITAMINS A AND D 56.7 GM TUBE TP SCH ×2 (09:00→21:21)
--- NOTE | 2017-11-22 09:26 | NUR ---
flume worker completed Victims of Crime program application and mailed it to [employer] [address], [place] [address]. Resident was informed.
--- NOTE | 2017-11-22 12:38 | NUR ---
FELIPE received a call from Emily from [facility]. She stated she has authorized from 11/24-11/30. She stated that she has been receiving the faxes from the binder caser. SW asked if they are contracted with any medical suppliers in case the resident needs oxygen upon discharge and social media sr strategy manager was told that they are contracted with [employer] ([phone] fax: [phone]) and [employer] . SW to follow up. Informed her that they are planning to decannulate the resident next week. FELIPE informed her that she will be out of the office next week but will follow up on her return.
[2017-11-22] MEDS: SERTRALINE HCL 25 MG TABLET PO SCH (13:45)
--- NOTE | 2017-11-22 14:10 | NUR ---
Resident ambulate with PT tolerated well, trach capped on 02 via NC no SOB. Gabi Jolley NP made aware that patient would like GT granuloma removed. According to Gabi she will take a look and cauterized it if necessary.
[2017-11-22 20:00] VITALS: BP 124/74
[2017-11-23] MEDS: IPRATROPIUM NEB FS 0.5 MG/2.5 ML AMPUL.NEB NEB SCH ×4 (02:15→20:29)
[2017-11-23] MEDS: LEVOTHYROXINE SODIUM 50 MCG TABLET PO SCH (06:53)
[2017-11-23 07:42] VITALS: BP 99/58
[2017-11-23] MEDS: BOOST PLUS FOOD-CHOCLATE 237 ML BOX PO SCH ×2 (09:00→11:30)
[2017-11-23] MEDS: LORATADINE 10 MG TABLET PO SCH (09:01)
[2017-11-23] MEDS: LACTOBACILLUS RHAMNOSUS GG 1 EACH CAP.SPRINK PO SCH ×2 (09:02→16:46)
[2017-11-23] MEDS: FAMOTIDINE 40 MG TABLET PO SCH (09:03)
[2017-11-23] MEDS: GABAPENTIN 100 MG CAPSULE PO SCH ×4 (09:03→20:45)
[2017-11-23] MEDS: MULTIVIT, IRON, MIN NO. 8, FA 1 TAB PO SCH (09:03)
[2017-11-23] MEDS: PROSOURCE / PROSTAT (PYXIS) 30 ML UDC PO SCH ×2 (09:03→16:47)
[2017-11-23] MEDS: DIAZEPAM 5 MG TABLET PO SCH ×2 (09:05→20:45)
[2017-11-23] MEDS: VITAMINS A AND D 56.7 GM TUBE TP SCH ×2 (09:06→20:45)
[2017-11-23] MEDS: Z GUARD REMEDY 4 OZ OINT TP SCH ×2 (09:06→20:45)
[2017-11-23] MEDS: DOCUSATE SODIUM 100 MG CAPSULE PO SCH (09:08)
[2017-11-23] MEDS: NEOMY SULF/BACITRAC ZN/POLY 15 GM TUBE TP SCH ×2 (11:20→20:45)
[2017-11-23] MEDS: SERTRALINE HCL 25 MG TABLET PO SCH (12:45)
[2017-11-23 20:05] VITALS: BP 92/72
[2017-11-24] MEDS: IPRATROPIUM NEB FS 0.5 MG/2.5 ML AMPUL.NEB NEB SCH ×4 (00:54→20:08)
[2017-11-24] MEDS: LEVOTHYROXINE SODIUM 50 MCG TABLET PO SCH (06:10)
[2017-11-24 07:35] VITALS: BP 93/52
[2017-11-24] MEDS: DIAZEPAM 5 MG TABLET PO SCH ×2 (08:43→21:44)
[2017-11-24] MEDS: PROSOURCE / PROSTAT (PYXIS) 30 ML UDC PO SCH ×2 (08:43→17:11)
[2017-11-24] MEDS: MULTIVIT, IRON, MIN NO. 8, FA 1 TAB PO SCH (08:43)
[2017-11-24] MEDS: LORATADINE 10 MG TABLET PO SCH (08:43)
[2017-11-24] MEDS: DOCUSATE SODIUM 100 MG CAPSULE PO SCH (08:43)
[2017-11-24] MEDS: LACTOBACILLUS RHAMNOSUS GG 1 EACH CAP.SPRINK PO SCH ×2 (08:45→17:12)
[2017-11-24] MEDS: FAMOTIDINE 40 MG TABLET PO SCH (08:46)
[2017-11-24] MEDS: Z GUARD REMEDY 4 OZ OINT TP SCH ×2 (08:48→21:42)
[2017-11-24] MEDS: NEOMY SULF/BACITRAC ZN/POLY 15 GM TUBE TP SCH ×2 (08:48→21:42)
[2017-11-24] MEDS: GABAPENTIN 100 MG CAPSULE PO SCH ×4 (08:48→21:43)
[2017-11-24] MEDS: VITAMINS A AND D 56.7 GM TUBE TP SCH ×2 (08:48→21:42)
[2017-11-24] MEDS: BOOST PLUS FOOD-CHOCLATE 237 ML BOX PO SCH ×2 (08:48→11:30)
[2017-11-24] MEDS: SERTRALINE HCL 25 MG TABLET PO SCH (12:55)
[2017-11-24] MEDS: FENTANYL TD PATCH (50 MCG/HR) 50 MCG/HR PATCH.TD72 TD SCH (17:20)
--- NOTE | 2017-11-24 18:33 | NUR ---
PATIENT AMBULATED WITH PHYSICAL THERAPY. TOLERATED WELL.
[2017-11-24 20:01] VITALS: BP 103/65
[2017-11-25] MEDS: IPRATROPIUM NEB FS 0.5 MG/2.5 ML AMPUL.NEB NEB SCH ×4 (01:47→19:30)
[2017-11-25] MEDS: LEVOTHYROXINE SODIUM 50 MCG TABLET PO SCH (06:52)
[2017-11-25 07:54] VITALS: BP 94/62
[2017-11-25] MEDS: BOOST PLUS FOOD-CHOCLATE 237 ML BOX PO SCH ×2 (08:00→11:30)
[2017-11-25] MEDS: Z GUARD REMEDY 4 OZ OINT TP SCH ×2 (09:00→21:34)
[2017-11-25] MEDS: DIAZEPAM 5 MG TABLET PO SCH ×2 (09:00→21:34)
[2017-11-25] MEDS: LACTOBACILLUS RHAMNOSUS GG 1 EACH CAP.SPRINK PO SCH ×2 (09:00→17:00)
[2017-11-25] MEDS: PROSOURCE / PROSTAT (PYXIS) 30 ML UDC PO SCH ×2 (09:00→17:00)
[2017-11-25] MEDS: MULTIVIT, IRON, MIN NO. 8, FA 1 TAB PO SCH (09:00)
[2017-11-25] MEDS: VITAMINS A AND D 56.7 GM TUBE TP SCH ×2 (09:00→21:34)
[2017-11-25] MEDS: DOCUSATE SODIUM 100 MG CAPSULE PO SCH (09:00)
[2017-11-25] MEDS: GABAPENTIN 100 MG CAPSULE PO SCH ×4 (09:00→21:34)
[2017-11-25] MEDS: NEOMY SULF/BACITRAC ZN/POLY 15 GM TUBE TP SCH ×2 (09:00→21:34)
[2017-11-25] MEDS: FAMOTIDINE 40 MG TABLET PO SCH (09:00)
[2017-11-25] MEDS: LORATADINE 10 MG TABLET PO SCH (09:00)
[2017-11-25] MEDS: SERTRALINE HCL 25 MG TABLET PO SCH (13:00)
[2017-11-25 20:32] VITALS: BP 99/68
[2017-11-26] MEDS: IPRATROPIUM NEB FS 0.5 MG/2.5 ML AMPUL.NEB NEB SCH ×4 (01:08→20:03)
[2017-11-26] MEDS: LEVOTHYROXINE SODIUM 50 MCG TABLET PO SCH (05:52)
[2017-11-26 07:27] VITALS: BP 95/57
[2017-11-26] MEDS: BOOST PLUS FOOD-CHOCLATE 237 ML BOX PO SCH ×2 (08:50→11:30)
[2017-11-26] MEDS: LACTOBACILLUS RHAMNOSUS GG 1 EACH CAP.SPRINK PO SCH ×2 (08:55→17:46)
[2017-11-26] MEDS: DOCUSATE SODIUM 100 MG CAPSULE PO SCH (08:55)
[2017-11-26] MEDS: LORATADINE 10 MG TABLET PO SCH (08:55)
[2017-11-26] MEDS: FAMOTIDINE 40 MG TABLET PO SCH (08:57)
[2017-11-26] MEDS: GABAPENTIN 100 MG CAPSULE PO SCH ×4 (08:57→21:29)
[2017-11-26] MEDS: PROSOURCE / PROSTAT (PYXIS) 30 ML UDC PO SCH ×2 (09:00→17:46)
[2017-11-26] MEDS: MULTIVIT, IRON, MIN NO. 8, FA 1 TAB PO SCH (09:00)
[2017-11-26] MEDS: DIAZEPAM 5 MG TABLET PO SCH ×2 (09:02→21:29)
[2017-11-26] MEDS: Z GUARD REMEDY 4 OZ OINT TP SCH ×2 (09:04→21:29)
[2017-11-26] MEDS: VITAMINS A AND D 56.7 GM TUBE TP SCH ×2 (09:04→21:29)
[2017-11-26] MEDS: NEOMY SULF/BACITRAC ZN/POLY 15 GM TUBE TP SCH ×2 (09:04→21:29)
[2017-11-26] MEDS: SERTRALINE HCL 25 MG TABLET PO SCH (13:47)
--- NOTE | 2017-11-26 18:51 | NUR ---
Pt said she had watery stools x 3. She also said she has generalized body pain. Her temp at 3 pm was 99.2 F and 98.5 F at this time. Notified Dr. Hurtado. Received order to DC Colace, check stool for C diff and leukocytes, CMP Mg Phos in AM. Notified pt.
[2017-11-26 19:38] VITALS: BP 98/60
[2017-11-27] MEDS: IPRATROPIUM NEB FS 0.5 MG/2.5 ML AMPUL.NEB NEB SCH ×4 (01:10→20:21)
[2017-11-27] MEDS: LEVOTHYROXINE SODIUM 50 MCG TABLET PO SCH (06:11)
[2017-11-27 07:42] VITALS: BP 96/61
[2017-11-27] MEDS: BOOST PLUS FOOD-CHOCLATE 237 ML BOX PO SCH ×2 (08:00→11:30)
[2017-11-27 08:15] LABS: BILIRUBIN,TOTAL 0.5 mg/dL (0.2-1.0); CALCIUM, SERUM 9.3 mg/dL (8.5-10.1); CREATININE 0.6 mg/dL (0.6-1.3); MAGNESIUM 1.3 mg/dL (1.8-2.4); PHOSPHORUS 4.1 mg/dL (2.5-4.9); POTASSIUM 3.9 mmol/L (3.5-5.1); TOTAL PROTEIN, SERUM 7.5 g/dL (6.4-8.2)
[2017-11-27] MEDS: DOCUSATE SODIUM 100 MG CAPSULE PO SCH (09:00)
[2017-11-27] MEDS: GABAPENTIN 100 MG CAPSULE PO SCH ×4 (09:22→20:01)
[2017-11-27] MEDS: LORATADINE 10 MG TABLET PO SCH (09:22)
[2017-11-27] MEDS: LACTOBACILLUS RHAMNOSUS GG 1 EACH CAP.SPRINK PO SCH ×2 (09:22→17:42)
[2017-11-27] MEDS: PROSOURCE / PROSTAT (PYXIS) 30 ML UDC PO SCH ×2 (09:22→17:48)
[2017-11-27] MEDS: MULTIVIT, IRON, MIN NO. 8, FA 1 TAB PO SCH (09:22)
[2017-11-27] MEDS: Z GUARD REMEDY 4 OZ OINT TP SCH ×2 (09:22→21:03)
[2017-11-27] MEDS: VITAMINS A AND D 56.7 GM TUBE TP SCH ×2 (09:22→21:03)
[2017-11-27] MEDS: DIAZEPAM 5 MG TABLET PO SCH ×2 (09:22→20:02)
[2017-11-27] MEDS: NEOMY SULF/BACITRAC ZN/POLY 15 GM TUBE TP SCH ×2 (09:22→21:03)
[2017-11-27] MEDS: FAMOTIDINE 40 MG TABLET PO SCH (09:22)
--- NOTE | 2017-11-27 12:03 | NUR ---
Relayed CMP, Mg, Phos results to Dr. Hurtado. Received order to give Magnesium oxide 800 mg po BID for 7 days then recheck. Pt has had no loose bowel movements at this time.
[2017-11-27] MEDS: SERTRALINE HCL 25 MG TABLET PO SCH (13:00)
--- NOTE | 2017-11-27 16:00 | NUR ---
Dr. Hurtado ordered Boost 1 carton po TID as supplement per harness racing handicapper's recommendation. Notified him pt is losing weight.
[2017-11-27] MEDS: FENTANYL TD PATCH (50 MCG/HR) 50 MCG/HR PATCH.TD72 TD SCH (17:48)
[2017-11-27] MEDS: MAGNESIUM OXIDE 400 MG TABLET PO SCH (17:56)
[2017-11-27] MEDS ORDERED: BOOST PLUS FOOD-CHOCLATE 237 ML BOX PO SCH (18:00)
[2017-11-27 20:00] VITALS: BP 114/61
[2017-11-27 20:09] VITALS: BP 114/61
[2017-11-28] MEDS: IPRATROPIUM NEB FS 0.5 MG/2.5 ML AMPUL.NEB NEB SCH ×4 (02:09→20:42)
[2017-11-28] MEDS: LEVOTHYROXINE SODIUM 50 MCG TABLET PO SCH (06:02)
[2017-11-28 07:48] VITALS: BP 94/61
[2017-11-28] MEDS: BOOST PLUS FOOD-CHOCLATE 237 ML BOX PO SCH ×3 (08:00→17:47)
[2017-11-28] MEDS: MAGNESIUM OXIDE 400 MG TABLET PO SCH ×2 (09:42→17:47)
[2017-11-28] MEDS: LORATADINE 10 MG TABLET PO SCH (09:42)
[2017-11-28] MEDS: LACTOBACILLUS RHAMNOSUS GG 1 EACH CAP.SPRINK PO SCH ×2 (09:42→17:47)
[2017-11-28] MEDS: PROSOURCE / PROSTAT (PYXIS) 30 ML UDC PO SCH ×2 (09:42→17:47)
[2017-11-28] MEDS: GABAPENTIN 100 MG CAPSULE PO SCH ×4 (09:42→21:33)
[2017-11-28] MEDS: NEOMY SULF/BACITRAC ZN/POLY 15 GM TUBE TP SCH ×2 (09:42→21:33)
[2017-11-28] MEDS: FAMOTIDINE 40 MG TABLET PO SCH (09:42)
[2017-11-28] MEDS: MULTIVIT, IRON, MIN NO. 8, FA 1 TAB PO SCH (09:42)
[2017-11-28] MEDS: DIAZEPAM 5 MG TABLET PO SCH ×2 (09:42→21:33)
[2017-11-28] MEDS: VITAMINS A AND D 56.7 GM TUBE TP SCH ×2 (09:43→21:33)
[2017-11-28] MEDS: Z GUARD REMEDY 4 OZ OINT TP SCH ×2 (09:43→21:33)
[2017-11-28] MEDS: SERTRALINE HCL 25 MG TABLET PO SCH (13:19)
--- NOTE | 2017-11-28 14:10 | NUR ---
Got stool for C-diff positive result,relayed to ,got new order for contact isolation and vancomycin 250mg Q6H X 10days.Resident and family made aware about the treatment and the change of condition.Education given regarding the isolation and the treatment to the resident,family and staff.continue to monitor.
[2017-11-28] MEDS: VANCOMYCIN HCL 125 MG/2.5 ML ORAL.SUSP PO SCH ×2 (18:56→23:06)
[2017-11-28 20:56] VITALS: BP 100/65
[2017-11-29] MEDS: IPRATROPIUM NEB FS 0.5 MG/2.5 ML AMPUL.NEB NEB SCH ×4 (01:32→20:09)
[2017-11-29] MEDS: VANCOMYCIN HCL 125 MG/2.5 ML ORAL.SUSP PO SCH ×4 (05:51→23:28)
[2017-11-29] MEDS: LEVOTHYROXINE SODIUM 50 MCG TABLET PO SCH (05:51)
[2017-11-29] MEDS ORDERED: LIDOCAINE HCL/PF 1% 30 ML SDV IJ ONE (07:00)
[2017-11-29] MEDS: BOOST PLUS FOOD-CHOCLATE 237 ML BOX PO SCH ×3 (08:00→17:00)
--- NOTE | 2017-11-29 08:00 | NUR ---
Noted and order from Dr. Kelly Iverson to obtain consent for excisional debridement of abdominal wall and prepare supplies at bedside. Orders noted and carried out. Resident signed consent.
[2017-11-29 08:04] VITALS: BP 88/60
[2017-11-29] MEDS ORDERED: SILVER NITRATE APPLICATOR 1 EA BOX TP ONE (09:00)
[2017-11-29] MEDS ORDERED: LIDOCAINE 1% INJ 50 ML MDV IJ ONE (09:00)
[2017-11-29] MEDS: MAGNESIUM OXIDE 400 MG TABLET PO SCH ×2 (09:20→17:00)
[2017-11-29] MEDS: LORATADINE 10 MG TABLET PO SCH (09:20)
[2017-11-29] MEDS: GABAPENTIN 100 MG CAPSULE PO SCH ×4 (09:20→21:28)
[2017-11-29] MEDS: LACTOBACILLUS RHAMNOSUS GG 1 EACH CAP.SPRINK PO SCH ×2 (09:20→17:00)
[2017-11-29] MEDS: Z GUARD REMEDY 4 OZ OINT TP SCH ×2 (09:21→21:28)
[2017-11-29] MEDS: NEOMY SULF/BACITRAC ZN/POLY 15 GM TUBE TP SCH ×2 (09:21→21:28)
[2017-11-29] MEDS: DIAZEPAM 5 MG TABLET PO SCH ×2 (09:21→21:28)
[2017-11-29] MEDS: FAMOTIDINE 40 MG TABLET PO SCH (09:21)
[2017-11-29] MEDS: PROSOURCE / PROSTAT (PYXIS) 30 ML UDC PO SCH ×2 (09:21→17:00)
[2017-11-29] MEDS: VITAMINS A AND D 56.7 GM TUBE TP SCH ×2 (09:21→21:28)
[2017-11-29] MEDS: MULTIVIT, IRON, MIN NO. 8, FA 1 TAB PO SCH (09:21)
--- NOTE | 2017-11-29 11:00 | NUR ---
Obtain an order from [employer] for family to bring food from home. Resident has lost 5lbs from last month, senior clinical research scientist discussed options with resident on how to increase weight, she wanted to eat avocados, guajardo and rice which according to senior clinical research scientist fits within her dietary preferences.
[2017-11-29] MEDS: SERTRALINE HCL 25 MG TABLET PO SCH (13:00)
--- NOTE | 2017-11-29 15:45 | NUR ---
Received a phone call from Elena from [facility] and said she can help secure authorization for patient's upcoming discharge plan. Requested to fax a list of contracted DME providers and home health agency and will give the list to SSD/dock manager.
--- NOTE | 2017-11-29 19:20 | NUR ---
Gabi Jolley, JAKE, seen resident with new order for Flagyl IV for C. diff. Order noted and carried out. Spoke with [facility] pharmacist [place] who said that patient's insurance does not cover the IV ATB. [facility] pharmacy notified. Endorsed to incoming shift to start ATB.
[2017-11-29 20:28] VITALS: BP 95/57
--- NOTE | 2017-11-29 21:00 | NUR ---
Started IV Flagyl 500mg IV for C-diff q 12 hrs.Right forearm PIV inserted with good blood return.Patient is not happy with the new antibiotic order,explained to her that it's for his C- diff infection and more effective if IV route.Pt verbalized that he is going home on Monday and will be decannulated in the morning.Will continue to monitor.
[2017-11-29] MEDS: METRONIDAZOLE 500MG/ NS 100ML 500 MG in PREMIX 1 EA IV SCH (21:53)
[2017-11-30] MEDS: IPRATROPIUM NEB FS 0.5 MG/2.5 ML AMPUL.NEB NEB SCH ×4 (01:53→19:34)
[2017-11-30] MEDS: METRONIDAZOLE 500MG/ NS 100ML 500 MG in PREMIX 1 EA IV SCH ×3 (05:22→21:01)
[2017-11-30] MEDS: LEVOTHYROXINE SODIUM 50 MCG TABLET PO SCH (06:07)
[2017-11-30] MEDS: VANCOMYCIN HCL 125 MG/2.5 ML ORAL.SUSP PO SCH ×3 (06:07→18:31)
[2017-11-30] MEDS: BOOST PLUS FOOD-CHOCLATE 237 ML BOX PO SCH ×3 (08:00→17:40)
[2017-11-30] MEDS: LORATADINE 10 MG TABLET PO SCH (09:14)
[2017-11-30] MEDS: MAGNESIUM OXIDE 400 MG TABLET PO SCH ×2 (09:14→17:40)
[2017-11-30] MEDS: LACTOBACILLUS RHAMNOSUS GG 1 EACH CAP.SPRINK PO SCH ×2 (09:14→17:40)
[2017-11-30] MEDS: PROSOURCE / PROSTAT (PYXIS) 30 ML UDC PO SCH ×2 (09:15→17:40)
[2017-11-30] MEDS: MULTIVIT, IRON, MIN NO. 8, FA 1 TAB PO SCH (09:15)
[2017-11-30] MEDS: FAMOTIDINE 40 MG TABLET PO SCH (09:15)
[2017-11-30] MEDS: GABAPENTIN 100 MG CAPSULE PO SCH ×4 (09:15→21:11)
[2017-11-30] MEDS: DIAZEPAM 5 MG TABLET PO SCH ×2 (09:16→21:11)
[2017-11-30] MEDS: VITAMINS A AND D 56.7 GM TUBE TP SCH ×2 (09:16→21:11)
[2017-11-30] MEDS: Z GUARD REMEDY 4 OZ OINT TP SCH ×2 (09:16→21:11)
[2017-11-30] MEDS: NEOMY SULF/BACITRAC ZN/POLY 15 GM TUBE TP SCH ×2 (09:16→21:11)
--- NOTE | 2017-11-30 10:45 | NUR ---
Dr. Sosa ordered to FERDINAND trach this morning.
--- NOTE | 2017-11-30 11:30 | NUR ---
RT UNABLE TO DECANNULATE DUE TO MODERATE RESISTANCE. PT DID NOT APPEAR IN ANY RESPIRATORY DISTRESS. SpO2 REMAINED 98-99% THROUGHOUT PROCEDURE. ROMULO RN AT BEDSIDE AND AWARE. RN WILL INFORM THE MD.
--- NOTE | 2017-11-30 12:30 | NUR ---
Pt was seen by JAKE Jolley. She ordered to change pt's diet to only clear liquids for now since pt has C diff. JAKE Ashley discussed it with pt.
--- NOTE | 2017-11-30 12:42 | NUR ---
2 RTs attempted to decannulate pt but noted resistance. Pt has small amount of bleeding. Notified Dr. Sosa that trach tube was not DC'd. Dr. Sosa said to find out the surgeon who placed the trach and have him removed it. Checked pt's previous record in acute and confirmed with surgery department that it was Dr. Geiger who placed it.
[2017-11-30 12:45] VITALS: BP 93/58
[2017-11-30] MEDS: SERTRALINE HCL 25 MG TABLET PO SCH (13:39)
--- NOTE | 2017-11-30 14:03 | NUR ---
Called Dr. Geiger's office and left message with Diya.
--- NOTE | 2017-11-30 14:30 | NUR ---
Diya from Dr. Geiger's office called. She said Dr. Geiger will come tomorrow to decannulate pt. Notified pt and also Dr. Sosa.
[2017-11-30] MEDS: FENTANYL TD PATCH (50 MCG/HR) 50 MCG/HR PATCH.TD72 TD SCH (17:53)
--- NOTE | 2017-11-30 19:12 | NUR ---
Dr. Kerns ordered to give Flagyl for a total of 10 days.
[2017-11-30 20:26] VITALS: BP 104/58
[2017-12-01] MEDS: VANCOMYCIN HCL 125 MG/2.5 ML ORAL.SUSP PO SCH ×5 (00:45→23:05)
[2017-12-01] MEDS: IPRATROPIUM NEB FS 0.5 MG/2.5 ML AMPUL.NEB NEB SCH ×4 (01:18→20:02)
[2017-12-01] MEDS: METRONIDAZOLE 500MG/ NS 100ML 500 MG in PREMIX 1 EA IV SCH ×3 (04:58→21:16)
[2017-12-01] MEDS: LEVOTHYROXINE SODIUM 50 MCG TABLET PO SCH (05:36)
--- NOTE | 2017-12-01 07:35 | NUR ---
Dr. Geiger seen & assessed trach stoma for decannulation, but he said that he is not able to do it today, he is also experiencing resistance. According to MD he will probably schedule surgery on Monday and may need to do a little opening to remove the trach. Resident aware.
[2017-12-01 08:00] VITALS: BP 98/38
[2017-12-01] MEDS: BOOST PLUS FOOD-CHOCLATE 237 ML BOX PO SCH ×3 (08:00→17:00)
[2017-12-01] MEDS: NEOMY SULF/BACITRAC ZN/POLY 15 GM TUBE TP SCH ×2 (09:00→21:06)
[2017-12-01] MEDS: Z GUARD REMEDY 4 OZ OINT TP SCH ×2 (09:00→21:06)
[2017-12-01] MEDS: VITAMINS A AND D 56.7 GM TUBE TP SCH ×2 (09:00→21:07)
[2017-12-01] MEDS: LORATADINE 10 MG TABLET PO SCH (09:45)
[2017-12-01] MEDS: LACTOBACILLUS RHAMNOSUS GG 1 EACH CAP.SPRINK PO SCH ×2 (09:45→17:00)
[2017-12-01] MEDS: FAMOTIDINE 40 MG TABLET PO SCH (09:45)
[2017-12-01] MEDS: PROSOURCE / PROSTAT (PYXIS) 30 ML UDC PO SCH ×2 (09:45→17:00)
[2017-12-01] MEDS: DIAZEPAM 5 MG TABLET PO SCH ×2 (09:45→21:06)
[2017-12-01] MEDS: GABAPENTIN 100 MG CAPSULE PO SCH ×4 (09:45→21:06)
[2017-12-01] MEDS: MAGNESIUM OXIDE 400 MG TABLET PO SCH ×2 (09:45→17:00)
[2017-12-01] MEDS: MULTIVIT, IRON, MIN NO. 8, FA 1 TAB PO SCH (09:45)
[2017-12-01] MEDS: SERTRALINE HCL 25 MG TABLET PO SCH (13:43)
--- NOTE | 2017-12-01 14:00 | NUR ---
IDT meeting held, IDT team reviewed current orders, medications, treatment, laboratory result and plan of care. Informed the team that cardiothoracic surgeon unable to remove the trach today due to resistance he felt while attempting to decannulate the patient. Meat Inspector is concern about patient's low weight, suggested to give Boost elton VALERO MD agreed and order DC planning for next week. Resident's mother and patient made aware of what was discussed in the meeting.
[2017-12-01 17:39] LABS: BASOPHILS % (AUTO) 0.4 % (0.0-2.0); EOSINOPHILS % (AUTO) 2.8 % (0.0-6.0); HEMATOCRIT 30 % (39-51); LYMPHOCYTES # (AUTO) 6.1 /CMM (0.8-4.8); LYMPHOCYTES % (AUTO) 52.7 % (20.0-44.0); MEAN CORPUSCULAR HGB CONC 34 g/dl (31.0-36.0); MEAN CORPUSCULAR VOLUME 94 fL (80-96); MONOCYTES % (AUTO) 8.5 % (2.0-12.0); NEUTROPHILS # (AUTO) 4.1 /CMM (1.8-8.9); NEUTROPHILS % (AUTO) 35.6 % (43.0-81.0); PLATELET COUNT (AUTO) 346 /CMM (150-450); RDW COEFFICIENT OF VARIATION 16.1 (11.5-15.0); RED BLOOD CELL COUNT(AUTO) 3.17 MIL/uL (4.5-6.0); WHITE BLOOD COUNT (AUTO) 11.6 K/uL (4.3-11.0)
[2017-12-01 17:55] LABS: CREATININE 0.5 mg/dL (0.6-1.3); POTASSIUM 4.2 mmol/L (3.5-5.1)
[2017-12-01 17:57] LABS: INR 1.03 (0.87-1.13)
--- NOTE | 2017-12-01 18:00 | NUR ---
Received an order from Dr. Geiger that he will do the surgery tomorrow at 8 am, with the following orders: NPO after midnight, consent for tracheostomy revision and removal, and pre-op labs. Orders noted and carried out. Resident informed, mother signed the consent.
[2017-12-01 20:00] VITALS: BP 96/62
[2017-12-02] MEDS: IPRATROPIUM NEB FS 0.5 MG/2.5 ML AMPUL.NEB NEB SCH ×4 (02:00→20:28)
[2017-12-02] MEDS: METRONIDAZOLE 500MG/ NS 100ML 500 MG in PREMIX 1 EA IV SCH ×3 (05:35→21:00)
[2017-12-02] MEDS: LEVOTHYROXINE SODIUM 50 MCG TABLET PO SCH (05:37)
[2017-12-02] MEDS: VANCOMYCIN HCL 125 MG/2.5 ML ORAL.SUSP PO SCH ×4 (05:37→23:18)
[2017-12-02] MEDS ORDERED: ANESTHESIA TRAY IN PYXIS 1 EA TRAY MC ONE (07:21)
[2017-12-02] MEDS ORDERED: LIDOCAINE 1%-EPI 1:100,000 20 ML VIAL ONE (07:31)
[2017-12-02 08:01] VITALS: BP 98/50
[2017-12-02] MEDS ORDERED: ROCURONIUM BROMIDE 50 MG/5 ML ONE (08:03)
[2017-12-02] MEDS: NEOMY SULF/BACITRAC ZN/POLY 15 GM TUBE TP SCH ×2 (09:00→21:14)
[2017-12-02] MEDS: VITAMINS A AND D 56.7 GM TUBE TP SCH ×2 (09:00→21:14)
[2017-12-02] MEDS: Z GUARD REMEDY 4 OZ OINT TP SCH ×2 (09:00→21:14)
[2017-12-02] MEDS: GABAPENTIN 100 MG CAPSULE PO SCH ×4 (09:45→21:13)
[2017-12-02] MEDS: LORATADINE 10 MG TABLET PO SCH (09:45)
[2017-12-02] MEDS: PROSOURCE / PROSTAT (PYXIS) 30 ML UDC PO SCH ×2 (09:45→17:00)
[2017-12-02] MEDS: MULTIVIT, IRON, MIN NO. 8, FA 1 TAB PO SCH (09:45)
[2017-12-02] MEDS: FAMOTIDINE 40 MG TABLET PO SCH (09:45)
[2017-12-02] MEDS: BOOST PLUS FOOD-CHOCLATE 237 ML BOX PO SCH ×3 (09:45→17:00)
[2017-12-02] MEDS: MAGNESIUM OXIDE 400 MG TABLET PO SCH ×2 (09:45→17:00)
[2017-12-02] MEDS: DIAZEPAM 5 MG TABLET PO SCH ×2 (09:45→21:14)
[2017-12-02] MEDS: LACTOBACILLUS RHAMNOSUS GG 1 EACH CAP.SPRINK PO SCH ×2 (09:45→17:00)
--- NOTE | 2017-12-02 10:27 | NUR ---
Patient picked up by 3 nurses for tracheostomy revision, patient alert and oriented X 4. V/S as follows 97.8,101, 17, 111/64,0/10, O2 sat 99%. Addendum: 12/02/17 at 1039 by ADITHYA HYLTON LVN Resident was picked up for removal of the trach at 0800.
--- NOTE | 2017-12-02 10:33 | NUR ---
Patient returned from S/P tracheostomy revision @ 0900. patient asleep at this time, but arousable easily. tracheostomy site covered with dressing, clean and dry. no bleeding noted. no respiratory distress noted. no c/o pain or any discomfort when asked. V/S as follows at this time 98.0, 85, 17, 98,62, Os sat 95%. Addendum: 12/02/17 at 1038 by ADITHYA HYLTON LVN Procedure done: tracheostomy removal/decannulation. Addendum: 12/02/17 at 1050 by ADITHYA HYLTON LVN Resume all orders, meds and diet, per Dr. Geiger. Patient consumed 80 % breakfast, no s/s of aspiration noted.
[2017-12-02] MEDS: SERTRALINE HCL 25 MG TABLET PO SCH (12:59)
--- NOTE | 2017-12-02 18:53 | NUR ---
Patient in bed, awake, alert and verbally responsive. no s/s of any complication from S/P tracheostomy removal. no SOB noted. no tracheal site bleeding noted.
[2017-12-02 22:19] VITALS: BP 97/63
[2017-12-03] MEDS: IPRATROPIUM NEB FS 0.5 MG/2.5 ML AMPUL.NEB NEB SCH ×4 (02:00→20:18)
[2017-12-03] MEDS: METRONIDAZOLE 500MG/ NS 100ML 500 MG in PREMIX 1 EA IV SCH ×2 (05:00→21:00)
[2017-12-03] MEDS: LEVOTHYROXINE SODIUM 50 MCG TABLET PO SCH (06:31)
[2017-12-03] MEDS: VANCOMYCIN HCL 125 MG/2.5 ML ORAL.SUSP PO SCH ×3 (06:31→18:42)
[2017-12-03 07:32] VITALS: BP 100/45
[2017-12-03] MEDS: BOOST PLUS FOOD-CHOCLATE 237 ML BOX PO SCH ×3 (08:00→17:00)
[2017-12-03] MEDS: Z GUARD REMEDY 4 OZ OINT TP SCH ×2 (09:00→20:24)
[2017-12-03] MEDS: VITAMINS A AND D 56.7 GM TUBE TP SCH ×2 (09:00→20:24)
[2017-12-03] MEDS: NEOMY SULF/BACITRAC ZN/POLY 15 GM TUBE TP SCH ×2 (09:00→20:24)
[2017-12-03] MEDS: GABAPENTIN 100 MG CAPSULE PO SCH ×4 (09:47→20:24)
[2017-12-03] MEDS: FAMOTIDINE 40 MG TABLET PO SCH (09:47)
[2017-12-03] MEDS: PROSOURCE / PROSTAT (PYXIS) 30 ML UDC PO SCH ×2 (09:47→17:00)
[2017-12-03] MEDS: MULTIVIT, IRON, MIN NO. 8, FA 1 TAB PO SCH (09:47)
[2017-12-03] MEDS: LORATADINE 10 MG TABLET PO SCH (09:47)
[2017-12-03] MEDS: LACTOBACILLUS RHAMNOSUS GG 1 EACH CAP.SPRINK PO SCH ×2 (09:47→17:00)
[2017-12-03] MEDS: DIAZEPAM 5 MG TABLET PO SCH ×2 (09:47→20:24)
[2017-12-03] MEDS: MAGNESIUM OXIDE 400 MG TABLET PO SCH ×2 (09:47→17:00)
[2017-12-03] MEDS: SERTRALINE HCL 25 MG TABLET PO SCH (13:00)
[2017-12-03] MEDS: FENTANYL TD PATCH (50 MCG/HR) 50 MCG/HR PATCH.TD72 TD SCH (17:00)
--- NOTE | 2017-12-03 18:00 | NUR ---
Resident on ATB therapy Vancomycin HCL 2.5 ml oral suspension for stool c. diff, with no ASE noted. encourage to increase fluid intake. no episodes of diarrhea during the shift. Addendum: 12/04/17 at 1057 by ADITHYA HYLTON LVN Contact isolation observed at all times.
--- NOTE | 2017-12-03 19:17 | NUR ---
Patient in bed, awake, alert and verbally responsive. No s/s of any complication S/P tracheostomy removal. No SOB noted. O2 sat is 98% on room air. No c/o of any discomfort.
--- NOTE | 2017-12-03 20:00 | NUR ---
RN NOTES No episodes of diarrhea. Will continue to monitor.
[2017-12-03 23:08] VITALS: BP 96/56
[2017-12-04] MEDS: IPRATROPIUM NEB FS 0.5 MG/2.5 ML AMPUL.NEB NEB SCH ×4 (01:11→20:18)
[2017-12-04] MEDS: METRONIDAZOLE 500MG/ NS 100ML 500 MG in PREMIX 1 EA IV SCH (05:00)
--- NOTE | 2017-12-04 06:00 | NUR ---
RN NOTES No episodes of diarrhea noted.
[2017-12-04] MEDS: LEVOTHYROXINE SODIUM 50 MCG TABLET PO SCH (06:36)
[2017-12-04] MEDS: VANCOMYCIN HCL 125 MG/2.5 ML ORAL.SUSP PO SCH ×5 (06:37→23:20)
[2017-12-04] MEDS: BOOST PLUS FOOD-CHOCLATE 237 ML BOX PO SCH ×3 (08:00→17:35)
[2017-12-04 08:08] VITALS: BP 105/67
[2017-12-04] MEDS: NEOMY SULF/BACITRAC ZN/POLY 15 GM TUBE TP SCH ×2 (09:00→21:33)
[2017-12-04] MEDS: Z GUARD REMEDY 4 OZ OINT TP SCH ×2 (09:00→21:33)
[2017-12-04] MEDS: VITAMINS A AND D 56.7 GM TUBE TP SCH ×2 (09:00→21:33)
[2017-12-04] MEDS: GABAPENTIN 100 MG CAPSULE PO SCH ×4 (09:40→21:33)
[2017-12-04] MEDS: MAGNESIUM OXIDE 400 MG TABLET PO SCH (09:40)
[2017-12-04] MEDS: FAMOTIDINE 40 MG TABLET PO SCH (09:40)
[2017-12-04] MEDS: DIAZEPAM 5 MG TABLET PO SCH ×2 (09:40→21:33)
[2017-12-04] MEDS: LACTOBACILLUS RHAMNOSUS GG 1 EACH CAP.SPRINK PO SCH ×2 (09:40→17:35)
[2017-12-04] MEDS: LORATADINE 10 MG TABLET PO SCH (09:40)
[2017-12-04] MEDS: MULTIVIT, IRON, MIN NO. 8, FA 1 TAB PO SCH (09:40)
[2017-12-04] MEDS: PROSOURCE / PROSTAT (PYXIS) 30 ML UDC PO SCH ×2 (09:40→17:35)
--- NOTE | 2017-12-04 10:00 | NUR ---
Notified Dr. Sosa that pt was decannulated by Dr Geiger on 12/02/17. Pt tolerating well, no respiratory distress. Pt verbalized she wants to go home today or tomorrow. Dr. Sosa said he is fine with discharging the pt tomorrow if GI can change IV Flagyl to PO.
--- NOTE | 2017-12-04 10:40 | NUR ---
APPLIED RESEARCHER Gabi Jolley ordered to change Flagyl 500 mg IV q 8 hours to PO until 12/09/17. She also ordered to DC clear liquid and advance pt's diet.
--- NOTE | 2017-12-04 10:50 | NUR ---
Received order to change mechanical soft vegan diet to regular vegan diet per ST [facility]'s recommendation.
--- NOTE | 2017-12-04 11:00 | NUR ---
Notified Dr. Kerns that Dr. Sosa said he is fine with discharging pt home tomorrow. Dr. Kerns agreed with Dr. Sosa. Pt will need home health for PT evaluation and medication management.
--- NOTE | 2017-12-04 11:15 | NUR ---
Informed Dr. Alston psychiatrist that the resident is discharging home tomorrow. She said she will see the resident. Addendum: 12/04/17 at 1215 by RYAN GARRISON SW 11:31: SW informed by Dr. Fontenot that she was able to see the resident and that she is doing well and is excited about discharging home tomorrow.
--- NOTE | 2017-12-04 11:46 | NUR ---
Called [facility] (: [phone] fax:[phone]) and spoke with Sunni. She stated that they are able to do PT evals and medication management. SW faxed her referral packet and will follow up.
[2017-12-04] MEDS: SERTRALINE HCL 25 MG TABLET PO SCH (12:29)
--- NOTE | 2017-12-04 13:10 | NUR ---
FELIPE assisted mother and resident in completing paperwork for the mother's employer, as mother is requesting a family leave from her employer. Form asks for personal information related to the resident's condition and diagnosis. Resident comfortable with psych social worker providing this information for the purposes of her mother's paperwork and will sign authorization form before form is faxed. Form needs physician's signature and SW provided to charge nurse so physician can sign when he does his rounds. SW to follow up. Addendum: 12/05/17 at 1215 by RYAN WANG Form was completed by Dr. Sosa and faxed per mother's request (To Amber fax:[phone]) FELIPE informed the resident that her medical information is included which she acknowledged and signed authorization for.
[2017-12-04] MEDS: METRONIDAZOLE 500 MG TABLET PO SCH ×2 (13:38→21:33)
--- NOTE | 2017-12-04 13:55 | NUR ---
FELIPE obtained a list of medications resident will be discharged with. Per resident, she goes to [facility] - [facility] located at [address] [id number] FAX: [phone]. Per Haciel at the pharmacy, they need the medications to be written on a prescription pad. EFLIPE informed charge nurse and stated she will inform Dr. Kerns who will be in tomorrow.
--- NOTE | 2017-12-04 14:02 | NUR ---
FELIPE received a call from from [facility] stating she has not received updated clinicals for resident. She noted she is covering for case management social worker Emily since she is in a training. FELIPE informed that the resident is discharging home tomorrow. She noted that she will document it in her notes and that because [facility] is not requesting an extension for insurance authorization, no clinicals are needed.
--- NOTE | 2017-12-04 18:33 | NUR ---
Resident sitting in upright position in bed, alert and oriented X 4. No tracheal bleeding noted from s/p tracheostomy removal, no c/o SOB during the shift. Continue on ATB therapy Vancomycin via po for stool c.diff with no ASE noted. Encourage to increase fluid intake. no episodes of diarrhea during the shift. contact isolation observed at all times.
--- NOTE | 2017-12-04 21:10 | NUR ---
RN NOTES No episodes of diarrhea noted.
[2017-12-04 21:19] VITALS: BP 93/53
[2017-12-05] MEDS: IPRATROPIUM NEB FS 0.5 MG/2.5 ML AMPUL.NEB NEB SCH ×3 (01:07→14:12)
[2017-12-05] MEDS: METRONIDAZOLE 500 MG TABLET PO SCH ×2 (05:49→12:11)
[2017-12-05] MEDS: LEVOTHYROXINE SODIUM 50 MCG TABLET PO SCH (05:49)
[2017-12-05] MEDS: VANCOMYCIN HCL 125 MG/2.5 ML ORAL.SUSP PO SCH ×2 (05:50→12:11)
--- NOTE | 2017-12-05 07:25 | NUR ---
NO EPISODES OF DIARRHEA THIS 12 HOURS
[2017-12-05 07:42] VITALS: BP 92/58
[2017-12-05] MEDS: BOOST PLUS FOOD-CHOCLATE 237 ML BOX PO SCH ×2 (08:00→12:10)
[2017-12-05] MEDS: LORATADINE 10 MG TABLET PO SCH (09:17)
[2017-12-05] MEDS: LACTOBACILLUS RHAMNOSUS GG 1 EACH CAP.SPRINK PO SCH (09:18)
[2017-12-05] MEDS: FAMOTIDINE 40 MG TABLET PO SCH (09:19)
[2017-12-05] MEDS: GABAPENTIN 100 MG CAPSULE PO SCH ×2 (09:19→12:12)
[2017-12-05] MEDS: MULTIVIT, IRON, MIN NO. 8, FA 1 TAB PO SCH (09:21)
[2017-12-05] MEDS: PROSOURCE / PROSTAT (PYXIS) 30 ML UDC PO SCH (09:21)
[2017-12-05] MEDS: DIAZEPAM 5 MG TABLET PO SCH (09:23)
--- NOTE | 2017-12-05 09:30 | NUR ---
FELIPE spoke to Elena at [facility]. She wanted to know which home health SW faxed to and FELIPE stated she was still waiting to hear from [facility]. She asked SW to fax referral packet to the following agencies: [facility] (fax: [phone] tel: [phone]), and [facility] (Attn: Joey, tel: [phone]; fax: [phone]). FELIPE also faxed referral packet to Elena per her request (fax: [phone]). SW to follow up.
[2017-12-05] MEDS: NEOMY SULF/BACITRAC ZN/POLY 15 GM TUBE TP SCH (10:00)
[2017-12-05] MEDS: Z GUARD REMEDY 4 OZ OINT TP SCH (10:00)
[2017-12-05] MEDS: VITAMINS A AND D 56.7 GM TUBE TP SCH (10:00)
--- NOTE | 2017-12-05 10:19 | NUR ---
FELIPE followed up with Jozef from [facility] (fax: [phone] tel: [phone]) to see if they received referral packet. [place] indicated that they are able to see the resident and will make an authorization treatment request with [facility]. FELIPE provided them with phone number of Elena, foster care case manager. FELIPE spoke to Elena at [facility] ([phone]) who stated that she can assist and will reach out to [place] if she does not here from here within 30-40 mins. Elena stated she would like to have the authorization request in prior to resident discharging. Addendum: 12/05/17 at 1304 by RYNA WANG Elena stated that the authorization request is in process with [facility] and they will be following up with the resident.
[2017-12-05] MEDS ORDERED: MAGNESIUM OXIDE 400 MG TABLET PO ONE (11:30)
[2017-12-05] MEDS: SERTRALINE HCL 25 MG TABLET PO SCH (12:13)
--- NOTE | 2017-12-05 15:30 | NUR ---
Discharge medication prescription sent to outside pharmacy. Insurance not able to provide diazepam and vancomycin today, stating that diazepam would be available tomorrow for coal picker but vanco was not covered by patient's insurance. Dr Kerns informed and gave order to discontinue vancomycin as patient already receiving flagyl. Educated patient regarding medications. Explained what each medications was for and any possible side effects. Instructed on how many pills to take and at what time of day. Both patient and mother were able to give full return verbal understanding. Time allowed for all questions and concerns expressed and addressed. Patient remains on contact isolation for c-diff. Educated about the importance of frequent hand washing, again, both patient and mother stated full understanding. Exit care instructions given to patient, including the importance of making follow up appointments with primary care doctor and GI doctor within her insurance network. Patient stated understanding and that these would be made either this afternoon or tomorrow. Paperwork signed by patient. Provided with copy of mentioned papers.
--- NOTE | 2017-12-05 16:00 | NUR ---
Patient left unit with mother in stable condition. All personal belongings signed for on personal property list. Heplock and name bands removed.
--- NOTE | 2017-12-05 16:05 | NUR ---
Discharge Note: Resident was discharged home to [address], [place] [address], with mother and her friend via private car. Resident was sent home with Neurontin and Flagyl medication. Resident instructed to hand picker the rest of the medications tomorrow morning at her pharmacy ([facility]- [address] [facility] [address], [place] [address] ; ). Per pharmacist Talya at the pharmacy, the resident's medications are able to be filled and will be ready for pickup tomorrow morning. Informed the resident to call before picking them up as requested by Talya. Resident already took her medications for today. Resident will be followed by [facility] (fax: [phone] tel: [phone]) pending insurance authorization per residential case manager Elena at [facility]. Per mother, staff member called her today to see when the resident would be at home. Resident provided with copy of Victims of Crime application and stated someone should be following up with her once application is processed. Informed resident that she can receive free therapy services under this program. Client stated she felt happy to be going home. Denied suicidal/homicidal ideations and is medically and psychiatrically cleared for discharge. Resident agreed to follow up with her primary care physician and make an appointment for the following week.
--- NOTE | 2017-12-06 07:11 | NUR ---
Resident Transfer or Discharge Form was sent to [facility] (tel: [phone] fax: [phone]) to inform of discharge home yesterday. Fax confirmation page received.
--- NOTE | 2017-12-14 09:48 | NUR ---
FELIPE followed up with the resident to see how the transition was going. She noted that she does not need any resources at this time and continues to focus on getting better. Resident noted that she has a follow up appointment with her primary care doctor tomorrow and with her mental health counselor on Monday12/18/2017. She states she is being followed by a home health agency coordinated by her insurance. She denies suicidal ideations but notes some depression which she will discuss with her counselor on Monday. She states she is walking and understands that she needs to take her time and not push herself too much.
== END 2017-12-05 16:00 | disposition home health service (06) | DRG 130 ==
LOC: SA 22:55
PROVIDERS: ADMIT Internal Medicine; ATTEND Internal Medicine
PROC: 5A1955Z Respiratory Ventilation, Greater than 96 Consecutive Hours (ICD-10-PCS; principal; 2017-10-13)
PROC: 02HV33Z Insertion of Infusion Device into Superior Vena Cava, Percutaneous Approach (ICD-10-PCS; 2017-10-31)
PROC: 0DC68ZZ Extirpation of Matter from Stomach, Via Natural or Artificial Opening Endoscopic (ICD-10-PCS; 2017-11-18)
PROC: 0JB80ZZ Excision of Abdomen Subcutaneous Tissue and Fascia, Open Approach (ICD-10-PCS; 2017-12-01)
PROC: 0BP1XFZ Removal of Tracheostomy Device from Trachea, External Approach (ICD-10-PCS; 2017-12-02)
DX: J96.11 Chronic respiratory failure with hypoxia (principal); R65.21 Severe sepsis with septic shock; N17.0 Acute kidney failure with tubular necrosis; A41.9 Sepsis, unspecified organism; G92 Toxic encephalopathy; J15.1 Pneumonia due to Pseudomonas; A04.72 Enterocolitis due to Clostridium difficile, not specified as recurrent; R18.8 Other ascites; E44.0 Moderate protein-calorie malnutrition; E83.42 Hypomagnesemia; R13.10 Dysphagia, unspecified; Z93.0 Tracheostomy status; Z79.899 Other long term (current) drug therapy; D63.8 Anemia in other chronic diseases classified elsewhere; F32.9 Major depressive disorder, single episode, unspecified; F41.9 Anxiety disorder, unspecified; E87.6 Hypokalemia; E87.0 Hyperosmolality and hypernatremia; Z93.1 Gastrostomy status; Z99.11 Dependence on respirator [ventilator] status; T79.7XXS Traumatic subcutaneous emphysema, sequela; X58.XXXS Exposure to other specified factors, sequela; D47.3 Essential (hemorrhagic) thrombocythemia; T50.902S Poisoning by unspecified drugs, medicaments and biological substances, intentional self-harm, sequela; K74.60 Unspecified cirrhosis of liver; F64.9 Gender identity disorder, unspecified; E83.39 Other disorders of phosphorus metabolism; Z87.01 Personal history of pneumonia (recurrent); L60.3 Nail dystrophy; K66.8 Other specified disorders of peritoneum
CPT/HCPCS: 31720; 36415; 36600; 43761; 71045-TC; 80048-TC; 80053-TC; 82803-TC; 83735-TC; 84100-TC; 84443-TC; 85025-TC; 85610-TC; 85730-TC; 86580-TC; 87040-TC; 87070-TC; 87081-TC; 87086-TC; 87186-TC; 89055; 92521; 92526; 94002-TC; 94003-TC; 94640-TC; 94760-TC; 94762-TC; 94799-TC; 97110-TC; 97116-TC; 97164; 97530-TC; 99082-TC; A4216; A4606; A4623; A6248; A6402; A7526; J0692; J2543; J2704; J3260; J3490; J7060; Q0162; Z7610